=== PATIENT | female | born 1985 | race Caucasian/White ===

== ENCOUNTER 2022-07-21 17:12 | Emergency (ER) | payer OTHER, SELFPAY ==
[2022-07-21 17:32] VITALS: BP 165/92; PULSE 64; RESP 16; TEMP 36.6; O2SAT 100
--- NOTE | 2022-07-21 18:25 | ED.GENADULT ---
HPI - General Adult General Chief complaint: Upper Respiratory Infection Stated complaint: chills, bodyaches, congestion Source: patient Mode of arrival: ambulatory Limitations: no limitations History of Present Illness HPI narrative: Patient presents for evaluation of sick symptoms. She indicates she noticed some oral lesions last night and some white exudate in her posterior pharynx. She developed a headache which persisted until she took some tylenol just [employer]. She denies presence of cough, chills, nausea and diarrhea. Denies any fever or vomiting. Her son is here being evaluated for sick symptoms. Pt had confirmed diagnosis of COVID in August of this year and suspects she had it again in November of this year. She is diabetic but states home BS are controlled on metformin. Related Data Home Medications Medication Instructions Recorded Confirmed losartan 100 mg tablet 100 mg PO DAILY 05/29/20 06/15/20 meloxicam 15 mg tablet mg 07/21/22 rosuvastatin 5 mg tablet mg 07/21/22 spironolactone 50 mg tablet mg 07/21/22 trazodone 50 mg tablet mg 07/21/22 vilazodone 40 mg tablet mg 07/21/22 Allergies Allergy/AdvReac Type Severity Reaction Status Date / Time lisinopril Allergy Unknown unknown Verified 07/21/22 17:39 shrimp Allergy Unknown Skin Verified 07/21/22 17:39 Reaction SKIN GLUE Allergy Intermediate Rash Uncoded 07/21/22 17:39 BENZOIN Allergy Unknown Unknown Uncoded 07/21/22 17:39 Review of Systems Review of Systems: CONSTITUTIONAL: Reports chills. Denies fever, or sweats. EYES: Denies visual changes, redness, or discharge. ENT: Denies rhinorrhea, congestion, sore throat, or otalgia. CARDIOVASCULAR: Denies chest pain, palpitations, or edema. RESPIRATORY: Denies cough or dyspnea. GASTROINTESTINAL: Reports nausea and diarrhea. Denies abdominal pain and vomiting GENITOURINARY: Denies dysuria or hematuria. SKIN: Denies rash or itching. MUSCULOSKELETAL: Denies back pain, joint pain, or myalgia. NEUROLOGIC: Reports headache earlier, now resolved.numbness, dizziness, or weakness. PSYCHIATRIC: Denies anxiety or depression. [facility] Past Medical History Medical History Adult hypothyroidism Diabetes HTN (hypertension) Hyperlipidemia Surgical History Surgical History History of appendectomy History of Lower extremity surgery planned left leg, metal plate 2002 Family History Family History Mother Hypertension Family history of elevated blood lipids Family history of coronary artery disease Family history of cardiovascular disease Father Family history of thyroid disease Dementia Grandparent Family history of lung cancer Family history of primary malignant neoplasm of liver Social History Social History Smoking status: Never smoker Alcohol intake: never Substance use: unknown Living arrangements: with family Gender identity (if verbalized by the patient): Female Spiritual care concerns: No Exam Narrative: GENERAL: Well-appearing, well-nourished, and in no acute distress. HEAD: Normocephalic, atraumatic. EYES: PERRLA and EOMI. ENT: Nares clear, no rhinorrhea or epistaxis. Mucous membranes moist. Bilateral tonsillar enlargement with white/green exudate present. Uvula is midline. Bilateral TMs pearly bass nonbulging NECK: Supple. No adenopathy or masses. No carotid bruits or JVD CHEST: Clear to auscultation. No respiratory distress. No wheezes rales or rhonchi HEART: Regular rate and rhythm. No murmur heard. Normal peripheral pulses. ABDOMEN: Soft, nontender, nondistended, normal active bowel sounds. EXTREMITIES: Normal range of motion. No edema. SKIN: Warm, dry, no rash. NEURO: No focal deficits. Alert and oriented x3. PSY
== END 2022-07-21 18:58 | disposition home or self-care (01) ==
PROVIDERS: Emergency Provider Nurse Practitioner
DX: B34.9 Viral infection, unspecified (principal); E11.9 Type 2 diabetes mellitus without complications; I10 Essential (primary) hypertension; E78.5 Hyperlipidemia, unspecified; E03.9 Hypothyroidism, unspecified
CPT/HCPCS: 87081; 87804; 87880; 99213; G0463

== ENCOUNTER 2022-10-14 11:36 | Emergency (ER) | payer OTHER, SELFPAY ==
--- NOTE | 2022-10-14 11:55 | ED.URI ---
HPI - URI/Sore Throat General Chief Complaint: Upper Respiratory Infection Stated Complaint: diarrhea, loss of appetite, cough Time Seen by Provider: 10/14/22 12:47 Source: patient and RN notes reviewed Mode of arrival: ambulatory Limitations: no limitations History of Present Illness HPI Narrative: 37-year-old female presents concern for diarrhea, cough, loss of appetite for 6 days. Reports her son has similar symptoms. She denies fever, body aches, chills sweats. Reports some nasal congestion rhinorrhea. She denies taking any medicine at home for her symptoms MD elicited complaint: cough Related Data Home Medications Medication Instructions Recorded Confirmed losartan 100 mg tablet 100 mg PO DAILY 05/29/20 10/14/22 meloxicam 15 mg tablet 15 mg PO DAILY 07/21/22 10/14/22 rosuvastatin 5 mg tablet 5 mg PO DAILY 07/21/22 10/14/22 spironolactone 50 mg tablet 50 mg PO DAILY 07/21/22 10/14/22 trazodone 50 mg tablet 50 mg PO HS 07/21/22 10/14/22 vilazodone 40 mg tablet 40 mg PO DAILY 07/21/22 10/14/22 Allergies Allergy/AdvReac Type Severity Reaction Status Date / Time lisinopril Allergy Unknown unknown Verified 10/14/22 12:36 shrimp Allergy Unknown Skin Verified 10/14/22 12:36 Reaction SKIN GLUE Allergy Intermediate Rash Uncoded 10/14/22 12:36 BENZOIN Allergy Unknown Unknown Uncoded 10/14/22 12:36 Review of Systems Review of Systems: CONSTITUTIONAL: Reports malaise. Denies chills, sweats, or fever. EYES: Denies visual changes, redness, or discharge. ENT: Reports rhinorrhea, congestion. Denies sinus pain, otalgia and sore throat. CARDIOVASCULAR: Denies chest pain, palpitations, or edema. RESPIRATORY: Reports cough. Denies dyspnea. GASTROINTESTINAL: Denies abdominal pain, nausea, vomiting. Reports diarrhea SKIN: Denies rash or itching. MUSCULOSKELETAL: Denies myalgia. NEUROLOGIC: Denies headache. All systems reviewed & are unremarkable except as noted in HPI and below PMFSH Past Medical History Medical History Adult hypothyroidism Diabetes HTN (hypertension) Hyperlipidemia Surgical History Surgical History History of appendectomy History of Lower extremity surgery planned left leg, metal plate 2002 Family History Family History Mother Hypertension Family history of elevated blood lipids Family history of coronary artery disease Family history of cardiovascular disease Father Family history of thyroid disease Dementia Grandparent Family history of lung cancer Family history of primary malignant neoplasm of liver Social History Social History Smoking status: Never smoker Alcohol intake: never Substance use: unknown Living arrangements: with family Occupation/Education: unemployed Gender identity (if verbalized by the patient): Female Spiritual care concerns: No Comments At time of signature, agree with nursing past medical, surgical, social and family history. There is no relevant family history pertinent to the presenting complaint Exam Narrative: GENERAL: Well-appearing, well-nourished, and in no acute distress. HEAD: Normocephalic EYES: PERRLA, conjunctivae clear ENT: Nares clear, clear discharge. Mucous membranes moist. TM pearly bass with dull light reflex bilaterally; no tragal tenderness. Oropharynx not erythematous without lesions. Tonsils not enlarged and without exudate, no drooling, no hoarseness, no trismus, uvula midline. NECK: Supple. No lymphadenopathy CHEST: Clear to auscultation, breath sounds equal. No wheezing, rhonchi, rales, or stridor. No respiratory distress, speaks in full sentences. HEART: Regular rate and rhythm. No murmur heard. SKIN: Warm, dry, no rash. NEURO: Alert and oriented x3. PSYCH: Normal
[2022-10-14 12:28] VITALS: BP 126/88; PULSE 72; RESP 20; TEMP 36.3; O2SAT 98
[2022-10-14 12:40] VITALS: BP 126/88; PULSE 72; RESP 20; TEMP 36.3; O2SAT 98
== END 2022-10-14 13:24 | disposition home or self-care (01) ==
PROVIDERS: Emergency Provider Nurse Practitioner; PCP Nurse Practitioner Family
DX: J06.9 Acute upper respiratory infection, unspecified (principal); I10 Essential (primary) hypertension; E78.5 Hyperlipidemia, unspecified; E11.9 Type 2 diabetes mellitus without complications; Z79.1 Long term (current) use of non-steroidal anti-inflammatories (NSAID)
CPT/HCPCS: 99213; G0463

== ENCOUNTER 2023-02-06 22:51 | Emergency (ER) | payer OTHER, SELFPAY ==
--- NOTE | ~2023-02-06 | XR_ITS ---
AP and oblique views of the right ribs Clinical History: Pain Findings: No rib fracture is seen. Osseous alignment is anatomic. Lungs are clear, without focal cons olidation or pleural effusion. Cardiomediastinal contour is within normal limits. Soft tissues are un remarkable. Impression: No rib fracture is seen. Reviewed, dictated and finalized at [facility]. Impression: No rib fracture is seen.
[2023-02-06 22:52] VITALS: BP 152/95; PULSE 83; RESP 16; TEMP 36.4; O2SAT 100
[2023-02-07 02:10] VITALS: BP 160/98; PULSE 66; RESP 18; O2SAT 100
[2023-02-07] MEDS: IBUPROFEN 400 MG TABLET 800 MG PO (03:54)
[2023-02-07] MEDS: methocarbamoL 750 MG TABLET 1500 MG PO (03:54)
[2023-02-07] MEDS: ACETAMINOPHEN 500 MG TABLET 1000 MG PO (03:55)
[2023-02-07] MEDS: TETANUS,DIPHTHERIA,AC PERTUSSIS ADULT (0.5 ML) BOOSTRIX IM (03:55)
--- NOTE | 2023-02-07 04:19 | ED.GENADULT ---
HPI - General Adult General Chief complaint: Back Pain/Injury Stated complaint: pulled off porch by dog Time Seen by Provider: 02/07/23 01:57 History of Present Illness HPI narrative: this is a 38-year-old female presenting ED with right-sided pain. She was walking her dog when it pulled her off of her porch and she fell to the ground. She landed on her right side. She has some pain over the right ribcage. She has some pain with deep inspiration. No abdominal pain. No nausea or vomiting. No head trauma. He is not on blood thinners. Related Data Home Medications Medication Instructions Recorded Confirmed losartan 100 mg tablet 100 mg PO DAILY 05/29/20 10/14/22 meloxicam 15 mg tablet 15 mg PO DAILY 07/21/22 10/14/22 rosuvastatin 5 mg tablet 5 mg PO DAILY 07/21/22 10/14/22 spironolactone 50 mg tablet 50 mg PO DAILY 07/21/22 10/14/22 trazodone 50 mg tablet 50 mg PO HS 07/21/22 10/14/22 vilazodone 40 mg tablet 40 mg PO DAILY 07/21/22 10/14/22 Allergies Allergy/AdvReac Type Severity Reaction Status Date / Time lisinopril Allergy Unknown unknown Verified 02/07/23 02:08 shrimp Allergy Unknown Skin Verified 02/07/23 02:08 Reaction SKIN GLUE Allergy Intermediate Rash Uncoded 02/07/23 02:08 BENZOIN Allergy Unknown Unknown Uncoded 02/07/23 02:08 REPLACED BY [facility] Past Medical History Medical History Adult hypothyroidism Diabetes HTN (hypertension) Hyperlipidemia Surgical History Surgical History History of appendectomy History of Lower extremity surgery planned left leg, metal plate 2002 Family History Family History Mother Hypertension Family history of elevated blood lipids Family history of coronary artery disease Family history of cardiovascular disease Father Family history of thyroid disease Dementia Grandparent Family history of lung cancer Family history of primary malignant neoplasm of liver Social History Social History Smoking status: Never smoker Alcohol intake: never Substance use: unknown Living arrangements: with family Occupation/Education: unemployed Gender identity (if verbalized by the patient): Female Spiritual care concerns: No Exam Narrative: APPEARANCE: No apparent distress. Head: atraumatic. EYES: EOMI, NOSE: Atraumatic NECK: Trachea midline RESPIRATORY: No increased rate of breathing clear to auscultation CARDIOVASCULAR: RRR, ABDOMINAL: abdomen is obese but nontender no guarding or rebound MUSCULOSKELETAl: tenderness to palpation over the right ribcage NEURO: Alert. Moving 4/4 extremities SKIN:: abrasions over the right lateral calf PSYCHIATRIC: Normal affect Course Vital Signs Vital signs: Vital Signs Temperature 97.6 F 02/06/23 22:52 Pulse Rate 83 02/06/23 22:52 Respiratory Rate 16 02/06/23 22:52 Blood Pressure 152/95 H 02/06/23 22:52 Pulse Oximetry 100 02/06/23 22:52 Oxygen Delivery Room Air 02/06/23 22:52 Temperature 97.6 F 02/06/23 22:52 Pulse Rate 72 02/07/23 05:57 Respiratory Rate 15 02/07/23 05:57 Blood Pressure 138/80 02/07/23 05:57 Pulse Oximetry 97 02/07/23 05:57 Oxygen Delivery Room Air 02/06/23 22:52 Medical Decision Making [facility] Narrative Medical decision making narrative: -Presentation: 38-year-old female presenting with a ground level fall after being pulled Down by her dog. She has tenderness over the right ribcage. X-rays been ordered to evaluate for rib fractures or sequelae. 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
[2023-02-07 05:57] VITALS: BP 138/80; PULSE 72; RESP 15; O2SAT 97
[2023-02-07 06:36] VITALS: BP 134/76; PULSE 70; RESP 16; O2SAT 99
== END 2023-02-07 06:37 | disposition home or self-care (01) ==
PROVIDERS: Emergency Provider Emergency Medicine; PCP Nurse Practitioner Family
DX: S20.211A Contusion of right front wall of thorax, initial encounter (principal); Z23 Encounter for immunization; I10 Essential (primary) hypertension; E11.9 Type 2 diabetes mellitus without complications; E03.9 Hypothyroidism, unspecified; E78.5 Hyperlipidemia, unspecified; W13.8XXA Fall from, out of or through other building or structure, initial encounter; Y93.K1 Activity, walking an animal
CPT/HCPCS: 71101; 90471; 90715; 99283; A9270

== ENCOUNTER 2023-11-14 09:54 | Outpatient (CLI) | payer OTHER, SELFPAY ==
--- NOTE | ~2023-11-14 | XR_ITS ---
EXAMINATION:XR cervical spine 4-5V DATE: 11/14/2023 10:15 INDICATION: Neck pain TECHNIQUE: AP, lateral, bilateral oblique and odontoid views of the cervical spine are provided. COMPARISON: None FINDINGS: Alignment is normal. The odontoid process is intact. No fracture is identified. There is mo derate loss of intervertebral disc space height at C5-6. There is mild loss of disc space height thro ughout the remainder of the cervical spine. There are moderate-sized endplate osteophytes at C5-6. Pr evertebral soft tissues are normal. There is moderate bilateral uncovertebral joint osteoarthritis at C5-6. IMPRESSION: 1. Moderate cervical spondylosis at C5-6 without acute findings. Reviewed, dictated and finalized at location A.
== END 2023-11-14 09:55 | disposition home or self-care (01) ==
PROVIDERS: PCP Family Medicine; Visit Provider Family Medicine
DX: M47.892 Other spondylosis, cervical region (principal)
CPT/HCPCS: 72050

== ENCOUNTER 2024-01-21 14:45 | Outpatient (CLI) | payer OTHER, SELFPAY ==
--- NOTE | ~2024-01-21 | XR_ITS ---
Right foot Technique: AP, oblique, and lateral views were obtained. Clinical History: Pain Findings: No acute fracture or dislocation is seen. Osseous alignment is anatomic. There are degenera tive change dorsally at the talonavicular articulation. Soft tissues are unremarkable. Impression: Degenerative change of the talonavicular articulation, as above. Reviewed, dictated and finalized at location . Impression: Degenerative change of the talonavicular articulation, as above.
== END 2024-01-21 14:46 | disposition home or self-care (01) ==
LOC: ANHIMG 14:47
PROVIDERS: PCP Family Medicine; Visit Provider Student in an Organized Health Care Education/Training Program
DX: M19.071 Primary osteoarthritis, right ankle and foot (principal)
CPT/HCPCS: 73630

== ENCOUNTER 2024-09-24 14:58 | Outpatient (CLI) | payer OTHER, SELFPAY ==
--- OUTSIDE RECORDS SUMMARY | 2024-09-24 15:01 | XMS_ITS | Encounter Summary ---
Author Organization [facility] Address [address] [place] [address] Care Team Providers Care Database Programmer Name Role Phone Unavailable Primary Care Provider Unavailabl e Encounter Details Date Type Department Care Team (Late st Contact Info) Description 12/12/2020 Telephone [facility] [address] [place] [address] Cole Villanueva MD [address] [place] [id number] Social History Tobacco Use Types Packs/Day Years Used Date Smoking Tobacco: Never Assessed Sex and Gender Information Value Date Recorded Sex Assigned at Not on file Gender Identity Not on file Sexual Orientation Not on file documented as of this encounter Plan of Treatment Not on file documented as of this encounter Visit Diagnoses Not on filedocumented in this encounter
--- OUTSIDE RECORDS SUMMARY | 2024-09-24 15:01 | XMS_ITS | Encounter Summary ---
Author Organization [facility] Address [address] [place] [address] Care Team Providers Care Section Maintainer Name Role Phone Heidi Samuel MD Primary Care Provider [phone] Reason for Visit * Reason Comments Flu Like Symptoms Encounter Details Date Type Department Care Team (Late st Contact Info) Description 09/23/2024 8:29 PM SENIOR COGNOS DEVELOPER - 09/23/2024 11:49 PM SENIOR COGNOS DEVELOPER Emergency [facility] [id number] [place] [address] Shabbir Boo MD [address] [place] [id number] Flu Like Symptoms Discharge Disposition: Home or Self Care (Routine Discharge) Social History Tobacco Use Types Packs/Day Years Used Date Smoking Tobacco: Never Smokeless Tobacco: Never Alcohol Use Standard Drinks/Week Comments Not Currently 0 (1 standard drink = 0.6 oz pur e alcohol) Comments No Sex and Gender Information Value Date Recorded Sex Assigned at Female 09/23/2024 8:26 PM SENIOR COGNOS DEVELOPER Legal Sex Female 7:41 PM CDT Gender Identity Not on file Sexual Orientation Not on file documented as of this encounter Last Filed Vital Signs Vital Sign Reading Time Taken Comments Blood Pressure 151/108 09/23/2024 11:30 PM SENIOR COGNOS DEVELOPER Pulse 75 09/23/2024 11:30 PM SENIOR COGNOS DEVELOPER Temperature 36.3 C (97.4 F) 09/23/2024 8:32 PM SENIOR COGNOS DEVELOPER Respiratory Rate 17 09/23/2024 11:30 PM SENIOR COGNOS DEVELOPER Oxygen Saturation 94% 09/23/2024 11:30 PM SENIOR COGNOS DEVELOPER Inhaled Oxygen Concentration - - Weight 145.2 kg (320 lb) 09/23/2024 8:32 PM SENIOR COGNOS DEVELOPER Height 160 cm (5' 3 ) 09/23/2024 8:32 PM SENIOR COGNOS DEVELOPER Body Mass Index 56.69 09/23/2024 8:32 PM SENIOR COGNOS DEVELOPER documented in this encounter Discharge Instructions * Discharge Instructions* Shabbir Boo MD - 09/23/2024 11:22 PM SENIOR COGNOS DEVELOPER The lab work today showed an elevated blood glucose but no significant complications from it including DKA or anything else. The chest x-ray did not show signs of pneumonia. The viral swabs for influenza, COVID were both negative. Continue taking your medications for diabetes as prescribed. Follow-up with your primary care provider physician to discuss your occasion regimen for diabetes and to recheck your blood glucose. Return to the emergency department if you have worsening or concerning symptoms. OR COGNOS DEVELOPER OR COGNOS DEVELOPER * Attachments The following attachments cannot be sent through Care Everywhere. * High Blood Sugar, Adult (Colombian) * Viral Syndrome Discharge Instructions (Colombian) documented in this encounter Medications at Time of Discharge Docusate Sodium (DSS) 250 MG Cap Take 250 mg by mouth daily. hydroCHLOROthiaz moses (MICROZIDE) 12.5 MG capsule Take 1 capsule (12.5 mg total) by mouth daily. 02/28/2022 hydrocortisone 2.5 % cream Apply topically 3 (three) times daily. 30 g 02/22/2024 levothyroxine (SYNTHROID) 112 MCG tablet Take 1 tablet (112 mcg total) by mouth daily. 02/08/2022 losartan (COZAAR) 50 MG tablet Take 1 tablet (50 mg total) by mouth daily. 06/13/2021 meloxicam (MOBIC) 7.5 MG tablet Take 1 tablet (7.5 mg total) by mouth 2 (two) times a day. 08/16/2021 metFORMIN (GLUCOPHAGE) 500 MG tablet Take 1 tablet (500 mg total) by mouth 2 (two) times daily with meals. metroNIDAZOLE (FLAGYL) 500 MG tablet Take 1 tablet (500 mg total) by mouth 3 (three) times a day. 03/22/2022 multi vitamin/minerals (THERA-M ENHANCED) tablet Take 1 tablet by mouth daily. rosuvastatin (CRESTOR) 5 MG tablet Take 1 tablet (5 mg total) by mouth every other day. 09/26/2020 spironolactone (ALDACTONE) 50 MG tablet Take 1 tablet (50 mg total) by mouth daily. 02/12/2022 VIIBRYD 40 MG tablet Take 0.5 tablets (20 mg total) by mouth nightly. 02/04/2022 vitamin B-12 (CYANOCOBALAMIN) 500 MCG tablet Take 1 tablet (500 mcg total) by mouth daily. vitamin D3 (CHOLECALCIFEROL ) 25 mcg tablet Take 1 tablet (25 mcg total) by mouth daily. documented as of this encounter ED Notes * Shabbir Boo MD - 09/23/2024 8:53 PM CST Chief Complaint Chief Complaint Patient presents with Flu Like Symptoms History of Present Illness 39-year-old female with history of diabetes here with viral URI symptoms. Symptoms have been present for about 1 week. Patient states she has had polydipsia for the past few days as well. Says sugarshave been running high. History provided by: Patient Medical History ALLERGIES: Review of patient's allergies indicates: Allergen Reactions Cyanoacrylate Rash Neomycin-Bacitracin Zn-Polymyx Rash Chloraprep One Step [Chlorhexidine Gluconate] Hives and Itching Iodine Hives Sulfamethoxazole-Trimethoprim Other (see comment) it makes me not feel good Bacitracin-Polymyxin B Rash MEDICATIONS: Prior to Admission medications Medication Sig Start Date End Date Taking? Authorizing Provider Docusate Sodium (DSS) 250 MG Cap Take 250 mg by mouth daily. [facility] hydroCHLOROthiazide (MICROZIDE) 12.5 MG capsule Take 1 capsule (12.5 mg total) by mouth daily. 02/28/22 [facility] hydrocortisone 2.5 % cream Apply topically 3 (three) times daily. 02/22/24 Gerri Latif MD levothyroxine (SYNTHROID) 112 MCG tablet Take 1 tablet (112 mcg total) by mouth daily. 02/08/22 [facility] losartan (COZAAR) 50 MG tablet Take 1 tablet (50 mg total) by mouth daily. 06/13/21 [facility] meloxicam (MOBIC) 7.5 MG tablet Take 1 tablet (7.5 mg total) by mouth 2 (two) times a day. 08/16/21[facility] metFORMIN (GLUCOPHAGE) 500 MG tablet Take 1 tablet (500 mg total) by mouth 2 (two) times daily withmeals. [facility] metroNIDAZOLE (FLAGYL) 500 MG tablet Take 1 tablet (500 mg total) by mouth 3 (three) times a day. 03/22/22 [facility] multi vitamin/minerals (THERA-M ENHANCED) tablet Take 1 tablet by mouth daily. [facility] rosuvastatin (CRESTOR) 5 MG tablet Take 1 tablet (5 mg total) by mouth every other day. 09/26/20 [facility] spironolactone (ALDACTONE) 50 MG tablet Take 1 tablet (50 mg total) by mouth daily. 02/12/22 [facility] VIIBRYD 40 MG tablet Take 0.5 tablets (20 mg total) by mouth nightly. 02/04/22 [facility] vitamin B-12 (CYANOCOBALAMIN) 500 MCG tablet Take 1 tablet (500 mcg total) by mouth daily. [facility] vitamin D3 (CHOLECALCIFEROL) 25 mcg tablet Take 1 tablet (25 mcg total) by mouth daily. [facility] PAST MEDICAL HISTORY: Past Medical History: Diagnosis Date Anxiety disorder, unspecified Diabetes mellitus ([facility]/HCC [facility]/HCC) Essential (primary) hypertension High cholesterol Hypothyroidism, unspecified PAST SURGICAL HISTORY: Past Surgical History: Procedure Laterality Date APPENDECTOMY 1999 SECTION 2019 ORIF TIBIAL SHAFT FRACTURE W/ PLATES AND SCREWS Left 2002 ankle UMBILICAL HERNIA REPAIR 2020 FAMILY HISTORY: No family history on file. SOCIAL HISTORY: Social History Tobacco Use Smoking status: Never Smokeless tobacco: Never Vaping Use Vaping status: Never Used Substance Use Topics Alcohol use: Not Currently Drug use: Not Currently Review of Systems Review of Systems All other systems reviewed and are negative. Physical Exam Filed Vitals: 09/23/24 2032 09/23/24 2034 09/23/24 2200 09/23/24 2330 BP: (!) 160/89 (!) 138/95 (!) 151/108 Pulse: 90 87 75 Resp: 18 17 Temp: 97.4 ??F (36.3 ??C) TempSrc: Temporal SpO2: 96% 95% 94% Weight: (!) 145.2 kg (320 lb) Height: 1.6 m (5' 3 ) Physical Exam Vitals and nursing note reviewed. Constitutional: General: She is not in acute distress. Appearance: Normal appearance. She is ill-appearing. She is not toxic-appearing or diaphoretic. HENT: Head: Normocephalic and atraumatic. Right Ear: External ear normal. Left Ear: External ear normal. Nose: Nose normal. Mouth/Throat: Mouth: Mucous membranes are moist. Pharynx: Oropharynx is clear. No oropharyngeal exudate. Eyes: Conjunctiva/sclera: Conjunctivae normal. Pupils: Pupils are equal, round, and reactive to light. Cardiovascular: Rate and Rhythm: Normal rate and regular rhythm. Pulses: Normal pulses. Heart sounds: Normal heart sounds. No murmur heard. Pulmonary: Effort: Pulmonary effort is normal. Breath sounds: Normal breath sounds. Abdominal: Palpations: Abdomen is soft. Tenderness: There is no abdominal tenderness. Musculoskeletal: General: Normal range of motion. Right lower leg: No edema. Left lower leg: No edema. Skin: General: Skin is warm and dry. Capillary Refill: Capillary refill takes less than 2 seconds. Neurological: General: No focal deficit present. Mental Status: She is alert and oriented to person, place, and time. Diagnostic Studies / Procedures ELECTROCARDIOGRAMS: No results found for this visit on 09/23/24. LABORATORY STUDIES: Results for orders placed or performed during the hospital encounter of 09/23/24 BASIC METABOLIC PANEL Result Value Ref Range GLUCOSE 567 (HH) 70 - 99 MG/DL BUN 14 7 - 18 MG/DL CREATININE S/P/B 1.24 (H) 0.55 - 1.02 MG/DL SODIUM S/P/B 127 (L) 136 - 145 MMOL/L POTASSIUM S/P/B 4.0 3.5 - 5.1 MMOL/L CHLORIDE S/P/B 90 (L) 100 - 108 MMOL/L CO2 23.4 21 - 32 MMOL/L CALCIUM S/P/B 9.5 8.5 - 10.1 MG/DL ANION GAP 13.6 5 - 15 MMOL/L BUN CREATININE RATIO 11.3 6 - 26 GFR ESTIMATE 57 (L) >90 ML/MIN/1.73 M2 POCT glucose Result Value Ref Range GLUCOSE POC 496 (H) 70 - 110 mg/dL CORONAVIRUS (COVID-19) MOLECULAR Specimen: NASOPHARYNGEAL SWAB Result Value Ref Range CORONAVIRUS SARS COV 2 RNA NEGATIVE NEGATIVE SPECIMEN TYPE NASAL INFLUENZA A & B Specimen: NASAL Result Value Ref Range SPECIMEN TYPE NASOPHARYNX INFLUENZA A NEGATIVE NEGATIVE INFLUENZA B NEGATIVE NEGATIVE RESP SYNCYTIAL VIRUS Specimen: NASOPHARYNGEAL SWAB Result Value Ref Range SPECIMEN TYPE NASOPHARYNGEAL SWAB RAPID RSV NEGATIVE NEGATIVE IMAGING STUDIES XR CHEST PA+LAT Final Result by User, [id number] (09/23 2131) [facility] [address] [address] [place] [id number] Examination: Chest 2 View History: Cough, fever DATE/TIME: 09/23/2024 8:58 PM Comparison: 05/28/2021 Technique: PA and lateral views were obtained. Findings: Heart size, mediastinal contours and pulmonary vasculature are within normal limits. No pulmonary consolidation, pleural effusion or pneumothorax. No acute osseous abnormality. Thoracic spondylosis. Impression: No acute findings. Referred By: Interpreted By: Gustavo Chua MD, 09/23/2024 9:22 PM ED Course / Medical Decision Making Medical Decision Making Labs show hyperglycemia but no evidence of DKA or HHS or other significant complications associatedwith hyperglycemia. Given liter of normal saline and dose of insulin. Advised patient to follow-up with her primary care provider physician to discuss her medication regimen for diabetes. Problems Addressed: Hyperglycemia: acute illness or injury Viral URI with cough: acute illness or injury Amount and/or Complexity of Data Reviewed Labs: ordered. Decision-making details documented in ED Course. Radiology: ordered and independent interpretation performed. Decision-making details documented in ED Course. ED Course as of 09/23/24 2345 Madhavi Sep 23, [id number] CORONAVIRUS SARS COV 2 RNA: NEGATIVE [JH] 2119 CORONAVIRUS SARS COV 2 RNA: NEGATIVE [JH] 2119 INFLUENZA A: NEGATIVE [JH] 212 INFLUENZA B: NEGATIVE [JH] 2119 RAPID RSV: NEGATIVE [] 221 GLUCOSE POC(!): 496 [JH] 2311 ANION GAP: 13.6 [JH] 2311 CO2: 23.4 [] 2311 BASIC METABOLIC PANEL(!!) Hyperglycemic but not consistent with DKA [] 2311 CREATININE S/P/B(!): 1.24 Mild LALITHA [] 2338 SODIUM S/P/B(!): 127 Corrected Na 137 [JH] ED Course User Index [] Shabbir Boo MD Clinical Impression Hyperglycemia (Primary) Viral URI with cough Disposition: Discharge Shabbir Boo MD 09/23/242344 OR COGNOS DEVELOPER * Sari Crocker RN - 09/23/2024 8:29 PM CST Pt presents to ED with complaints of congestion, fatigue, body aches, cough, intermittent fevers and sore throat. Pt reports symptoms started about 8 days ago and everyone in her household has influenza A. OR COGNOS DEVELOPER documented in this encounter Plan of Treatment Not on file documented as of this encounter Procedures Procedure Name Priority Date/Time Associated Diagnosis Comments POCT GLUCOSE - SANTANA DOCKED DEVICE Routine 09/23/2024 11:45 PM SENIOR COGNOS DEVELOPER BASIC METABOLIC PANEL STAT 09/23/2024 10:20 PM SENIOR COGNOS DEVELOPER POCT GLUCOSE - SANTANA DOCKED DEVICE Routine 09/23/2024 10:11 PM SENIOR COGNOS DEVELOPER XR CHEST PA+LAT STAT 09/23/2024 9:12 PM SENIOR COGNOS DEVELOPER CORONAVIRUS (COVID 19) STAT 09/23/2024 8:33 PM SENIOR COGNOS DEVELOPER INFLUENZA A & B STAT 09/23/2024 8:33 PM SENIOR COGNOS DEVELOPER RESP SYNCYTIAL VIRUS STAT 09/23/2024 8:33 PM SENIOR COGNOS DEVELOPER documented in this encounter Results * (ABNORMAL) POCT glucose (09/23/2024 11:45 PM SENIOR COGNOS DEVELOPER) GLUCOSE POC 415(H) 70 - 110 mg/dL 09/23/2024 11:49 PM [facility] 09/23/2024 11:4 5 PM SENIOR COGNOS DEVELOPER Shabbir Boo MD POCT ORDERABLES - DEVICE Final R esult [facility] [address] [place] [address], * (ABNORMAL) BASIC METABOLIC PANEL (09/23/2024 10:20 PM SENIOR COGNOS DEVELOPER) [facility] GLUCOSE 567(HH) 70 - 99 MG/DL 09/23/2024 11:10 PM [facility] Comment: Critical Result(s) Called at: 23:09:39 on 09/23/2024 by: INDU ZEPEDA to and read back by: JAS LAROSE RN BUN 14 7 - 18 MG/DL 09/23/2024 11:10 PM [facility] CREATININE S/P/B 1.24(H) 0.55 - 1.02 MG/DL 09/23/2024 11:10 PM [facility] SODIUM S/P/B 127(L) 136 - 145 MMOL/L 09/23/2024 11:10 PM [facility] POTASSIUM S/P/B 4.0 3.5 - 5.1 MMOL/L 09/23/2024 11:10 PM [facility] CHLORIDE S/P/B 90(L) 100 - 108 MMOL/L 09/23/2024 11:10 PM [facility] CO2 23.4 21 - 32 MMOL/L 09/23/2024 11:10 PM [facility] CALCIUM S/P/B 9.5 8.5 - 10.1 MG/DL 09/23/2024 11:10 PM SENIOR COGNOS DEVELOPER [facility] ANION GAP 13.6 5 - 15 MMOL/L 09/23/2024 11:10 PM [facility] BUN CREATININE RATIO 11.3 6 - 26 09/23/2024 11:10 PM [facility] GFR ESTIMATE 57(L) >90 ML/MIN/1.7 3 M2 09/23/2024 11:10 PM [facility] Comment: NOTE: eGFR is not calculated for patients <18 years of age. This is an estimated GFR calculation using the new CKD EPI creatinine equation without race and so does not require a correction factor for race. This estimated GFR should not be used for calculating drug doses. 09/23/2024 10:2 0 PM SENIOR COGNOS DEVELOPER us Shabbir Boo MD LABORATORY Final Result Performing Organization Address [facility]/ZIP Co de Phone Number [facility] [address] [place] [address], [place] [phone] * (ABNORMAL) POCT glucose (09/23/2024 10:11 PM SENIOR COGNOS DEVELOPER) [facility] GLUCOSE POC 496(H) 70 - 110 mg/dL 09/23/2024 10:13 PM SENIOR COGNOS DEVELOPER [facility] 09/23/2024 10:1 1 PM SENIOR COGNOS DEVELOPER us Shabbir Boo MD POCT ORDERABLES - DEVICE Final R esult Performing Organization Address City/[facility]/ZIP Co de Phone Number [facility] [address] [place] [address], [place] [phone] * XR CHEST PA+LAT (09/23/2024 9:12 PM SENIOR COGNOS DEVELOPER) Anatomical Region Laterality Modality Chest Radiographic Alyssa ging 09/23/2024 9:22 PM SENIOR COGNOS DEVELOPER Impressions 09/23/2024 9:27 PM SENIOR COGNOS DEVELOPER Impression: No acute findings. Referred By: Interpreted By: Gustavo Chua MD, 09/23/2024 9:22 PM Narrative 09/23/2024 9:27 PM SENIOR COGNOS DEVELOPER [address] [place] [address] Examination: Chest 2 View History: Cough, fever DATE/TIME: 09/23/2024 8:58 PM Comparison: 05/28/2021 Technique: PA and lateral views were obtained. Findings: Heart size, mediastinal contours and pulmonary vasculature are within normal limits. No pulmonary consolidation, pleural effusion or pneumothorax. No acute osseous abnormality. Thoracic spondylosis. Procedure Note Gustavo Chua MD - 09/23/[address] [place] [address] Examination: Chest 2 View History: Cough, fever DATE/TIME: 09/23/2024 8:58 PM Comparison: 05/28/2021 Technique: PA and lateral views were obtained. Findings: Heart size, mediastinal contours and pulmonary vasculature arewithin normal limits. No pulmonary consolidation, pleural effusion orpneumothorax. No acute osseous abnormality. Thoracic spondylosis. Impression: No acute findings. Referred By: Interpreted By: Gustavo Chua MD, 09/23/2024 9:22 PM us Shabbir Boo MD GENERAL IMAGING Final Result * RESP SYNCYTIAL VIRUS (09/23/2024 8:33 PM SENIOR COGNOS DEVELOPER) SPECIMEN TYPE NASOPHARYNGEAL SWAB 09/23/2024 8:55 PM SENIOR COGNOS DEVELOPER [facility] RAPID RSV NEGATIVE NEGATIVE 09/23/2024 9:15 PM SENIOR COGNOS DEVELOPER [facility] NASOPHARYNGEAL SWAB / Unknown 09/23/2024 8:33 PM SENIOR COGNOS DEVELOPER us Shabbir oBo MD MICROBIOLOGY - GENERAL ORDERABLE S Final Result Performing Organization Address [facility] Co de Phone Number [facility] [address] [place] [address], * INFLUENZA A & B (09/23/2024 8:33 PM SENIOR COGNOS DEVELOPER) SPECIMEN TYPE NASOPHARYNX 09/23/2024 9:15 PM SENIOR COGNOS DEVELOPER [facility] INFLUENZA A NEGATIVE NEGATIVE 09/23/2024 9:15 PM SENIOR COGNOS DEVELOPER [facility] INFLUENZA B NEGATIVE NEGATIVE 09/23/2024 9:15 PM SENIOR COGNOS DEVELOPER [facility] NASAL STRUCTURE / Unknown 09/23/2024 8:33 PM SENIOR COGNOS DEVELOPER us Shabbir Boo MD MICROBIOLOGY - GENERAL ORDERABLE S Final Result Performing Organization Address [facility] de Phone Number [facility] [address] [place] [address], [place] [phone] * CORONAVIRUS (COVID-19) MOLECULAR (09/23/2024 8:33 PM SENIOR COGNOS DEVELOPER) CORONAVIRUS SARS COV 2 RNA NEGATIVE NEGATIVE 09/23/2024 9:13 PM SENIOR COGNOS DEVELOPER [facility] Comment: NEGATIVE RESULTS DO NOT RULE OUT COVID 19 AND SHOULD NOT BE USED THE SOLE BASIS FOR TREATMENT OR PATIENT MANAGEMENT DECISIONS, INCLUDING INFECTION CONTROL DECISIONS. NEGATIVE RESULTS SHOULD BE CONSIDERED IN THE CONTEXT OF A PATIENT'S RECENT EXPOSURES, HISTORY AND THE PRESENCE OF CLINICAL SIGNS AND SYMPTOMS CONSISTENT WITH COVID 19. THE ID NOW COVID-19 2.0 TEST HAS BEEN AUTHORIZED BY THE FDA UNDER EAU FOR USE BY AUTHORIZED LABORATORIES. PERFORMED BY NUCLEIC ACID AMPLIFICATION FOR MOLECULAR QUALITATIVE DETECTION OF SARS-COV-2. SPECIMEN TYPE NASAL 09/23/2024 8:55 PM SENIOR COGNOS DEVELOPER [facility] NASOPHARYNGEAL SWAB / Unknown 09/23/2024 8:33 PM SENIOR COGNOS DEVELOPER us Shabbir Boo MD MICROBIOLOGY - GENERAL ORDERABLE S Final Result [facility] [address] [place] [address], [place] [phone] documented in this encounter Visit Diagnoses Diagnosis Hyperglycemia- Primary Other abnormal glucose Viral URI with cough Acute upper respiratory infections of unspecified site documented in this encounter Administered Medications Inactive Administered Medications - up to 3 most recent administrations Medication Order MAR Action Action Date Dose Rate Site insulin regular (NOVOLIN R/HUMULIN R) injection 10 Units 10 Units, Subcutaneous, Once, 1 dose, On Madhavi 09/23/24 at 2315, For sliding scale, activate Sliding Scale Insulin order set. Given 09/23/2024 11:16 PM SENIOR COGNOS DEVELOPER 10 Units Right Lower Abdomen sodium chloride 0.9% bolus infusion 1,000 mL 1,000 mL, Intravenous, Administer over 60 Minutes, Once, 1 dose, On Madhavi 09/23/24 at 2230 New Bag 09/23/2024 10:26 PM SENIOR COGNOS DEVELOPER 1,000 mLs 1000 mL/hr documented in this encounter Active and Recently Administered Medications Times are shown in SENIOR COGNOS DEVELOPER. Scheduled Medication Order 09/21/2024 09/22/2024 09/23/2024 insulin regular (NOVOLIN R/HUMULIN R) injection 10 Units (COMPLETED) 10 Units, Subcutaneous, Once, 1 dose, On Madhavi 09/23/24 at 2315, For sliding scale, activate Sliding Scale Insulin order set. 2316 (Given - Provid er: Sari Crocker RN) sodium chloride 0.9% bolus infusion 1,000 mL (COMPLETED) 1,000 mL, Intravenous, Administer over 60 Minutes, Once, 1 dose, On Madhavi 09/23/24 at 2230 2226 (New Bag - Prov ider: Sari Crocker RN)2316 (Infusion Stop Time - Provider: Sari Crocker RN) documented in this encounter Additional Health Concerns Infection Onset Date Last Indicated Resolved Time COVID-19 Rule Out 09/23/2024 09/23/2024 09/23/2024 9:13 PM SENIOR COGNOS DEVELOPER documented as of this encounter Care Teams Section Maintainer Relationship Specialty Start Date End Date Heidi Samuel MD [address] [place] [address] PCP - General 02/22/24 documented as of this encounter
--- OUTSIDE RECORDS SUMMARY | 2024-09-24 15:01 | XMS_ITS | CONTINUITY OF CARE DOCUMENT ---
Author Name nichole varela Address Unknown Organization [facility] Address [address] [place] [address] Phone [phone] Care Team Providers Care Thoracic Medicine Specialist Name Role Phone Kate BOSCH, Jonathan Unavailable [phone] MURTAZA DIAS Unavailable [phone] MURTAZA DIAS Unavailable [phone] PROBLEMS Condition Status Date Provider Notes Leg pain, unspecified active Jonathan lopez MD Multiple fractures of ribs, unspecified side, subsequent encounter for fracture with routine healing active Jonathan Love MD PREDIABETES; active Erasmo Braswell MD IRON DEFICIENCY active Erasmo Braswell MD nml b12 Hyperlipidemia;with high crp active Erasmo Braswell MD Obesity active Erasmo Braswell MD PVC's active Erasmo Braswell MD Diabetes mellitus, type 2 completed 09/20 - Erasmo Braswell MD Hypothyroidism active Erasmo Braswell MD HTN essential;NEG DUPLEX active Erasmo skaggs MD Anxiety disorder active Erasmo Braswell MD Exposure to SARS-associated coronavirus;neg igg completed - Ron Paulino Shortness of breath active Juan Pablo Nacht Mold exposure active Juan Pablo Nacht Palpitations active Ron Paulino ENCOUNTERS Date Type Provider Location Encounter Diag nosis - In-person encounter Office Visit Jonathan Love MD [facility] Palpitations - In-person encounter Office Visit Jonathan Love MD [facility] - In-person encounter Office Visit Jonathan Love MD [facility] Shortness of breathMold exposure - In-person encounter Office Visit Erasmo Braswell MD [facility] Diabetes mellitus, type 2 - In-person encounter Office Visit Erasmo Braswell MD [facility] HypothyroidismHTN essential;NEG DUPLEXAnxiety disorderExposure to SARS-associated coronavirus;neg igg VITAL SIGNS Date Observation Value Provider blood pressure, diastolic 75 mm[Hg] Or gavin Moline blood pressure, systolic 122 mm[Hg] [facility] gonzalo Bahena oxygen saturation, oximetry 97 % Chantal Bahena pulse rate 79 /min Chantal fuller respiratory rate E&M 16 /min Hyacinth ng Moline blood pressure, cuff size large Or gavin Marshand height E&M 63 [in_i] Chantal fuller Body Mass Index (Ratio) 56.33 kg/m2 Taew on David blood pressure, cuff size large Ke rri Yvonne blood pressure, diastolic 80 mm[Hg] Ke rri Yvonne blood pressure, systolic 130 mm[Hg] Vernon Russell oxygen saturation, oximetry 99 % Iman Russell respiratory rate E&M 16 /min Iman moya pulse rate 66 /min Iman coy weight E&M 318 [lb_av] Iman coy height E&M 63 [in_i] Iman Gruenenfe er Body Mass Index (Ratio) 57.74 kg/m2 Tod Love MD blood pressure, cuff size large Ke rri Gruenenfelder blood pressure, diastolic 100 mm[Hg] Ke rri Gruenenfelder blood pressure, systolic 150 mm[Hg] Ker ri Gruenenfelder oxygen saturation, oximetry 98 % Iman Gruenenfelder respiratory rate E&M 16 /min Iman G ruenenfelder pulse rate 69 /min [facility] weight E&M 326 [lb_av] [facility]man [facility] height E&M 63 [in_i] [facility]man [facility] Body Mass Index (Ratio) 62.52 kg/m2 Matt Braswell MD blood pressure, cuff size large Ke rri Gruenenfelder blood pressure, diastolic 72 mm[Hg] Ke rri Gruenenfelder blood pressure, systolic 110 mm[Hg] Ker ri Gruenenfelder oxygen saturation, oximetry 98 % Iman Gruenenfelder respiratory rate E&M 16 /min Iman G ruenenfelder pulse rate 82 /min [facility]man [facility] weight E&M 353 [lb_av] Iman [facility] height E&M 63 [in_i] Iman [facility] weight E&M 346 [lb_av] Germaine Novoa Body Mass Index (Ratio) 61.28 kg/m2 Matt Braswell MD blood pressure, resting Yes Cynt tanesha Atkinson blood pressure, diastolic 82 mm[Hg] Cy heath Atkinson blood pressure, systolic 141 mm[Hg] Dionna Atkinson blood pressure, cuff size regular Cy nthiangelia Atkinson respiratory rate E&M 16 /min Nanette Atkinson pulse rate 67 /min Nanette chavez oxygen saturation, oximetry 96 % Nanette Atkinson height E&M 63 [in_i] Nanette chavez weight E&M 346 [lb_av] Nanette chavez ALLERGIES Allergy Name Onset Date Reaction Criticality Status LIPITOR Low Criticality active TOPAMAX High Criticality active BACTRIM Low Criticality active NEOSPORIN Low Criticality active RESULTS Date Observation Value Provider Reference Range Interpretation Location magnesium, serum 1.8 mg/dL [facility] 1.6-2.3 thyroid stimulating hormone, serum 3.230 u[IU]/mL [facility] 0.450-4.500 basophil count, absolute 0.1 x10E3/uL [facility] 0.0-0.2 Eosinophil Absolute Count 0.3 X10E3/UL [facility] 0.0-0.4 monocyte count, blood, automated 0.6 X10E3/UL [facility] 0.1-0.9 lymphocyte count, blood, automated 2.3 X10E3/UL [facility] 0.7-3.1 Absolute Neutrophils 6.9 X10E3/UL [facility] 1.4-7.0 basophils as percent of blood leukocytes 1 % [facility] Not Estab. eosinophils as percent of blood leukocytes 2 % [facility] Not Estab. monocytes as percent of blood leukocytes 6 % [facility] Not Estab. lymphocytes as percent of blood leukocytes 22 % [facility] Not Estab. neutrophils as percent of blood leukocytes 68 % [facility] Not Estab. platelet count 326 X10E3/UL [facility] 283-358 6579/07/ 01 red blood cell distribution width 13.8 % [facility] 11.7-15.4 mean corpuscular hemoglobin concentration, RBC 33.6 G/DL [facility] 31.5-35.7 mean corpuscular hemoglobin, RBC 29.2 pg [facility] 26.6-33.0 mean corpuscular volume, RBC 87 fL [facility] 79-97 hematocrit, blood 40.2 % [facility] 34.0-46.6 hemoglobin, blood 13.5 g/dL [facility] 11.1-15.9 erythrocyte (RBC) count 4.63 X10E6/UL [facility] 3.77-5.28 leukocyte count, blood 10.2 X10E3/UL [facility] 3.4-10.8 alanine aminotransferase (SGPT), serum 14 1/L [facility] 0-32 aspartate aminotransferase (SGOT), serum 15 1/L [facility] 0-40 alkaline phosphatase, serum 64 1/L [facility] 44-121 bilirubin, serum, total 0.3 mg/dL [facility] 0.0-1.2 albumin/globulin ratio, serum 1.5 [facility] 1.2-2.2 globulin, serum 2.8 [facility] 1.5-4.5 albumin, serum 4.3 g/dL [facility] 3.8-4.8 protein, total, serum 7.1 g/dL [facility] 6.0-8.5 calcium, serum 9.6 mg/dL [facility] 8.7-10.2 carbon dioxide, venous blood 25 mmol/L [facility] 20-29 chloride, serum 98 mmol/L [facility] 96-106 potassium, serum 4.5 mmol/L [facility] 3.5-5.2 sodium, serum 137 mmol/L [facility] 805-689 2860/07/ 01 urea nitrogen/creatinine ratio, serum 19 [facility] 9-23 creatinine, serum 0.86 mg/dL [facility] 0.57-1.00 urea nitrogen, blood 16 mg/dL [facility] 6-20 blood glucose, random 101 mg/dL [facility] 70-99 High free thyroxine index 2.9 [facility] 1.2-4.9 triiodothyronine resin uptake 26 % [facility] 24-39 thyroxine, serum, total 11.2 ug/dL [facility] 4.5-12.0 thyroid stimulating hormone, serum 6.100 u[IU]/mL [facility] 0.450-4.500 High pro brain natriuretic peptide 296 pg/mL [facility] 0-130 High hemoglobin A1C, blood, as % of total hemoglobin 5.9 % [facility] 4.8-5.6 High lipoprotein, beta, serum, point, quantitative, calculated 47 mg/dL [facility] 0-99 HDL cholesterol, serum 52 mg/dL [facility] >39 triglyceride, serum, random 150 mg/dL [facility] 0-149 High cholesterol, serum 124 mg/dL [facility] 998-064 3840/10/ 16 platelet count 288 X10E3/UL [facility] 726-727 6352/10/ 16 red blood cell distribution width 12.5 % [facility] 11.7-15.4 mean corpuscular hemoglobin concentration, RBC 32.3 G/DL [facility] 31.5-35.7 mean corpuscular hemoglobin, RBC 29.3 pg [facility] 26.6-33.0 mean corpuscular volume, RBC 91 fL [facility] 79-97 hematocrit, blood 39.9 % [facility] 34.0-46.6 hemoglobin, blood 12.9 g/dL [facility] 11.1-15.9 erythrocyte (RBC) count 4.40 X10E6/UL [facility] 3.77-5.28 leukocyte count, blood 10.9 X10E3/UL [facility] 3.4-10.8 High alanine aminotransferase (SGPT), serum 16 1/L [facility] 0-32 aspartate aminotransferase (SGOT), serum 11 1/L [facility] 0-40 alkaline phosphatase, serum 62 1/L [facility] 44-121 bilirubin, serum, total 0.4 mg/dL [facility] 0.0-1.2 albumin/globulin ratio, serum 1.6 [facility] 1.2-2.2 globulin, serum 2.4 [facility] 1.5-4.5 albumin, serum 3.9 g/dL [facility] 3.8-4.8 protein, total, serum 6.3 g/dL [facility] 6.0-8.5 calcium, serum 9.2 mg/dL [facility] 8.7-10.2 carbon dioxide, venous blood 25 mmol/L [facility] 20-29 chloride, serum 102 mmol/L [facility] 96-106 potassium, serum 4.7 mmol/L [facility] 3.5-5.2 sodium, serum 140 mmol/L [facility] 600-413 5959/10/ 16 urea nitrogen/creatinine ratio, serum 17 [facility] 9-23 eGFR if 89 mL/min/{1.7 3_m2} [facility] >59 eGFR if not 77 mL/min/{1.7 3_m2} [facility] >59 creatinine, serum 0.95 mg/dL [facility] 0.57-1.00 urea nitrogen, blood 16 mg/dL [facility] 6-20 blood glucose, random 98 mg/dL [facility] 65-99 microalbumin/creatin ine ratio, urine 13 MG/G CREAT [facility] 0-29 microalbumin, random, urine 0.76 mg/dL [facility] Units converted. See lab report for original value. creatinine, random, urine 57.0 mg/dL [facility] Not Estab. ferritin, serum 129 ng/mL [facility] 15-150 magnesium, serum 1.9 mg/dL [facility] 1.6-2.3 B-12, serum 741 pg/mL [facility] 232-1245 pro brain natriuretic peptide 308 pg/mL [facility] 0-130 High c-reactive protein, quantitative, serum 15.18 mg/L [facility] 0.00-3.00 High iron saturation percent, serum 19 % [facility] 15-55 iron, serum 60 ug/dL [facility] 27-159 iron binding capacity, unsaturated 249 ug/dL [facility] 676-441 6441/12/ 04 iron binding capacity, total 309 ug/dL [facility] 677-217 7940/12/ 04 free thyroxine index 2.5 [facility] 1.2-4.9 triiodothyronine resin uptake 23 % [facility] 24-39 Low thyroxine, serum, total 10.7 ug/dL [facility] 4.5-12.0 thyroid stimulating hormone, serum 2.200 u[IU]/mL [facility] 0.450-4.500 hemoglobin A1C, blood, as % of total hemoglobin 5.9 % [facility] 4.8-5.6 High lipoprotein, beta, serum, point, quantitative, calculated 109 mg/dL [facility] 0-99 High HDL cholesterol, serum 47 mg/dL [facility] >39 triglyceride, serum, random 261 mg/dL [facility] 0-149 High cholesterol, serum 201 mg/dL [facility] 100-199 High bacteria, urine microscopy Few [facility] None seen/Few epithelial cells, urine 0-10 [facility] 0 - 10 RBC, Urine None seen /hpf [facility] 0 - 2 WBC urine on microscopy 0-5 /hpf [facility] 0 - 5 urinalysis, microscopic examination See report [facility] nitrate, urine Negative [facility] Negative urobilinogen, urine, semiquantitative (dipstick) 0.2 [facility] 0.2-1.0 bilirubin, urine Negative [facility] Negative hemoglobin, urine, by dipstick Negative [facility] Negative ketones, urine, by test strip Negative [facility] Negative glucose, urine Negative [facility] Negative protein, urine, semiquantitative (dipstick) Negative [facility] Negative/Tra ce leukocyte esterase, urine, by dipstick Negative [facility] Negative appearance, urine Clear [facility] Clear urine color Yellow [facility] Yellow pH, urine, semiquantitative 6.0 [facility] 5.0-7.5 specific gravity, body fluid 1.013 [facility] 1.005-1.030 basophil count, absolute 0.1 x10E3/uL [facility] 0.0-0.2 Eosinophil Absolute Count 0.3 X10E3/UL [facility] 0.0-0.4 monocyte count, blood, automated 0.6 X10E3/UL [facility] 0.1-0.9 lymphocyte count, blood, automated 2.4 X10E3/UL [facility] 0.7-3.1 Absolute Neutrophils 6.4 X10E3/UL [facility] 1.4-7.0 basophils as percent of blood leukocytes 1 % [facility] Not Estab. eosinophils as percent of blood leukocytes 3 % [facility] Not Estab. monocytes as percent of blood leukocytes 6 % [facility] Not Estab. lymphocytes as percent of blood leukocytes 24 % [facility] Not Estab. neutrophils as percent of blood leukocytes 65 % [facility] Not Estab. platelet count 378 X10E3/UL [facility] 623-094 6182/12/ 04 red blood cell distribution width 13.4 % [facility] 11.7-15.4 mean corpuscular hemoglobin concentration, RBC 32.7 G/DL [facility] 31.5-35.7 mean corpuscular hemoglobin, RBC 28.4 pg [facility] 26.6-33.0 mean corpuscular volume, RBC 87 fL [facility] 79-97 hematocrit, blood 42.8 % [facility] 34.0-46.6 hemoglobin, blood 14.0 g/dL [facility] 11.1-15.9 erythrocyte (RBC) count 4.93 X10E6/UL [facility] 3.77-5.28 leukocyte count, blood 9.9 X10E3/UL [facility] 3.4-10.8 alanine aminotransferase (SGPT), serum 17 1/L [facility] 0-32 aspartate aminotransferase (SGOT), serum 18 1/L [facility] 0-40 alkaline phosphatase, serum 69 1/L [facility] 39-117 bilirubin, serum, total 0.2 mg/dL [facility] 0.0-1.2 albumin/globulin ratio, serum 1.4 [facility] 1.2-2.2 globulin, serum 3.2 [facility] 1.5-4.5 albumin, serum 4.4 g/dL [facility] 3.8-4.8 protein, total, serum 7.6 g/dL [facility] 6.0-8.5 calcium, serum 9.8 mg/dL [facility] 8.7-10.2 carbon dioxide, venous blood 25 mmol/L [facility] 20-29 chloride, serum 99 mmol/L [facility] 96-106 potassium, serum 4.6 mmol/L [facility] 3.5-5.2 sodium, serum 138 mmol/L [facility] 997-350 7729/12/ 04 urea nitrogen/creatinine ratio, serum 18 [facility] 9-23 eGFR if 86 mL/min/{1.7 3_m2} [facility] >59 eGFR if not 75 mL/min/{1.7 3_m2} [facility] >59 creatinine, serum 0.98 mg/dL [facility] 0.57-1.00 urea nitrogen, blood 18 mg/dL [facility] 6-20 blood glucose, random 80 mg/dL [facility] 65-99 HISTORY OF MEDICATION USE Medication Status Instructions Dates Provider Indications Com ments spironolactone 50 mg tablet active TAKE 1 TABLET BY MOUTH EVERY DAY 03/26 Kylia Srinivas spironolactone 50 mg tablet completed Take 1 tablet by mouth once a day 08/18 - [facility] tablet active Chantal Loeraity 0.75 mg/0.5 mL pen injector active Ron Ahmedzai levothyroxine 112 mcg tablet active Ron Ahmedzai rosuvastatin 5 mg tablet active Ron Ahmedzai spironolactone 50 mg tablet completed - 08/18 Iman Russell losartan 100 mg tablet active Ron Ahmedzai metformin 500 mg tablet extended release 24 hr active Ron Ahmedzai hydrochlorothiazi de 12.5 mg capsule active [facility] Ahmedzai spironolactone 50 mg tablet completed TAKE 1 TABLET BY MOUTH EVERY DAY - 08/23 Ron Ahmedzai spironolactone 50 mg tablet completed Take 1 tablet by mouth once a day - Iman Russell Ozempic 0.25 mg or 0.5 mg(2 mg/1.5 mL) pen injector completed inject 0.25mg subcutaneously once weekly x4 weeks, then increase to 0.5mg subcutaneously weekly reduces risk of major CV events 09/27 - 08/23 Ron Paulino Jardiance 10 mg tablet completed Take 1 tablet once a day 09/27 - 08/23 Ron Paulino lorazepam 0.5 mg tablet completed 09/14 - 08/23 Ron Pikei #60, 30 days supply, Prescribed by CHANTAL ETIENNE, Filled 09/14/2020 fluconazole 150 mg tablet completed 09/26 - 08/23 Ron Paulino #2, 3 days supply, Prescribed by ASHLEY SZYMANSKI, Filled 09/26/2020 rosuvastatin 5 mg tablet completed once a day 09/26 - 08/23 Ron Paulino #45, 90 days supply, Prescribed by MURTAZA DIAS, Filled 09/26/2020 metronidazole 500 mg tablet completed Take twice a day 09/26 - 08/23 Ron Paulino #14, 7 days supply, Prescribed by ASHLEY SZYMANSKI, Filled 09/26/2020 PHENTERMINE HCL 37.5 MG ORAL CAPSULE completed one tab by mouth daily 09/21 - Iman Russell ferrous sulfate 325 mg (65 mg iron) tablet completed once a day 09/21 - 08/23 Ron Paulino TOPAMAX 100 MG ORAL TABLET completed one tab by mouth daily 09/20 - Iman Russell ADIPEX-P 37.5 MG ORAL TABLET completed one tab by mouth daily 09/20 - 09/21 Diane Gilmore RN LIPITOR 40 MG ORAL TABLET completed ONE TAB. DAILY 09/20 - Iman Russell FLUCELVAX QUADRIVALENT INTRAMUSCULAR SUSPENSION completed TO BE ADMINISTERED BY PHARMACIST FOR IMMUNIZATION 08/24 - Iman Russell #1, 1 days supply, Prescribed by SELENA GUERRIER, Filled 06/24/2019 metformin 500 mg tablet extended release 24 hr completed Take 1 tablet by mouth twice a day 05/08 - 08/23 Ron Sergiomariahi #60, 30 days supply, Prescribed by MURTAZA DIAS, Filled 06/17/2020 levothyroxine 112 mcg tablet completed Take 1 tablet by mouth once a day 05/08 - 08/23 Ron Sanfordzai #30, 30 days supply, Prescribed by MURTAZA DIAS, Filled 07/02/2020 Flonase Allergy Relief 50 mcg/actuation spray,suspension completed Take as needed 09/20 - 08/23 Ron Pikei Claritin 10 mg tablet completed Take 1 tablet once a day 09/20 - 08/23 Ron Paulino hydrochlorothiazi de 12.5 mg capsule completed Take 1 capsule by mouth once a day 05/08 - 08/23 Ron Sanfordzai #30, 30 days supply, Prescribed by MURTAZA DIAS, Filled 07/01/2020 losartan 100 mg tablet completed Take 0.5 tablet by mouth once a day 09/28 - 08/23 Ron Sergiobaileyzai #15, 30 days supply, Prescribed by CHANTAL LOUIS, Filled 07/01/2020 metoprolol succinate 50 mg tablet extended release 24 hr completed Take 1 tablet by mouth once a day 05/08 - Nanette Atkinson #30, 30 days supply, Prescribed by MURTAZA DIAS, Filled 06/19/2020 B-12 TABLET completed Take 1 tablet once a day 09/20 - 08/23 Ron Paulino SYNTHROID 112 MCG ORAL TABLET completed take 1 tab daily 09/20 - Iman Russell SOCIAL HISTORY Date Observation Value Provider social history reviewed E&M revi ewed - no changes required Jonathan Love MD social history E&M S moking History: P atient has never smoked. Ron Paulino social history reviewed E&M revi ewed - no changes required Ron Paulino smoking status Never smoker Chantal Marsh and social history E&M S moking History: Pippa walters has never smoked. Jimbo Hernandez social history reviewed E&M revi ewed - no changes required Jimbo Hernandez smoking status Never smoker Iman Betheasherman barth number of grandchildren Jonathan Webster social history E&M S moking History: Pippa walters has never smoked. Juan Pablo Webster social history reviewed E&M revi ewed - no changes required Juan Pablo Webster smoking status Never smoker Iman barth social history E&M S moking History: Pippa walters has never smoked. Erasmo Braswell MD social history reviewed E&M revi ewed - no changes required Erasmo Braswell MD smoking status Never smoker Iman Villanueva lary social history E&M S moking History: Pippa walters has never smoked. Erasmo Braswell MD social history reviewed E&M revi ewed - no changes required Erasmo Braswell MD appendectomy, history of yes Nahun Braswell MD smoking status Never smoker Nanette ibrahim FAMILY HISTORY Family Member Condition Paternal Grandfather Family History of C oronary Artery Disease: Mother Family History of Co ronary Artery Disease: Mother Family History of Hy pertension: INSURANCE PROVIDERS Payer name Policy type / Coverage type [place] [employer] [place] [employer] (2) Medicaid [id number] ADVANCE DIRECTIVES Name Date DISCUSSED - NO DECISION MADE TREATMENT PLAN Date Name Performer [id number],C,n o pericardial effusion, no RV dysfuction O rders: P yari 5-10 (CPT-68219) Jonathan Love MD [id number],S, Ron Pike i [id number],C, B P today: 122/75 P rior BP: 130/80 (06/22/2021) Labs Reviewed: C reat: 0.95 (06/02/2021) C hol: 124 (06/02/2021) HDL: 52 (06/02/2021) [facility] [id number],S,i ncreased sxs of palpitations after she sustained her injury, will check holter to assess for [facility]thmias [facility] [id number],S,S he has chest contusion and cracked ribs which have been making her more SOB, will check echo to rule out any cardiac abnormality [facility] [id number],S, Ron Pike i [id number],S, Ron Pike i [id number],S, Ronmargo Pike i [id number],S, Ron Pike i [id number],S, Ronmargo Pike i [id number],S, Ron Pike i [id number],C, F eeling better N o CT was done, denied by insurance Jimbo Hernandez [id number],B, L ast LDL 47. Last trigs 149 Her updated medication list for this problem includes: Rosuvastatin 5 Mg Tablet (Rosuvastatin) ..... Once a day Jimbo Hernandez [id number],B, B P today: 130/80 P rior BP: 150/100 (06/01/2021) Her updated medication list for this problem includes: Spironolactone 50 Mg Tablet (Spironolactone) ..... Take 1 tablet by mouth once a day Hydrochlorothiazide 12.5 Mg Capsule (Hydrochlorothiazide) ..... Take 1 capsule by mouth once a day Losartan 100 Mg Tablet (Losartan) ..... Take 0.5 tablet by mouth once a day Jimbo Hernandez [id number],B, R are Jimbo Hernandez [id number],C, N ormal echo 06/21/21 Jimbo Hernandez [id number],B, H R was 41-47 in ER. Now off beta zaina and HR lowest 58bpm by 1 week tele. Jimbo Hernandez [id number],W, w orsened after smelling mold s xs improved with steroids and flonase but steroids were stopped in the ER w ill screen for HF with echo, pBNP. c heck CT chest for any acute abnormality Juan Pablo Negretetoshia [id number],W, a dd aldactone 50mg daily to regimen BP today: 150/100 P rior BP: 110/72 (09/27/2020) The following medications were removed from the medication list: Metoprolol Succinate 50 Mg Tablet Extended Release 24 Hr (Metoprolol succinate) ..... Take 1 tablet by mouth once a day Her updated medication list for this problem includes: Hydrochlorothiazide 12.5 Mg Capsule (Hydrochlorothiazide) ..... Take 1 capsule by mouth once a day Losartan 100 Mg Tablet (Losartan) ..... Take 0.5 tablet by mouth once a day Juan Pablo Penelopetoshia [id number],W, c heck CT chest to r/o infection Juan Pablo Penelopetoshia [id number],W, H R was 41-47 in ER p t was concerned about this o ff beta zaina H R 63 by EKG today w ill check 1 week tele Orders: P ROBNP, N TERMINAL (07514) C BC (H/H, RBC, INDICES, WBC, PLT) (1759) C OMPREHENSIVE METABOLIC PANEL, W/EGFR (28593) L IPID PANEL (7600) H EMOGLOBIN A1c (496) T SH, free T4, total T3 ([phone] HIGH 60-74 min (CPT-07645) C omplete Echo (CPT-18912) M onitor - Telemetry (Mobile Cardiac) (CPT-08076) C T Chest without contrast (CPT-13625) The following medications were removed from the medication list: Metoprolol Succinate 50 Mg Tablet Extended Release 24 Hr (Metoprolol succinate) ..... Take 1 tablet by mouth once a day Juan Pablo Webster Telehealth - There i s a focal fluid collection along the the sup:no pericardial effusion, no RV dysfuction O rders: P yari 5-10 (CPT-76533) Jonathan Love MD Electrophysiology Ron Paulino Electrophysiology: B P today: 122/75 P rior BP: 130/80 (06/22/2021) Labs Reviewed: C reat: 0.95 (06/02/2021) C hol: 124 (06/02/2021) HDL: 52 (06/02/2021) Ron Paulino Electrophysiology:in creased sxs of palpitations after she sustained her injury, will check holter to assess for arrythmias Ron Paulino Electrophysiology:Sh berenice has chest contusion and cracked ribs which have been making her more SOB, will check echo to rule out any cardiac abnormality Ron Paulino Electrophysiology Ron Ahbaileyzamassiel Telehealth Ron Sanfordzamassiel Telehealth Ron Ahmedzamassiel Telehealth Ron Ahmedzamassiel Telehealth Ron Ahmedzamassiel Telehealth Ron Ahmedzamassiel Electrophysiology: F eeling better N o CT was done, denied by insurance Jimbo Hernandez Electrophysiology: L ast LDL 47. Last trigs 149 Her updated medication list for this problem includes: Rosuvastatin 5 Mg Tablet (Rosuvastatin) ..... Once a day Jimbo Hernandez Electrophysiology: B P today: 130/80 P rior BP: 150/100 (06/01/2021) Her updated medication list for this problem includes: Spironolactone 50 Mg Tablet (Spironolactone) ..... Take 1 tablet by mouth once a day Hydrochlorothiazide 12.5 Mg Capsule (Hydrochlorothiazide) ..... Take 1 capsule by mouth once a day Losartan 100 Mg Tablet (Losartan) ..... Take 0.5 tablet by mouth once a day Teofiloshayne David Electrophysiology: R are Teofiloshayne David Electrophysiology: N ormal echo 06/21/21 Teofiloshayne Hernandez Electrophysiology: H R was 41-47 in ER. Now off beta zaina and HR lowest 58bpm by 1 week tele. Jimbo Hernandez Electrophysiology: w orsened after smelling mold s xs improved with steroids and flonase but steroids were stopped in the ER w ill screen for HF with echo, pBNP. c heck CT chest for any acute abnormality Juan Pablo Webster Electrophysiology: a dd aldactone 50mg daily to regimen BP today: 150/100 P rior BP: 110/72 (09/27/2020) The following medications were removed from the medication list: Metoprolol Succinate 50 Mg Tablet Extended Release 24 Hr (Metoprolol succinate) ..... Take 1 tablet by mouth once a day Her updated medication list for this problem includes: Hydrochlorothiazide 12.5 Mg Capsule (Hydrochlorothiazide) ..... Take 1 capsule by mouth once a day Losartan 100 Mg Tablet (Losartan) ..... Take 0.5 tablet by mouth once a day Juan Pablo Webster Electrophysiology: c heck CT chest to r/o infection Juan Pablo Webster Electrophysiology: H R was 41-47 in ER p t was concerned about this o ff beta zaina H R 63 by EKG today w ill check 1 week tele Orders: P ROBNP, N TERMINAL (94157) C BC (H/H, RBC, INDICES, WBC, PLT) (1759) C OMPREHENSIVE METABOLIC PANEL, W/EGFR (74827) L IPID PANEL (7600) H EMOGLOBIN A1c (496) T SH, free T4, total T3 (7444) 9 9205 HIGH 60-74 min (CPT-48973) C omplete Echo (CPT-95611) M onitor - Telemetry (Mobile Cardiac) (CPT-11823) C T Chest without contrast (CPT-34090) The following medications were removed from the medication list: Metoprolol Succinate 50 Mg Tablet Extended Release 24 Hr (Metoprolol succinate) ..... Take 1 tablet by mouth once a day Juan Pablo Webster Cardiology Follow up Erasmo skaggs MD Cardiology Follow up : T he following medications were removed from the medication list: Synthroid 112 Mcg Oral Tablet (Levothyroxine sodium) ..... Take 1 tab daily Her updated medication list for this problem includes: Levothyroxine Sodium 112 Mcg Oral Tablet (Levothyroxine sodium) ..... Take 1 tablet by mouth every day Labs Reviewed: T SH: 2.200 (07/21/2020) Total T4: 10.7 (07/21/2020) H gBA1c: 5.9 (07/21/2020) C hol: 201 (07/21/2020) HDL: 47 (07/21/2020) Erasmo Braswell MD Cardiology Follow up Erasmo skaggs MD Cardiology Follow up : 5 .9 Erasmo Braswell MD Cardiology Follow up : T he following medications were removed from the medication list: Lipitor 40 Mg Oral Tablet (Atorvastatin calcium) ..... One tab. daily Her updated medication list for this problem includes: Rosuvastatin Calcium 5 Mg Oral Tablet (Rosuvastatin calcium) ..... Once a day C HOL: 201 (07/21/2020) HDL: 47 (07/21/2020) Erasmo Braswell MD Cardiology Follow up : 3 08 Erasmo Braswell MD Cardiology Follow up Erasmo skaggs MD Cardiology Follow up : m ild tr adn mod mr pap 23 Erasmo Braswell MD Cardiology Follow up :neg stress n eg uacr and vit d and cmp and cbc Erasmo Braswell MD Cardiology Follow up :better on last hotler Erasmo Braswell MD Cardiology Follow up Erasmo skaggs MD :mild tr adn mod mr pap 23 Keily Braswell MD :5.9 Erasmo Braswell MD :308 Earsmo Braswell MD :neg uacr and vit d and cmp and cbc Erasmo Braswell MD Erasmo Braswell MD Cardiology New Patient Erasmo logan MD Cardiology New Patient Erasmo logan MD Cardiology New Patient Erasmo logan MD Cardiology New Patient :does mpt wamt sirgeru Erasmo Braswell MD Cardiology New Patient Erasmo logan MD Cardiology New Patient Erasmo logan MD Cardiology New Patie nt : H er updated medication list for this problem includes: Hydrochlorothiazide 12.5 Mg Oral Capsule (Hydrochlorothiazide) ..... Take 1 capsule by mouth every day Losartan Potassium 100 Mg Oral Tablet (Losartan potassium) ..... Take 1/2 tablet by mouth daily Metoprolol Succinate Er 50 Mg Oral Tablet Extended Release 24 Hour (Metoprolol succinate) ..... Take 1 tablet by mouth every day BP today: 141/82 Erasmo Braswell MD Cardiology New Patient Erasmo logan MD Cardiology New Patient Erasmo logan MD Cardiology New Patient Erasmo logan MD clindesk reviwe:mild mr and tr w ith nml ef 2018 Erasmo Braswell MD clindesk reviwe:neg uacr, and cm p and cbc Erasmo Braswell MD Date Name TSH, 3RD GENERATION W/REFLEX TO FT4 MAGNESIUM CBC (INCLUDES DIFF/P LT) COMPREHENSIVE METABO LIC PANEL, W/EGFR Holter Monitor 48 hr Complete Echo Monitor - Telemetry (Mobile Cardiac) CT Chest without con trast Monitor - Telemetry (Mobile Cardiac) Complete Echo TSH, free T4, total T3 HEMOGLOBIN A1c LIPID PANEL COMPREHENSIVE METABO LIC PANEL, W/EGFR CBC (H/H, RBC, INDIC ES, WBC, PLT) PROBNP, N TERMINAL COVID19 nasal swab ( LC) CARROL - CNE URINALYSIS, COMPLETE W/REFLEX TO CULTURE MAGNESIUM CXR- PA/Lat Stress Routine COVID19 High Affinit y Antibodies (LC) VITAMIN B12 Vitamin D, 25-Hydrox y Microalb/Creatinine Urine, Random HEMOGLOBIN A1c PROBNP, N TERMINAL TSH, free T4, total T3 C-REACTIVE PROTEIN LIPID PANEL COMPREHENSIVE METABO LIC PANEL, W/EGFR IRON AND TOTAL IRON BINDING CAPACITY FERRITIN CBC (INCLUDES DIFF/P LT) Holter Monitor [address], Coronary Calcium Score Renal Artery Duplex Complete Echo Phone 5-10 HISTORY OF PROCEDURES Procedure Date Procedure Name Provider Procedure Notes S tatus EKG Jonathan Love MD comp leted Event Monitor Jonathan Love MD c ompleted EKG Jonathan Lvoe MD comp leted EKG Jonathan Love MD comp leted EKG Erasmo Braswell MD complete d
--- OUTSIDE RECORDS SUMMARY | 2024-09-24 15:01 | XMS_ITS | Encounter Summary ---
Author Organization [facility] Address [address] [place] [address] Care Team Providers Care Front Desk Receptionist Name Role Phone Unavailable Primary Care Provider Unavailabl e Encounter Details Date Type Department Care Team (Late st Contact Info) Description 12/12/2020 Telephone [facility] [address] [place] [address] Cole Villanueva MD [address] [id number] Social History Tobacco Use Types Packs/Day Years [...]
--- OUTSIDE RECORDS SUMMARY | 2024-09-24 15:01 | XMS_ITS | Clinical Summary ---
Author Organization [facility] Address [address] [place] [address] Care Team Providers Care Grain Inspector Name Role Phone Heidi Samuel MD Primary Care Provider [phone] Allergies Active Allergy Reactions Criticality Noted Date Comments Bacitracin-Polymyxin B Rash Low 07/20/2020 Chlorhexidine Gluconate Hives,Itching 1 Cyanoacrylate Rash Medium 01/11/2021 Iodine Hives 05/28/2021 Neomycin-Bacitracin Zn-Polymyx Rash Medium 02/21/2021 Sulfamethoxazole-Trimeth oprim Other (see comment) 07/20/2020 it makes me not feel good Medications metFORMIN (GLUCOPHAGE) 500 MG tablet Take 1 tablet (500 mg total) by mouth 2 (two) times daily with meals. Active spironolactone (ALDACTONE) 50 MG tablet Take 1 tablet (50 mg total) by mouth daily. 2 Active losartan (COZAAR) 50 MG tablet Take 1 tablet (50 mg total) by mouth daily. 1 Active rosuvastatin (CRESTOR) 5 MG tablet Take 1 tablet (5 mg total) by mouth every other day. 1 Active hydroCHLOROthia zide (MICROZIDE) 12.5 MG capsule Take 1 capsule (12.5 mg total) by mouth daily. 2 Active VIIBRYD 40 MG tablet Take 0.5 tablets (20 mg total) by mouth nightly. 2 Active multi vitamin/mineral s (THERA-M ENHANCED) tablet Take 1 tablet by mouth daily. Active meloxicam (MOBIC) 7.5 MG tablet Take 1 tablet (7.5 mg total) by mouth 2 (two) times a day. 1 Active levothyroxine (SYNTHROID) 112 MCG tablet Take 1 tablet (112 mcg total) by mouth daily. 2 Active vitamin B-12 (CYANOCOBALAMIN ) 500 MCG tablet Take 1 tablet (500 mcg total) by mouth daily. Active Docusate Sodium (DSS) 250 MG Cap Take 250 mg by mouth daily. Active metroNIDAZOLE (FLAGYL) 500 MG tablet Take 1 tablet (500 mg total) by mouth 3 (three) times a day. 2 Active vitamin D3 (CHOLECALCIFERO L) 25 mcg tablet Take 1 tablet (25 mcg total) by mouth daily. Active hydrocortisone 2.5 % cream Apply topically 3 (three) times daily. 30 g 4 Active Encounters Date Type Department Care Team Description 09/23/2024 8:29 PM CASINO BANKER - 09/23/2024 11:49 PM CASINO BANKER Emergency [facility] Emergency Room [address] [place] [address] Shabbir Boo MD Flu Like Symptoms Discharge Disposition: Home or Self Care (Routine Discharge) 09/23/2024 Travel from Last 3 Months Social History Tobacco Use Types Packs/Day Years Used Date Smoking Tobacco: Never Smokeless Tobacco: Never Alcohol Use Standard Drinks/Week Comments Not Currently 0 (1 standard drink = 0.6 oz pur e alcohol) Comments No Sex and Gender Information Value Date Recorded Sex Assigned at Female 09/23/2024 8:26 PM CASINO BANKER Legal Sex Female 7:41 PM CDT Gender Identity Not on file Sexual Orientation Not on file Last Filed Vital Signs Vital Sign Reading Time Taken Comments Blood Pressure 151/108 09/23/2024 11:30 PM CASINO BANKER Pulse 75 09/23/2024 11:30 PM CASINO BANKER Temperature 36.3 C (97.4 F) 09/23/2024 8:32 PM CASINO BANKER Respiratory Rate 17 09/23/2024 11:30 PM CASINO BANKER Oxygen Saturation 94% 09/23/2024 11:30 PM CASINO BANKER Inhaled Oxygen Concentration - - Weight 145.2 kg (320 lb) 09/23/2024 8:32 PM CASINO BANKER Height 160 cm (5' 3 ) 09/23/2024 8:32 PM CASINO BANKER Body Mass Index 56.69 09/23/2024 8:32 PM CASINO BANKER Plan of Treatment Health Maintenance Due Date Last Done Comments Cervical Cancer Screening Pa p Smear (Age 30 to 64) Every 3 Years 1985 Kidney Health Evaluation 1985 Hemoglobin A1C 1985 Lipid Panel 1985 Annual Physical 01/14/1988 Pneumococcal Vaccine: Pediatrics (0 to 5 Years) and At-Risk Patients (6 to 64 Years) (1 of 2 - PCV) 1991 Diabetes: Retinopathy Eye Exam 2003 Hepatitis C 2003 Hepatitis B Vaccines (1 of 3 - 19+ 3-dose series) 01/14/2004 Cervical Cancer Screening Pa p with HPV Testing (Age 30 to 64) Every 5 Years 2015 Cervical Cancer Screening wi th HPV 2015 COVID-19 Vaccine ( - 2023-2 5 season) 2024 11/10/2020, 10/13/2020 Influenza Adult (#1) 2024 06/24/2019, 06/05/2018 DTaP, Tdap and Td Vaccines ( 2 - Td or Tdap) 06/05/2028 06/05/2018 HPV Vaccines Aged Out No longer eligi ble based on patient's age to complete this topic Meningococcal B Vaccine Aged Out No l onger eligible based on patient's age to complete this topic Meningococcal Vaccine Aged Out No mildred femi eligible based on patient's age to complete this topic RSV Immunizations Under 20 Months Aged Out No longer eligible b ased on patient's age to complete this topic Procedures Procedure Name Priority Date/Time Associated Diagnosis Comments POCT GLUCOSE - SANTANA DOCKED DEVICE Routine 09/23/2024 11:45 PM CASINO BANKER BASIC METABOLIC PANEL STAT 09/23/2024 10:20 PM CASINO BANKER POCT GLUCOSE - SANTANA DOCKED DEVICE Routine 09/23/2024 10:11 PM CASINO BANKER XR CHEST PA+LAT STAT 09/23/2024 9:12 PM CASINO BANKER RESP SYNCYTIAL VIRUS STAT 09/23/2024 8:33 PM CASINO BANKER INFLUENZA A & B STAT 09/23/2024 8:33 PM CASINO BANKER CORONAVIRUS (COVID 19) STAT 09/23/2024 8:33 PM CASINO BANKER from Last 3 Months Results * (ABNORMAL) POCT glucose (09/23/2024 11:45 PM CASINO BANKER) Only the most recent of2 resultswithin the time period is included. GLUCOSE POC 415(H) 70 - 110 mg/dL 09/23/2024 11:49 PM CASINO BANKER [facility] 09/23/2024 11:4 5 PM CASINO BANKER Shabbir Boo MD POCT ORDERABLES - DEVICE Final R esult [facility] [address] [place] [address], [place] [phone] * (ABNORMAL) BASIC METABOLIC PANEL (09/23/2024 10:20 PM CASINO BANKER) GLUCOSE 567(HH) 70 - 99 MG/DL 09/23/2024 11:10 PM CASINO BANKER [facility] Comment: Critical Result(s) Called at: 23:09:39 on 09/23/2024 by: INDU ZEPEDA to and read back by: JAS LAROSE RN BUN 14 7 - 18 MG/DL 09/23/2024 11:10 PM CASINO BANKER [facility] CREATININE S/P/B 1.24(H) 0.55 - 1.02 MG/DL 09/23/2024 11:10 PM CASINO BANKER [facility] SODIUM S/P/B 127(L) 136 - 145 MMOL/L 09/23/2024 11:10 PM CASINO BANKER [facility] POTASSIUM S/P/B 4.0 3.5 - 5.1 MMOL/L 09/23/2024 11:10 PM [facility] CHLORIDE S/P/B 90(L) 100 - 108 MMOL/L 09/23/2024 11:10 PM [facility] CO2 23.4 21 - 32 MMOL/L 09/23/2024 11:10 PM [facility] CALCIUM S/P/B 9.5 8.5 - 10.1 MG/DL 09/23/2024 11:10 PM [facility] ANION GAP 13.6 5 - 15 MMOL/L 09/23/2024 11:10 PM [facility] BUN CREATININE RATIO 11.3 6 - 26 09/23/2024 11:10 PM [facility] GFR ESTIMATE 57(L) >90 ML/MIN/1.7 3 M2 09/23/2024 11:10 PM [facility] Comment: NOTE: eGFR is not calculated for patients <18 years of age. This is an estimated GFR calculation using the new CKD EPI creatinine equation without race and so does not require a correction factor for race. This estimated GFR should not be used for calculating drug doses. 09/23/2024 10:2 0 PM CASINO BANKER Shabbir Boo MD LABORATORY Final Result [facility] [address] [place] [address], * XR CHEST PA+LAT (09/23/2024 9:12 PM CASINO BANKER) Anatomical Region Laterality Modality Chest Radiographic Alyssa ging 09/23/2024 9:22 PM CASINO BANKER Impressions 09/23/2024 9:27 PM CASINO BANKER Impression: No acute findings. Referred By: Interpreted By: Gustavo Chua MD, 09/23/2024 9:22 PM Narrative 09/23/2024 9:27 PM CASINO BANKER [facility] [address] [place] [address] Examination: Chest 2 View History: Cough, fever DATE/TIME: 09/23/2024 8:58 PM Comparison: 05/28/2021 Technique: PA and lateral views were obtained. Findings: Heart size, mediastinal contours and pulmonary vasculature are within normal limits. No pulmonary consolidation, pleural effusion or pneumothorax. No acute osseous abnormality. Thoracic spondylosis. Procedure Note Gustavo Chua MD - 09/23/2024 [facility] [address] [place] [address] Examination: Chest 2 View History: Cough, fever DATE/TIME: 09/23/2024 8:58 PM Comparison: 05/28/2021 Technique: PA and lateral views were obtained. Findings: Heart size, mediastinal contours and pulmonary vasculature arewithin normal limits. No pulmonary consolidation, pleural effusion orpneumothorax. No acute osseous abnormality. Thoracic spondylosis. Impression: No acute findings. Referred By: Interpreted By: Gustavo Chua MD, 09/23/2024 9:22 PM Shabbir Boo MD GENERAL IMAGING Final Result * CORONAVIRUS (COVID-19) MOLECULAR (09/23/2024 8:33 PM CASINO BANKER) CORONAVIRUS SARS COV 2 RNA NEGATIVE NEGATIVE 09/23/2024 9:13 PM CASINO BANKER [facility] Comment: NEGATIVE RESULTS DO NOT RULE [...] SARS-COV-2. SPECIMEN TYPE NASAL 09/23/2024 8:55 PM CASINO BANKER [facility] NASOPHARYNGEAL SWAB / Unknown 09/23/2024 8:33 PM CASINO BANKER us Shabbir Boo MD MICROBIOLOGY - GENERAL ORDERABLE S Final Result Performing Organization Address City/[facility]/ZIP Co de Phone Number [facility] [address] [place] [address], [place] [phone] * INFLUENZA A & B (09/23/2024 8:33 PM CASINO BANKER) SPECIMEN TYPE NASOPHARYNX 09/23/2024 9:15 PM CASINO BANKER [facility] INFLUENZA A NEGATIVE NEGATIVE 09/23/2024 9:15 PM CASINO BANKER [facility] INFLUENZA B NEGATIVE NEGATIVE 09/23/2024 9:15 PM CASINO BANKER [facility] NASAL STRUCTURE / Unknown 09/23/2024 8:33 PM CASINO BANKER us Shabbir Boo MD MICROBIOLOGY - GENERAL ORDERABLE S Final Result Performing Organization Address [facility] de Phone Number [facility] [address] [place] [address], [place] [phone] * RESP SYNCYTIAL VIRUS (09/23/2024 8:33 PM CASINO BANKER) SPECIMEN TYPE NASOPHARYNGEAL SWAB 09/23/2024 8:55 PM CASINO BANKER [facility] RAPID RSV NEGATIVE NEGATIVE 09/23/2024 9:15 PM CASINO BANKER [facility] NASOPHARYNGEAL SWAB / Unknown 09/23/2024 8:33 PM CASINO BANKER us Shabbir Boo MD MICROBIOLOGY - GENERAL ORDERABLE S Final Result Performing Organization Address City/[facility] Co de Phone Number [facility] [address] [place] [address], [place] [phone] from Last 3 Months Insurance [employer] Care Teams Grain Inspector Relationship Specialty Start Date End Date Heidi Samuel MD [address] [place] [address] PCP - General 02/22/24
--- OUTSIDE RECORDS SUMMARY | 2024-09-24 15:01 | XMS_ITS | Clinical Summary ---
Author Organization [facility] Address [address] [place] [address] Care Team Providers Care Supervisor Filling And Packing Name Role Phone Unavailable Primary Care Provider Unavailabl e Source Comments [facility],non-owned Affiliates and Associated Physician Practices is amultiple site organization consisting of ambulatory clinics and hospital sitesin [place], [place]. This disclosure is being madepursuant to the Care Everywhere program and may not contain all information available regarding this patient. Last updated 18.[facility] [employer] Allergies Active Allergy Reactions Criticality Noted Date Comments Adhesive Sensitivity Urticaria Medium 01/11/2021 Povidone Iodine Urticaria Medium 03/29/2021 Bxkfxqyl-Axuweocoyl-Yhoqctsvb Rash Medium 2020 Skin Adhesives Urticaria Medium 01/11/2021 Medications * Be aware that medications may not be up to date on this document. Alwaysverify current medications with the patient. Medication Sig Dispensed Refills Start Date End Date Status levothyroxine (SYNTHROID) 112 MCG tablet Take 112 mcg by mouth daily before breakfast Active metFORMIN (GLUCOPHAGE) 500 MG tablet Take 500 mg by mouth 2 times daily with morning and evening meal Active metoprolol succinate XL 24hr (TOPROL XL) 50 MG tablet Take 50 mg by mouth once daily Active LOSARTAN POTASSIUM PO Take by mouth once daily 100mg- 50mg Active rosuvastatin (CRESTOR) 5 MG tablet Take 5 mg by mouth every other day as needed Routine Not PRN Active docusate sodium (COLACE) 100 MG capsule Take 100 mg by mouth once daily Active Cholecalciferol (D3-1000 PO) Take 1,000 Units by mouth Active cyanocobalamin (VITAMIN B-12) 500 MCG tablet Take 500 mcg by mouth once daily Active multivitamin daily tablet Take 1 tablet by mouth daily with food Active linaCLOtide (LINZESS) 145 MCG capsule Take 145 mcg by mouth once daily after breakfast 72-145 Active hydroCHLOROthiazide (HYDRODIURIL) 25 MG tablet Take 25 mg by mouth once daily Active oxyCODONE-acetamino phen (PERCOCET) 5-325 MG tablet Take 1 (one) tablet by mouth every 6 hours as needed for Pain 20 tablet 01/30/2021 Active Additional Information Patient not taking.Reported on 03/29/2021 Immunizations Name Administration Dates Next Due Covid Moderna primary monovalent 12+ yr 0.5mL ,10/13/2020 Social History Tobacco Use Types Packs/Day Years Used Date Smoking Tobacco: Never Assessed Smokeless Tobacco: Never Alcohol Use Standard Drinks/Week Comments Never 0 (1 standard drink = 0.6 oz pur e alcohol) Sex and Gender Information Value Date Recorded Sex Assigned at Not on file Gender Identity Not on file Sexual Orientation Not on file Last Filed Vital Signs Vital Sign Reading Time Taken Comments Blood Pressure 137/89 03/29/2021 12:30 PM CDT Pulse 63 03/29/2021 12:30 PM CDT Temperature 36.3 C (97.4 F) 02/21/2021 12:52 PM CDT Respiratory Rate 18 02/21/2021 12:52 PM CDT Oxygen Saturation 97% 01/30/2021 11:10 AM CDT Inhaled Oxygen Concentration - - Weight 143.8 kg (317 lb) 03/29/2021 12:25 PM CDT Height 160 cm (5' 3 ) 02/21/2021 12:52 PM CDT Body Mass Index 56.15 02/21/2021 12:52 PM CDT Plan of Treatment Health Maintenance Due Date Last Done Comments PAP SMEAR 1985 HIV SCREENING 01/14/2000 HEPATITIS C SCREENING 01/09/2003 DTAP/TDAP/TD VACCINES (1 - Tdap) 01/14/2004 HEPATITIS B VACCINE (1 of 3 - 19+ 3-dose series) 01/14/2004 COVID-19 VACCINE (2023-2 5 season) 2024 11/10/2020, 10/13/2020 INFLUENZA VACCINE (#1) 2024 , 06/24/2019, 06/05/2018 DEPRESSION SCREENING 08/18/2024 ZOSTER VACCINE (1 of 2) 2035 HIB VACCINE Aged Out No longer eligi ble based on patient's age to complete this topic HPV VACCINE Aged Out No longer eligi ble based on patient's age to complete this topic MENINGOCOCCAL (Group B) VACCINE Aged Out No longer eligible b ased on patient's age to complete this topic MENINGOCOCCAL VACCINE Aged Out No mildred femi eligible based on patient's age to complete this topic PNEUMOCOCCAL VACCINE Aged Out No long er eligible based on patient's age to complete this topic PLEGGE,MARGI E Personal/Family Other [address] [place] [address] PLEGGE,MARGI E Personal/Family Other [address] [place] [address] PLEGGE,MARGI E Personal/Family Other [address] [place] [address] PLEGGE,MARGI E Personal/Family Other [address] [place] [address] PLEGGE,MARGI E Personal/Family Other [address] [place] [address] PLEGGE,MARGI E Personal/Family Other [address] [place] [address] PLEGGE,MARGI E Personal/Family Other [address] [place] [address] PLEGGE,MARGI E Personal/Family Other [address] [place] [address] PLEGGE,MARGI E Personal/Family Other [address] [place] [address] PLEGGE,MARGI E Personal/Family Other [address] [place] [address] PLEGGE,MARGI E Personal/Family Other [address] [place] [address] PLEGGE,MARGI E Personal/Family Other [address] [place] [address] PLEGGE,MARGI E Personal/Family Other [address] [place] [address] PLEGGE,MARGI E Personal/Family Other [address] [place] [address] PLECHAYO,MARGI E Personal/Family Other [address] [place] [address] PLEERICEMARGI E Personal/Family Other [address] [place] [address] MARGI CAVAZOS E Personal/Family Other [address] [place] [address] PLEERICEMARGI E Personal/Family Other [address] [place] [address] MARGI CAVAZOS E Personal/Family Other [address] [place] [address] PLEMARGI DOMINGO E Personal/Family Other [address] [place] [address] MARGI CAVAZOS E Personal/Family Other [address] [place] [address]
--- OUTSIDE RECORDS SUMMARY | 2024-09-24 15:01 | XMS_ITS | Encounter Summary ---
Author Organization [facility] Address [address] [place] [address] Phone Care Team Providers Care Trailer Driver Name Role Phone Chantal Rothman MD Primary Care Provider + Tiffany Salas NP Primary Care Provider [phone] Chantal Rothman MD Primary Care Provider + Tiffany Salas NP Primary Care Provider [phone] No, Physician Primary Care Provider [phone] Tiffany Salas NP Unavailable [phone] Chantal Rothman MD Unavailable [phone] Encounter Details Date Type Department Care Team (Latest Contact Info) Description 01/02/2018 Orders Only [facility] CONVERSION Scanning, Provider Social History Tobacco Use Types Packs/Day Years Used Date Smoking Tobacco: Never Assessed Comments Unknown Sex and Gender Information Value Date Recorded Sex Assigned at Not on file Legal Sex Female 3:23 AM HOSPITAL RECEIVING CLERK Gender Identity Not on file Sexual Orientation Not on file documented as of this encounter Plan of Treatment Not on file documented as of this encounter Procedures Procedure Name Priority Date/Time Associated Diagnosis Comments OBSTETRIC/GYNECOLOGY ULTRASONOGRAPHY REPORT 01/09/2018 11:07 AM CDT OBSTETRIC/GYNECOLOGY ULTRASONOGRAPHY REPORT 01/02/2018 9:39 AM CDT documented in this encounter Results * OBSTETRIC/GYNECOLOGY ULTRASONOGRAPHY REPORT (01/09/2018 11:07 AM CDT) Anatomical Region Laterality Modality Ultrasound us Provider Scanning IMG OB US PROCEDURES Final Res ult * OBSTETRIC/GYNECOLOGY ULTRASONOGRAPHY REPORT (01/02/2018 9:39 AM CDT) Anatomical Region Laterality Modality Ultrasound us Provider Scanning IMG OB US PROCEDURES Final Res ult documented in this encounter Visit Diagnoses Not on filedocumented in this encounter Additional Health Concerns Infection Onset Date Last Indicated Resolved Time COVID: Suspected 06/07/2023 06/07/2023 06/07/2023 7:30 PM CDT COVID: Suspected 08/24/2024 08/24/2024 08/24/2024 3:54 PM HOSPITAL RECEIVING CLERK RSV, droplet 08/24/2024 08/24/2024 08/31/2024 3:07 AM HOSPITAL RECEIVING CLERK documented as of this encounter Care Teams Trailer Driver Relationship Specialty Start Date End Date Chantal Rothman MD PCP - General Family Medicine 09/02/17 10/05/20 Tiffany Salas NP PCP - General 10/06/20 10/09/20 Chantal Rothman MD PCP - General 10/10/20 11/20/22 Tiffany Salas NP PCP - General Nurse Practitioner 11/21/22 06/06/23 No, Physician PCP - General 06/07/23 Tiffany Salas NP Nurse Practitioner 06/07/23 Chantal Rothman MD Family Medicine 09/02/17 documented as of this encounter
--- OUTSIDE RECORDS SUMMARY | 2024-09-24 15:01 | XMS_ITS | Clinical Summary ---
Author Organization [facility] [address] Address [address] [place] [id number] Care Team Providers Care Family Law Legal Assistant Name Role Phone No, Physician Primary Care Provider [phone] Tiffany Salas NP Unavailable [phone] Chantal Rothman MD Unavailable [phone] Allergies Active Allergy Reactions Criticality Noted Date Comments Adhesive Urticaria Medium 06/07/2023 Adhesive Tape-Silicones Other (See comments) Low burning Atorvastatin Unknown Low 09/27/2020 Bacitracin-Polymyxin B Rash Medium 07/20/2020 Chlorhexidine Urticaria Medium 06/07/2023 Chlorhexidine Gluconate Hives,Itching Medium 1 Iodine Hives Medium 05/28/2021 Nufiyrnt-Efpxjoiueq-Bernulqvt Rash Medium 2020 Neosporin (Neomycin-Polymyx) Unknown Low 020 Sulfamethoxazole-Trimethoprim Unknown Low 2019 Medications ONETOUCH VERIO SYSTEM misc as directed. 0 018 Active ONETOUCH DELICA LANCETS 30 gauge misc 018 Active pen needle, diabetic 33 gauge x 5/32 needle 5 INJECTIONS DAILY DIRECTED 200 each 2 018 Active BD ULTRA-FINE MORELIA PEN NEEDLE 32 gauge x 5/32 needle USE WITH INSULIN FIVE TIMES DAILY 2 018 Active blood pressure monitor kitIndications: Pre-existing essential hypertension complicating in second trimester Monitor BP once daily at home 1 each 018 Active levothyroxine (SYNTHROID, LEVOTHROID) 112 mcg tablet TAKE 1 TABLET DAILY 90 tablet 1 018 Active acetaminophen 500 mg capsuleIndicati ons:Pain Take 2 capsules (1,000 mg total) by mouth every 6 (six) hours. 50 tablet 019 Active Additional Information Patient not taking.Reported on 08/24/2024 metoprolol XL (TOPROL-XL) 50 mg 24 hr tablet 019 Active triamcinolone (KENALOG) 0.1 % cream APPLY BY TOPICAL ROUTE 3 TIMES EVERY DAY A THIN LAYER TO THE AFFECTED AREA(S) 0 019 Active spironolactone (ALDACTONE) 50 mg tablet spironolactone 50 mg tablet 970 Active traZODone (DESYREL) 50 mg tablet TAKE 1/2 (ONE-HALF) TABLET BY MOUTH EVERY DAY AT BEDTIME NEEDED FOR 90 DAYS 023 Active vilazodone (VIIBRYD) 40 mg tablet 023 Active hydroCHLOROthia zide (MICROZIDE) 12.5 mg capsule hydrochlorothiazide 12.5 mg capsule 970 Active Trulicity 0.75 mg/0.5 mL pen injector INJECT 0.75 MG UNDER THE SKIN WEEKLY. 023 Active cyanocobalamin (Vitamin B-12) 1,000 mcg tablet B-12 TABLET 020 Active traMADoL (ULTRAM) 50 mg tablet Take 1 tablet (50 mg total) by mouth every 6 (six) hours as needed 023 Active docusate sodium (COLACE) 250 mg capsule Take 1 capsule (250 mg total) by mouth daily Act yarely cholecalciferol , vitamin D3, (cholecalcifero l, vit D3,,bulk,) 100,000 unit/gram powder Take 1,000 Units by mouth Active ibuprofen (ADVIL,MOTRIN) 800 mg tablet TAKE 1 TABLET BY MOUTH THREE TIMES DAILY FOR 7 DAYS NEEDED FOR PAIN 023 Active metFORMIN XR (GLUCOPHAGE XR) 500 mg 24 hr tablet Take by mouth every 12 hours 020 Active rosuvastatin (CRESTOR) 5 mg tablet Take 1 tablet (5 mg total) by mouth every other day as needed 970 Active rosuvastatin (CRESTOR) 5 mg tablet Take by mouth daily 021 Active cyclobenzaprine (FLEXERIL) 10 mg tabletIndicatio ns:Muscle Spasm Take 1 tablet (10 mg total) by mouth 2 (two) times a day as needed for muscle spasms for up to 5 days 10 tablet 023 Active azithromycin (ZITHROMAX) 250 mg tablet Take 2 tabs (500 mg) by mouth today, than 1 tab (250 mg) daily for 4 days. 6 tablet 023 Active Slynd tablet tablet 023 Active hydroCHLOROthia zide (HYDRODIURIL) 12.5 mg tablet Take 1 tablet (12.5 mg total) by mouth daily 023 Active levothyroxine (SYNTHROID) 112 mcg tablet Take 1 tablet (112 mcg total) by mouth daily 023 Active losartan (COZAAR) 100 mg tablet 023 Active metFORMIN XR (GLUCOPHAGE XR) 500 mg 24 hr tablet Take 1 tablet (500 mg total) by mouth 2 (two) times a day 023 Active rosuvastatin (CRESTOR) 5 mg tablet Take 1 tablet (5 mg total) by mouth every other day 023 Active spironolactone (ALDACTONE) 50 mg tablet Take 1 tablet (50 mg total) by mouth daily 023 Active vilazodone (VIIBRYD) 40 mg tablet 023 Active traZODone (DESYREL) 50 mg tablet TAKE 1/2 TABLET BY MOUTH EVERY DAY AT BEDTIME NEEDED 023 Active amoxicillin-cla vulanate (AUGMENTIN) 875-125 mg per tablet Take 1 tablet by mouth 2 (two) times a day for 10 days 20 tablet 025 2024 Active Problems Problem Noted Date Diagnosed Date Severe obesity 08/24/2024 Body mass index (BMI) 50.0-59.9, adult Acute non-recurrent pansinusitis 08/20/2024 Assessment & Plan (08/20/2024 1:58 PM CAMPUS SECURITY DIRECTOR): Due to length of illness we will treat with antibiotic, please complete the whole course of antibiotics-no leftovers. Prescription for antibiotics sent. Reviewed potential benefits and potential side effects of augmentin. Aware to complete full course of antibiotic. To continue otc medications. Discussed nasal saline rinses/neti pots. Discussed need to increase fluid intake. May use 1 teaspoon honey every 4 hours as needed for cough, encourage use of hot tea or hot water with honey. May use vicks vapo rub on chest and bottom of feet before bed. Cool mist humidifier in bedroom. Lots of water, rest and handwashing, no sharing cups or utensils. If symptoms worsen including but not limited to shortness of breath, chest pain and/or increasing pain please notify office or present to Emergency Department. Mitral regurgitation 09/27/2020 Overview (09/27/2020): Added automatically from request for surgery [id number] depression 09/18/2018 S/P section 08/19/2018 Overview (09/03/2018): # ID: Afebrile. No signs/symptoms of infection. # Heme: EBL 1000 mL. No symptoms acute blood loss anemia. Hgb 11.3 -> 9.7 postoperatively, stable. # CV/Pulm: Chronic hypertension - Blood pressures well controlled on Methyldopa 250 BID. Asymptomatic, denies HAINES/RUQ pain/vision changes. Previously on losartan- HCTZ, plan to restart , will discharge home with prescription. # GI/: Tolerating PO. Voiding spontaneously. Low UOP POD#1, improved with 1L LR bolus, then passed VT. Since resolved. # T2DM vs GDMA2: Insulin regimen during : lantus 30 qAm and 14u qPM, lispro 2 units w/ lunch and 2 units w/ dinner and Metformin 1000 mg BID. Patient was not on insulin prior to . BG 126 intrapartum, s/p insulin drip. Fasting BG PPD#1 103, continue on current regimen of Metformin 1000mg BID and SSI. Will continue to monitor. Hgb A1c 5.3 in 12/2017. BG well controlled PP. Plan for OGTT @6wk PP. #Hypothyroidism: Last TSH 0.5. Continue synthroid 112 mcg daily, same dose pre-. # Morbid Obesity: BMI 62. #Rash: Pt w/ sensitive skin and maculopapular rash over abdomen and back 2/2 adhesive allergy. CTM. Will treat symptomatically PRN. Benadryl prescribed, patient declined hydrocortisone cream. # Pain: Controlled with above regimen. # DVT prophylaxis: Sequential compression devices in place. Encourage early ambulation. # MOC: Desires IUD at visit # MOF: # Disposition: Desires discharge home today 08/20/18 LTCS after prolonged IOL at 39w2d complicated by 1. CHTN: Restarted on losartan/HCTZ at discharge 2. Type 2 DM vs. gDMA2 maanged on insulin and metformin in . Discharged on metformin 1000mg BID 3. Hypothyroid: Continue synthroid 112mcg Breech presentation 08/14/2018 Overview (08/14/2018): -08/14/18: Fetus breech on BPP today, 03/25. Discussed with patient that given her morbid obesity, an ECV is contraindicated. Therefore, the recommendation is for delivery. Reviewed the r/b/a of delivery with the patient including bleeding, infection, damage to surrounding structures, risk of VTE, risks of anesthesia and . Patient verbalized understanding and are in agreement with plan. to be scheduled for 08/19/18. Denise RN to call. Patient aware that due to abdominal adiposity, she will most likely require a midline vertical skin incision. Patient is aware that presentation will be checked when she presents for delivery. If the fetus is in cephalic presentation, the patient desires IOL. Allergies to Surgical Glue and Tape 08/14/2018 Overview (08/14/2018): PLEASE USE STERI-STRIPS, TELFA AND ABDOMINAL BINDERS FOR PRESSURE DRESSING. DO NOT USE ANY SKIN GLUE OR TAPE. TEGEDERMS ARE OK. No leakage of amniotic fluid into vagina 018 Overview (08/13/2018): 08/13/2018 [facility]: C/O mucosy 1/2cup of fluid loss from vagina -SSE negative pooling, negative VB, wet mount negative -SVE CL/TH/H -DVP 5.01cm/5.75cm -Patient given labor precautions Headache 08/04/2018 Overview (08/04/2018): [facility] Visit 08/04/18 Headache resolved with po Compazine. Normotensive. Normal glucose. Enc increasing po hydration. RX for po Compazine given. Pre-E precautions advised. F/U Friday. Reactive NST. 35 weeks gestation of 07/23/2018 Generalized body aches 07/23/2018 Overview (07/23/2018): [facility] Visit 07/23/18 Afebrile, VSS, denies cough or cold sx. Denies pain or n/v. Discussed comfort measures. Influenza swab obtained. Accu check 92. Precautions advised. Hx of biophysical profile 07/14/2018 Overview (07/14/2018): [facility] Visit 07/14/18 BPP 6/8, -2 for breathing. Here for prolonged efm. Reactive and reassuring Skin infection- umbilicus 06/30/2018 Overview (07/17/2018): - chronic 2m issue with rash, odor, bleeding at umbilicus - Was referred to Derm and saw them on 07/01 - Packing her umbilicus, taking Keflex, they advised using small amount of ointment prescribed by Derm, however patient states that it davis and she's not using it. - Follow up with Derm; stable today Round ligament pain 06/03/2018 Overview (06/03/2018): Also experiencing vaginal pressure. Cervix c/l/h. Reassurance given. Recommended hot packs, acetaminophen prn pain not otherwise tolerable. Constipation during in second trimeste r 05/01/2018 Overview (05/01/2018): Patient c/o constipation unrelieved with Colace. We need dose that she is currently taking. No response to MOM. Patient aware could try Miralax or enema. Candidal skin infection 05/01/2018 Overview (05/22/2018): -Site of candidal infection at last visit in umbilicus. Examined today and WNL. Umbilicus probed with Q Tip and measuring 4.5 cm deep. Moist inside. Patient instructed to irrigate umbilicus and to maximize dryness with use of guaze. No evidence of skin candidal infection today. No purulence or blood noted. Assessment & Plan (05/22/2018 10:42 AM CDT): -Awaiting results of culture previously sent. Obesity 01/19/2018 Overview (07/31/2018): -Previously discussed risks in including diabetes, preeclampsia, growth abnormalities, delivery and stillbirth -IOM recommendations previously reviewed with patient -+ 25 pounds Assessment & Plan (02/26/2018 1:12 PM CDT): -Doing well from weight gain standpoint thus far. Assessment & Plan (01/19/2018 2:24 PM CDT): -Previously discussed risks in including diabetes, preeclampsia, growth abnormalities, delivery and stillbirth -11-20 lbs , high-risk 01/19/2018 Overview (08/07/2018): - Complete care with M, Oriented to our practice previously. Aware that she will deliver at [facility]- SCHEDULED for 08/19/18 @ 0800. Patient aware of date and time. - Labs: UP to date; GBS negative - Declines genetic screening - Immunizations: TDAP and flu 06/05 -Contraception: Mirena. - Follow up: weekly for visit and twice weekly for testing Assessment & Plan (02/26/2018 1:14 PM CDT): SAB precautions reviewed Chronic hypertension 01/15/2018 Overview (07/31/2018): -Dx 4 years ago. Previously on Losartan-HCTZ and may need to restart in PP. -methyldopa 250 mg BID with . -Her blood pressure is normal today -Previously counseled on risk. -End organ workup 24 hour normal 177, normal Cr 0.69, normal LFTs. Echo 08/2017 WNL. -Serial ultrasounds for growth - Twice weekly NSTs at 32 weeks --Patient scheduled for delivery on August 19, 2017 at 8AM. Patient aware of date/time. -Con't on LD ASA therapy, compliant Assessment & Plan (07/31/2018 10:46 AM CAMPUS SECURITY DIRECTOR): -Patient scheduled for delivery on August 19, 2017 at 8AM. Patient aware of date/time. Assessment & Plan (05/22/2018 10:40 AM CDT): BP WNL today. PEC symptoms reviewed with the patient today. Assessment & Plan (01/19/2018 2:19 PM CDT): - methyldopa 250 mg BID with . -Her blood pressure is normal. -Previously counseled on risk. -End organ workup including 24 hour urine protein, CMP,and EKG ordered but not yet done. -Serial ultrasounds for growth at 24 weeks -Delivery by 37 - 39 weeks depending on blood pressure control -Initiate Aspirin at 12 weeks. Hypothyroidism 01/15/2018 Overview (08/07/2018): -Diagnosed 2 years ago -Patient will continue to have TSH every 6 - 8 weeks with titration of the synthroid dose as needed -TSH=4 on 01/09, dose increased to 125mcg daily on 01/19. - Repeat TSH 02/26 slightly low at 0.361, dose decreased to 112mcg daily - TSH on 04/22 - 1.01. - TSH 0.541 on 08/04 Assessment & Plan (01/19/2018 2:21 PM CDT): -Patient will continue to have TSH every 6 - 8 weeks with titration of the synthroid dose as needed recommended in previous note. -TSH 4.0 at last visit --> increasing synthroid to 125 micrograms today - re check in 6 weeks GDM vs T2DM 01/15/2018 Overview (08/14/2018): Blood sugars reviewed today 08/07/18 with excellent control. No changes made Current regimen, as reviewed on 08/14/18: NPH 34/22 Novolog 2 U with lunch and 2 U with dinner Metformin 1000 mg QAM/ 1000mg QHS - s/p clinical medical assistant/grievance and appeals coordinator -A1C 5.3% -Anatomic survey normal - Echo is normal but limited. Assessment & Plan (05/22/2018 10:31 AM CDT): -Blood sugars reviewed today. No changes made -Reviewed again risks of DM in . Patient verbalized understanding. Assessment & Plan (01/19/2018 2:23 PM CDT): Questionable diagnosis -Seeing Machine Heel Sprayer and Urban Anthropologist tomorrow locally -BS review reflects fairly good control on metformin 500 BID and not on diet yet -A1c is 5.3% - I reviewed that we will review again in 2 weeks at visit - will likely need insulin at some point -Aware of surveillance, Anatomic survey, serial US to assess growth and delivery timing. Hypertension complicating Resolved Problems Problem Noted Date Diagnosed Date Resolved Date Mild Polyhydramnios 07/14/2018 08/14/20 Overview (07/31/2018): -07/31/18: resolved -To continue w/ 2x/week testing for other medical and obstetric indications. Low-lying placenta, now resolved 03/26/2018 07/31/2018 Overview (06/19/2018): -06/19/18: Resolved on today's ultrasound. Posterior placenta, no e/o previa. Encounters Date Type Department Care Team Description 08/24/2024 12:01 PM CAMPUS SECURITY DIRECTOR - 08/24/2024 11:59 PM CAMPUS SECURITY DIRECTOR Hospital Encounter [address] [address] Acute viral syndrome Discharge Disposition: Discharge to home or self care 08/24/2024 9:25 AM CAMPUS SECURITY DIRECTOR Ancillary Procedure [facility] Imaging at [address] [id number] Acute cough 08/24/2024 9:00 AM CAMPUS SECURITY DIRECTOR Office Visit [facility] Con[facility]ient Care at [address] [phone] Ellen Mabry NP Acute viral syndrome (Primary Dx); Elevated blood pressure reading in office with diagnosis of hypertension 08/20/2024 1:45 PM CAMPUS SECURITY DIRECTOR Telemedicine [facility] Virtual Care [address] [place] [phone] Nathalia Thomas, ALFONSO Acute non-recurrent pansinusitis (Primary Dx) from Last 3 Months Immunizations Name Administration Dates Next Due Influenza, Quadrivalent, Cathy l Culture-based MDCK, Antibiotic Free, Intramuscular 06/05/2018 Tdap 06/05/2018 Surgical History Surgery Date Site/Laterality Comments LEG SURGERY Leg Repair - metal plate in left leg (Added by TW Conv) DE APPENDECTOMY Appendectomy - 1998 (Added by TW Conv) ORTHOPEDIC SURGERY 08/18/2002 - 08/17/2003 metal in Left lower leg SECTION Medical History Medical History Date Comments Personal history of other en docrine, nutritional and metabolic disease History of thyroid d isorder - (Added by TW Conv) Personal history of other di seases of the circulatory system History of chronic hypertens ion - (Added by TW Conv) Type 2 diabetes mellitus wit hout complications (CMS/HCC) (HCC) Tow-kyztfzi-pldthagnw di abetes mellitus without complications - (Added by TW Conv) Chronic hypertension Tachycardia Hypothyroidism Lumbar facet arthropathy Spinal osteophytosis, lumbar 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 Family History Medical History Relation Name Comments Heart disease Mother Hypothyroidism Mother Relation Name Status Comments Mother Social History Tobacco Use Types Packs/Day Years Used Date Smoking Tobacco: Never Assessed Smokeless Tobacco: Never Tobacco Cessation:Counseling Given: Not Answered Alcohol Use Standard Drinks/Week Comments No 0 (1 standard drink = 0.6 oz pur e alcohol) Comments Unknown Sex and Gender Information Value Date Recorded Sex Assigned at Not on file Legal Sex Female 3:23 AM CAMPUS SECURITY DIRECTOR Gender Identity Not on file Sexual Orientation Not on file Obstetrics History Para Term AB IAB SAB Ectopic Multiple Livin g Live Births 1 1 1 0 0 0 0 0 1 1 Date Outcome GA Total Labor Labor/2nd/3rd Weight Sex Type Anes PTL Lindsey A1 A5 Name Clin 2018 Term 39w 2d 3.28 kg (7 lb 3.7 oz) M CS-LT ranv Combin ed Spinal /Epidu ral N Livin g 3 9 PLEGG E,BOY NIEVES Dillon Mascorro MD Complications: Intolera nce Delivery Location:[facility] ([facility]) Last Filed Vital Signs Vital Sign Reading Time Taken Comments Blood Pressure 152/96 08/24/2024 9:09 AM CAMPUS SECURITY DIRECTOR Pulse 67 08/24/2024 9:09 AM CAMPUS SECURITY DIRECTOR Temperature 36.8 C (98.2 F) 08/24/2024 9:09 AM CAMPUS SECURITY DIRECTOR Respiratory Rate 20 08/24/2024 9:09 AM CAMPUS SECURITY DIRECTOR Oxygen Saturation 95% 08/24/2024 9:09 AM CAMPUS SECURITY DIRECTOR Inhaled Oxygen Concentration - - Weight 151.5 kg (333 lb 14.4 oz) 08/24/2024 9:09 AM CAMPUS SECURITY DIRECTOR Height 160 cm (5' 2.99 ) 08/24/2024 9:09 AM CAMPUS SECURITY DIRECTOR Body Mass Index 59.16 08/24/2024 9:09 AM CAMPUS SECURITY DIRECTOR Plan of Treatment Health Maintenance Due Date Last Done Comments Albumin Creatinine Ratio, Urine 1985 Cervical Cancer Screening 1985 Hepatitis C Screening 1985 Dilated Eye Exam 1985 Foot Exam 1985 Lipid Panel 1985 Pneumococcal vaccine <65 (1 of 2 - PCV) 1991 Varicella Vaccines (1 of 2 - 13+ 2-dose series) 1998 Hepatitis B Screening 2003 Regular Well Visit/Exam 18-64 2003 Hemoglobin A1C 07/16/2018 2018 eGFR 09/04/2019 09/04/2018, 2018 Depression Screening 10/09/2019 10/09/2018 Covid-19 Vaccine ( season) 2024 07/14/2021, 11/10/2020, 10/13/2020 Influenza Vaccine (#1) 2024 2, 06/13/2021, 06/15/2020, Additional history exists DTaP/Tdap/Td Vaccine (3 - Td or Tdap) 02/07/2033 02/07/2023, 06/05/2018 HPV Vaccines Aged Out No longer eligi ble based on patient's age to complete this topic Procedures Procedure Name Priority Date/Time Associated Diagnosis Comments INFLUENZA A/B, RSV, AND COVID-19 PCR Routine 08/24/2024 12:01 PM CAMPUS SECURITY DIRECTOR Acute viral syndrome XR CHEST PA LATERAL 2 VIEWS Schedule MABLE, Read MABLE (Appt Today, Awaiting Results) 08/24/2024 9:30 AM CAMPUS SECURITY DIRECTOR Acute cough EGFR Routine 09/04/2018 11:03 AM CAMPUS SECURITY DIRECTOR S/P section HEMOGLOBIN A1C W/EAG Routine 2018 8:13 AM CDT from Last 3 Months or Most Recently Relevant to Health Maintenance Results * (ABNORMAL) Influenza A/B, RSV, and COVID-19 PCR Nasopharyngeal (08/24/2024 12:01 PM CAMPUS SECURITY DIRECTOR) Pathologist [facility] COVID-19 RNA Negative Negative Influenza A RNA Negative Negative [facility] Influenza B RNA Negative Negative [facility] RSV RNA Positive(A) Negative [facility] Comment: Interpretive data: Testing performed by [facility]. This test is performed using the [employer] Xpert Xpress CoV-2/Flu/RSV plus assay. This is a multiplex, real-time reverse transcriptase PCR assay intended for the qualitative detection of nucleic acid from SARS-CoV-2, influenza A, influenza B, and respiratory syncytial virus. This assay has been cleared by the [place] Food and Drug administration. The performance characteristics have been verified by the [facility]. Results must be considered in the clinical context, and a negative result does not rule out infection. Interpretive Data last revised 2023 Nasopharyngeal 08/24/2024 12 :01 PM CAMPUS SECURITY DIRECTOR 08/24/2024 2:52 PM CAMPUS SECURITY DIRECTOR Narrative [facility] - 08/24/2024 3:53 PM CAMPUS SECURITY DIRECTOR Is the Patient experiencing symptoms consistent with COVID?->Yes Ellen Mabry NP LAB MICROBIOLOGY - GENERAL [place] [id number] [address] Department [place] [address] * XR Chest PA Lateral 2 Views (08/24/2024 9:30 AM CAMPUS SECURITY DIRECTOR) Anatomical Region Laterality Modality Body, Chest N/A Digital Radiogra phy 08/24/2024 11:0 9 AM CAMPUS SECURITY DIRECTOR Narrative 08/24/2024 11:11 AM CAMPUS SECURITY DIRECTOR EXAM DESCRIPTION: XR CHEST PA LATERAL 2 VIEWS REASON FOR STUDY: cough Pt complains of cough for a few days. No surgery to heart, lungs, or chest. History of high blood pressure. Non-smoker TECHNIQUE: There are 2 radiographic view(s) of the chest. COMPARISON: No prior FINDINGS: LUNGS: Pulmonary vascularity appears normal. No focal infiltrate or effusion. Costophrenic angles are sharp. HEART/MEDIASTINUM: Cardiac silhouette normal in size. Mediastinal and hilar contours appear normal. LINES/TUBES: None. BONES: Mild spondylosis thoracic spine. IMPRESSION: No acute cardiopulmonary abnormality. THIS IS AN ELECTRONICALLY VERIFIED FINAL REPORT 08/24/2024 11:11 AM - Electronically signed by Sherif Arnold M.D. MJ T: Report ID: [id number] Reading Location: [id number] Procedure Note Sherif Arnold MD - 08/24/2024 EXAM DESCRIPTION: XR CHEST PA LATERAL 2 VIEWS REASON FOR STUDY: cough Pt complains of cough for a few days. No surgery to heart, lungs, orchest. History of high blood pressure. Non-smoker TECHNIQUE: There are 2 radiographic view(s) of the chest. COMPARISON: No prior FINDINGS: LUNGS: Pulmonary vascularity appears normal. No focalinfiltrate or effusion. Costophrenic angles are sharp. HEART/MEDIASTINUM: Cardiac silhouette normal in size. Mediastinal andhilar contours appear normal. LINES/TUBES: None. BONES: Mild spondylosis thoracic spine. IMPRESSION: No acute cardiopulmonary abnormality. THIS IS AN ELECTRONICALLY VERIFIED FINAL REPORT 08/24/2024 11:11 AM - Electronically signed by Sherif Arnold M.D. MJ T: Report ID: [id number] Reading Location: [id number] Ellen Mabry SYSTEM OPERATION SUPERINTENDENT IMG XR PROCEDURES Final Result * eGFR (09/04/2018 11:03 AM CAMPUS SECURITY DIRECTOR) eGFR 72 mL/min/1.7 3 m2 [facility] Comment: Interpretive Data Reference Interval Normal >/= 90 mL/min/1.73m2 Mildly decreased* 60 - 89 mL/min/1.73m2 Mildly to moderately decreased 45 - 59 mL/min/1.73m2 Moderately to severely decreased 30 - 44 mL/min/1.73m2 Severely decreased 15 - 29 mL/min/1.73m2 Kidney Failure < 15 mL/min/1.73m2 *Relative to young adult level If -[place] multiply value by 1.16. Estimated glomerular filtration rate is determined by the CKD-EPI equation recommended by the National Kidney Foundation (KDIGO 2012 Clinical Practice Guideline for the Evaluation and Management of Chronic Kidney Disease. Kidney Intnl Suppl Aug 2012;3:1). The CKD-EPI equation should not be used for patients with unstable renal function and has not been validated in children and those over 70. Current interpretive data was last reviewed 2016. Blood specimen (specimen) 09/04/2018 11:03 AM CAMPUS SECURITY DIRECTOR 09/04/2018 11:24 AM CAMPUS SECURITY DIRECTOR Narrative [facility] - 09/04/2018 11:55 AM CAMPUS SECURITY DIRECTOR Klarissa Angulo MD LAB BLOOD ORDERABLES Fin al Result [facility] [address] Department [place] [address] * HEMOGLOBIN A1C W/EAG (2018 8:13 AM CDT) Hgb A1C 5.3 4.8 - 5.6 % [facility] - 01 Comment: Pre-diabetes: 5.7 - 6.4 Diabetes: >6.4 Glycemic control for adults with diabetes: <7.0 Estim. Avg Glu (eAG) 105 mg/dL [facility] - 01 2018 8:13 AM CDT 2018 Narrative [facility] - 01/19/2018 1:09 PM CDT Performed at: 01 - [facility] [id number] Dolly Operator: Trevon Gomez PhD, Phone: [phone] us Jaqueline Jeffery MD LAB BLOOD ORDERABLES F inal Result [facility] - 01 from Last 3 Months or Most Recently Relevant to Health Maintenance Insurance [facility] Advance Directives For more information, please contact: [phone] * Full Code (Latest Code Status on File) Date Activated Date Inactivated Comments 08/20/2018 5:43 PM 08/23/2018 6:44 PM * Full Code Date Activated Date Inactivated Comments 08/19/2018 7:27 AM 08/20/2018 5:43 PM Full CPR in ca se of cardiopulmonary arrest * Full Code Date Activated Date Inactivated Comments 08/19/2018 6:46 AM 08/19/2018 7:26 AM Full CPR in ca se of cardiopulmonary arrest Care Teams Family Law Legal Assistant Relationship Specialty Start Date End Date No, Physician PCP - General 06/07/23 Tiffany Salas NP Nurse Practitioner 06/07/23 Chantal Rothman MD Family Medicine 09/02/17
--- OUTSIDE RECORDS SUMMARY | 2024-09-24 15:01 | XMS_ITS | Referral Summary ---
Author Organization [facility] [address] Address [address] [place] [phone] Care Team Providers Care Operator And Truck Driver Name Role Phone No, Physician Primary Care Provider [phone] Tiffany Salas NP Unavailable [phone] Chantal Rothman MD Unavailable [phone] Encounters Date Type Department Care Team Description 08/24/2024 12:01 PM LINE MAINTAINER - 08/24/2024 11:59 PM LINE MAINTAINER Hospital Encounter [address] [address] Acute viral syndrome Discharge Disposition: Discharge to home or self care 08/24/2024 9:25 AM LINE MAINTAINER Ancillary Procedure [facility] Imaging at [address] [phone] Acute cough 08/24/2024 9:00 AM LINE MAINTAINER Office Visit [facility] Convenient Care at [address] [phone] Ellen Mabry NP Acute viral syndrome (Primary Dx); Elevated blood pressure reading in office with diagnosis of hypertension 08/20/2024 1:45 PM LINE MAINTAINER Telemedicine [facility] Care [address] [place] [phone] Nathalia Thomas NP Acute non-recurrent pansinusitis (Primary Dx) from Last 3 Months Allergies Active Allergy Reactions Criticality Noted Date Comments Adhesive Urticaria Medium 06/07/2023 Adhesive Tape-Silicones Other (See comments) Low burning Atorvastatin Unknown Low 09/27/2020 Bacitracin-Polymyxin B Rash Medium 07/20/2020 Chlorhexidine Urticaria Medium 06/07/2023 Chlorhexidine Gluconate Hives,Itching Medium Iodine Hives Medium 05/28/2021 Agmnatvo-Pxpqlydhvy-Fzekvpmey Rash Medium 2020 Neosporin (Neomycin-Polymyx) Unknown Low Sulfamethoxazole-Trimethoprim Unknown Low 2019 Medications ONETOUCH VERIO [...] 08/20/2024 Assessment & Plan (08/20/2024 1:58 PM LINE MAINTAINER): Due to length of illness we will [...] (09/27/2020): Added automatically from request for surgery [id number] depression 09/18/2018 S/P section 08/19/2018 Overview (09/03/2018): [...] fluid into vagina 018 Overview (08/13/2018): 08/13/2018 [facility]: C/O mucosy 1/2cup of fluid loss from vagina -SSE negative pooling, negative VB, wet mount negative -SVE CL/TH/H -DVP 5.01cm/5.75cm -Patient given labor precautions Headache 08/04/2018 Overview (08/04/2018): [facility] Visit 08/04/18 Headache resolved with po Compazine. Normotensive. Normal glucose. Enc increasing po hydration. RX for po Compazine given. Pre-E precautions advised. F/U Friday. Reactive NST. 35 weeks gestation of 07/23/2018 Generalized body aches 07/23/2018 Overview (07/23/2018): [facility] Visit 07/23/18 Afebrile, VSS, denies cough or cold sx. Denies pain or n/v. Discussed comfort measures. Influenza swab obtained. Accu check 92. Precautions advised. Hx of biophysical profile 07/14/2018 Overview (07/14/2018): [facility] Visit 07/14/18 BPP 6/8, -2 for breathing. [...] previously. Aware that she will deliver at [facility]- SCHEDULED for 08/19/18 @ 0800. Patient aware [...] compliant Assessment & Plan (07/31/2018 10:46 AM LINE MAINTAINER): -Patient scheduled for delivery on August 19, [...] Current regimen, as reviewed on 08/14/18: NPH 34/ Novolog 2 U with lunch and 2 U with dinner Metformin 1000 mg QAM/ 1000mg QHS - s/p staff educator/ore miner -A1C 5.3% -Anatomic survey normal - Echo is normal but limited. Assessment & Plan (05/22/2018 10:31 AM CDT): -Blood sugars reviewed today. No changes made -Reviewed again risks of DM in . Patient verbalized understanding. Assessment & Plan (01/19/2018 2:23 PM CDT): Questionable diagnosis -Seeing Glass Forming Crew Member and Forest Engineer tomorrow locally -BS review reflects fairly good [...] Date Resolved Date Mild Polyhydramnios 07/14/2018 08/14/20 18 Overview (07/31/2018): -07/31/18: resolved -To continue w/ 2x/week testing for other medical and obstetric indications. Low-lying placenta, now resolved 03/26/2018 07/31/2018 Overview (06/19/2018): -06/19/18: Resolved on today's ultrasound. Posterior placenta, no e/o previa. Immunizations Name Administration Dates Next Due Influenza, Quadrivalent, Cathy l Culture-based MDCK, Antibiotic Free, Intramuscular 06/05/2018 Tdap 06/05/2018 Social History Tobacco Use Types Packs/Day Years Used Date Smoking Tobacco: Never Assessed Smokeless Tobacco: Never Tobacco Cessation:Counseling Given: Not Answered Alcohol Use Standard Drinks/Week Comments No 0 (1 standard drink = 0.6 oz pur e alcohol) Comments Unknown Sex and Gender Information Value Date Recorded Sex Assigned at Not on file Legal Sex Female 3:23 AM LINE MAINTAINER Gender Identity Not on file Sexual Orientation Not on file Last Filed Vital Signs Vital Sign Reading Time Taken Comments Blood Pressure 152/96 08/24/2024 9:09 AM LINE MAINTAINER Pulse 67 08/24/2024 9:09 AM LINE MAINTAINER Temperature 36.8 C (98.2 F) 08/24/2024 9:09 AM LINE MAINTAINER Respiratory Rate 20 08/24/2024 9:09 AM LINE MAINTAINER Oxygen Saturation 95% 08/24/2024 9:09 AM LINE MAINTAINER Inhaled Oxygen Concentration - - Weight 151.5 kg (333 lb 14.4 oz) 08/24/2024 9:09 AM LINE MAINTAINER Height 160 cm (5' 2.99 ) 08/24/2024 9:09 AM LINE MAINTAINER Body Mass Index 59.16 08/24/2024 9:09 AM LINE MAINTAINER Plan of Treatment Not on file Procedures Procedure Name Priority Date/Time Associated Diagnosis Comments INFLUENZA A/B, RSV, AND COVID-19 PCR Routine 08/24/2024 12:01 PM LINE MAINTAINER Acute viral syndrome XR CHEST PA LATERAL 2 VIEWS Schedule MABLE, Read MABLE (Appt Today, Awaiting Results) 08/24/2024 9:30 AM LINE MAINTAINER Acute cough EGFR Routine 09/04/2018 11:03 AM LINE MAINTAINER S/P section HEMOGLOBIN A1C W/EAG Routine 2018 8:13 AM CDT from Last 3 Months or Most Recently Relevant to Health Maintenance Results * (ABNORMAL) Influenza A/B, RSV, and COVID-19 PCR Nasopharyngeal (08/24/2024 12:01 PM LINE MAINTAINER) Pathologist [facility] COVID-19 RNA Negative Negative Influenza A RNA Negative Negative [facility] Influenza B RNA Negative Negative [facility] RSV RNA Positive(A) Negative [facility] Comment: Interpretive data: Testing performed by [facility]. This test is performed using the [employer] Xpert Xpress CoV-2/Flu/RSV plus assay. This is a multiplex, real-time reverse transcriptase PCR assay intended for the qualitative detection of nucleic acid from SARS-CoV-2, influenza A, influenza B, and respiratory syncytial virus. This assay has been cleared by the [place] Food and Drug administration. The performance characteristics have been verified by the [facility]. Results must be considered in the clinical context, and a negative result does not rule out infection. Interpretive Data last revised 2023 Nasopharyngeal 08/24/2024 12 :01 PM LINE MAINTAINER 08/24/2024 2:52 PM LINE MAINTAINER Narrative [facility] - 08/24/2024 3:53 PM LINE MAINTAINER Is the Patient experiencing symptoms consistent with COVID?->Yes us Ellen Mabry NP LAB MICROBIOLOGY - GENERAL ORD ERABLES Final Result [facility] [address] [place] [address] * XR Chest PA Lateral 2 Views (08/24/2024 9:30 AM LINE MAINTAINER) Anatomical Region Laterality Modality Body, Chest N/A Digital Radiogra phy 08/24/2024 11:0 9 AM LINE MAINTAINER Narrative 08/24/2024 11:11 AM LINE MAINTAINER EXAM DESCRIPTION: XR CHEST PA LATERAL 2 [...] 11:11 AM - Electronically signed by Sherif STARR T: Report ID: [id number] Reading Location: [id number] Procedure Note Sherif Arnold MD - 08/24/2024 [...] 11:11 AM - Electronically signed by Sherif STARR T: Report ID: [id number] Reading Location: [id number] Ellen Mabry AUTOMOTIVE MANUFACTURER IMG XR PROCEDURES Final Result * eGFR (09/04/2018 11:03 AM LINE MAINTAINER) eGFR 72 mL/min/1.7 3 m2 [facility] Comment: Interpretive Data Reference Interval Normal >/= 90 mL/min/1.73m2 Mildly decreased* 60 - 89 mL/min/1.73m2 Mildly to moderately decreased 45 - 59 mL/min/1.73m2 Moderately to severely decreased 30 - 44 mL/min/1.73m2 Severely decreased 15 - 29 mL/min/1.73m2 Kidney Failure < 15 mL/min/1.73m2 *Relative to young adult level If -Honduran multiply value by 1.16. Estimated glomerular filtration [...] 2016. Blood specimen (specimen) 09/04/2018 11:03 AM LINE MAINTAINER 09/04/2018 11:24 AM LINE MAINTAINER Narrative [facility] - 09/04/2018 11:55 AM LINE MAINTAINER us Klarissa Angulo MD LAB BLOOD ORDERABLES Fin al Result [facility] [address] Department [place] [address] * HEMOGLOBIN A1C W/EAG (2018 8:13 AM CDT) Hgb A1C 5.3 4.8 - 5.6 % [facility] - 01 Comment: Pre-diabetes: 5.7 - 6.4 Diabetes: >6.4 Glycemic control for adults with diabetes: <7.0 Estim. Avg Glu (eAG) 105 mg/dL [facility] - 01 2018 8:13 AM CDT 2018 Narrative [facility] - 01/19/2018 1:09 PM CDT Performed at: [address] [place] [id number] Lcac Operator: Trevon Gomez PhD, Phone: [phone] Jaqueline Jeffery MD LAB BLOOD ORDERABLES F inal Result [facility] - 01 from Last 3 Months or Most Recently Relevant to Health Maintenance Insurance [facility] CHOICE [facility] HMO/PPO Address: [address] [address] [place] [address] [facility] Advance Directives For more information, please contact: [phone] * Full Code (Latest Code Status on [...] ca se of cardiopulmonary arrest Care Teams Operator And Truck Driver Relationship Specialty Start Date End Date No, Physician PCP - General 06/07/23 Tiffany Salas NP Nurse Practitioner 06/07/23 Chantal Rothman MD Family Medicine 09/02/17
--- OUTSIDE RECORDS SUMMARY | 2024-09-24 15:02 | XMS_ITS | Encounter Summary ---
Author Organization [facility] Address [address] [place] [id number] Care Team Providers Care Fruit Ii Farmworker Name Role Phone Heidi Samuel MD Primary Care Provider [phone] Encounter Details Date Type Department Care Team (Latest Contact Info) Description 09/23/2024 Travel Social History Tobacco Use Types Packs/Day Years Used Date Smoking Tobacco: Never Smokeless Tobacco: Never Alcohol Use Standard Drinks/Week Comments Not Currently 0 (1 standard drink = 0.6 oz pur e alcohol) Comments No Sex and Gender Information Value Date Recorded Sex Assigned at Female 09/23/2024 8:26 PM HEMODIALYSIS PATIENT CARE SPECIALIST Legal Sex Female 7:41 PM CDT Gender Identity Not on file Sexual Orientation Not on file documented as of this encounter Plan of Treatment Not on file documented as of this encounter Visit Diagnoses Not on filedocumented in this encounter Additional Health Concerns Infection Onset Date Last Indicated Resolved Time COVID-19 Rule Out 09/23/2024 09/23/2024 09/23/2024 9:13 PM HEMODIALYSIS PATIENT CARE SPECIALIST documented as of this encounter Care Teams Fruit Ii Farmworker Relationship Specialty Start Date End Date Heidi Samuel MD [address] [place] [address] PCP - General 02/22/24 documented as of this encounter
--- OUTSIDE RECORDS SUMMARY | 2024-09-24 15:02 | XMS_ITS | Patient Health Summary ---
Author Organization [facility] Address [address] [place] [address] Care Team Providers Care Cold Food Packer Name Role Phone Unavailable Primary Care Provider Unavailabl e Note from [facility],non-owned Affiliates and Associated Physician Practices is amultiple site organization consisting of ambulatory clinics and hospital sitesin [place], [place], [place] and [place]. This disclosure is being madepursuant to the Care Everywhere program and may not contain all information available regarding this patient. Last updated 18.[facility] Allergies * Adhesive Sensitivity(Urticaria) -Medium Criticality * Povidone Iodine(Urticaria) -Medium Criticality * Cpibabmn-Dzyhgzmgmq-Yeysyxsfg(Rash) -Medium Criticality * Skin Adhesives(Urticaria) -Medium Criticality Medications * Be aware that medications may not be up to date on this document. Alwaysverify current medications with the patient. * levothyroxine (SYNTHROID) 112 MCG tablet Take 112 mcg by mouth daily before breakfast * metFORMIN (GLUCOPHAGE) 500 MG tablet Take 500 mg by mouth 2 times daily with morning and evening meal * metoprolol succinate XL 24hr (TOPROL XL) 50 MG tablet Take 50 mg by mouth once daily * LOSARTAN POTASSIUM PO Take by mouth once daily 100mg- 50mg * rosuvastatin (CRESTOR) 5 MG tablet Take 5 mg by mouth every other day as needed Routine Not PRN * docusate sodium (COLACE) 100 MG capsule Take 100 mg by mouth once daily * Cholecalciferol (D3-1000 PO) Take 1,000 Units by mouth * cyanocobalamin (VITAMIN B-12) 500 MCG tablet Take 500 mcg by mouth once daily * multivitamin daily tablet Take 1 tablet by mouth daily with food * linaCLOtide (LINZESS) 145 MCG capsule Take 145 mcg by mouth once daily after breakfast 72-145 * hydroCHLOROthiazide (HYDRODIURIL) 25 MG tablet Take 25 mg by mouth once daily * oxyCODONE-acetaminophen (PERCOCET) 5-325 MG tablet(Started 01/30/2021) Take 1 (one) tablet by mouth every 6 hours as needed for Pain Immunizations * Covid Moderna primary monovalent 12+ yr 0.5mL(Given 11/10/2020, 10/13/2020) Social History Tobacco Use Types Packs/Day Years [...] Mass Index 56.15 02/21/2021 12:52 PM CDT Procedures * PATHOLOGY TISSUE(Performed 01/30/2021) Performed for Draining cutaneous sinus tract, Enterocutaneous fistula * ENDOTRACHEAL TUBE NOTE(Performed 01/30/2021) * LAPAROSCOPIC REPAIR UMBILICAL HERNIA(Performed 01/30/2021) Performed for Draining cutaneous sinus tract, Enterocutaneous fistula * GLUCOSE - POINT OF CARE(Performed 01/30/2021) * HCG URINE QUALITATIVE - POCT (IP) INTERFACED(Performed 01/30/2021) * HCG URINE QUAL POCT NOTIFICATION(Performed 01/30/2021) Performed for Pre-op exam * CBC W/O DIFFERENTIAL(Performed 01/11/2021) Performed for Pre-op exam * BASIC METABOLIC PANEL (CALCIUM TOTAL)(Performed 01/11/2021) Performed for Pre-op exam Results * PATHOLOGY TISSUE (01/30/2021 8:33 AM CDT) Case Report Surgical Pathology Report Case: [id number] Authorizing Provider: Cole Villanueva MD Collected: 01/30/2021 08:33 AM Ordering Location: [facility] Received: 01/30/2021 11:45 AM Pathologist: Trudy Villanueva MD Specimen: Adhesions, intra-abdominal adhesion 02/02/2021 1:03 PM CDT [facility] Final Diagnosis Soft tissue, intra-abdominal adhesion, excision (A): - Fibrous tissue, negative for malignancy 02/02/2021 1:03 PM T [facility] Microscopic Description and Comment Microscopic examination substantiates the final diagnosis. 02/02/2021 1:03 PM CDT [facility] Clinical History 36 year old female with chronic umbilical discharge, at surgery umbilical hernia with incarcerated omentum but no bowel involvement 02/02/2021 1:03 PM CDT [facility] Gross Description The requisition and specimen(s) are identified with the patient's name, Delfina Tobar. Received in formalin, specimen A is a 1.8 x 1.7 x 0.4 cm pink-reveles fibromembranous tissue with associated adipose tissue. The specimen is sectioned showing pink-reveles, mildly firm cut surfaces. Tamale Machine Feeder sections submitted in cassette A1. LJ 02/02/2021 1:03 PM CDT [facility] Disclaimer The performance characteristics of all immunohistochemical and indirect immunofluorescence stains (if any) cited in this report were determined by the Histopathology Laboratory of [facility]. Some of these tests were developed by our own laboratory and have not been cleared or approved by the US Food and Drug Administration. The FDA does not require this test to go through premarket FDA review. These tests are used for clinical purposes. They should not be regarded as investigational or for research. This laboratory is certified under the Clinical Laboratory Improvement Amendments (CLIA) as qualified to perform high complexity clinical laboratory testing. This case has been personally reviewed and interpreted by the attending (teaching) pathologist. 02/02/2021 1:03 PM CDT [facility] Embedded Images 02/02/2021 1:03 PM CDT [facility] Biopsy, Excision ADHESION / Unknown 01/30/2021 8:33 AM CDT 01/30/2021 11:45 AM CDT Comment:Pre-op diagnosis: Draining cutaneous sinus tract, Enterocutaneous fistula Cole Villanueva MD LAB - PATHOLOGY/CYTO LOGY ORDERABLES [facility] [address] [phone] * ETT LINE PERFORMABLE (01/30/2021 8:28 AM CDT) Narrative Marcelina Slater MD - 01/30/2021 8:28 AM CDT Marcelina Slater MD 01/30/2021 8:35 AM Endotracheal Tube Placement: Patient Location: OR. Intubation Event Date/Time: 01/30/2021 7:59 AM Procedure: intubation (98090). Procedure Section: Sedation: under general anesthesia. Indications for Airway Management: anesthesia Induction: standard IV Patient Position: sniffing Mask Ventilation: difficult and required 2 people (2 handed). Blade Type: Video Blade Size: 4 Laryngoscopy View: grade 2 (partial cords) Intubation Adjuncts: stylet and video laryngoscope Tube: endotracheal tube Placement: oral Tube Size (MM): 7 Depth of Insertion (CM): 22 Measured From: lips Cuff volume (mL): 10 Cuff Inflated With: air Number of Attempts: 2. Ventilation between attempts: Yes. Placement Verified By: direct visualization, bilateral breath sounds, chest auscultation and CO2 monitor Tube secured with: adhesive tape. Dentition unchanged? Yes Difficult Airway? Yes. Technique: video laryngoscope Reason: obesity Procedure Start Time: 01/30/2021 7:59 AM. Staff Section Anesthesia Provider: Marcelina Slater MD, Performed the procedure Provider #1: Paula Posey, MAL-CONTROL TOWER OPERATOR, Performed the procedure. Sandip Romero MD GENERAL ANESTHES [place] ORDERABLES * (ABNORMAL) GLUCOSE - POINT OF CARE (01/30/2021 7:03 AM CDT) Glucose WB/POC 116(H) 70 - 115 mg/dL 01/30/2021 7:04 AM CDT [facility] Specimen Type Arterial 01/30/2021 7:04 AM CDT [facility] Blood BLOOD SPECIMEN / Unknown 01/30/2021 7:03 AM CDT 01/30/2021 7:04 AM CDT Cole Villanueva MD LAB - POINT OF CARE ORDERABLES [address] [address], [place] [phone] * HCG URINE QUALITATIVE - POCT (IP) INTERFACED (01/30/2021 6:37 AM CDT) HCG Qual Urine Negative Negative 01/30/2021 6:49 AM CDT [facility] Urine URINE / Unknown 01/30/2021 6 :37 AM CDT 01/30/2021 6:49 AM CDT Cole Villanueva MD LAB - POINT OF CARE ORDERABLES Performing Organization Address City/[facility]/ZIP Co de Phone Number [address] [address], [place] [phone] * HCG URINE QUAL POCT NOTIFICATION (01/30/2021 5:55 AM CDT) Comment Notification Label Only - See Separate Report 01/30/2021 7:00 AM CDT [facility] Urine URINE / Unknown 01/30/2021 5 :55 AM CDT 01/30/2021 5:55 AM CDT Joan Hatfield CRATE MAKER-PRINCIPAL PRODUCT MANAGER LAB - URINALYSIS ORDERABLES [address] [address] [phone] * CBC W/O DIFFERENTIAL (01/11/2021 12:35 PM CDT) WBC 10.0 3.5 - 10.5 10 3/uL 01/11/2021 1:44 PM [facility] RBC 4.83 3.80 - 5.20 10 6/uL 01/11/2021 1:44 PM [facility] Hemoglobin 13.9 12.0 - 15.6 g/dL 01/11/2021 1:44 PM [facility] Hematocrit 42.1 35.0 - 45.0 % 01/11/2021 1:44 PM [facility] MCV 87.2 80.7 - 98.3 fL 01/11/2021 1:44 PM [facility] MCH 28.8 26.7 - 34.0 pg 01/11/2021 1:44 PM [facility] MCHC 33.0 30.8 - 35.9 g/dL 01/11/2021 1:44 PM [facility] Platelet Count 309 150 - 400 10 3/uL 01/11/2021 1:44 PM [facility] RDW-SD 41.8 36.0 - 50.0 fL 01/11/2021 1:44 PM [facility] RDW-CV 13.2 11.2 - 14.8 % 01/11/2021 1:44 PM [facility] MPV 11.7 9.4 - 12.9 fL 01/11/2021 1:44 PM [facility] nRBC Absolute 0.00 0 10 3/uL 01/11/2021 1:44 PM [facility] nRBC Auto 0.0 0 /100 WBC 01/11/2021 1:44 PM [facility] Blood BLOOD SPECIMEN / Unknown Lab Venipuncture / Unknown 01/11/2021 12:35 PM CDT 01/11/2021 1:25 PM CDT Joan Hatfield CRATE MAKER-PRINCIPAL PRODUCT MANAGER LAB - HEMATOLOGY ORDERABLES [facility] [address] [place] [address], [facility] [phone] * (ABNORMAL) BASIC METABOLIC PANEL (CALCIUM TOTAL) (01/11/2021 12:35 PM CDT) BUN 10 7 - 26 mg/dL 01/11/2021 2:00 PM [facility] Creatinine 0.84 0.56 - 0.96 mg/dL 01/11/2021 2:00 PM [facility] Sodium 139 136 - 145 mmol/L 01/11/2021 2:00 PM [facility] Potassium 5.0(H) 3.5 - 4.5 mmol/L 01/11/2021 2:00 PM [facility] Chloride 102 98 - 107 mmol/L 01/11/2021 2:00 PM [facility] CO2 30(H) 22 - 29 mmol/L 01/11/2021 2:00 PM [facility] Glucose 86 70 - 115 mg/dL 01/11/2021 2:00 PM [facility] Calcium 9.1 8.4 - 10.2 mg/dL 01/11/2021 2:00 PM [facility] Anion Gap 12 8 - 18 01/11/2021 2:00 PM [facility] BUN/Creatinine Ratio 12 7 - 23 01/11/2021 2:00 PM [facility] Osmolality Calculated 286 270 - 300 mOsm/kg 01/11/2021 2:00 PM [facility] eGFR by CKD-EPI 90 >=90 mL/min/1.7 3 m2 01/11/2021 2:00 PM [facility] Blood BLOOD SPECIMEN / Unknown Lab Venipuncture / Unknown 01/11/2021 12:35 PM CDT 01/11/2021 1:25 PM [facility] Joan Hatfield CRATE MAKER-PRINCIPAL PRODUCT MANAGER LAB - CHEMISTRY ORDERABLES [facility] [address] [place] [address], [facility] [phone]
--- OUTSIDE RECORDS SUMMARY | 2024-09-24 15:02 | XMS_ITS | Referral Summary ---
Author Organization [facility] Address [address] [place] [address] Care Team Providers Care Irrigation Flume Layer Name Role Phone Unavailable Primary Care Provider Unavailabl e Source Comments [facility],non-owned Affiliates and Associated Physician Practices is amultiple site organization consisting of ambulatory clinics and hospital sitesin [place], [place], [place] and [place]. This disclosure is being madepursuant to the Care Everywhere program and may not contain all information available regarding this patient. Last updated 18.[facility] Allergies Active Allergy Reactions Criticality Noted Date Comments Adhesive Sensitivity Urticaria Medium 01/11/2021 Povidone Iodine Urticaria Medium 03/29/2021 Puodkkuv-Mdwfdttakc-Squeacrtu Rash Medium 2020 Skin Adhesives Urticaria Medium [...] 03/29/2021 Immunizations Name Administration Dates Next Due Rony Fonseca primary monovalent 12+ yr 0.5mL ,10/13/2020 Social [...] 02/21/2021 12:52 PM CDT Plan of Treatment Not on file PLEGGE,MARGI E Personal/Family Other [address] [place] [address] PLEGGE,MARGI E Personal/Family Other [address] [place] [address] PLEGGE,MARGI E Personal/Family Other [address] [place] [address] PLEGGE,MARGI E Personal/Family Other [address] [place] [address] PLEGGE,MARGI E Personal/Family Other [address] [place] [address] PLEGGE,MARGI E Personal/Family Other [address] [place] [address] PLEGGE,MARGI E Personal/Family Other [address] [place] [address] PLEGGE,MARGI E Personal/Family Other [address] [place] [address] PLEGGE,MARGI E Personal/Family Other [address] [place] [address] PLEGGE,MARIG E Personal/Family Other [address] [place] [address] PLEGGE,MARGI E Personal/Family Other [address] [place] [address] PLEGGE,MARGI E Personal/Family Other [address] [place] [address] PLEGGE,MARGI E Personal/Family Other [address] [place] [address] PLEGGE,MARGI E Personal/Family Other [address] [place] [address] PLEGGE,MARGI E Personal/Family Other [address] [place] [address] PLEGGE,MARGI E Personal/Family Other [address] [place] [address] PLEGGE,MARGI E Personal/Family Other [address] [place] [address] PLEGGE,MARGI E Personal/Family Other [address] [place] [address] PLEGGE,MARGI E Personal/Family Other [address] [place] [address] PLEGGE,MARGI E Personal/Family Other [address] [place] [address] PLEGGE,MARGI E Personal/Family Other [address] [place] [address] PLEGGE,MARGI E Personal/Family Other [address] [place] [place] [address]
[2024-09-24 15:45] LABS: Alanine Aminotransferase 33 U/L (6-35); Albumin Level 4.2 g/dL (3.5-5.1); Alkaline Phosphatase 97 U/L (38-126); Anion Gap 13 mmol/L (4-12); Aspartate Amino Transferase 31 U/L (14-36); Bilirubin,Total 0.8 mg/dL (0.2-1.3); Blood Urea Nitrogen 14 mg/dL (7-17); Calcium 9.3 mg/dL (8.4-10.2); Carbon Dioxide 24 mmol/L (22-30); Chloride 93 mmol/L (98-107); Estimated Glomerular Filt Rate > 60; Glucose 339 mg/dL (65-110); Potassium 4.1 mmol/L (3.4-5.0); Sodium 130 mmol/L (137-145)
[2024-09-24 15:50] LABS: Beta-Hydroxybutyrate/Acetoacetate 1.95 mmol/L (0.02-0.27)
== END 2024-09-24 14:59 | disposition home or self-care (01) ==
LOC: ANHLAB 14:59
PROVIDERS: PCP Family Medicine; Visit Provider Family Medicine
DX: E11.69 Type 2 diabetes mellitus with other specified complication (principal)
CPT/HCPCS: 36415; 80053; 82010; 83930

== ENCOUNTER 2024-09-24 17:11 | Inpatient (IN) | payer OTHER, SELFPAY ==
[2024-09-24] VITALS (24 sets, daily range): BP systolic 125–171; BP diastolic 78–92; PULSE 73–94; RESP 14–23; TEMP 36.3; O2SAT 93–100
--- NOTE | ~2024-09-24 | CT_ITS ---
History: Blurry vision PROCEDURE: CT head without contrast. COMPARISON: None TECHNIQUE: Axial imaging of the head performed from the skull base to the vertex without IV contrast. Sagittal a nd coronal reformations obtained. DLP: 605 mGy-cm FINDINGS: The ventricles are normal in size, shape and position. There is no mass, mass effect or midline shift. There is no abnormal extra-axial fluid collection or intracranial hemorrhage. Air-fluid level within the right maxillary sinus. Mucoperiosteal thickening within the bilateral ethm oid sinuses and left frontal sinus. Remaining paranasal sinuses are unremarkable. The mastoid air cells are well aerated. No acute displaced fractures within the overlying cranium. Impression: No acute intracranial hemorrhage or suspicious mass effect. Inflammatory sinus disease. Reviewed, dictated and finalized at location A. ROLLER Impression: No acute intracranial hemorrhage or suspicious mass effect. Inflammatory sinus disease.
--- NOTE | ~2024-09-24 | XR_ITS ---
CHEST RADIOGRAPH, PA AND LATERAL CLINICAL HISTORY: URI, high blood sugar . COMPARISON: 02/07/2023 TECHNIQUE: PA and lateral views of the chest. FINDINGS The cardiomediastinal silhouette is unremarkable. The lungs are clear. Visualized osseous structures and soft tissues are unremarkable. IMPRESSION: No focal infiltrate or effusion. Reviewed, dictated and finalized at location A. BILITATION AIDE
--- OUTSIDE RECORDS SUMMARY | 2024-09-24 17:13 | XMS_ITS | Encounter Summary ---
Author Organization [facility] Address [address] [facility] [address] [place] [address] Phone Care Team Providers Care News Library Director Name Role Phone Chantal Rothman MD Primary Care Provider + Tiffany Salas NP Primary Care Provider [phone] Chantal Rothman MD Primary Care Provider + Tiffany Salas NP Primary Care Provider [phone] No, Physician Primary Care Provider [phone] Tiffany Salas NP Unavailable [phone] Chantal Rothman MD Unavailable [phone] Encounter Details Date Type Department Care Team (Latest Contact Info) Description 01/02/2018 Orders Only [facility] CONVERSION Scanning, Provider Social History Tobacco Use Types Packs/Day Years Used Date Smoking Tobacco: Never Assessed Comments Unknown Sex and Gender Information Value Date Recorded Sex Assigned at Not on file Legal Sex Female 3:23 AM 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
--- OUTSIDE RECORDS SUMMARY | 2024-09-24 17:14 | XMS_ITS | Encounter Summary ---
Author Organization [facility] Address [address] [place] [address] Care Team Providers Care Assistant Unit Forester Name Role Phone Unavailable Primary Care Provider Unavailabl e Encounter Details Date Type Department Care Team (Late st Contact Info) Description 12/12/2020 Telephone [facility] [address] [place] [address] Cole Villanueva MD [address] [place] [id number] Social History Tobacco Use Types Packs/Day Years [...]
--- OUTSIDE RECORDS SUMMARY | 2024-09-24 17:14 | XMS_ITS | Clinical Summary ---
Author Organization [facility] Address [address] [place] [address] Care Team Providers Care Baler Name Role Phone Heidi Samuel MD Primary Care Provider [phone] Allergies Active Allergy Reactions Criticality Noted Date [...] Department Care Team Description 09/23/2024 8:29 PM SENIOR RESEARCH ASSOCIATE - 09/23/2024 11:49 PM SENIOR RESEARCH ASSOCIATE Emergency [facility] Emergency Room [address] [place] [address] Shabbir Boo MD Flu Like Symptoms Discharge [...] Assigned at Female 09/23/2024 8:26 PM SENIOR RESEARCH ASSOCIATE Legal Sex Female 7:41 PM CDT Gender Identity Not on file Sexual Orientation Not on file Last Filed Vital Signs Vital Sign Reading Time Taken Comments Blood Pressure 151/108 09/23/2024 11:30 PM SENIOR RESEARCH ASSOCIATE Pulse 75 09/23/2024 11:30 PM SENIOR RESEARCH ASSOCIATE Temperature 36.3 C (97.4 F) 09/23/2024 8:32 PM SENIOR RESEARCH ASSOCIATE Respiratory Rate 17 09/23/2024 11:30 PM SENIOR RESEARCH ASSOCIATE Oxygen Saturation 94% 09/23/2024 11:30 PM SENIOR RESEARCH ASSOCIATE Inhaled Oxygen Concentration - - Weight 145.2 kg (320 lb) 09/23/2024 8:32 PM SENIOR RESEARCH ASSOCIATE Height 160 cm (5' 3 ) 09/23/2024 8:32 PM SENIOR RESEARCH ASSOCIATE Body Mass Index 56.69 09/23/2024 8:32 PM SENIOR RESEARCH ASSOCIATE Plan of Treatment Health Maintenance Due Date [...] DOCKED DEVICE Routine 09/23/2024 11:45 PM SENIOR RESEARCH ASSOCIATE BASIC METABOLIC PANEL STAT 09/23/2024 10:20 PM SENIOR RESEARCH ASSOCIATE POCT GLUCOSE - SANTANA DOCKED DEVICE Routine 09/23/2024 10:11 PM SENIOR RESEARCH ASSOCIATE XR CHEST PA+LAT STAT 09/23/2024 9:12 PM SENIOR RESEARCH ASSOCIATE RESP SYNCYTIAL VIRUS STAT 09/23/2024 8:33 PM SENIOR RESEARCH ASSOCIATE INFLUENZA A & B STAT 09/23/2024 8:33 PM SENIOR RESEARCH ASSOCIATE CORONAVIRUS (COVID 19) STAT 09/23/2024 8:33 PM SENIOR RESEARCH ASSOCIATE from Last 3 Months Results * (ABNORMAL) POCT glucose (09/23/2024 11:45 PM SENIOR RESEARCH ASSOCIATE) Only the most recent of2 resultswithin the time period is included. GLUCOSE POC 415(H) 70 - 110 mg/dL 09/23/2024 11:49 PM SENIOR RESEARCH ASSOCIATE [facility] 09/23/2024 11:4 5 PM SENIOR RESEARCH ASSOCIATE Shabbir Boo MD POCT ORDERABLES - DEVICE Final R esult [facility] [address] [place] [address], [place] [phone] * (ABNORMAL) BASIC METABOLIC PANEL (09/23/2024 10:20 PM SENIOR RESEARCH ASSOCIATE) GLUCOSE 567(HH) 70 - 99 MG/DL 09/23/2024 11:10 PM SENIOR RESEARCH ASSOCIATE [facility] Comment: Critical Result(s) Called at: 23:09:39 on 09/23/2024 by: INDU EZPEDA to and read back by: JAS LAROSE RN BUN 14 7 - 18 MG/DL 09/23/2024 11:10 PM SENIOR RESEARCH ASSOCIATE [facility] CREATININE S/P/B 1.24(H) 0.55 - 1.02 MG/DL 09/23/2024 11:10 PM SENIOR RESEARCH ASSOCIATE [facility] SODIUM S/P/B 127(L) 136 - 145 MMOL/L 09/23/2024 11:10 PM SENIOR RESEARCH ASSOCIATE [facility] POTASSIUM S/P/B 4.0 3.5 - 5.1 MMOL/L 09/23/2024 11:10 PM [facility] CHLORIDE S/P/B 90(L) 100 - 108 MMOL/L 09/23/2024 11:10 PM [facility] CO2 23.4 21 - 32 MMOL/L 09/23/2024 11:10 PM [facility] CALCIUM S/P/B 9.5 8.5 - 10.1 MG/DL 09/23/2024 11:10 PM [facility] ANION GAP 13.6 5 - 15 MMOL/L 09/23/2024 11:10 PM [facility] BUN CREATININE RATIO 11.3 6 - 26 09/23/2024 11:10 PM [facility] GFR ESTIMATE 57(L) >90 ML/MIN/1.7 3 M2 09/23/2024 11:10 PM [facility] Comment: NOTE: eGFR is not calculated for patients <18 years of age. This is an estimated GFR calculation using the new CKD EPI creatinine equation without race and so does not require a correction factor for race. This estimated GFR should not be used for calculating drug doses. 09/23/2024 10:2 0 PM SENIOR RESEARCH ASSOCIATE Shabbir Boo MD LABORATORY Final Result [facility] [address] [place] [address], * XR CHEST PA+LAT (09/23/2024 9:12 PM SENIOR RESEARCH ASSOCIATE) Anatomical Region Laterality Modality Chest Radiographic Alyssa ging 09/23/2024 9:22 PM SENIOR RESEARCH ASSOCIATE Impressions 09/23/2024 9:27 PM SENIOR RESEARCH ASSOCIATE Impression: No acute findings. Referred By: Interpreted By: Gustavo Chua MD, 09/23/2024 9:22 PM Narrative 09/23/2024 9:27 PM SENIOR RESEARCH ASSOCIATE [facility] [address] [place] [address] Examination: Chest 2 View History: Cough, fever DATE/TIME: 09/23/2024 8:58 PM Comparison: 05/28/2021 Technique: PA and lateral views were obtained. Findings: Heart size, mediastinal contours and pulmonary vasculature are within normal limits. No pulmonary consolidation, pleural effusion or pneumothorax. No acute osseous abnormality. Thoracic spondylosis. Procedure Note Gustavo Chua MD - 09/23/2024 [facility] [address] [place] [address] Examination: Chest 2 View History: Cough, fever [...] CORONAVIRUS (COVID-19) MOLECULAR (09/23/2024 8:33 PM SENIOR RESEARCH ASSOCIATE) CORONAVIRUS SARS COV 2 RNA NEGATIVE NEGATIVE 09/23/2024 9:13 PM SENIOR RESEARCH ASSOCIATE [facility] Comment: NEGATIVE RESULTS DO [...] SPECIMEN TYPE NASAL 09/23/2024 8:55 PM SENIOR RESEARCH ASSOCIATE [facility] NASOPHARYNGEAL SWAB / Unknown 09/23/2024 8:33 PM SENIOR RESEARCH ASSOCIATE us Shabbir Boo MD MICROBIOLOGY - GENERAL ORDERABLE S Final Result Performing Organization Address City/[facility]/ZIP Co de Phone Number [facility] [address] [place] [address], [place] [phone] * INFLUENZA A & B (09/23/2024 8:33 PM SENIOR RESEARCH ASSOCIATE) SPECIMEN TYPE NASOPHARYNX 09/23/2024 9:15 PM SENIOR RESEARCH ASSOCIATE [facility] INFLUENZA A NEGATIVE NEGATIVE 09/23/2024 9:15 PM SENIOR RESEARCH ASSOCIATE [facility] INFLUENZA B NEGATIVE NEGATIVE 09/23/2024 9:15 PM SENIOR RESEARCH ASSOCIATE [facility] NASAL STRUCTURE / Unknown 09/23/2024 8:33 PM SENIOR RESEARCH ASSOCIATE us Shabbir Boo MD MICROBIOLOGY - GENERAL ORDERABLE S Final Result Performing Organization Address [facility] de Phone Number [facility] [address] [place] [address], [place] [phone] * RESP SYNCYTIAL VIRUS (09/23/2024 8:33 PM SENIOR RESEARCH ASSOCIATE) SPECIMEN TYPE NASOPHARYNGEAL SWAB 09/23/2024 8:55 PM SENIOR RESEARCH ASSOCIATE [facility] RAPID RSV NEGATIVE NEGATIVE 09/23/2024 9:15 PM SENIOR RESEARCH ASSOCIATE [facility] NASOPHARYNGEAL SWAB / Unknown 09/23/2024 8:33 PM SENIOR RESEARCH ASSOCIATE us Shabbir Boo MD MICROBIOLOGY - GENERAL ORDERABLE S Final Result Performing Organization Address City/[facility] Co de Phone Number [facility] ([facility] [address] [place] [address], [place] [phone] from Last 3 Months Insurance [employer] Care Teams Baler Relationship Specialty Start Date End Date Heidi Samuel MD [address] [place] [address] PCP - General 02/22/24
--- OUTSIDE RECORDS SUMMARY | 2024-09-24 17:14 | XMS_ITS | Encounter Summary ---
Author Organization [facility] Address [address] [place] [address] Care Team Providers Care Food And Beverage Coordinator Name Role Phone Heidi Samuel MD Primary Care Provider [phone] Reason for Visit * Reason Comments Flu Like Symptoms Encounter Details Date Type Department Care Team (Late st Contact Info) Description 09/23/2024 8:29 PM CUT AND COVER LINE WORKER - 09/23/2024 11:49 PM CUT AND COVER LINE WORKER Emergency [facility] Emergency Room [id number] [place] [address] Shabbir Boo MD [address] [place] [address] Flu Like Symptoms Discharge Disposition: Home or Self Care (Routine Discharge) Social History Tobacco Use Types Packs/Day Years Used Date Smoking Tobacco: Never Smokeless Tobacco: Never Alcohol Use Standard Drinks/Week Comments Not Currently 0 (1 standard drink = 0.6 oz pur e alcohol) Comments No Sex and Gender Information Value Date Recorded Sex Assigned at Female 09/23/2024 8:26 PM CUT AND COVER LINE WORKER Legal Sex Female 7:41 PM CDT Gender Identity Not on file Sexual Orientation Not on file documented as of this encounter Last Filed Vital Signs Vital Sign Reading Time Taken Comments Blood Pressure 151/108 09/23/2024 11:30 PM CUT AND COVER LINE WORKER Pulse 75 09/23/2024 11:30 PM CUT AND COVER LINE WORKER Temperature 36.3 C (97.4 F) 09/23/2024 8:32 PM CUT AND COVER LINE WORKER Respiratory Rate 17 09/23/2024 11:30 PM CUT AND COVER LINE WORKER Oxygen Saturation 94% 09/23/2024 11:30 PM CUT AND COVER LINE WORKER Inhaled Oxygen Concentration - - Weight 145.2 kg (320 lb) 09/23/2024 8:32 PM CUT AND COVER LINE WORKER Height 160 cm (5' 3 ) 09/23/2024 8:32 PM CUT AND COVER LINE WORKER Body Mass Index 56.69 09/23/2024 8:32 PM CUT AND COVER LINE WORKER documented in this encounter Discharge Instructions * Discharge Instructions* Shabbir Boo MD - 09/23/2024 11:22 PM CUT AND COVER LINE WORKER The lab work today showed an elevated [...] if you have worsening or concerning symptoms. AND COVER LINE WORKER AND COVER LINE WORKER * Attachments The following attachments cannot be sent through Care Everywhere. * High Blood Sugar, Adult ([place]) * Viral Syndrome Discharge Instructions ([place]) documented in this encounter Medications at Time [...] Diagnosis Date Anxiety disorder, unspecified Diabetes mellitus ([facility]/HCC [facility]/HCC) Essential (primary) hypertension High cholesterol Hypothyroidism, unspecified [...] XR CHEST PA+LAT Final Result by User, [id number] (09/23 2131) [facility] [address] [place] [id number] Examination: Chest 2 View History: Cough, fever [...] cough Disposition: Discharge Shabbir Boo MD 09/23/242344 AND COVER LINE WORKER * Sari Crocker RN - 09/23/2024 8:29 PM CST Pt presents to ED with complaints of congestion, fatigue, body aches, cough, intermittent fevers and sore throat. Pt reports symptoms started about 8 days ago and everyone in her household has influenza A. AND COVER LINE WORKER documented in this encounter Plan of Treatment Not on file documented as of this encounter Procedures Procedure Name Priority Date/Time Associated Diagnosis Comments POCT GLUCOSE - SANTANA DOCKED DEVICE Routine 09/23/2024 11:45 PM CUT AND COVER LINE WORKER BASIC METABOLIC PANEL STAT 09/23/2024 10:20 PM CUT AND COVER LINE WORKER POCT GLUCOSE - SANTANA DOCKED DEVICE Routine 09/23/2024 10:11 PM CUT AND COVER LINE WORKER XR CHEST PA+LAT STAT 09/23/2024 9:12 PM CUT AND COVER LINE WORKER CORONAVIRUS (COVID 19) STAT 09/23/2024 8:33 PM CUT AND COVER LINE WORKER INFLUENZA A & B STAT 09/23/2024 8:33 PM CUT AND COVER LINE WORKER RESP SYNCYTIAL VIRUS STAT 09/23/2024 8:33 PM CUT AND COVER LINE WORKER documented in this encounter Results * (ABNORMAL) POCT glucose (09/23/2024 11:45 PM CUT AND COVER LINE WORKER) GLUCOSE POC 415(H) 70 - 110 mg/dL 09/23/2024 11:49 PM [facility] 09/23/2024 11:4 5 PM CUT AND COVER LINE WORKER Shabbir Boo MD POCT ORDERABLES - DEVICE Final R esult [facility] [address] [place] [address], * (ABNORMAL) BASIC METABOLIC PANEL (09/23/2024 10:20 PM CUT AND COVER LINE WORKER) [facility] GLUCOSE 567(HH) 70 - 99 MG/DL 09/23/2024 11:10 PM [facility] Comment: Critical Result(s) Called at: 23:09:39 on 09/23/2024 by: INDU ZEPEDA to and read back by: JAS LAROSE RN BUN 14 7 - 18 MG/DL 09/23/2024 11:10 PM [facility] CREATININE S/P/B 1.24(H) 0.55 - 1.02 MG/DL 09/23/2024 11:10 PM [facility] SODIUM S/P/B 127(L) 136 - 145 MMOL/L 09/23/2024 11:10 PM [facility] POTASSIUM S/P/B 4.0 3.5 - 5.1 MMOL/L 09/23/2024 11:10 PM [facility] CHLORIDE S/P/B 90(L) 100 - 108 MMOL/L 09/23/2024 11:10 PM [facility] CO2 23.4 21 - 32 MMOL/L 09/23/2024 11:10 PM [facility] CALCIUM S/P/B 9.5 8.5 - 10.1 MG/DL 09/23/2024 11:10 PM CUT AND COVER LINE WORKER [facility] ANION GAP 13.6 5 - 15 MMOL/L 09/23/2024 11:10 PM [facility] BUN CREATININE RATIO 11.3 6 - 26 09/23/2024 11:10 PM [facility] GFR ESTIMATE 57(L) >90 ML/MIN/1.7 3 M2 09/23/2024 11:10 PM [facility] Comment: NOTE: eGFR is not calculated for patients <18 years of age. This is an estimated GFR calculation using the new CKD EPI creatinine equation without race and so does not require a correction factor for race. This estimated GFR should not be used for calculating drug doses. 09/23/2024 10:2 0 PM CUT AND COVER LINE WORKER us Shabbir Boo MD LABORATORY Final Result Performing Organization Address [facility]/ZIP Co de Phone Number [facility] [address] [place] [address], [place] [phone] * (ABNORMAL) POCT glucose (09/23/2024 10:11 PM CUT AND COVER LINE WORKER) [facility] GLUCOSE POC 496(H) 70 - 110 mg/dL 09/23/2024 10:13 PM CUT AND COVER LINE WORKER [facility] 09/23/2024 10:1 1 PM CUT AND COVER LINE WORKER us Shabbir Boo MD POCT ORDERABLES - DEVICE Final R esult Performing Organization Address City/[facility]/ZIP Co de Phone Number [facility] [address] [place] [address], [place] [phone] * XR CHEST PA+LAT (09/23/2024 9:12 PM CUT AND COVER LINE WORKER) Anatomical Region Laterality Modality Chest Radiographic Alyssa ging 09/23/2024 9:22 PM CUT AND COVER LINE WORKER Impressions 09/23/2024 9:27 PM CUT AND COVER LINE WORKER Impression: No acute findings. Referred By: Interpreted By: Gustavo Chua MD, 09/23/2024 9:22 PM Narrative 09/23/2024 9:27 PM CUT AND COVER LINE WORKER [address] [place] [address] Examination: Chest 2 View History: Cough, fever DATE/TIME: 09/23/2024 8:58 PM Comparison: 05/28/2021 Technique: PA and lateral views were obtained. Findings: Heart size, mediastinal contours and pulmonary vasculature are within normal limits. No pulmonary consolidation, pleural effusion or pneumothorax. No acute osseous abnormality. Thoracic spondylosis. Procedure Note Gustavo Chua MD - 09/23/[address] [place] [address] Examination: Chest 2 View History: Cough, fever [...] * RESP SYNCYTIAL VIRUS (09/23/2024 8:33 PM CUT AND COVER LINE WORKER) SPECIMEN TYPE NASOPHARYNGEAL SWAB 09/23/2024 8:55 PM CUT AND COVER LINE WORKER [facility] RAPID RSV NEGATIVE NEGATIVE 09/23/2024 9:15 PM CUT AND COVER LINE WORKER [facility] NASOPHARYNGEAL SWAB / Unknown 09/23/2024 8:33 PM CUT AND COVER LINE WORKER us Shabbir Boo MD MICROBIOLOGY - GENERAL ORDERABLE S Final Result Performing Organization Address [facility] Co de Phone Number [facility] [address] [place] [address], * INFLUENZA A & B (09/23/2024 8:33 PM CUT AND COVER LINE WORKER) SPECIMEN TYPE NASOPHARYNX 09/23/2024 9:15 PM CUT AND COVER LINE WORKER [facility] INFLUENZA A NEGATIVE NEGATIVE 09/23/2024 9:15 PM CUT AND COVER LINE WORKER [facility] INFLUENZA B NEGATIVE NEGATIVE 09/23/2024 9:15 PM CUT AND COVER LINE WORKER [facility] NASAL STRUCTURE / Unknown 09/23/2024 8:33 PM CUT AND COVER LINE WORKER us Shabbir Boo MD MICROBIOLOGY - GENERAL ORDERABLE S Final Result Performing Organization Address [facility]/[place] [facility] de Phone Number [facility] [address] [place] [address], [place] [phone] * CORONAVIRUS (COVID-19) MOLECULAR (09/23/2024 8:33 PM CUT AND COVER LINE WORKER) CORONAVIRUS SARS COV 2 RNA NEGATIVE NEGATIVE 09/23/2024 9:13 PM CUT AND COVER LINE WORKER [facility] Comment: NEGATIVE RESULTS [...] SARS-COV-2. SPECIMEN TYPE NASAL 09/23/2024 8:55 PM CUT AND COVER LINE WORKER [facility] NASOPHARYNGEAL SWAB / Unknown 09/23/2024 8:33 PM CUT AND COVER LINE WORKER us Shabbir Boo MD MICROBIOLOGY - GENERAL ORDERABLE S Final Result [facility] [address] [place] [address], [place] [phone] documented in this encounter Visit Diagnoses Diagnosis [...] Insulin order set. Given 09/23/2024 11:16 PM CUT AND COVER LINE WORKER 10 Units Right Lower Abdomen sodium chloride 0.9% bolus infusion 1,000 mL 1,000 mL, Intravenous, Administer over 60 Minutes, Once, 1 dose, On Madhavi 09/23/24 at 2230 New Bag 09/23/2024 10:26 PM CUT AND COVER LINE WORKER 1,000 mLs 1000 mL/hr documented in this encounter Active and Recently Administered Medications Times are shown in CUT AND COVER LINE WORKER. Scheduled Medication Order 09/21/2024 09/22/2024 09/23/2024 insulin [...] Rule Out 09/23/2024 09/23/2024 09/23/2024 9:13 PM CUT AND COVER LINE WORKER documented as of this encounter Care Teams Food And Beverage Coordinator Relationship Specialty Start Date End Date Heidi Samuel MD [address] [place] [address] PCP - General 02/22/24 documented as of this encounter
--- OUTSIDE RECORDS SUMMARY | 2024-09-24 17:14 | XMS_ITS | Referral Summary ---
Author Organization [facility] Address [address] [place] [address] Care Team Providers Care Beater Room Supervisor Name Role Phone Unavailable Primary Care Provider Unavailabl e Source Comments [facility],non-owned Affiliates and Associated Physician Practices is amultiple site organization consisting of ambulatory clinics and hospital sitesin [place], [place], [place] and [place]. This disclosure is being madepursuant to the Care Everywhere program and may not contain all information available regarding this patient. Last updated 18.[facility] Allergies Active Allergy Reactions Criticality Noted Date Comments Adhesive Sensitivity Urticaria Medium 01/11/2021 Povidone Iodine Urticaria Medium 03/29/2021 Uswkwqvo-Ydcuprvzlr-Caozokoyz Rash Medium 2020 Skin Adhesives Urticaria Medium [...] file PLEGGE,MARGI E Personal/Family Other [address] [place] [address] PLEGGE,MARGI E Personal/Family Other [address] [place] [address] PLEGGE,MARGI E Personal/Family Other [address] [place] [address] PLEGGE,MARGI E Personal/Family Other [address] [place] [address] PLEGGE,MARGI E Personal/Family Other [address] [place] [address] PLEGGE,MARGI E Personal/Family Other [address] [place] [address] PLEGGE,MARGI E Personal/Family Other [address] [place] [address] PLEGGE,MARGI E Personal/Family Other [address] [place] [address] PLEGGE,MARGI E Personal/Family Other [address] [place] [address] PLEGGE,MARGI E Personal/Family Other [address] [place] [address] PLEGGE,MARGI E Personal/Family Other [address] [place] [address] PLEGGE,MARGI E Personal/Family Other [address] [place] [address] PLEGGE,MARGI E Personal/Family Other [address] [place] [address] PLEGGE,MARGI E Personal/Family Other [address] [place] [address] PLEGGE,MARGI E Personal/Family Other [address] [place] [address] PLEGGE,MARGI E Personal/Family Other [address] [place] [address] PLEGGE,MARGI E Personal/Family Other [address] [place] [address] PLEGGE,MARGI E Personal/Family Other [address] [place] [address] PLEGGE,MARGI E Personal/Family Other [address] [place] [address] PLEGGE,MARGI E Personal/Family Other [address] [place] [address] PLEGGE,MARGI E Personal/Family Other [address] [place] [address] PLEGGE,MARGI E Personal/Family Other [address] [place] [address]
--- OUTSIDE RECORDS SUMMARY | 2024-09-24 17:14 | XMS_ITS | Encounter Summary ---
Author Organization [facility] Address [address] [place] [address] Care Team Providers Care Fixture Maker Name Role Phone Heidi Samuel MD Primary Care Provider [phone] Encounter Details Date Type Department Care Team (Latest Contact Info) Description 09/23/2024 Travel Social History Tobacco Use Types Packs/Day Years Used Date Smoking Tobacco: Never Smokeless Tobacco: Never Alcohol Use Standard Drinks/Week Comments Not Currently 0 (1 standard drink = 0.6 oz pur e alcohol) Comments No Sex and Gender Information Value Date Recorded Sex Assigned at Female 09/23/2024 8:26 PM INVESTIGATIVE SHOPPER Legal Sex Female 7:41 PM CDT Gender Identity Not on file Sexual Orientation Not on file documented as of this encounter Plan of Treatment Not on file documented as of this encounter Visit Diagnoses Not on filedocumented in this encounter Additional Health Concerns Infection Onset Date Last Indicated Resolved Time COVID-19 Rule Out 09/23/2024 09/23/2024 09/23/2024 9:13 PM INVESTIGATIVE SHOPPER documented as of this encounter Care Teams Fixture Maker Relationship Specialty Start Date End Date Heidi Samuel MD [address] [place] [address] PCP - General 02/22/24 documented as of this encounter
--- OUTSIDE RECORDS SUMMARY | 2024-09-24 17:14 | XMS_ITS | Patient Health Summary ---
Author Organization [facility] Address [address] [place] [address] Care Team Providers Care Store Warehouse Associate Name Role Phone Unavailable Primary Care Provider Unavailabl e Note from [facility],non-owned Affiliates and Associated Physician Practices is amultiple site organization consisting of ambulatory clinics and hospital sitesin [place], [place], [place] and [place]. This disclosure is being madepursuant to the Care Everywhere program and may not contain all information available regarding this patient. Last updated 18.[facility] Allergies * Adhesive Sensitivity(Urticaria) -Medium Criticality * Povidone Iodine(Urticaria) -Medium Criticality * Juttwuje-Skybckuqfk-Sfjbmontu(Rash) -Medium Criticality * Skin Adhesives(Urticaria) -Medium Criticality [...] CDT) Case Report Surgical Pathology Report Case: [id number] Authorizing Provider: Cole Villanueva MD Collected: 01/30/2021 08:33 AM Ordering Location: [facility] Received: 01/30/2021 11:45 AM Pathologist: Trudy Vilalnueva MD Specimen: Adhesions, intra-abdominal adhesion 02/02/2021 1:03 PM CDT [facility] Final Diagnosis Soft tissue, intra-abdominal adhesion, excision (A): - Fibrous tissue, negative for malignancy 02/02/2021 1:03 PM T [facility] Microscopic Description and Comment Microscopic examination substantiates the final diagnosis. 02/02/2021 1:03 PM CDT [facility] Clinical History 36 year old female with chronic umbilical discharge, at surgery umbilical hernia with incarcerated omentum but no bowel involvement 02/02/2021 1:03 PM CDT [facility] Gross Description The requisition and specimen(s) are identified with the patient's name, Delfina Tobar. Received in formalin, specimen A is a 1.8 x 1.7 x 0.4 cm pink-reveles fibromembranous tissue with associated adipose tissue. The specimen is sectioned showing pink-reveles, mildly firm cut surfaces. Salesperson Driver sections submitted in cassette A1. LJ 02/02/2021 1:03 PM CDT [facility] Disclaimer The performance characteristics of all immunohistochemical and indirect immunofluorescence stains (if any) cited in this report were determined by the Histopathology Laboratory of [facility]. Some of these tests were [...] attending (teaching) pathologist. 02/02/2021 1:03 PM CDT [facility] Embedded Images 02/02/2021 1:03 PM CDT [facility] Biopsy, Excision ADHESION / Unknown 01/30/2021 8:33 AM CDT 01/30/2021 11:45 AM CDT Comment:Pre-op diagnosis: Draining cutaneous sinus tract, Enterocutaneous fistula Cole Villanueva MD LAB - PATHOLOGY/CYTO LOGY ORDERABLES [facility] [address] [phone] * ETT LINE PERFORMABLE (01/30/2021 8:28 AM CDT) Narrative Marcelina Slater MD - 01/30/2021 8:28 AM CDT Marcelina Slater MD 01/30/2021 8:35 AM Endotracheal Tube Placement: Patient Location: OR. Intubation Event Date/Time: 01/30/2021 7:59 AM Procedure: intubation (16996). Procedure Section: Sedation: under general anesthesia. Indications [...] Performed the procedure Provider #1: Paula Posey, MAL-COMMUNITY AFFAIRS DIRECTOR, Performed the procedure. Sandip Romero MD GENERAL ANESTHES [place] ORDERABLES * (ABNORMAL) GLUCOSE - POINT OF CARE (01/30/2021 7:03 AM CDT) Glucose WB/POC 116(H) 70 - 115 mg/dL 01/30/2021 7:04 AM CDT [facility] Specimen Type Arterial 01/30/2021 7:04 AM CDT [facility] Blood BLOOD SPECIMEN / Unknown 01/30/2021 7:03 AM CDT 01/30/2021 7:04 AM CDT Cole Villanueva MD LAB - POINT OF CARE ORDERABLES [address] [address], [place] [phone] * HCG URINE QUALITATIVE - POCT (IP) INTERFACED (01/30/2021 6:37 AM CDT) HCG Qual Urine Negative Negative 01/30/2021 6:49 AM CDT [facility] Urine URINE / Unknown 01/30/2021 6 :37 AM CDT 01/30/2021 6:49 AM CDT Cole Villanueva MD LAB - POINT OF CARE ORDERABLES Performing Organization Address City/[facility]/ZIP Co de Phone Number [address] [address], [place] [phone] * HCG URINE QUAL POCT NOTIFICATION (01/30/2021 5:55 AM CDT) Comment Notification Label Only - See Separate Report 01/30/2021 7:00 AM CDT [facility] Urine URINE / Unknown 01/30/2021 5 :55 AM CDT 01/30/2021 5:55 AM CDT Joan Hatfield RUBBER TIRE AND TUBES SUPERVISOR-COMMUNICATIONS TOWER TECHNICIAN LAB - URINALYSIS ORDERABLES [address] [address] [phone] * CBC W/O DIFFERENTIAL (01/11/2021 12:35 PM CDT) WBC 10.0 3.5 - 10.5 10 3/uL 01/11/2021 1:44 PM [facility] RBC 4.83 3.80 - 5.20 10 6/uL 01/11/2021 1:44 PM [facility] Hemoglobin 13.9 12.0 - 15.6 g/dL 01/11/2021 1:44 PM [facility] Hematocrit 42.1 35.0 - 45.0 % 01/11/2021 1:44 PM [facility] MCV 87.2 80.7 - 98.3 fL 01/11/2021 1:44 PM [facility] MCH 28.8 26.7 - 34.0 pg 01/11/2021 1:44 PM [facility] MCHC 33.0 30.8 - 35.9 g/dL 01/11/2021 1:44 PM [facility] Platelet Count 309 150 - 400 10 3/uL 01/11/2021 1:44 PM [facility] RDW-SD 41.8 36.0 - 50.0 fL 01/11/2021 1:44 PM [facility] RDW-CV 13.2 11.2 - 14.8 % 01/11/2021 1:44 PM [facility] MPV 11.7 9.4 - 12.9 fL 01/11/2021 1:44 PM [facility] nRBC Absolute 0.00 0 10 3/uL 01/11/2021 1:44 PM [facility] nRBC Auto 0.0 0 /100 WBC 01/11/2021 1:44 PM [facility] Blood BLOOD SPECIMEN / Unknown Lab Venipuncture / Unknown 01/11/2021 12:35 PM CDT 01/11/2021 1:25 PM CDT Joan Hatfield RUBBER TIRE AND TUBES SUPERVISOR-COMMUNICATIONS TOWER TECHNICIAN LAB - HEMATOLOGY ORDERABLES [facility] [address] [place] [address], [facility] [phone] * (ABNORMAL) BASIC METABOLIC PANEL (CALCIUM TOTAL) (01/11/2021 12:35 PM CDT) BUN 10 7 - 26 mg/dL 01/11/2021 2:00 PM [facility] Creatinine 0.84 0.56 - 0.96 mg/dL 01/11/2021 2:00 PM [facility] Sodium 139 136 - 145 mmol/L 01/11/2021 2:00 PM [facility] Potassium 5.0(H) 3.5 - 4.5 mmol/L 01/11/2021 2:00 PM [facility] Chloride 102 98 - 107 mmol/L 01/11/2021 2:00 PM [facility] CO2 30(H) 22 - 29 mmol/L 01/11/2021 2:00 PM [facility] Glucose 86 70 - 115 mg/dL 01/11/2021 2:00 PM [facility] Calcium 9.1 8.4 - 10.2 mg/dL 01/11/2021 2:00 PM [facility] Anion Gap 12 8 - 18 01/11/2021 2:00 PM [facility] BUN/Creatinine Ratio 12 7 - 23 01/11/2021 2:00 PM [facility] Osmolality Calculated 286 270 - 300 mOsm/kg 01/11/2021 2:00 PM [facility] eGFR by CKD-EPI 90 >=90 mL/min/1.7 3 m2 01/11/2021 2:00 PM [facility] Blood BLOOD SPECIMEN / Unknown Lab Venipuncture / Unknown 01/11/2021 12:35 PM CDT 01/11/2021 1:25 PM [facility] Joan Hatfield RUBBER TIRE AND TUBES SUPERVISOR-COMMUNICATIONS TOWER TECHNICIAN LAB - CHEMISTRY ORDERABLES [facility] [address] [place] [address], [facility] [phone]
--- OUTSIDE RECORDS SUMMARY | 2024-09-24 17:14 | XMS_ITS | Referral Summary ---
Author Organization [facility] [address] Address [address] [place] [address] Care Team Providers Care Fuse Cutter Name Role Phone No, Physician Primary Care Provider [phone] Tiffany Salas NP Unavailable [phone] Chantal Rothman MD Unavailable [phone] Encounters Date Type Department Care Team Description 08/24/2024 12:01 PM ROOFING CONTRACTOR - 08/24/2024 11:59 PM ROOFING CONTRACTOR Hospital Encounter [address] [address] Acute viral syndrome Discharge Disposition: Discharge to home or self care 08/24/2024 9:25 AM ROOFING CONTRACTOR Ancillary Procedure [facility] Imaging at [address] [phone] Acute cough 08/24/2024 9:00 AM ROOFING CONTRACTOR Office Visit [facility] at [address] [phone] Ellen Mabry NP Acute viral syndrome (Primary Dx); Elevated blood pressure reading in office with diagnosis of hypertension 08/20/2024 1:45 PM ROOFING CONTRACTOR Telemedicine [facility] [address] [place] [phone] Nathalia Thomas NP Acute non-recurrent pansinusitis (Primary Dx) from Last 3 Months Allergies Active Allergy Reactions Criticality Noted Date Comments Adhesive Urticaria Medium 06/07/2023 Adhesive Tape-Silicones Other (See comments) Low burning Atorvastatin Unknown Low 09/27/2020 Bacitracin-Polymyxin B Rash Medium 07/20/2020 Chlorhexidine Urticaria Medium 06/07/2023 Chlorhexidine Gluconate Hives,Itching Medium Iodine Hives Medium 05/28/2021 Tbtboarg-Hldwedzesw-Vjjwrgqxr Rash Medium 2020 Neosporin (Neomycin-Polymyx) Unknown Low [...] 08/20/2024 Assessment & Plan (08/20/2024 1:58 PM ROOFING CONTRACTOR): Due to length of illness we will [...] (09/27/2020): Added automatically from request for surgery [id number] depression 09/18/2018 S/P section 08/19/2018 Overview (09/03/2018): [...] fluid into vagina 018 Overview (08/13/2018): 08/13/2018 [facility]: C/O mucosy 1/2cup of fluid loss from vagina -SSE negative pooling, negative VB, wet mount negative -SVE CL/TH/H -DVP 5.01cm/5.75cm -Patient given labor precautions Headache 08/04/2018 Overview (08/04/2018): [facility] Visit 08/04/18 Headache resolved with po Compazine. Normotensive. Normal glucose. Enc increasing po hydration. RX for po Compazine given. Pre-E precautions advised. F/U Friday. Reactive NST. 35 weeks gestation of 07/23/2018 Generalized body aches 07/23/2018 Overview (07/23/2018): [facility] Visit 07/23/18 Afebrile, VSS, denies cough or cold sx. Denies pain or n/v. Discussed comfort measures. Influenza swab obtained. Accu check 92. Precautions advised. Hx of biophysical profile 07/14/2018 Overview (07/14/2018): [facility] Visit 07/14/18 BPP 6/8, -2 for breathing. [...] previously. Aware that she will deliver at [facility]- SCHEDULED for 08/19/18 @ 0800. Patient [...] compliant Assessment & Plan (07/31/2018 10:46 AM ROOFING CONTRACTOR): -Patient scheduled for delivery on August 19, [...] 1000 mg QAM/ 1000mg QHS - s/p core layer machine operator/level vial curvature gauger -A1C 5.3% -Anatomic survey normal - Echo is normal but limited. Assessment & Plan (05/22/2018 10:31 AM CDT): -Blood sugars reviewed today. No changes made -Reviewed again risks of DM in . Patient verbalized understanding. Assessment & Plan (01/19/2018 2:23 PM CDT): Questionable diagnosis -Seeing City Superintendent Of Schools and Speedometer Mechanic tomorrow locally -BS review reflects fairly good [...] on file Legal Sex Female 3:23 AM ROOFING CONTRACTOR Gender Identity Not on file Sexual Orientation Not on file Last Filed Vital Signs Vital Sign Reading Time Taken Comments Blood Pressure 152/96 08/24/2024 9:09 AM ROOFING CONTRACTOR Pulse 67 08/24/2024 9:09 AM ROOFING CONTRACTOR Temperature 36.8 C (98.2 F) 08/24/2024 9:09 AM ROOFING CONTRACTOR Respiratory Rate 20 08/24/2024 9:09 AM ROOFING CONTRACTOR Oxygen Saturation 95% 08/24/2024 9:09 AM ROOFING CONTRACTOR Inhaled Oxygen Concentration - - Weight 151.5 kg (333 lb 14.4 oz) 08/24/2024 9:09 AM ROOFING CONTRACTOR Height 160 cm (5' 2.99 ) 08/24/2024 9:09 AM ROOFING CONTRACTOR Body Mass Index 59.16 08/24/2024 9:09 AM ROOFING CONTRACTOR Plan of Treatment Not on file Procedures Procedure Name Priority Date/Time Associated Diagnosis Comments INFLUENZA A/B, RSV, AND COVID-19 PCR Routine 08/24/2024 12:01 PM ROOFING CONTRACTOR Acute viral syndrome XR CHEST PA LATERAL 2 VIEWS Schedule MABLE, Read MABLE (Appt Today, Awaiting Results) 08/24/2024 9:30 AM ROOFING CONTRACTOR Acute cough EGFR Routine 09/04/2018 11:03 AM ROOFING CONTRACTOR S/P section HEMOGLOBIN A1C W/EAG Routine 2018 8:13 AM CDT from Last 3 Months or Most Recently Relevant to Health Maintenance Results * (ABNORMAL) Influenza A/B, RSV, and COVID-19 PCR Nasopharyngeal (08/24/2024 12:01 PM ROOFING CONTRACTOR) Pathologist [facility] COVID-19 RNA Negative Negative Influenza A RNA Negative Negative [facility] Influenza B RNA Negative Negative [facility] RSV RNA Positive(A) Negative [facility] Comment: Interpretive data: Testing performed by [facility]. This test is performed using the [employer] Xpert Xpress CoV-2/Flu/RSV plus assay. This is a multiplex, real-time reverse transcriptase PCR assay intended for the qualitative detection of nucleic acid from SARS-CoV-2, influenza A, influenza B, and respiratory syncytial virus. This assay has been cleared by the [place] Food and Drug administration. The performance characteristics have been verified by the [facility]. Results must be considered in the clinical context, and a negative result does not rule out infection. Interpretive Data last revised 2023 Nasopharyngeal 08/24/2024 12 :01 PM ROOFING CONTRACTOR 08/24/2024 2:52 PM ROOFING CONTRACTOR Narrative [facility] - 08/24/2024 3:53 PM ROOFING CONTRACTOR Is the Patient experiencing symptoms consistent with COVID?->Yes us Ellen Mabry NP LAB MICROBIOLOGY - GENERAL ORD ERABLES Final Result [facility] [address] Department [place] [address] * XR Chest PA Lateral 2 Views (08/24/2024 9:30 AM ROOFING CONTRACTOR) Anatomical Region Laterality Modality Body, Chest N/A Digital Radiogra phy 08/24/2024 11:0 9 AM ROOFING CONTRACTOR Narrative 08/24/2024 11:11 AM ROOFING CONTRACTOR EXAM DESCRIPTION: XR CHEST PA LATERAL 2 [...] signed by Sherif STARR T: Report ID: [id number] Reading Location: [id number] Procedure Note Sherif Arnold MD - 08/24/2024 [...] signed by Sherif STARR T: Report ID: [id number] Reading Location: [id number] Ellen Mabry WAREHOUSE SUPERVISOR IMG XR PROCEDURES Final Result * eGFR (09/04/2018 11:03 AM ROOFING CONTRACTOR) eGFR 72 mL/min/1.7 3 m2 [facility] Comment: Interpretive Data Reference Interval Normal >/= 90 mL/min/1.73m2 Mildly decreased* 60 - 89 mL/min/1.73m2 Mildly to moderately decreased 45 - 59 mL/min/1.73m2 Moderately to severely decreased 30 - 44 mL/min/1.73m2 Severely decreased 15 - 29 mL/min/1.73m2 Kidney Failure < 15 mL/min/1.73m2 *Relative to young adult level If -Ukrainian multiply value by 1.16. Estimated glomerular filtration [...] 2016. Blood specimen (specimen) 09/04/2018 11:03 AM ROOFING CONTRACTOR 09/04/2018 11:24 AM ROOFING CONTRACTOR Narrative [facility] - 09/04/2018 11:55 AM ROOFING CONTRACTOR us Klarissa Angulo MD LAB BLOOD ORDERABLES Fin al Result [facility] [address] Department [place] [address] * HEMOGLOBIN A1C W/EAG (2018 8:13 AM CDT) Hgb A1C 5.3 4.8 - 5.6 % [facility] - 01 Comment: Pre-diabetes: 5.7 - 6.4 Diabetes: >6.4 Glycemic control for adults with diabetes: <7.0 Estim. Avg Glu (eAG) 105 mg/dL [facility] - 01 2018 8:13 AM CDT 2018 Narrative [facility] - 01/19/2018 1:09 PM CDT Performed at: [address] [place] [id number] Corrosion Prevention Metal Sprayer: Trevon Gomez PhD, Phone: [phone] Jaqueline Jeffery MD LAB BLOOD ORDERABLES F inal Result [facility] - 01 from Last 3 Months or Most Recently Relevant to Health Maintenance Insurance [facility] HMO/PPO Address: [address] [address] [place] [address] [facility] Advance Directives For more information, please contact: [phone] * Full Code (Latest Code Status on [...] ca se of cardiopulmonary arrest Care Teams Fuse Cutter Relationship Specialty Start Date End Date No, Physician PCP - General 06/07/23 Tiffany Salas NP Nurse Practitioner 06/07/23 Chantal Rothman MD Family Medicine 09/02/17
--- OUTSIDE RECORDS SUMMARY | 2024-09-24 17:14 | XMS_ITS | Clinical Summary ---
Author Organization [facility] [address] Address [address] [place] [address] Care Team Providers Care Director Of Capital Giving Name Role Phone No, Physician Primary Care Provider [phone] Tiffany Salas NP Unavailable [phone] Chantal Rothman MD Unavailable [phone] Allergies Active Allergy Reactions Criticality Noted Date Comments Adhesive Urticaria Medium 06/07/2023 Adhesive Tape-Silicones Other (See comments) Low burning Atorvastatin Unknown Low 09/27/2020 Bacitracin-Polymyxin B Rash Medium 07/20/2020 Chlorhexidine Urticaria Medium 06/07/2023 Chlorhexidine Gluconate Hives,Itching Medium 1 Iodine Hives Medium 05/28/2021 Yccywtkf-Npnvvdanuk-Pexkpmyle Rash Medium 2020 Neosporin (Neomycin-Polymyx) Unknown Low [...] 08/20/2024 Assessment & Plan (08/20/2024 1:58 PM LEARNING SERVICES COORDINATOR): Due to length of illness we will [...] (09/27/2020): Added automatically from request for surgery [id number] depression 09/18/2018 S/P section 08/19/2018 Overview (09/03/2018): [...] fluid into vagina 018 Overview (08/13/2018): 08/13/2018 [facility]: C/O mucosy 1/2cup of fluid loss from vagina -SSE negative pooling, negative VB, wet mount negative -SVE CL/TH/H -DVP 5.01cm/5.75cm -Patient given labor precautions Headache 08/04/2018 Overview (08/04/2018): [facility] Visit 08/04/18 Headache resolved with po Compazine. Normotensive. Normal glucose. Enc increasing po hydration. RX for po Compazine given. Pre-E precautions advised. F/U Friday. Reactive NST. 35 weeks gestation of 07/23/2018 Generalized body aches 07/23/2018 Overview (07/23/2018): [facility] Visit 07/23/18 Afebrile, VSS, denies cough or cold sx. Denies pain or n/v. Discussed comfort measures. Influenza swab obtained. Accu check 92. Precautions advised. Hx of biophysical profile 07/14/2018 Overview (07/14/2018): [facility] Visit 07/14/18 BPP 6/8, -2 [...] previously. Aware that she will deliver at [facility]- SCHEDULED for 08/19/18 @ 0800. Patient aware [...] compliant Assessment & Plan (07/31/2018 10:46 AM LEARNING SERVICES COORDINATOR): -Patient scheduled for delivery on August 19, [...] 1000 mg QAM/ 1000mg QHS - s/p special education paraeducator/spreader operator -A1C 5.3% -Anatomic survey normal - Echo is normal but limited. Assessment & Plan (05/22/2018 10:31 AM CDT): -Blood sugars reviewed today. No changes made -Reviewed again risks of DM in . Patient verbalized understanding. Assessment & Plan (01/19/2018 2:23 PM CDT): Questionable diagnosis -Seeing Global Supply Chain Director and Cellular Plastics Cutter tomorrow locally -BS review reflects fairly good [...] Department Care Team Description 08/24/2024 12:01 PM LEARNING SERVICES COORDINATOR - 08/24/2024 11:59 PM LEARNING SERVICES COORDINATOR Hospital Encounter [address] [address] Acute viral syndrome Discharge Disposition: Discharge to home or self care 08/24/2024 9:25 AM LEARNING SERVICES COORDINATOR Ancillary Procedure [facility] Imaging at [address] [address] Acute cough 08/24/2024 9:00 AM LEARNING SERVICES COORDINATOR Office Visit [facility] Convenient Care at [address] [address] Ellen Mabry NP Acute viral syndrome (Primary Dx); Elevated blood pressure reading in office with diagnosis of hypertension 08/20/2024 1:45 PM LEARNING SERVICES COORDINATOR Telemedicine [facility] Virtual Care [address] [place] [phone] Nathalia Thomas, ALFONSO Acute non-recurrent pansinusitis (Primary Dx) from Last 3 Months Immunizations Name Administration Dates Next Due Influenza, Quadrivalent, Cathy l Culture-based MDCK, Antibiotic Free, Intramuscular 06/05/2018 Tdap 06/05/2018 Surgical History Surgery Date Site/Laterality Comments LEG SURGERY Leg Repair - metal plate in left leg (Added by TW Conv) [place] APPENDECTOMY Appendectomy - 1998 (Added by TW [...] diabetes mellitus wit hout complications (CMS/HCC) (HCC) Wiy-goiqllz-mmebmriht di abetes mellitus without complications - (Added [...] on file Legal Sex Female 3:23 AM LEARNING SERVICES COORDINATOR Gender Identity Not on file Sexual Orientation [...] Complications: Intolera nce Delivery Location:[facility] ([facility]) Last Filed Vital Signs Vital Sign Reading Time Taken Comments Blood Pressure 152/96 08/24/2024 9:09 AM LEARNING SERVICES COORDINATOR Pulse 67 08/24/2024 9:09 AM LEARNING SERVICES COORDINATOR Temperature 36.8 C (98.2 F) 08/24/2024 9:09 AM LEARNING SERVICES COORDINATOR Respiratory Rate 20 08/24/2024 9:09 AM LEARNING SERVICES COORDINATOR Oxygen Saturation 95% 08/24/2024 9:09 AM LEARNING SERVICES COORDINATOR Inhaled Oxygen Concentration - - Weight 151.5 kg (333 lb 14.4 oz) 08/24/2024 9:09 AM LEARNING SERVICES COORDINATOR Height 160 cm (5' 2.99 ) 08/24/2024 9:09 AM LEARNING SERVICES COORDINATOR Body Mass Index 59.16 08/24/2024 9:09 AM LEARNING SERVICES COORDINATOR Plan of Treatment Health Maintenance Due Date [...] AND COVID-19 PCR Routine 08/24/2024 12:01 PM LEARNING SERVICES COORDINATOR Acute viral syndrome XR CHEST PA LATERAL 2 VIEWS Schedule MABLE, Read MABLE (Appt Today, Awaiting Results) 08/24/2024 9:30 AM LEARNING SERVICES COORDINATOR Acute cough EGFR Routine 09/04/2018 11:03 AM LEARNING SERVICES COORDINATOR S/P section HEMOGLOBIN A1C W/EAG Routine 2018 8:13 AM CDT from Last 3 Months or Most Recently Relevant to Health Maintenance Results * (ABNORMAL) Influenza A/B, RSV, and COVID-19 PCR Nasopharyngeal (08/24/2024 12:01 PM LEARNING SERVICES COORDINATOR) Pathologist [facility] COVID-19 RNA Negative Negative Influenza A RNA Negative Negative [facility] Influenza B RNA Negative Negative [facility] RSV RNA Positive(A) Negative [facility] Comment: Interpretive data: Testing performed by [facility]. This test is performed using the [employer] Xpert Xpress CoV-2/Flu/RSV plus assay. This is a multiplex, real-time reverse transcriptase PCR assay intended for the qualitative detection of nucleic acid from SARS-CoV-2, influenza A, influenza B, and respiratory syncytial virus. This assay has been cleared by the [place] Food and Drug administration. The performance characteristics have been verified by the [facility]. Results must be considered in the clinical context, and a negative result does not rule out infection. Interpretive Data last revised 2023 Nasopharyngeal 08/24/2024 12 :01 PM LEARNING SERVICES COORDINATOR 08/24/2024 2:52 PM LEARNING SERVICES COORDINATOR Narrative [facility] - 08/24/2024 3:53 PM LEARNING SERVICES COORDINATOR Is the Patient experiencing symptoms consistent with COVID?->Yes Ellen Mabry NP LAB MICROBIOLOGY - GENERAL [place] [address] [address] Department [place] [address] * XR Chest PA Lateral 2 Views (08/24/2024 9:30 AM LEARNING SERVICES COORDINATOR) Anatomical Region Laterality Modality Body, Chest N/A Digital Radiogra phy 08/24/2024 11:0 9 AM LEARNING SERVICES COORDINATOR Narrative 08/24/2024 11:11 AM LEARNING SERVICES COORDINATOR EXAM DESCRIPTION: XR CHEST PA LATERAL 2 [...] Sherif Arnold M.D. MJ T: Report ID: [id number] Reading Location: [id number] Procedure Note Sherif Arnold MD - 08/24/2024 [...] Sherif Arnold M.D. MJ T: Report ID: [id number] Reading Location: [id number] Ellen Mabry LAUNDRY SUPERINTENDENT IMG XR PROCEDURES Final Result * eGFR (09/04/2018 11:03 AM LEARNING SERVICES COORDINATOR) eGFR 72 mL/min/1.7 3 m2 [facility] Comment: Interpretive Data Reference Interval Normal >/= 90 mL/min/1.73m2 Mildly decreased* 60 - 89 mL/min/1.73m2 Mildly to moderately decreased 45 - 59 mL/min/1.73m2 Moderately to severely decreased 30 - 44 mL/min/1.73m2 Severely decreased 15 - 29 mL/min/1.73m2 Kidney Failure < 15 mL/min/1.73m2 *Relative to young adult level If -Cook Islander multiply value by 1.16. Estimated glomerular filtration [...] 2016. Blood specimen (specimen) 09/04/2018 11:03 AM LEARNING SERVICES COORDINATOR 09/04/2018 11:24 AM LEARNING SERVICES COORDINATOR Narrative [facility] - 09/04/2018 11:55 AM LEARNING SERVICES COORDINATOR Klarissa Angulo MD LAB BLOOD ORDERABLES Fin al Result [facility] [address] [place] [address] Department [place] [address] * HEMOGLOBIN A1C W/EAG (2018 8:13 AM CDT) Hgb A1C 5.3 4.8 - 5.6 % [facility] - 01 Comment: Pre-diabetes: 5.7 - 6.4 Diabetes: >6.4 Glycemic control for adults with diabetes: <7.0 Estim. Avg Glu (eAG) 105 mg/dL [facility] - 01 2018 8:13 AM CDT 2018 Narrative [facility] - 01/19/2018 1:09 PM CDT Performed at: 01 - [facility] [id number] French Teacher: Trevon Gomez PhD, Phone: [phone] us Jaqueline Jeffery MD LAB BLOOD ORDERABLES F inal Result [facility] - 01 from Last 3 Months or Most Recently Relevant to Health Maintenance Insurance [facility] PLAN [facility] Advance Directives For more information, please contact: [phone] * Full Code (Latest Code Status on [...] ca se of cardiopulmonary arrest Care Teams Director Of Capital Giving Relationship Specialty Start Date End Date No, Physician PCP - General 06/07/23 Tiffany Salas NP Nurse Practitioner 06/07/23 Chantal Rothman MD Family Medicine 09/02/17
--- OUTSIDE RECORDS SUMMARY | 2024-09-24 17:14 | XMS_ITS | Clinical Summary ---
Author Organization [facility] Address [address] [place] [address] Care Team Providers Care Ultrasonic Seaming Machine Operator Name Role Phone Unavailable Primary Care Provider Unavailabl e Source Comments [facility],non-owned Affiliates and Associated Physician Practices is amultiple site organization consisting of ambulatory clinics and hospital sitesin [place], [place], [place] and [place]. This disclosure is being madepursuant to the Care Everywhere program and may not contain all information available regarding this patient. Last updated 18.[facility] [employer] Allergies Active Allergy Reactions Criticality Noted Date Comments Adhesive Sensitivity Urticaria Medium 01/11/2021 Povidone Iodine Urticaria Medium 03/29/2021 Hukovjti-Jvbwaxahgp-Nukqdctzs Rash Medium 2020 Skin Adhesives Urticaria Medium [...] topic PLEGGE,MARGI E Personal/Family Other [address] [place] [address] PLEGGE,MARGI E Personal/Family Other [address] [place] [address] PLEGGE,MARGI E Personal/Family Other [address] [place] [address] PLEGGE,MARGI E Personal/Family Other [address] [place] [address] PLEGGE,MARGI E Personal/Family Other [address] [place] [address] PLEGGE,MARGI E Personal/Family Other [address] [place] [address] PLEGGE,MARGI E Personal/Family Other [address] [place] [address] PLEGGE,MARGI E Personal/Family Other [address] [place] [address] PLEGGE,MARGI E Personal/Family Other [address] [place] [address] PLEGGE,MARGI E Personal/Family Other [address] [place] [address] PLEGGE,MARGI E Personal/Family Other [address] [place] [address] PLEGGE,MARGI E Personal/Family Other [address] [place] [address] PLEGGE,MARGI E Personal/Family Other [address] [place] [address] PLEGGE,MARGI E Personal/Family Other [address] [place] [address] PLEGGE,MARGI E Personal/Family Other [address] [place] [address] PLECHAYO,MARGI E Personal/Family Other [address] [place] [address] PLEERICEMARGI E Personal/Family Other [address] [place] [address] MARGI CAVAZOS E Personal/Family Other [address] [place] [address] PLEERICEMARGI E Personal/Family Other [address] [place] [address] MARGI CAVAZOS E Personal/Family Other [address] [place] [address] PLEMARGI DOMINGO E Personal/Family Other [address] [place] [address] MARGI CAVAZOS E Personal/Family Other [address] [place] [address]
--- OUTSIDE RECORDS SUMMARY | 2024-09-24 17:14 | XMS_ITS | CONTINUITY OF CARE DOCUMENT ---
Author Name nichole varela Address Unknown Organization [facility] Address [address] [place] [address] Phone [phone] Care Team Providers Care Social Media Intern Name Role Phone Kate BOSCH, Jonathan Unavailable MURTAZA DIAS Unavailable [phone] MURTAZA DIAS Unavailable [phone] PROBLEMS Condition Status Date Provider Notes Leg [...] exposure active Juan Pablo Nacht Palpitations active oRn Paulino ENCOUNTERS Date Type Provider Location Encounter Diag nosis - In-person encounter Office Visit Jonathan Love MD [facility] Palpitations - In-person encounter Office Visit Jonathan Love MD [facility] - In-person encounter Office Visit Jonathan Love MD [facility] Shortness of breathMold exposure - In-person encounter Office Visit Erasmo Braswell MD [facility] Diabetes mellitus, type 2 - In-person encounter Office Visit Erasmo Braswell MD [facility] HypothyroidismHTN essential;NEG DUPLEXAnxiety disorderExposure to SARS-associated coronavirus;neg igg VITAL SIGNS Date Observation Value Provider blood pressure, diastolic 75 mm[Hg] Il gavin [place] blood pressure, systolic 122 mm[Hg] [facility] gonzalo Bahena oxygen saturation, oximetry 97 % Chantal Bahena pulse rate 79 /min Chantal fuller respiratory rate E&M 16 /min Hyacinth ng [place] blood pressure, cuff size large Il gavin Marshand height E&M 63 [in_i] Chantal [...] /min [facility] weight E&M 326 [lb_av] [facility] height E&M 63 [in_i] [facility] Body Mass Index (Ratio) 62.52 kg/m2 Matt Braswell MD blood pressure, cuff size large Ke rri Gruenenfelder blood pressure, diastolic 72 mm[Hg] Ke rri Gruenenfelder blood pressure, systolic 110 mm[Hg] Ker ri Gruenenfelder oxygen saturation, oximetry 98 % Iman Gruenenfelder respiratory rate E&M 16 /min Iman G ruenenfelder pulse rate 82 /min [facility] weight E&M 353 [lb_av] [facility] height E&M 63 [in_i] [facility] weight E&M 346 [lb_av] Germaine Novoa Body [...] Not Estab. platelet count 326 X10E3/UL [employer] [phone]/07/ 01 red blood cell distribution width 13.8 [...] [employer] 3.5-5.2 sodium, serum 137 mmol/L [employer] [phone]/07/ 01 urea nitrogen/creatinine ratio, serum 19 [employer] [...] 0-149 High cholesterol, serum 124 mg/dL [employer] [phone]/10/ 16 platelet count 288 X10E3/UL [employer] [phone]/10/ 16 red blood cell distribution width 12.5 [...] [employer] 3.5-5.2 sodium, serum 140 mmol/L [employer] [phone]/10/ 16 urea nitrogen/creatinine ratio, serum 17 [employer] [...] iron binding capacity, unsaturated 249 ug/dL [employer] [phone]/12/ 04 iron binding capacity, total 309 ug/dL [employer] [phone]/12/ 04 free thyroxine index 2.5 [employer] 1.2-4.9 [...] Not Estab. platelet count 378 X10E3/UL [employer] [phone]/12/ 04 red blood cell distribution width 13.4 [...] [employer] 3.5-5.2 sodium, serum 138 mmol/L [employer] [phone]/12/ 04 urea nitrogen/creatinine ratio, serum 18 [employer] [...] mouth once a day 08/18 - 03[facility] mg tablet active Chantal Loeraity 0.75 mg/0.5 mL pen injector active Ron Ahmedzai levothyroxine 112 mcg tablet active Ron Ahmedzai rosuvastatin 5 mg tablet active Ron Ahmedzai spironolactone 50 mg tablet completed - 08/18 Iman Russell losartan 100 mg tablet active Ron Ahmedzai metformin 500 mg tablet extended release 24 hr active Ron Ahmedzai hydrochlorothiazi de 12.5 mg capsule active [facility] Ahmedzai spironolactone 50 mg tablet completed [...] Payer name Policy type / Coverage type [place] [employer] party ID [employer] (2) Medicaid [id number] ADVANCE DIRECTIVES Name Date DISCUSSED - NO DECISION MADE TREATMENT PLAN Date Name Performer [id number],C,n o pericardial effusion, no RV dysfuction O rders: P yari 5-10 (CPT-37847) Jonathan Love MD [id number],S, Ron [place] [id number],C, B P today: 122/75 P rior BP: 130/80 (06/22/2021) Labs Reviewed: C reat: 0.95 (06/02/2021) C hol: 124 (06/02/2021) HDL: 52 (06/02/2021) [facility] [id number],S,i ncreased sxs of palpitations after she sustained her injury, will check holter to assess for arrythmias [facility] [id number],S,S he has chest contusion and cracked ribs which have been making her more SOB, will check echo to rule out any cardiac abnormality [facility] [id number],S, Ron Piek i [id number],S, Ron [place] [id number],S, Ronmargo [place] [id number],S, Ron [place] [id number],S, Ronmargo [place] [id number],S, Ron [place] [id number],C, F eeling better N o CT was done, denied by insurance Jimbo Hernandez [id number],B, L ast LDL 47. Last trigs 149 Her updated medication list for this problem includes: Rosuvastatin 5 Mg Tablet (Rosuvastatin) ..... Once a day Jimbo Hernandez [id number],B, B P today: 130/80 P rior BP: 150/100 (06/01/2021) Her updated medication list for this problem includes: Spironolactone 50 Mg Tablet (Spironolactone) ..... Take 1 tablet by mouth once a day Hydrochlorothiazide 12.5 Mg Capsule (Hydrochlorothiazide) ..... Take 1 capsule by mouth once a day Losartan 100 Mg Tablet (Losartan) ..... Take 0.5 tablet by mouth once a day Jimbo Hernandez [id number],B, R are Jimbo Hernandez [id number],C, N ormal echo 06/21/21 Jimob Hernandez [id number],B, H R was 41-47 in ER. Now off beta zaina and HR lowest 58bpm by 1 week tele. Jimbo Hernandez [id number],W, w orsened after smelling mold s xs improved with steroids and flonase but steroids were stopped in the ER w ill screen for HF with echo, pBNP. c heck CT chest for any acute abnormality Juan Pablo Negretetoshia [id number],W, a dd aldactone 50mg daily to regimen [...] mouth once a day Juan Pablo Penelopetoshia [id number],W, c heck CT chest to r/o infection Juan Pablo Penelopetoshia [id number],W, H R was 41-47 in ER p t was concerned about this o ff beta zaina H R 63 by EKG today w ill check 1 week tele Orders: P ROBNP, N TERMINAL (07114) C BC (H/H, RBC, INDICES, WBC, PLT) (1759) C OMPREHENSIVE METABOLIC PANEL, W/EGFR (10915) L IPID PANEL (7600) H EMOGLOBIN A1c (496) T SH, free T4, total T3 (7444) 9 9205 HIGH 60-74 min (CPT-83229) C omplete Echo (CPT-52347) M onitor - Telemetry (Mobile Cardiac) (CPT-99339) C T Chest without contrast (CPT-15452) The following medications were removed from the medication list: Metoprolol Succinate 50 Mg Tablet Extended Release 24 Hr (Metoprolol succinate) ..... Take 1 tablet by mouth once a day Juan Pablo Webster Telehealth - There i s a focal fluid collection along the the sup:no pericardial effusion, no RV dysfuction O rders: P yari 5-10 (CPT-84093) Jonathan Love MD Electrophysiology Ron Paulino Electrophysiology: [...] week tele Orders: P ROBNP, N TERMINAL (59603) C BC (H/H, RBC, INDICES, WBC, PLT) (1759) C OMPREHENSIVE METABOLIC PANEL, W/EGFR (16088) L IPID PANEL (7600) H EMOGLOBIN A1c (496) T SH, free T4, total T3 (7444) 9 9205 HIGH 60-74 min (CPT-46616) C omplete Echo (CPT-44763) M onitor - Telemetry (Mobile Cardiac) (CPT-10131) C T Chest without contrast (CPT-78694) The following medications were removed from the [...] Braswell MD :5.9 Erasmo Braswell MD :308 Erasmo Braswell MD :neg uacr and vit d [...] Jonathan Love MD c ompleted EKG Jonathan Love MD comp leted EKG Jonathan Love MD comp leted EKG Erasmo Braswell MD complete d
--- OUTSIDE RECORDS SUMMARY | 2024-09-24 17:14 | XMS_ITS | Encounter Summary ---
Author Organization [facility] Address [address] [place] [address] Care Team Providers Care Rn Managed Care Name Role Phone Unavailable Primary Care Provider Unavailabl e Encounter Details Date Type Department Care Team (Late st Contact Info) Description 12/12/2020 Telephone [facility] [address] [place] [address] Cole Villanueva MD [address] [place] [address] Social History Tobacco Use Types Packs/Day Years [...]
--- NOTE | 2024-09-24 17:22 | ECG_ITS ---
Test Date: 2024-09-24 17:36:34 Measurements Intervals [place] Rate: 70 P: 56 NC: 156 QRS: 34 QRSD: 92 T: 44 QT: 380 QTc: 412 Interpretive Statements SINUS RHYTHM MINIMAL Q WAVES- DIFFUSE LEADS BORDERLINE ECG No previous ECG available for comparison Electronically Signed On 09-24-2024 19:01:54 PATIENT FINANCIAL SERVICES COORDINATOR by Liang Llanos D.O.
--- NOTE | 2024-09-24 17:23 | ED_ITS ---
HPI - Recheck/Abnormal Lab/Rx General Chief Complaint: Recheck/Abnormal Lab/Rx <Gloria Calhoun PA-C - Last Filed: 09/24/24 17:25> Stated Complaint: high blood sugar <Gloria Calhoun PA-C - Last Filed: 09/24/24 17:25> Time Seen by Provider: 09/24/24 18:44 <Gloria Calhoun PA-C - Last Filed: 09/24/24 17:25> Focused HPI: 39-year-old female history of type 2 diabetes and hypothyroidism presents to the ED for hyperglycemia. Patient states 10 days ago she began developing symptoms of fluid bleeding body aches cough congestion, fever. Reports positive sick contacts for influenza A. States yesterday she went to [facility] did was found have elevated blood sugars. She was given 10 units of insulin and discharged home and followed up with her PCP, Dr. Samuel today who advised her to come to the ER for elevated blood sugars. Patient is also reporting polydipsia, polyuria, blurred vision. She takes metformin 500 mg daily. GENERAL: Well-appearing, well-nourished, and in no acute distress. HEAD: Normocephalic, atraumatic. CHEST: Clear to auscultation. ?No respiratory distress. HEART: Regular rate and rhythm.? NEURO: ?Alert and oriented x3. Patient screened in triage and initial orders placed.? ?Additional care and disposition to be based upon?diagnostic testing and treatment. <Gloria Calhoun PA-C - Last Filed: 09/24/24 17:25> History of Present Illness HPI narrative: agree with the HPI as described above. Patient is currently only on metformin therapy and compliant. Previously had a gestational diabetes episode during her last requiring insulin. <Paresh Akhtar MD - Last Filed: 09/24/24 22:09> Related Data Home Medications: Home Medications ?Medication ?Instructions ?Recorded ?Confirmed ?Last Taken ?Type cholecalciferol (vitamin D3) 25 25 mcg PO DAILY 09/22/23 09/24/24 Unknown History mcg (1,000 unit) capsule docusate sodium 250 mg capsule 250 mg PO DAILY 09/22/23 09/24/24 Unknown History <CLARA Aquino Last Filed: 09/24/24 17:25> Allergies/Adverse Reactions: Allergies Allergy/AdvReac Type Severity Reaction Status Date / Time adhesive Allergy Intermediate Hives Verified 09/24/24 17:24 lubricant AdvReac Intermediate Rash Verified 09/24/24 17:24 chlorohexadine Allergy Severe Blister Uncoded 09/24/24 17:24 SKIN GLUE Allergy Intermediate Rash Uncoded 09/24/24 17:24 Prepartation H Allergy Mild Rash Uncoded 09/24/24 17:24 BENZOIN Allergy Unknown Unknown Uncoded 09/24/24 17:24 <Gloria Calhoun PA-C - Last Filed: 09/24/24 17:25> Review of Systems 2 Review of Systems: as reviewed above in HPI <Paresh Akhtar MD - Last Filed: 09/24/24 22:09> [facility] Past Medical History Medical History: Medical History Hypothyroidism Anxiety Hyperlipidemia HTN (hypertension) Diabetes <Gloria Calhoun PA-C - Last Filed: 09/24/24 17:25> Surgical History Surgical History: Surgical History H/O hernia repair History of History of appendectomy Lower extremity surgery planned left leg, metal plate 2002 <Gloria Calhoun PA-C - Last Filed: 09/24/24 17:25> Family History Family History: Family History Mother Hypertension Family history of elevated blood lipids Family history of coronary artery disease Family history of cardiovascular disease Father Family history of thyroid disease Dementia Grandparent Family history of lung cancer Family history of primary malignant neoplasm of liver <Gloria Calhoun PA-C - Last Filed: 09/24/24 17:25> Social History Social History: Social History Smoking status: Never smoker Alcohol intake: never Substance use: never Do You Feel Safe in your Home?: Yes Current Housing: Decline to Answer Concerned About Future Housing: Decline to Answer Difficulty Paying Gas/Electric Bills: Decline to Answer Difficulty Paying for Meds: Decline to Answer Currently Unemployed: Decline to Answer Education: Decline to Answer Difficulty w/ Childcare or Family Care: Decline to Answer Living arrangements: with family Occupation/Education: unemployed Gender identity (if verbalized by the patient): Female Sexual Orientation (if Verbalized by the Patient): Straight or Heterosexual Spiritual care concerns: No <Gloria Calhoun PA-C - Last Filed: 09/24/24 17:25> Exam 2 Narrative: GENERAL: [Well-appearing, well-nourished, and in no acute distress.] HEAD: [Normocephalic, atraumatic.] EYES: [PERRLA and EOMI.] ENT: Nares clear, no rhinorrhea or epistaxis. Mucous membranes dry. NECK: Supple. CHEST: [Clear to auscultation. No respiratory distress.] HEART: [Regular rate and rhythm]. No murmur heard. [Normal peripheral pulses.] ABDOMEN: [Soft, nondistended], [nontender], [No rigidity or guarding] EXTREMITIES: Normal range of motion. [No edema.] SKIN: Warm, dry, no rash. NEURO: [No focal deficits]. Alert and oriented [x3.] PSYCH: anxious and tearful but otherwise, cooperative <Paresh Akhtar MD - Last Filed: 09/24/24 22:09> Course Vital Signs Vital signs: Vital Signs Temperature 36.3 C L 09/24/24 17:18 Pulse Rate 94 09/24/24 17:18 Respiratory Rate 18 09/24/24 17:18 Blood Pressure 171/91 H 09/24/24 17:18 Pulse Oximetry 100 09/24/24 17:18 Oxygen Delivery Room Air 09/24/24 17:18 Temperature 36.3 C L 09/24/24 17:18 Pulse Rate 84 09/24/24 19:31 Respiratory Rate 19 09/24/24 19:31 Blood Pressure 125/92 H 09/24/24 18:46 Pulse Oximetry 97 09/24/24 19:31 Oxygen Delivery Room Air 09/24/24 17:18 <Gloria Calhoun PA-C - Last Filed: 09/24/24 17:25> Vital Signs Temperature 36.3 C L 09/24/24 17:18 Pulse Rate 94 09/24/24 17:18 Respiratory Rate 18 09/24/24 17:18 Blood Pressure 171/91 H 09/24/24 17:18 Pulse Oximetry 100 09/24/24 17:18 Oxygen Delivery Room Air 09/24/24 17:18 Temperature 36.3 C L 09/24/24 17:18 Pulse Rate 84 09/24/24 19:31 Respiratory Rate 19 09/24/24 19:31 Blood Pressure 125/92 H 09/24/24 18:46 Pulse Oximetry 97 09/24/24 19:31 Oxygen Delivery Room Air 09/24/24 17:18 <Paresh Akhtar MD - Last Filed: 09/24/24 22:09> MDM - Recheck/Abnormal Lab/Rx MDM Narrative Medical decision making narrative: 39-year-old female that is a type 2 diabetic previously on metformin therapy. Presents to the ED with hyperglycemia, went to her regular doctor today was found to be ketotic and hyperglycemic in the 5-600 range. Concern for DKA. Previously only had insulin when she was having gestational diabetes but denies any chance of now. Not currently on any insulin medication but did receive 10 units under outside hospital where she was hyperglycemic but nonketotic several days ago. Presently she is otherwise well-appearing, not any acute distress or tachypnea but is dry and dehydrated associated with some polyuria and polydipsia type symptoms. Vital signs are reassuring without any significant blood pressure elevations, tachycardia, fever or hypoxia. Concern presently for DKA versus nonketotic coma. unclear if there is any trigger to this versus her recent exposure to influenza and URI symptoms that are transiently resolved. She experiences some blurry vision in addition to her polyuria and polydipsia and a workup was ordered including a VBG, beta hydroxybutyrate, electrolyte profile, CBC, head CT and chest x-ray as well as urinalysis and urine test. She is given a total of 3 L of LR bolus here in the ED for rehydration. Workup shows no leukocytosis or anemia. Normal platelet level. VBG shows a pH is 7.4 with appropriate compensation but she is having metabolic acidosis with respiratory compensation. PCO2 of 30.8, bicarb of 19.0 with an anion gap of 14 on her electrolyte profile. Potassium 4.1. Hyperglycemic at 341 A1c elevated 11.7. LFTs within normal range, ketones elevated 2.19. Urinalysis with ketones and glucose but no signs of infection. Negative test. CT of the head shows no acute intracranial process or mass effect. Chest x-ray without any concerning findings. COVID flu and RSV swabs are negative. EKG shows normal sinus rhythm any concerns for ischemia. Given patient's labs that showed elevated anion gap and very minor acidosis with a bicarb 19 on VBG we gave her a insulin infusion at this time and obtain a repeat BMP shortly thereafter to see if her gap closes. I discussed the case with Dr. Dennise valles from the intensive care unit on need for admission to the ICU verses the GB care unit floor. If patient's gap closes on repeat evaluation we can switch off from insulin to subcutaneous doses and keep her on the IMU. Discussed the case with the hospitalist Dr. Aviles and this will be the plan of care, currently awaiting repeat BMP. Repeat BMP came back and her gap slowly came down to 13, glucose 296, potassium 3.8. I spoke to the hospitalist and our plan will be to stop the insulin drip, transition to subcutaneous weight based insulin and admit her to a telemetry monitored bed. Patient and family were made aware of this plan of care and comfortable with admission to the hospital. Q4 labs are still ordered and patient will be admitted at this time. given her actual body weight and height her ideal body weight is approximately 85 kg. Weight based dosing was use, she is scheduled with 10 units of subcutaneous short-acting insulin q.4 hours and 25 units of long-acting insulin 1 time nightly. Will monitor with serial laboratory studies and frequent glucose checks. Hypoglycemia protocol is in place as well. <Paresh Akhtar MD - Last Filed: 09/24/24 22:09> Medical Records Attestation: I reviewed the patient's medical records. <Paresh Akhtar MD - Last Filed: 09/24/24 22:09> Lab Data Attestation: I reviewed the patient's lab results. <Paresh Akhtar MD - Last Filed: 09/24/24 22:09> Result diagrams: 09/24/24 17:55 09/24/24 21:25 <Gloria Calhoun PA-C - Last Filed: 09/24/24 17:25> Labs: Lab Results 09/24/24 09/24/24 09/24/24 Range/Units 17:55 18:27 18:33 WBC 9.5 (4.5-10.0) K/mm3 RBC 4.70 (4.2-5.4) M/mm3 Hgb 13.8 (12.0-15.0) g/dL Hct 39.3 (37.0-47.0) % MCV 83.6 (80-100) fl MCH 29.4 (26-34) pg MCHC 35.1 (32-36) g/dl RDW 12.3 (11.5-14.5) % Plt Count 272 (150-375) k/mm3 MPV 11.4 H (7.4-10.4) fl Immature Gran % (Auto) 0.7 H (0-0.5) % Neut % (Auto) 66.1 (45.5-73.1) % Lymph % (Auto) 24.8 (18.3-44.2) % [place] % (Auto) 5.7 (2.6-8.5) % Eos % (Auto) 2.2 (0-4.4) % Baso % (Auto) 0.5 (0.2-1.2) % Lymph # (Auto) 2.36 (0.9-3.2) K/mm3 [place] # (Auto) 0.5 (0.1-0.6) K/mm3 Eos # (Auto) 0.2 (0-0.3) K/mm3 Baso # (Auto) 0.1 (0.0-0.1) K/mm3 Abs Immat Gran (auto) 0.07 H (0.00-0.031) K/mm3 Absolute Neuts (auto) 6.3 (1.3-6.7) K/mm3 Absolute Nucleated RBC 0.000 (0.0-0.012) K/mm3 Nucleated RBC % 0.0 (0.0-0.2) % Sodium 130 L (137-145) mmol/L Potassium 4.1 (3.4-5.0) mmol/L Chloride 93 L (98-107) mmol/L Carbon Dioxide 23 (22-30) mmol/L Anion Gap 14 H (4-12) mmol/L BUN 15 (7-17) mg/dL Creatinine 0.87 (0.7-1.0) mg/dL Estim Creat Clear Calc 107 ml/min Estimated GFR > 60 (59 - ) Glucose 351 H (65-110) mg/dL POC Capillary Glucose (65-105) mg/dl Hemoglobin A1c (<5.7) % Calcium 9.3 (8.4-10.2) mg/dL Phosphorus (2.5-4.5) mg/dL Magnesium (1.6-2.3) mg/dL Total Bilirubin 0.7 (0.2-1.3) mg/dL AST 31 (14-36) U/L ALT 32 (6-35) U/L Alkaline Phosphatase 99 (38-126) U/L Total Protein 8.0 (6.3-8.2) g/dL Albumin 4.0 (3.5-5.1) g/dL Beta-Hydroxybutyrate/Acetoacetate 2.19 H (0.02-0.27) mmol/L Urine Color Yellow (Yellow) Urine Appearance Clear (Clear) Urine pH 5.0 (5.0-9.0) Ur Specific [place] 1.031 (1.001-1.035) Urine Protein Negative (Negative) mg/dL Urine Glucose (UA) 3+ H (Negative) mg/dL Urine Ketones 3+ H (Negative) mg/dL Ur Blood (Man) Negative (Negative) Urine Nitrate Negative (Negative) Urine Bilirubin Negative (Negative) Urine Urobilinogen 0.2 (<2.0) mg/dL Leukocyte Esterase Rfl Negative (Negative) MARY/UL Urine RBC 0-2 (0-2) /hpf Urine WBC 0-5 (0-3) /hpf Ur Squamous Epith Cells Occasional (Few) /hpf Urine Bacteria None seen /hpf Urine Casts 3-5 POC Urine HCG, Qual Negative (Negative) 09/24/24 09/24/24 09/24/24 Range/Units 20:40 21:20 21:25 WBC (4.5-10.0) K/mm3 RBC (4.2-5.4) M/mm3 Hgb (12.0-15.0) g/dL Hct (37.0-47.0) % MCV (80-100) fl MCH (26-34) pg MCHC (32-36) g/dl RDW (11.5-14.5) % Plt Count (150-375) k/mm3 MPV (7.4-10.4) fl Immature Gran % (Auto) (0-0.5) % Neut % (Auto) (45.5-73.1) % Lymph % (Auto) (18.3-44.2) % [place] % (Auto) (2.6-8.5) % Eos % (Auto) (0-4.4) % Baso % (Auto) (0.2-1.2) % Lymph # (Auto) (0.9-3.2) K/mm3 [place] # (Auto) (0.1-0.6) K/mm3 Eos # (Auto) (0-0.3) K/mm3 Baso # (Auto) (0.0-0.1) K/mm3 Abs Immat Gran (auto) (0.00-0.031) K/mm3 Absolute Neuts (auto) (1.3-6.7) K/mm3 Absolute Nucleated RBC (0.0-0.012) K/mm3 Nucleated RBC % (0.0-0.2) % Sodium 130 L (137-145) mmol/L Potassium 3.8 (3.4-5.0) mmol/L Chloride 95 L (98-107) mmol/L Carbon Dioxide 22 (22-30) mmol/L Anion Gap 13 H (4-12) mmol/L BUN 13 (7-17) mg/dL Creatinine 0.70 (0.7-1.0) mg/dL Estim Creat Clear Calc 131 ml/min Estimated GFR > 60 (59 - ) Glucose 296 H (65-110) mg/dL POC Capillary Glucose 341 H (65-105) mg/dl Hemoglobin A1c 11.7 H (<5.7) % Calcium 8.7 (8.4-10.2) mg/dL Phosphorus 3.3 (2.5-4.5) mg/dL Magnesium 1.3 L (1.6-2.3) mg/dL Total Bilirubin (0.2-1.3) mg/dL AST (14-36) U/L ALT (6-35) U/L Alkaline Phosphatase (38-126) U/L Total Protein (6.3-8.2) g/dL Albumin (3.5-5.1) g/dL Beta-Hydroxybutyrate/Acetoacetate (0.02-0.27) mmol/L Urine Color (Yellow) Urine Appearance (Clear) Urine pH (5.0-9.0) Ur Specific [place] (1.001-1.035) Urine Protein (Negative) mg/dL Urine Glucose (UA) (Negative) mg/dL Urine Ketones (Negative) mg/dL Ur Blood (Man) (Negative) Urine Nitrate (Negative) Urine Bilirubin (Negative) Urine Urobilinogen (<2.0) mg/dL Leukocyte Esterase Rfl (Negative) MARY/UL Urine RBC (0-2) /hpf Urine WBC (0-3) /hpf Ur Squamous Epith Cells (Few) /hpf Urine Bacteria /hpf Urine Casts POC Urine HCG, Qual (Negative) <Gloria Calhoun PA-C - Last Filed: 09/24/24 17:25> Lab Results 09/24/24 09/24/24 09/24/24 Range/Units 17:55 18:27 18:33 WBC 9.5 (4.5-10.0) K/mm3 RBC 4.70 (4.2-5.4) M/mm3 Hgb 13.8 (12.0-15.0) g/dL Hct 39.3 (37.0-47.0) % MCV 83.6 (80-100) fl MCH 29.4 (26-34) pg MCHC 35.1 (32-36) g/dl RDW 12.3 (11.5-14.5) % Plt Count 272 (150-375) k/mm3 MPV 11.4 H (7.4-10.4) fl Immature Gran % (Auto) 0.7 H (0-0.5) % Neut % (Auto) 66.1 (45.5-73.1) % Lymph % (Auto) 24.8 (18.3-44.2) % [place] % (Auto) 5.7 (2.6-8.5) % Eos % (Auto) 2.2 (0-4.4) % Baso % (Auto) 0.5 (0.2-1.2) % Lymph # (Auto) 2.36 (0.9-3.2) K/mm3 [place] # (Auto) 0.5 (0.1-0.6) K/mm3 Eos # (Auto) 0.2 (0-0.3) K/mm3 Baso # (Auto) 0.1 (0.0-0.1) K/mm3 Abs Immat Gran (auto) 0.07 H (0.00-0.031) K/mm3 Absolute Neuts (auto) 6.3 (1.3-6.7) K/mm3 Absolute Nucleated RBC 0.000 (0.0-0.012) K/mm3 Nucleated RBC % 0.0 (0.0-0.2) % Sodium 130 L (137-145) mmol/L Potassium 4.1 (3.4-5.0) mmol/L Chloride 93 L (98-107) mmol/L Carbon Dioxide 23 (22-30) mmol/L Anion Gap 14 H (4-12) mmol/L BUN 15 (7-17) mg/dL Creatinine 0.87 (0.7-1.0) mg/dL Estim Creat Clear Calc 107 ml/min Estimated GFR > 60 (59 - ) Glucose 351 H (65-110) mg/dL POC Capillary Glucose (65-105) mg/dl Hemoglobin A1c (<5.7) % Calcium 9.3 (8.4-10.2) mg/dL Phosphorus (2.5-4.5) mg/dL Magnesium (1.6-2.3) mg/dL Total Bilirubin 0.7 (0.2-1.3) mg/dL AST 31 (14-36) U/L ALT 32 (6-35) U/L Alkaline Phosphatase 99 (38-126) U/L Total Protein 8.0 (6.3-8.2) g/dL Albumin 4.0 (3.5-5.1) g/dL Beta-Hydroxybutyrate/Acetoacetate 2.19 H (0.02-0.27) mmol/L Urine Color Yellow (Yellow) Urine Appearance Clear (Clear) Urine pH 5.0 (5.0-9.0) Ur Specific [place] 1.031 (1.001-1.035) Urine Protein Negative (Negative) mg/dL Urine Glucose (UA) 3+ H (Negative) mg/dL Urine Ketones 3+ H (Negative) mg/dL Ur Blood (Man) Negative (Negative) Urine Nitrate Negative (Negative) Urine Bilirubin Negative (Negative) Urine Urobilinogen 0.2 (<2.0) mg/dL Leukocyte Esterase Rfl Negative (Negative) MARY/UL Urine RBC 0-2 (0-2) /hpf Urine WBC 0-5 (0-3) /hpf Ur Squamous Epith Cells Occasional (Few) /hpf Urine Bacteria None seen /hpf Urine Casts 3-5 POC Urine HCG, Qual Negative (Negative) 09/24/24 09/24/24 09/24/24 Range/Units 20:40 21:20 21:25 WBC (4.5-10.0) K/mm3 RBC (4.2-5.4) M/mm3 Hgb (12.0-15.0) g/dL Hct (37.0-47.0) % MCV (80-100) fl MCH (26-34) pg MCHC (32-36) g/dl RDW (11.5-14.5) % Plt Count (150-375) k/mm3 MPV (7.4-10.4) fl Immature Gran % (Auto) (0-0.5) % Neut % (Auto) (45.5-73.1) % Lymph % (Auto) (18.3-44.2) % [place] % (Auto) (2.6-8.5) % Eos % (Auto) (0-4.4) % Baso % (Auto) (0.2-1.2) % Lymph # (Auto) (0.9-3.2) K/mm3 [place] # (Auto) (0.1-0.6) K/mm3 Eos # (Auto) (0-0.3) K/mm3 Baso # (Auto) (0.0-0.1) K/mm3 Abs Immat Gran (auto) (0.00-0.031) K/mm3 Absolute Neuts (auto) (1.3-6.7) K/mm3 Absolute Nucleated RBC (0.0-0.012) K/mm3 Nucleated RBC % (0.0-0.2) % Sodium 130 L (137-145) mmol/L Potassium 3.8 (3.4-5.0) mmol/L Chloride 95 L (98-107) mmol/L Carbon Dioxide 22 (22-30) mmol/L Anion Gap 13 H (4-12) mmol/L BUN 13 (7-17) mg/dL Creatinine 0.70 (0.7-1.0) mg/dL Estim Creat Clear Calc 131 ml/min Estimated GFR > 60 (59 - ) Glucose 296 H (65-110) mg/dL POC Capillary Glucose 341 H (65-105) mg/dl Hemoglobin A1c 11.7 H (<5.7) % Calcium 8.7 (8.4-10.2) mg/dL Phosphorus 3.3 (2.5-4.5) mg/dL Magnesium 1.3 L (1.6-2.3) mg/dL Total Bilirubin (0.2-1.3) mg/dL AST (14-36) U/L ALT (6-35) U/L Alkaline Phosphatase (38-126) U/L Total Protein (6.3-8.2) g/dL Albumin (3.5-5.1) g/dL Beta-Hydroxybutyrate/Acetoacetate (0.02-0.27) mmol/L Urine Color (Yellow) Urine Appearance (Clear) Urine pH (5.0-9.0) Ur Specific [place] (1.001-1.035) Urine Protein (Negative) mg/dL Urine Glucose (UA) (Negative) mg/dL Urine Ketones (Negative) mg/dL Ur Blood (Man) (Negative) Urine Nitrate (Negative) Urine Bilirubin (Negative) Urine Urobilinogen (<2.0) mg/dL Leukocyte Esterase Rfl (Negative) MARY/UL Urine RBC (0-2) /hpf Urine WBC (0-3) /hpf Ur Squamous Epith Cells (Few) /hpf Urine Bacteria /hpf Urine Casts POC Urine HCG, Qual (Negative) <Paresh Akhtar MD - Last Filed: 09/24/24 22:09> ABG Data ABG results: 09/24/24 20:02 VBG pH 7.409 H* VBG pCO2 30.8 L* VBG pO2 56.8 H VBG HCO3 19.0 L O2 Delivery Device Room air O2 Liters/Min Not Reportable FiO2 21 <Gloria Calhoun PA-C - Last Filed: 09/24/24 17:25> 09/24/24 20:02 VBG pH 7.409 H* VBG pCO2 30.8 L* VBG pO2 56.8 H VBG HCO3 19.0 L O2 Delivery Device Room air O2 Liters/Min Not Reportable FiO2 21 <Paresh Akhtar MD - Last Filed: 09/24/24 22:09> Imaging Data Attestation: I personally reviewed and interpreted this imaging study as follows: < Paresh Akhtar MD - Last Filed: 09/24/24 22:09> My impression: Impressions Chest X-Ray 09/24/24 18:06 IMPRESSION: No focal infiltrate or effusion. Head CT 09/24/24 18:23 Impression: No acute intracranial hemorrhage or suspicious mass effect. Inflammatory sinus disease. <Paresh Akhtar MD - Last Filed: 09/24/24 22:09> Critical Care Time Critical Care Time Critical Care Time: Yes <Paresh Akhtar MD - Last Filed: 09/24/24 22:09> Total Critical Care Time: 35 <Paresh Akhtar MD - Last Filed: 09/24/24 22:09> Discharge Plan Discharge Clinical Impression: Diabetic keto-acidosis, Type 2 diabetes mellitus <Gloria Calhoun PA-C - Last Filed: 09/24/24 17:25> Patient Disposition: Home, Self-Care <Gloria Calhoun PA-C - Last Filed: 09/24/24 17:25> Condition: Stable <Gloria Calhoun PA-C - Last Filed: 09/24/24 17:25> Instructions: Antibiotic Form <CLARA Aquino Last Filed: 09/24/24 17:25> Patient Language: [place] <Gloria Calhoun PA-C - Last Filed: 09/24/24 17:25> Prescriptions: No Action docusate sodium 250 mg capsule 250 mg PO DAILY cholecalciferol (vitamin D3) 25 mcg (1,000 unit) capsule 25 mcg PO DAILY spironolactone 50 mg tablet 50 mg PO DAILY Qty: 90 1RF vilazodone 40 mg tablet 40 mg PO DAILY Qty: 90 1RF hydrocortisone [Anusol-HC] 2.5 % cream with perineal applicator 1 applic RECTAL DAILY PRN (Reason: rectal pain) Qty: 30 2RF fluconazole 150 mg tablet 150 mg PO Q72H Qty: 3 0RF trazodone 50 mg tablet 50 mg PO HS Qty: 90 1RF mupirocin 2 % ointment 1 applic topical BID Qty: 15 0RF levothyroxine [Synthroid] 112 mcg tablet 112 mcg PO DAILY Qty: 90 1RF hydrochlorothiazide 12.5 mg capsule See Rx Instructions .ROUTE .COMPLEX Qty: 90 1RF Dose Instruction: TAKE 1 CAPSULE BY MOUTH EVERY DAY Rx Instructions: TAKE 1 CAPSULE BY MOUTH EVERY DAY losartan 50 mg tablet 50 mg PO DAILY Qty: 90 2RF metformin 500 mg tablet extended release 24 hr 500 mg PO BID Qty: 180 0RF hydrocortisone acetate [Anusol-HC] 25 mg suppository 25 mg RECTAL QHS Qty: 12 0RF <Gloria Calhoun PA-C - Last Filed: 09/24/24 17:25> Follow-up/Referrals: Heidi Samuel MD [Primary Care Provider] - <Gloria Calhoun PA-C - Last Filed: 09/24/24 17:25> Time of Disposition: 22:09 <Gloria Calhoun PA-C - Last Filed: 09/24/24 17:25> 22:09 <Paresh Akhtar MD - Last Filed: 09/24/24 22:09>
[2024-09-24 18:01] LABS: Basophils Absolute Auto 0.1 K/mm3 (0.0-0.1); Basophils Percent Auto 0.5 % (0.2-1.2); Eosinophils Absolute Auto 0.2 K/mm3 (0-0.3); Eosinophils Percent Auto 2.2 % (0-4.4); Hematocrit 39.3 % (37.0-47.0); Hemoglobin 13.8 g/dL (12.0-15.0); Immature Granulocyte Absolute 0.07 K/mm3 (0.00-0.031); Immature Granulocyte Percent A 0.7 % (0-0.5); Lymphocytes Absolute Auto 2.36 K/mm3 (0.9-3.2); Lymphocytes Percent Auto 24.8 % (18.3-44.2); Mean Corpuscular HGB Conc 35.1 g/dl (32-36); Mean Corpuscular Hemoglobin 29.4 pg (26-34); Mean Corpuscular Volume 83.6 fl (80-100); Mean Platelet Volume 11.4 fl (7.4-10.4); Monocytes Absolute Auto 0.5 K/mm3 (0.1-0.6); Monocytes Percent Auto 5.7 % (2.6-8.5); Neutrophils Absolute Auto 6.3 K/mm3 (1.3-6.7); Neutrophils Percent Auto 66.1 % (45.5-73.1); Platelet Count Result 272 k/mm3 (150-375); Red Cell Distribution Width 12.3 % (11.5-14.5); White Blood Count 9.5 K/mm3 (4.5-10.0)
[2024-09-24 18:12] LABS: Alanine Aminotransferase 32 U/L (6-35); Alkaline Phosphatase 99 U/L (38-126); Anion Gap 14 mmol/L (4-12); Aspartate Amino Transferase 31 U/L (14-36); Bilirubin,Total 0.7 mg/dL (0.2-1.3); Blood Urea Nitrogen 15 mg/dL (7-17); Calcium 9.3 mg/dL (8.4-10.2); Carbon Dioxide 23 mmol/L (22-30); Chloride 93 mmol/L (98-107); Estimated CRCL calculation 107 ml/min; Estimated Glomerular Filt Rate > 60; Glucose 351 mg/dL (65-110); Potassium 4.1 mmol/L (3.4-5.0); Sodium 130 mmol/L (137-145)
[2024-09-24 18:34] LABS: BEDSIDEPREGUCG Negative (Negative)
--- OUTSIDE RECORDS SUMMARY | 2024-09-24 18:50 | XMS_ITS | Clinical Summary ---
Author Organization [facility] [address] [place] Address [address] [place] [id number] Care Team Providers Care Septic Tank Cleaner Name Role Phone No, Physician Primary Care Provider [phone] Tiffany Salas NP Unavailable [phone] Chantal Rothman MD Unavailable [phone] Allergies Active Allergy Reactions Criticality Noted Date Comments Adhesive Urticaria Medium 06/07/2023 Adhesive Tape-Silicones Other (See comments) Low burning Atorvastatin Unknown Low 09/27/2020 Bacitracin-Polymyxin B Rash Medium 07/20/2020 Chlorhexidine Urticaria Medium 06/07/2023 Chlorhexidine Gluconate Hives,Itching Medium 1 Iodine Hives Medium 05/28/2021 Mceqnagm-Cfcapjatjy-Rtkmoress Rash Medium 2020 Neosporin (Neomycin-Polymyx) Unknown Low [...] 08/20/2024 Assessment & Plan (08/20/2024 1:58 PM TEACHING YOUNG): Due to length of illness we will [...] (09/27/2020): Added automatically from request for surgery [id number] depression 09/18/2018 S/P section 08/19/2018 Overview (09/03/2018): [...] fluid into vagina 018 Overview (08/13/2018): 08/13/2018 [facility]: C/O mucosy 1/2cup of fluid loss from vagina -SSE negative pooling, negative VB, wet mount negative -SVE CL/TH/H -DVP 5.01cm/5.75cm -Patient given labor precautions Headache 08/04/2018 Overview (08/04/2018): [facility] Visit 08/04/18 Headache resolved with po Compazine. Normotensive. Normal glucose. Enc increasing po hydration. RX for po Compazine given. Pre-E precautions advised. F/U Friday. Reactive NST. 35 weeks gestation of 07/23/2018 Generalized body aches 07/23/2018 Overview (07/23/2018): [facility] Visit 07/23/18 Afebrile, VSS, denies cough or cold sx. Denies pain or n/v. Discussed comfort measures. Influenza swab obtained. Accu check 92. Precautions advised. Hx of biophysical profile 07/14/2018 Overview (07/14/2018): [facility] Visit 07/14/18 BPP 6/8, -2 [...] previously. Aware that she will deliver at [facility]- SCHEDULED for 08/19/18 @ 0800. 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 Assessment & Plan (05/22/2018 10:31 AM CDT): -Blood sugars reviewed today. No changes made -Reviewed again risks of DM in . Patient verbalized understanding. Assessment & Plan (01/19/2018 2:23 PM CDT): Questionable diagnosis -Seeing Playback Operator and Tank Truck Loader tomorrow locally -BS review reflects fairly good [...] Department Care Team Description 08/24/2024 12:01 PM TEACHING YOUNG - 08/24/2024 11:59 PM TEACHING YOUNG Hospital Encounter [address] [address] Acute viral syndrome Discharge Disposition: Discharge to home or self care 08/24/2024 9:25 AM TEACHING YOUNG Ancillary Procedure [facility] Medical [facility] Imaging at [address] [phone] Acute cough 08/24/2024 9:00 AM TEACHING YOUNG Office Visit [facility] Convenient Care at [address] [phone] Ellen Mabry NP Acute viral syndrome (Primary Dx); Elevated blood pressure reading in office with diagnosis of hypertension 08/20/2024 1:45 PM TEACHING YOUNG Telemedicine [facility] Virtual Care [address] [place] [phone] Nathalia Thomas, ALFONSO Acute non-recurrent pansinusitis (Primary Dx) from Last 3 Months Immunizations Name Administration Dates Next Due Influenza, Quadrivalent, Cathy l Culture-based MDCK, Antibiotic Free, Intramuscular 06/05/2018 Tdap 06/05/2018 Surgical History Surgery Date Site/Laterality Comments LEG SURGERY Leg Repair - metal plate in left leg (Added by TW Conv) VT APPENDECTOMY Appendectomy - 1998 (Added by TW [...] diabetes mellitus wit hout complications (CMS/HCC) (HCC) Dpx-fhccivz-zsbplrgxp di abetes mellitus without complications - (Added [...] on file Legal Sex Female 3:23 AM TEACHING YOUNG Gender Identity Not on file Sexual Orientation [...] Dillon Mascorro MD Complications: Intolera nce Delivery Location:[facility] ampus ([facility]LD) Last Filed Vital Signs Vital Sign Reading Time Taken Comments Blood Pressure 152/96 08/24/2024 9:09 AM TEACHING YOUNG Pulse 67 08/24/2024 9:09 AM TEACHING YOUNG Temperature 36.8 C (98.2 F) 08/24/2024 9:09 AM TEACHING YOUNG Respiratory Rate 20 08/24/2024 9:09 AM TEACHING YOUNG Oxygen Saturation 95% 08/24/2024 9:09 AM TEACHING YOUNG Inhaled Oxygen Concentration - - Weight 151.5 kg (333 lb 14.4 oz) 08/24/2024 9:09 AM TEACHING YOUNG Height 160 cm (5' 2.99 ) 08/24/2024 9:09 AM TEACHING YOUNG Body Mass Index 59.16 08/24/2024 9:09 AM TEACHING YOUNG Plan of Treatment Health Maintenance Due Date [...] AND COVID-19 PCR Routine 08/24/2024 12:01 PM TEACHING YOUNG Acute viral syndrome XR CHEST PA LATERAL 2 VIEWS Schedule MABLE, Read MABLE (Appt Today, Awaiting Results) 08/24/2024 9:30 AM TEACHING YOUNG Acute cough EGFR Routine 09/04/2018 11:03 AM TEACHING YOUNG S/P section HEMOGLOBIN A1C W/EAG Routine 2018 8:13 AM CDT from Last 3 Months or Most Recently Relevant to Health Maintenance Results * (ABNORMAL) Influenza A/B, RSV, and COVID-19 PCR Nasopharyngeal (08/24/2024 12:01 PM TEACHING YOUNG) Pathologist [facility] COVID-19 RNA Negative Negative Influenza A RNA Negative Negative [facility] Influenza B RNA Negative Negative [facility] RSV RNA Positive(A) Negative [facility] Comment: Interpretive data: Testing performed by [facility]. This test is performed using the [employer] Xpert Xpress CoV-2/Flu/RSV plus assay. This is [...] revised 2023 Nasopharyngeal 08/24/2024 12 :01 PM TEACHING YOUNG 08/24/2024 2:52 PM TEACHING YOUNG Narrative [facility] - 08/24/2024 3:53 PM TEACHING YOUNG Is the Patient experiencing symptoms consistent with COVID?->Yes Ellen Mabry NP LAB MICROBIOLOGY - GENERAL [place] [id number] [address] Department [place] [address] * XR Chest PA Lateral 2 Views (08/24/2024 9:30 AM TEACHING YOUNG) Anatomical Region Laterality Modality Body, Chest N/A Digital Radiogra phy 08/24/2024 11:0 9 AM TEACHING YOUNG Narrative 08/24/2024 11:11 AM TEACHING YOUNG EXAM DESCRIPTION: XR CHEST PA LATERAL 2 [...] Sherif Arnold M.D. MJ T: Report ID: [id number] [place] Location: [id number] Procedure Note Sherif Arnold MD - 08/24/2024 [...] Sherif Arnold M.D. MJ T: Report ID: [id number] [place] Location: [id number] Ellen Mabry SHIRT CREASER IMG XR PROCEDURES Final Result * eGFR (09/04/2018 11:03 AM TEACHING YOUNG) eGFR 72 mL/min/1.7 3 m2 [facility] Comment: Interpretive Data Reference Interval Normal >/= 90 mL/min/1.73m2 Mildly decreased* 60 - 89 mL/min/1.73m2 Mildly to moderately decreased 45 - 59 mL/min/1.73m2 Moderately to severely decreased 30 - 44 mL/min/1.73m2 Severely decreased 15 - 29 mL/min/1.73m2 Kidney Failure < 15 mL/min/1.73m2 *Relative to young adult level If -Mauritian multiply value by 1.16. Estimated glomerular filtration [...] 2016. Blood specimen (specimen) 09/04/2018 11:03 AM TEACHING YOUNG 09/04/2018 11:24 AM TEACHING YOUNG Narrative [facility] - 09/04/2018 11:55 AM TEACHING YOUNG Klarissa Angulo MD LAB BLOOD ORDERABLES Fin al Result [facility] [address] [place] [address] * HEMOGLOBIN A1C W/EAG (2018 8:13 AM CDT) Hgb A1C 5.3 4.8 - 5.6 % [facility] - 01 Comment: Pre-diabetes: 5.7 - 6.4 Diabetes: >6.4 Glycemic control for adults with diabetes: <7.0 Estim. Avg Glu (eAG) 105 mg/dL [facility] - 01 2018 8:13 AM CDT 2018 Narrative [facility] - 01/19/2018 1:09 PM CDT Performed at: 01 - [facility] [id number] Software Designer: Trevon Gomez PhD, Phone: [phone] us Jaqueline Jeffery MD LAB BLOOD ORDERABLES F inal Result [facility] - 01 from Last 3 Months or Most Recently Relevant to Health Maintenance Insurance [facility] Advance Directives For more information, please contact: [phone] * Full Code (Latest Code Status on [...] ca se of cardiopulmonary arrest Care Teams Septic Tank Cleaner Relationship Specialty Start Date End Date No, Physician PCP - General 06/07/23 Tiffany Salas NP Nurse Practitioner 06/07/23 Chantal Rothman MD Family Medicine 09/02/17
--- OUTSIDE RECORDS SUMMARY | 2024-09-24 18:50 | XMS_ITS | Encounter Summary ---
Author Organization [facility] Address [address] [place] [id number] Care Team Providers Care Biochemistry Technician Name Role Phone Heidi Samuel MD Primary Care Provider [phone] Encounter Details Date Type Department Care Team (Latest Contact Info) Description 09/23/2024 Travel Social History Tobacco Use Types Packs/Day Years Used Date Smoking Tobacco: Never Smokeless Tobacco: Never Alcohol Use Standard Drinks/Week Comments Not Currently 0 (1 standard drink = 0.6 oz pur e alcohol) Comments No Sex and Gender Information Value Date Recorded Sex Assigned at Female 09/23/2024 8:26 PM SHAPER SETTER Legal Sex Female 7:41 PM CDT Gender Identity Not on file Sexual Orientation Not on file documented as of this encounter Plan of Treatment Not on file documented as of this encounter Visit Diagnoses Not on filedocumented in this encounter Additional Health Concerns Infection Onset Date Last Indicated Resolved Time COVID-19 Rule Out 09/23/2024 09/23/2024 09/23/2024 9:13 PM SHAPER SETTER documented as of this encounter Care Teams Biochemistry Technician Relationship Specialty Start Date End Date Heidi Samuel MD [address] [place] [address] PCP - General 02/22/24 documented as of this encounter
--- OUTSIDE RECORDS SUMMARY | 2024-09-24 18:50 | XMS_ITS | Referral Summary ---
Author Organization [facility] Address [address] [facility] [place] [address] Care Team Providers Care Ivf Embryologist Name Role Phone Unavailable Primary Care Provider Unavailabl e Source Comments [facility],non-owned Affiliates and Associated Physician Practices is amultiple site organization consisting of ambulatory clinics and hospital sitesin [place], [place], [place] and [place]. This disclosure is being madepursuant to the Care Everywhere program and may not contain all information available regarding this patient. Last updated 18.[facility] Allergies Active Allergy Reactions Criticality Noted Date Comments Adhesive Sensitivity Urticaria Medium 01/11/2021 Povidone Iodine Urticaria Medium 03/29/2021 Odpmjxmx-Jwgglksihs-Tcszwantm Rash Medium 2020 Skin Adhesives Urticaria Medium [...] file PLEGGE,MARGI E Personal/Family Other [address] [place] [address] PLEGGE,MARGI E Personal/Family Other [address] [place] [address] PLEGGE,MARGI E Personal/Family Other [address] [place] [address] PLEGGE,MARGI E Personal/Family Other [address] [place] [address] PLEGGE,MARGI E Personal/Family Other [address] [place] [address] PLEGGE,MARGI E Personal/Family Other [address] [place] [address] PLEGGE,MARGI E Personal/Family Other [address] [place] [address] PLEGGE,MARGI E Personal/Family Other [address] [place] [address] PLEGGE,MARGI E Personal/Family Other [address] [place] [address] PLEGGE,MARGI E Personal/Family Other [address] [place] [address] PLEGGE,MARGI E Personal/Family Other [address] [place] [address] PLEGGE,MARGI E Personal/Family Other [address] [place] [address] PLEGGE,MARGI E Personal/Family Other [address] [place] [address] PLEGGE,MARGI E Personal/Family Other [address] [place] [address] PLEGGE,MARGI E Personal/Family Other [address] [place] [address] PLEGGE,MARGI E Personal/Family Other [address] [place] [address] PLEGGE,MARGI E Personal/Family Other [address] [place] [address] PLEGGE,MARGI E Personal/Family Other [address] [place] [address] PLEGGE,MARGI E Personal/Family Other [address] [place] [address] PLEGGE,MARGI E Personal/Family Other [address] [place] [address] PLEGGE,MARGI E Personal/Family Other [address] [place] [address] PLEGGE,MARGI E Personal/Family Other [address] [place] [place] [address]
--- OUTSIDE RECORDS SUMMARY | 2024-09-24 18:50 | XMS_ITS | Referral Summary ---
Author Organization [facility] [address] Address [address] [place] [address] Care Team Providers Care Vegetable Specker Name Role Phone No, Physician Primary Care Provider [phone] Tiffany Salas NP Unavailable [phone] Chantal Rothman MD Unavailable [phone] Encounters Date Type Department Care Team Description 08/24/2024 12:01 PM BAG TESTER - 08/24/2024 11:59 PM BAG TESTER Hospital Encounter [address] [address] Acute viral syndrome Discharge Disposition: Discharge to home or self care 08/24/2024 9:25 AM BAG TESTER Ancillary Procedure [facility] Medical Group Imaging at [address] [phone] Acute cough 08/24/2024 9:00 AM BAG TESTER Office Visit [facility] Medical Group Convenient Care at [address] [phone] Ellen Mabry NP Acute viral syndrome (Primary Dx); Elevated blood pressure reading in office with diagnosis of hypertension 08/20/2024 1:45 PM BAG TESTER Telemedicine [facility] Medical Group [facility] Care [address] [place] [phone] Nathalia Thomas NP Acute non-recurrent pansinusitis (Primary Dx) from Last 3 Months Allergies Active Allergy Reactions Criticality Noted Date Comments Adhesive Urticaria Medium 06/07/2023 Adhesive Tape-Silicones Other (See comments) Low burning Atorvastatin Unknown Low 09/27/2020 Bacitracin-Polymyxin B Rash Medium 07/20/2020 Chlorhexidine Urticaria Medium 06/07/2023 Chlorhexidine Gluconate Hives,Itching Medium Iodine Hives Medium 05/28/2021 Omnwpvly-Glgoyeolik-Igwosowdj Rash Medium 2020 Neosporin (Neomycin-Polymyx) Unknown Low [...] 08/20/2024 Assessment & Plan (08/20/2024 1:58 PM BAG TESTER): Due to length of illness we will [...] (09/27/2020): Added automatically from request for surgery [id number] depression 09/18/2018 S/P section 08/19/2018 Overview (09/03/2018): [...] into vagina 018 Overview (08/13/2018): 08/13/2018 [facility]: C/O mucosy 1/2cup of fluid loss from vagina -SSE negative pooling, negative VB, wet mount negative -SVE CL/TH/H -DVP 5.01cm/5.75cm -Patient given labor precautions Headache 08/04/2018 Overview (08/04/2018): [facility] Visit 08/04/18 Headache resolved with po Compazine. Normotensive. Normal glucose. Enc increasing po hydration. RX for po Compazine given. Pre-E precautions advised. F/U Friday. Reactive NST. 35 weeks gestation of 07/23/2018 Generalized body aches 07/23/2018 Overview (07/23/2018): [facility] Visit 07/23/18 Afebrile, VSS, denies cough or cold sx. Denies pain or n/v. Discussed comfort measures. Influenza swab obtained. Accu check 92. Precautions advised. Hx of biophysical profile 07/14/2018 Overview (07/14/2018): [facility] Visit 07/14/18 BPP 6/8, -2 for [...] previously. Aware that she will deliver at [facility]- SCHEDULED for 08/19/18 @ 0800. Patient [...] compliant Assessment & Plan (07/31/2018 10:46 AM BAG TESTER): -Patient scheduled for delivery on August 19, [...] 1000 mg QAM/ 1000mg QHS - s/p certified breastfeeding educator/operating room tech -A1C 5.3% -Anatomic survey normal - Echo is normal but limited. Assessment & Plan (05/22/2018 10:31 AM CDT): -Blood sugars reviewed today. No changes made -Reviewed again risks of DM in . Patient verbalized understanding. Assessment & Plan (01/19/2018 2:23 PM CDT): Questionable diagnosis -Seeing Net Developer With [employer] and Audio Visual Manager tomorrow locally -BS review reflects fairly good [...] on file Legal Sex Female 3:23 AM BAG TESTER Gender Identity Not on file Sexual Orientation Not on file Last Filed Vital Signs Vital Sign [place] Time Taken Comments Blood Pressure 152/96 08/24/2024 9:09 AM BAG TESTER Pulse 67 08/24/2024 9:09 AM BAG TESTER Temperature 36.8 C (98.2 F) 08/24/2024 9:09 AM BAG TESTER Respiratory Rate 20 08/24/2024 9:09 AM BAG TESTER Oxygen Saturation 95% 08/24/2024 9:09 AM BAG TESTER Inhaled Oxygen Concentration - - Weight 151.5 kg (333 lb 14.4 oz) 08/24/2024 9:09 AM BAG TESTER Height 160 cm (5' 2.99 ) 08/24/2024 9:09 AM BAG TESTER Body Mass Index 59.16 08/24/2024 9:09 AM BAG TESTER Plan of Treatment Not on file Procedures Procedure Name Priority Date/Time Associated Diagnosis Comments INFLUENZA A/B, RSV, AND COVID-19 PCR Routine 08/24/2024 12:01 PM BAG TESTER Acute viral syndrome XR CHEST PA LATERAL 2 VIEWS Schedule MABLE, Read MABLE (Appt Today, Awaiting Results) 08/24/2024 9:30 AM BAG TESTER Acute cough EGFR Routine 09/04/2018 11:03 AM BAG TESTER S/P section HEMOGLOBIN A1C W/EAG Routine 2018 8:13 AM CDT from Last 3 Months or Most Recently Relevant to Health Maintenance Results * (ABNORMAL) Influenza A/B, RSV, and COVID-19 PCR Nasopharyngeal (08/24/2024 12:01 PM BAG TESTER) Pathologist [facility] COVID-19 RNA Negative Negative Influenza A RNA Negative Negative [facility] Influenza B RNA Negative Negative [facility] RSV RNA Positive(A) Negative [facility] Comment: Interpretive data: Testing performed by [facility]. This test is performed using the [employer] Xpert Xpress CoV-2/Flu/RSV plus assay. This is a multiplex, real-time reverse transcriptase PCR assay intended for the qualitative detection of nucleic acid from SARS-CoV-2, influenza A, influenza B, and respiratory syncytial virus. This assay has been cleared by the [place] Food and Drug administration. The performance characteristics have been verified by the [facility]. Results must be considered in the clinical context, and a negative result does not rule out infection. Interpretive Data last revised 2023 Nasopharyngeal 08/24/2024 12 :01 PM BAG TESTER 08/24/2024 2:52 PM BAG TESTER Narrative [facility] - 08/24/2024 3:53 PM BAG TESTER Is the Patient experiencing symptoms consistent with COVID?->Yes us Ellen Mabry NP LAB MICROBIOLOGY - GENERAL ORD ERABLES Final Result [facility] [id number] [address] [place] [address] * XR Chest PA Lateral 2 Views (08/24/2024 9:30 AM BAG TESTER) Anatomical Region Laterality Modality Body, Chest N/A Digital Radiogra phy 08/24/2024 11:0 9 AM BAG TESTER Narrative 08/24/2024 11:11 AM BAG TESTER EXAM DESCRIPTION: XR CHEST PA LATERAL 2 [...] signed by Sherif STARR T: Report ID: [id number] [place] Location: [id number] Procedure Note Sherif Arnold MD - 08/24/2024 [...] signed by Sherif STARR T: Report ID: [id number] [place] Location: [id number] Ellen Mabry PLY SPLICER IMG XR PROCEDURES Final Result * eGFR (09/04/2018 11:03 AM BAG TESTER) eGFR 72 mL/min/1.7 3 m2 [facility] Comment: Interpretive Data Reference Interval Normal >/= 90 mL/min/1.73m2 Mildly decreased* 60 - 89 mL/min/1.73m2 Mildly to moderately decreased 45 - 59 mL/min/1.73m2 Moderately to severely decreased 30 - 44 mL/min/1.73m2 Severely decreased 15 - 29 mL/min/1.73m2 Kidney Failure < 15 mL/min/1.73m2 *Relative to young adult level If -Bhutanese multiply value by 1.16. Estimated glomerular filtration [...] 2016. Blood specimen (specimen) 09/04/2018 11:03 AM BAG TESTER 09/04/2018 11:[address] [facility] - 09/04/2018 11:55 AM BAG TESTER us Klarissa Angulo MD LAB BLOOD ORDERABLES Fin al Result [facility] [address] [place] [address] * HEMOGLOBIN A1C W/EAG (2018 8:13 AM CDT) Hgb A1C 5.3 4.8 - 5.6 % [facility] - 01 Comment: Pre-diabetes: 5.7 - 6.4 Diabetes: >6.4 Glycemic control for adults with diabetes: <7.0 Estim. Avg Glu (eAG) 105 mg/dL [facility] - 01 2018 8:13 AM CDT 2018 Narrative [facility] - 01/19/2018 1:09 PM CDT Performed at: [address] [place] [id number] Spiritual Minister: Trevon Gomez PhD, Phone: [phone] Jaqueline Jeffery MD LAB BLOOD ORDERABLES F inal Result [facility] - 01 from Last 3 Months or Most Recently Relevant to Health Maintenance Insurance [facility] CHOICE PLUS [facility] Advance Directives For more information, please contact: [phone] * Full Code (Latest Code Status on [...] ca se of cardiopulmonary arrest Care Teams Vegetable Specker Relationship Specialty Start Date End Date No, Physician PCP - General 06/07/23 Tiffany Salas NP Nurse Practitioner 06/07/23 Chantal Rothman MD Family Medicine 09/02/17
--- OUTSIDE RECORDS SUMMARY | 2024-09-24 18:50 | XMS_ITS | Encounter Summary ---
Author Organization [facility] Address [address] [facility] [place] [address] Care Team Providers Care Big Data Lead Name Role Phone Unavailable Primary Care Provider Unavailabl e Encounter Details Date Type Department Care Team (Late st Contact Info) Description 12/12/2020 Telephone [facility] [address] [place] [address] Cole Villanueva MD [address] [place] [phone] Social History Tobacco Use Types Packs/Day Years [...]
--- OUTSIDE RECORDS SUMMARY | 2024-09-24 18:50 | XMS_ITS | Encounter Summary ---
Author Organization [facility] Address [address] [place] [address] Care Team Providers Care Double Needle Operator Name Role Phone Heidi Samuel MD Primary Care Provider [phone] Reason for Visit * Reason Comments Flu Like Symptoms Encounter Details Date Type Department Care Team (Late st Contact Info) Description 09/23/2024 8:29 PM SENIOR PROCUREMENT SPECIALIST - 09/23/2024 11:49 PM SENIOR PROCUREMENT SPECIALIST Emergency [facility] Emergency Room [id number] [place] [address] Shabbir Boo MD [address] [place] [id number] Flu Like Symptoms Discharge Disposition: Home or Self Care (Routine Discharge) Social History Tobacco Use Types Packs/Day Years Used Date Smoking Tobacco: Never Smokeless Tobacco: Never Alcohol Use Standard Drinks/Week Comments Not Currently 0 (1 standard drink = 0.6 oz pur e alcohol) Comments No Sex and Gender Information Value Date Recorded Sex Assigned at Female 09/23/2024 8:26 PM SENIOR PROCUREMENT SPECIALIST Legal Sex Female 7:41 PM CDT Gender Identity Not on file Sexual Orientation Not on file documented as of this encounter Last Filed Vital Signs Vital Sign Reading Time Taken Comments Blood Pressure 151/108 09/23/2024 11:30 PM SENIOR PROCUREMENT SPECIALIST Pulse 75 09/23/2024 11:30 PM SENIOR PROCUREMENT SPECIALIST Temperature 36.3 C (97.4 F) 09/23/2024 8:32 PM SENIOR PROCUREMENT SPECIALIST Respiratory Rate 17 09/23/2024 11:30 PM SENIOR PROCUREMENT SPECIALIST Oxygen Saturation 94% 09/23/2024 11:30 PM SENIOR PROCUREMENT SPECIALIST Inhaled Oxygen Concentration - - Weight 145.2 kg (320 lb) 09/23/2024 8:32 PM SENIOR PROCUREMENT SPECIALIST Height 160 cm (5' 3 ) 09/23/2024 8:32 PM SENIOR PROCUREMENT SPECIALIST Body Mass Index 56.69 09/23/2024 8:32 PM SENIOR PROCUREMENT SPECIALIST documented in this encounter Discharge Instructions * Discharge Instructions* Shabbir Boo MD - 09/23/2024 11:22 PM SENIOR PROCUREMENT SPECIALIST The lab work today showed an elevated [...] you have worsening or concerning symptoms. OR PROCUREMENT SPECIALIST OR PROCUREMENT SPECIALIST * Attachments The following attachments cannot be sent through Care Everywhere. * High Blood Sugar, Adult (Gibraltarian) * Viral Syndrome Discharge Instructions (Gibraltarian) documented in this encounter Medications at Time [...] Diagnosis Date Anxiety disorder, unspecified Diabetes mellitus ([facility]/HCC [facility]/HCC) Essential (primary) hypertension High cholesterol Hypothyroidism, unspecified [...] XR CHEST PA+LAT Final Result by User, [id number] (09/23 2131) [facility] [id number] [address] [place] [id number] Examination: Chest 2 View History: Cough, fever [...] Disposition: Discharge Shabbir Boo MD 09/23/242344 OR PROCUREMENT SPECIALIST * Sari Crocker RN - 09/23/2024 8:29 PM CST Pt presents to ED with complaints of congestion, fatigue, body aches, cough, intermittent fevers and sore throat. Pt reports symptoms started about 8 days ago and everyone in her household has influenza A. OR PROCUREMENT SPECIALIST documented in this encounter Plan of Treatment Not on file documented as of this encounter Procedures Procedure Name Priority Date/Time Associated Diagnosis Comments POCT GLUCOSE - SANTANA DOCKED DEVICE Routine 09/23/2024 11:45 PM SENIOR PROCUREMENT SPECIALIST BASIC METABOLIC PANEL STAT 09/23/2024 10:20 PM SENIOR PROCUREMENT SPECIALIST POCT GLUCOSE - SANTANA DOCKED DEVICE Routine 09/23/2024 10:11 PM SENIOR PROCUREMENT SPECIALIST XR CHEST PA+LAT STAT 09/23/2024 9:12 PM SENIOR PROCUREMENT SPECIALIST CORONAVIRUS (COVID 19) STAT 09/23/2024 8:33 PM SENIOR PROCUREMENT SPECIALIST INFLUENZA A & B STAT 09/23/2024 8:33 PM SENIOR PROCUREMENT SPECIALIST RESP SYNCYTIAL VIRUS STAT 09/23/2024 8:33 PM SENIOR PROCUREMENT SPECIALIST documented in this encounter Results * (ABNORMAL) POCT glucose (09/23/2024 11:45 PM SENIOR PROCUREMENT SPECIALIST) GLUCOSE POC 415(H) 70 - 110 mg/dL 09/23/2024 11:49 PM [facility] 09/23/2024 11:4 5 PM SENIOR PROCUREMENT SPECIALIST Shabbir Boo MD POCT ORDERABLES - DEVICE Final R esult [facility] [address] [place] [address], * (ABNORMAL) BASIC METABOLIC PANEL (09/23/2024 10:20 PM SENIOR PROCUREMENT SPECIALIST) [facility] GLUCOSE 567(HH) 70 - 99 MG/DL 09/23/2024 11:10 PM [facility] Comment: Critical Result(s) Called at: 23:09:39 on 09/23/2024 by: INDU ZEPEDA to and read back by: JAS LAROSE RN BUN 14 7 - 18 MG/DL 09/23/2024 11:10 PM [facility] CREATININE S/P/B 1.24(H) 0.55 - 1.02 MG/DL 09/23/2024 11:10 PM [facility] SODIUM S/P/B 127(L) 136 - 145 MMOL/L 09/23/2024 11:10 PM [facility] POTASSIUM S/P/B 4.0 3.5 - 5.1 MMOL/L 09/23/2024 11:10 PM [facility] CHLORIDE S/P/B 90(L) 100 - 108 MMOL/L 09/23/2024 11:10 PM [facility] CO2 23.4 21 - 32 MMOL/L 09/23/2024 11:10 PM [facility] CALCIUM S/P/B 9.5 8.5 - 10.1 MG/DL 09/23/2024 11:10 PM SENIOR PROCUREMENT SPECIALIST [facility] ANION GAP 13.6 5 - 15 MMOL/L 09/23/2024 11:10 PM [facility] BUN CREATININE RATIO 11.3 6 - 26 09/23/2024 11:10 PM [facility] GFR ESTIMATE 57(L) >90 ML/MIN/1.7 3 M2 09/23/2024 11:10 PM [facility] Comment: NOTE: eGFR is not calculated for patients <18 years of age. This is an estimated GFR calculation using the new CKD EPI creatinine equation without race and so does not require a correction factor for race. This estimated GFR should not be used for calculating drug doses. 09/23/2024 10:2 0 PM SENIOR PROCUREMENT SPECIALIST us Shabbir Boo MD LABORATORY Final Result Performing Organization Address [facility]/ZIP Co de Phone Number [facility] [address] [place] [address], [place] [phone] * (ABNORMAL) POCT glucose (09/23/2024 10:11 PM SENIOR PROCUREMENT SPECIALIST) [facility] GLUCOSE POC 496(H) 70 - 110 mg/dL 09/23/2024 10:13 PM SENIOR PROCUREMENT SPECIALIST [facility] 09/23/2024 10:1 1 PM SENIOR PROCUREMENT SPECIALIST us Shabbir Boo MD POCT ORDERABLES - DEVICE Final R esult Performing Organization Address City/[facility]/ZIP Co de Phone Number [facility] [address] [place] [address], [place] [phone] * XR CHEST PA+LAT (09/23/2024 9:12 PM SENIOR PROCUREMENT SPECIALIST) Anatomical Region Laterality Modality Chest Radiographic Alyssa ging 09/23/2024 9:22 PM SENIOR PROCUREMENT SPECIALIST Impressions 09/23/2024 9:27 PM SENIOR PROCUREMENT SPECIALIST Impression: No acute findings. Referred By: Interpreted By: Gustavo Chua MD, 09/23/2024 9:22 PM Narrative 09/23/2024 9:27 PM SENIOR PROCUREMENT SPECIALIST [address] [place] [address] Examination: Chest 2 View History: Cough, fever DATE/TIME: 09/23/2024 8:58 PM Comparison: 05/28/2021 Technique: PA and lateral views were obtained. Findings: Heart size, mediastinal contours and pulmonary vasculature are within normal limits. No pulmonary consolidation, pleural effusion or pneumothorax. No acute osseous abnormality. Thoracic spondylosis. Procedure Note Gustavo Chua MD - 09/23/[address] [place] [address] Examination: Chest 2 View History: Cough, fever [...] RESP SYNCYTIAL VIRUS (09/23/2024 8:33 PM SENIOR PROCUREMENT SPECIALIST) SPECIMEN TYPE NASOPHARYNGEAL SWAB 09/23/2024 8:55 PM SENIOR PROCUREMENT SPECIALIST [facility] RAPID RSV NEGATIVE NEGATIVE 09/23/2024 9:15 PM SENIOR PROCUREMENT SPECIALIST [facility] NASOPHARYNGEAL SWAB / Unknown 09/23/2024 8:33 PM SENIOR PROCUREMENT SPECIALIST us Shabbir Boo MD MICROBIOLOGY - GENERAL ORDERABLE S Final Result Performing Organization Address [facility] Co de Phone Number [facility] [address] [place] [address], * INFLUENZA A & B (09/23/2024 8:33 PM SENIOR PROCUREMENT SPECIALIST) SPECIMEN TYPE NASOPHARYNX 09/23/2024 9:15 PM SENIOR PROCUREMENT SPECIALIST [facility] INFLUENZA A NEGATIVE NEGATIVE 09/23/2024 9:15 PM SENIOR PROCUREMENT SPECIALIST [facility] INFLUENZA B NEGATIVE NEGATIVE 09/23/2024 9:15 PM SENIOR PROCUREMENT SPECIALIST [facility] NASAL STRUCTURE / Unknown 09/23/2024 8:33 PM SENIOR PROCUREMENT SPECIALIST us Shabbir Boo MD MICROBIOLOGY - GENERAL ORDERABLE S Final Result Performing Organization Address [facility]/RUST de Phone Number [facility] [address] [place] [address], [place] [phone] * CORONAVIRUS (COVID-19) MOLECULAR (09/23/2024 8:33 PM SENIOR PROCUREMENT SPECIALIST) CORONAVIRUS SARS COV 2 RNA NEGATIVE NEGATIVE 09/23/2024 9:13 PM SENIOR PROCUREMENT SPECIALIST [facility] Comment: NEGATIVE RESULTS DO NOT [...] SPECIMEN TYPE NASAL 09/23/2024 8:55 PM SENIOR PROCUREMENT SPECIALIST [facility] NASOPHARYNGEAL SWAB / Unknown 09/23/2024 8:33 PM SENIOR PROCUREMENT SPECIALIST us Shabbir Boo MD MICROBIOLOGY - GENERAL ORDERABLE S Final Result [facility] [address] [place] [address], [place] [phone] documented in this encounter Visit Diagnoses Diagnosis [...] order set. Given 09/23/2024 11:16 PM SENIOR PROCUREMENT SPECIALIST 10 Units Right Lower Abdomen sodium chloride 0.9% bolus infusion 1,000 mL 1,000 mL, Intravenous, Administer over 60 Minutes, Once, 1 dose, On Madhavi 09/23/24 at 2230 New Bag 09/23/2024 10:26 PM SENIOR PROCUREMENT SPECIALIST 1,000 mLs 1000 mL/hr documented in this encounter Active and Recently Administered Medications Times are shown in SENIOR PROCUREMENT SPECIALIST. Scheduled Medication Order 09/21/2024 09/22/2024 09/23/2024 insulin [...] Out 09/23/2024 09/23/2024 09/23/2024 9:13 PM SENIOR PROCUREMENT SPECIALIST documented as of this encounter Care Teams Double Needle Operator Relationship Specialty Start Date End Date Heidi Samuel MD [address] [place] [address] PCP - General 02/22/24 documented as of this encounter
--- OUTSIDE RECORDS SUMMARY | 2024-09-24 18:50 | XMS_ITS | Patient Health Summary ---
Author Organization [facility] Address [address] [place] [address] Care Team Providers Care Valuer Name Role Phone Unavailable Primary Care Provider Unavailabl e Note from [facility],non-owned Affiliates and Associated Physician Practices is amultiple site organization consisting of ambulatory clinics and hospital sitesin [place], [place], [place] and [place]. This disclosure is being madepursuant to the Care Everywhere program and may not contain all information available regarding this patient. Last updated 18.[facility] Allergies * Adhesive Sensitivity(Urticaria) -Medium Criticality * Povidone Iodine(Urticaria) -Medium Criticality * Cghapedk-Haqkdbcupd-Qslvlvzxf(Rash) -Medium Criticality * Skin Adhesives(Urticaria) -Medium Criticality [...] CDT) Case Report Surgical Pathology Report Case: [id number] Authorizing Provider: Cole Villanueva MD Collected: 01/30/2021 08:33 AM Ordering Location: [facility] Received: 01/30/2021 11:45 AM Pathologist: Trudy Villanueva MD Specimen: Adhesions, intra-abdominal adhesion 02/02/2021 1:[address] [facility] Final Diagnosis Soft tissue, intra-abdominal adhesion, excision (A): - Fibrous tissue, negative for malignancy 02/02/2021 1:[address] [facility] Microscopic Description and Comment Microscopic examination substantiates the final diagnosis. 02/02/2021 1:03 PM CDT [facility] Clinical History 36 year old female with chronic umbilical discharge, at surgery umbilical hernia with incarcerated omentum but no bowel involvement 02/02/2021 1:[address] [facility] Gross Description The requisition and specimen(s) are identified with the patient's name, Delfina Tobar. Received in formalin, specimen A is a 1.8 x 1.7 x 0.4 cm pink-reveles fibromembranous tissue with associated adipose tissue. The specimen is sectioned showing pink-reveles, mildly firm cut surfaces. Roll Changer sections submitted in cassette A1. LJ 02/02/2021 1:[address] [facility] Disclaimer The performance characteristics of all immunohistochemical and indirect immunofluorescence stains (if any) cited in this report were determined by the Histopathology Laboratory of [facility]. Some of these tests were developed by [...] attending (teaching) pathologist. 02/02/2021 1:[address] [facility] Embedded Images 02/02/2021 1:[address] [facility] Biopsy, Excision ADHESION / Unknown 01/30/2021 8:33 AM CDT 01/30/2021 11:45 AM CDT Comment:Pre-op diagnosis: Draining cutaneous sinus tract, Enterocutaneous fistula Cole Villanueva MD LAB - PATHOLOGY/CYTO LOGY ORDERABLES [facility] [address] [phone] * ETT LINE PERFORMABLE (01/30/2021 8:28 AM CDT) Narrative Marcelina Slater MD - 01/30/2021 8:28 AM CDT Marcelina Slater MD 01/30/2021 8:35 AM Endotracheal Tube Placement: Patient Location: OR. Intubation Event Date/Time: 01/30/2021 7:59 AM Procedure: intubation (61003). Procedure Section: Sedation: under general anesthesia. Indications [...] Performed the procedure Provider #1: Paula Posey, MAL-PAVING INSPECTOR, Performed the procedure. Sandip Romero MD GENERAL ANESTHES [place] ORDERABLES * (ABNORMAL) GLUCOSE - POINT OF CARE (01/30/2021 7:03 AM CDT) Glucose WB/POC 116(H) 70 - 115 mg/dL 01/30/2021 7:04 AM CDT [facility] Specimen Type Arterial 01/30/2021 7:04 AM CDT [facility] Blood BLOOD SPECIMEN / Unknown 01/30/2021 7:03 AM CDT 01/30/2021 7:04 AM CDT Cole Villanueva MD LAB - POINT OF CARE ORDERABLES [address] [address], [place] [phone] * HCG URINE QUALITATIVE - POCT (IP) INTERFACED (01/30/2021 6:37 AM CDT) HCG Qual Urine Negative Negative 01/30/2021 6:49 AM CDT [facility] Urine URINE / Unknown 01/30/2021 6 :37 AM CDT 01/30/2021 6:49 AM CDT Cole Villanueva MD LAB - POINT OF CARE ORDERABLES Performing Organization Address City/[facility]/ZIP Co de Phone Number [address] [address], [place] [phone] * HCG URINE QUAL POCT NOTIFICATION (01/30/2021 5:55 AM CDT) Comment Notification Label Only - See Separate Report 01/30/2021 7:00 AM CDT [facility] Urine URINE / Unknown 01/30/2021 5 :55 AM CDT 01/30/2021 5:55 AM CDT Joan Hatfield WEB RETAILER-RISK MANAGER LAB - URINALYSIS ORDERABLES [address] [address] [phone] * CBC W/O DIFFERENTIAL (01/11/2021 12:35 PM CDT) WBC 10.0 3.5 - 10.5 10 3/uL 01/11/2021 1:44 PM [facility] RBC 4.83 3.80 - 5.20 10 6/uL 01/11/2021 1:44 PM [facility] Hemoglobin 13.9 12.0 - 15.6 g/dL 01/11/2021 1:44 PM [facility] Hematocrit 42.1 35.0 - 45.0 % 01/11/2021 1:44 PM [facility] MCV 87.2 80.7 - 98.3 fL 01/11/2021 1:44 PM [facility] MCH 28.8 26.7 - 34.0 pg 01/11/2021 1:44 PM [facility] MCHC 33.0 30.8 - 35.9 g/dL 01/11/2021 1:44 PM [facility] Platelet Count 309 150 - 400 10 3/uL 01/11/2021 1:44 PM [facility] RDW-SD 41.8 36.0 - 50.0 fL 01/11/2021 1:44 PM [facility] RDW-CV 13.2 11.2 - 14.8 % 01/11/2021 1:44 PM [facility] MPV 11.7 9.4 - 12.9 fL 01/11/2021 1:44 PM [facility] nRBC Absolute 0.00 0 10 3/uL 01/11/2021 1:44 PM [facility] nRBC Auto 0.0 0 /100 WBC 01/11/2021 1:44 PM [facility] Blood BLOOD SPECIMEN / Unknown Lab Venipuncture / Unknown 01/11/2021 12:35 PM CDT 01/11/2021 1:25 PM CDT Joan Hatfield WEB RETAILER-RISK MANAGER LAB - HEMATOLOGY ORDERABLES [facility] [address] [place] [address], [facility] [phone] * (ABNORMAL) BASIC METABOLIC PANEL (CALCIUM TOTAL) (01/11/2021 12:35 PM CDT) BUN 10 7 - 26 mg/dL 01/11/2021 2:00 PM [facility] Creatinine 0.84 0.56 - 0.96 mg/dL 01/11/2021 2:00 PM [facility] Sodium 139 136 - 145 mmol/L 01/11/2021 2:00 PM [facility] Potassium 5.0(H) 3.5 - 4.5 mmol/L 01/11/2021 2:00 PM [facility] Chloride 102 98 - 107 mmol/L 01/11/2021 2:00 PM [facility] CO2 30(H) 22 - 29 mmol/L 01/11/2021 2:00 PM [facility] Glucose 86 70 - 115 mg/dL 01/11/2021 2:00 PM [facility] Calcium 9.1 8.4 - 10.2 mg/dL 01/11/2021 2:00 PM [facility] Anion Gap 12 8 - 18 01/11/2021 2:00 PM [facility] BUN/Creatinine Ratio 12 7 - 23 01/11/2021 2:00 PM [facility] Osmolality Calculated 286 270 - 300 mOsm/kg 01/11/2021 2:00 PM [facility] eGFR by CKD-EPI 90 >=90 mL/min/1.7 3 m2 01/11/2021 2:00 PM [facility] Blood BLOOD SPECIMEN / Unknown Lab Venipuncture / Unknown 01/11/2021 12:35 PM CDT 01/11/2021 1:25 PM [facility] Joan Hatfield WEB RETAILER-RISK MANAGER LAB - CHEMISTRY ORDERABLES [facility] [address] [place] [address], [facility] [phone]
--- OUTSIDE RECORDS SUMMARY | 2024-09-24 18:50 | XMS_ITS | Encounter Summary ---
Author Organization [facility] Address [address] [place] [address] Care Team Providers Care Animal Care Giver Name Role Phone Unavailable Primary Care Provider Unavailabl e Encounter Details Date Type Department Care Team (Late st Contact Info) Description 12/12/2020 Telephone [facility] [address] [place] [address] Cole Villanueva MD [address] [place] [id number] Social History Tobacco Use Types Packs/Day Years [...]
--- OUTSIDE RECORDS SUMMARY | 2024-09-24 18:50 | XMS_ITS | Clinical Summary ---
Author Organization [facility] Address [address] [place] [address] Care Team Providers Care Structural Technician Name Role Phone Unavailable Primary Care Provider Unavailabl e Source Comments [facility],non-owned Affiliates and Associated Physician Practices is amultiple site organization consisting of ambulatory clinics and hospital sitesin [place], [place], [place] and [place]. This disclosure is being madepursuant to the Care Everywhere program and may not contain all information available regarding this patient. Last updated 18.[facility] Allergies Active Allergy Reactions Criticality Noted Date Comments Adhesive Sensitivity Urticaria Medium 01/11/2021 Povidone Iodine Urticaria Medium 03/29/2021 Aujqszyh-Wbnbzlgjms-Ydjjnowcn Rash Medium 2020 Skin Adhesives Urticaria Medium [...] topic PLEGGE,MARGI E Personal/Family Other [address] [place] [address] PLEGGE,MARGI E Personal/Family Other [address] [place] [address] PLEGGE,MARGI E Personal/Family Other [address] [place] [address] PLEGGE,MARGI E Personal/Family Other [address] [place] [address] PLEGGE,MARGI E Personal/Family Other [address] [place] [address] PLEGGE,MARGI E Personal/Family Other [address] [place] [address] PLEGGE,MARGI E Personal/Family Other [address] [place] [address] PLEGGE,MARGI E Personal/Family Other [address] [place] [address] PLEGGE,MARGI E Personal/Family Other [address] [place] [address] PLEGGE,MARGI E Personal/Family Other [address] [place] [address] PLEGGE,MARGI E Personal/Family Other [address] [place] [address] PLEGGE,MARGI E Personal/Family Other [address] [place] [address] PLEGGE,MARGI E Personal/Family Other [address] [place] [address] PLEGGE,MARGI E Personal/Family Other [address] [place] [address] PLEGGE,MARGI E Personal/Family Other [address] [place] [address] PLECHAYO,MARGI E Personal/Family Other [address] [place] [address] PLEERICEMARGI E Personal/Family Other [address] [place] [address] MARGI CAVAZOS E Personal/Family Other [address] [place] [address] PLEERICEMARGI E Personal/Family Other [address] [place] [address] MARGI CAVAZOS E Personal/Family Other [address] [place] [address] PLEMARGI DOMINGO E Personal/Family Other [address] [place] [address] MARGI CAVAZOS E Personal/Family Other [address] [place] [address]
--- OUTSIDE RECORDS SUMMARY | 2024-09-24 18:50 | XMS_ITS | CONTINUITY OF CARE DOCUMENT ---
Author Name nichole varela Address Unknown Organization [facility] Address [address] [place] [address] Phone [phone] Care Team Providers Care Correctional Case Manager Name Role Phone Kate BOSCH, Jonathan Unavailable MURTAZA DIAS Unavailable [phone] MURTAZA DIAS Unavailable [phone] PROBLEMS Condition Status Date Provider Notes Leg [...] active Erasmo skaggs MD Anxiety disorder active rEasmo Braswell MD Exposure to SARS-associated coronavirus;neg igg completed - Ron Paulino Shortness of breath active Juan Pablo Nacht Mold exposure active Juan Pablo Nacht Palpitations active Ron Paulino ENCOUNTERS Date Type Provider Location Encounter Diag nosis - In-person encounter Office Visit Jonathan Love MD [facility] Palpitations - In-person encounter Office Visit Jonathan Love MD [facility] - In-person encounter Office Visit Jonathan Love MD [facility] Shortness of breathMold exposure - In-person encounter Office Visit Erasmo Braswell MD [facility] Diabetes mellitus, type 2 - In-person encounter Office Visit Erasmo Braswell MD [facility] HypothyroidismHTN essential;NEG DUPLEXAnxiety disorderExposure to SARS-associated coronavirus;neg igg VITAL SIGNS Date Observation Value Provider blood pressure, diastolic 75 mm[Hg] Ok gavin [place] blood pressure, systolic 122 mm[Hg] [facility] gonzalo Bahena oxygen saturation, oximetry 97 % Chantal Bahena pulse rate 79 /min Chantal fuller respiratory rate E&M 16 /min Hyacinth ng [place] blood pressure, cuff size large Ok gavin Marshand height E&M 63 [in_i] Chantal [...] ruenenfelder pulse rate 69 /min Iman Gruenenfe [facility] weight E&M 326 [lb_av] Iman Gruenenfe [facility] height E&M 63 [in_i] Iman Gruenenfe [facility] Body Mass Index (Ratio) 62.52 kg/m2 Matt Braswell MD blood pressure, cuff size large Ke rri Gruenenfelder blood pressure, diastolic 72 mm[Hg] Ke rri Gruenenfelder blood pressure, systolic 110 mm[Hg] Ker ri Gruenenfelder oxygen saturation, oximetry 98 % Iman Gruenenfelder respiratory rate E&M 16 /min Iman G ruenenfelder pulse rate 82 /min Iman Gruenenfe [facility] weight E&M 353 [lb_av] Iman Gruenenfe [facility] height E&M 63 [in_i] Iman Gruenenfe [facility] weight E&M 346 [lb_av] Germaine Novoa Body [...] Not Estab. platelet count 326 X10E3/UL [employer] [phone]/07/ 01 red blood cell distribution width 13.8 [...] [employer] 3.5-5.2 sodium, serum 137 mmol/L [employer] [phone]/07/ 01 urea nitrogen/creatinine ratio, serum 19 [employer] [...] 0-149 High cholesterol, serum 124 mg/dL [employer] 418-121 9046/10/ 16 platelet count 288 X10E3/UL [employer] 176-476 5110/10/ 16 red blood cell distribution width 12.5 [...] [employer] 3.5-5.2 sodium, serum 140 mmol/L [employer] 300-249 9046/10/ 16 urea nitrogen/creatinine ratio, serum 17 [employer] [...] iron binding capacity, unsaturated 249 ug/dL [employer] [phone]/12/ 04 iron binding capacity, total 309 ug/dL [employer] [phone]/12/ 04 free thyroxine index 2.5 [employer] 1.2-4.9 [...] Not Estab. platelet count 378 X10E3/UL [employer] [phone]/12/ 04 red blood cell distribution width 13.4 [...] [employer] 3.5-5.2 sodium, serum 138 mmol/L [employer] 315-162 8928/12/ 04 urea nitrogen/creatinine ratio, serum 18 [employer] [...] mouth once a day 08/18 - [facility] active Chantal Loeraity 0.75 mg/0.5 mL pen injector active Ron Ahmedzai levothyroxine 112 mcg tablet active Ron Ahmedzai rosuvastatin 5 mg tablet active Ron Ahmedzai spironolactone 50 mg tablet completed - 08/18 Iman Russell losartan 100 mg tablet active Ron Ahmedzai metformin 500 mg tablet extended release 24 hr active Ron Ahmedzai hydrochlorothiazi de 12.5 mg capsule active [facility] Ahmedzai spironolactone 50 mg tablet [...] Payer name Policy type / Coverage type [employer] party ID [employer] (2) Medicaid [id number] ADVANCE DIRECTIVES Name Date DISCUSSED - NO DECISION MADE TREATMENT PLAN Date Name Performer [id number],C,n o pericardial effusion, no RV dysfuction O rders: P yari 5-10 (CPT-41653) Jonathan Love MD [id number],S, Ron Pike i [id number],C, B P today: 122/75 P rior BP: 130/80 (06/22/2021) Labs Reviewed: C reat: 0.95 (06/02/2021) C hol: 124 (06/02/2021) HDL: 52 (06/02/2021) [facility] [id number],S,i ncreased sxs of palpitations after she sustained her injury, will check holter to assess for arrythmias [facility] [id number],S,S he has chest contusion and cracked ribs which have been making her more SOB, will check echo to rule out any cardiac abnormality [facility] [id number],S, Ron Pike i [id number],S, Ron Pike i [id number],S, Ronmargo Pike i [id number],S, Ron Pike i [id number],S, Ronmargo Pike i [id number],S, Ron Pike i [id number],C, F eeling better N o CT was done, denied by insurance Jimbo Hernandez [id number],B, L ast LDL 47. Last trigs 149 Her updated medication list for this problem includes: Rosuvastatin 5 Mg Tablet (Rosuvastatin) ..... Once a day Jimbo Hernandez [id number],B, B P today: 130/80 P rior BP: 150/100 (06/01/2021) Her updated medication list for this problem includes: Spironolactone 50 Mg Tablet (Spironolactone) ..... Take 1 tablet by mouth once a day Hydrochlorothiazide 12.5 Mg Capsule (Hydrochlorothiazide) ..... Take 1 capsule by mouth once a day Losartan 100 Mg Tablet (Losartan) ..... Take 0.5 tablet by mouth once a day Jimbo Hernandez [id number],B, R are Jimbo Hernandez [id number],C, N ormal echo 06/21/21 Jimbo Hernandez [id number],B, H R was 41-47 in ER. Now off beta zaina and HR lowest 58bpm by 1 week tele. Jimbo Hernandez [id number],W, w orsened after smelling mold s xs improved with steroids and flonase but steroids were stopped in the ER w ill screen for HF with echo, pBNP. c heck CT chest for any acute abnormality Juan Pablo Negretetoshia [id number],W, a dd aldactone 50mg daily to regimen [...] mouth once a day Juan Pablo Penelopetoshia [id number],W, c heck CT chest to r/o infection Juan Pablo Penelopetoshia [id number],W, H R was 41-47 in ER p t was concerned about this o ff beta zaina H R 63 by EKG today w ill check 1 week tele Orders: P ROBNP, N TERMINAL (43927) C BC (H/H, RBC, INDICES, WBC, PLT) (1759) C OMPREHENSIVE METABOLIC PANEL, W/EGFR (54620) L IPID PANEL (7600) H EMOGLOBIN A1c (496) T SH, free T4, total T3 (7444) 9 9205 HIGH 60-74 min (CPT-43299) C omplete Echo (CPT-52112) M onitor - Telemetry (Mobile Cardiac) (CPT-27313) C T Chest without contrast (CPT-42438) The following medications were removed from the medication list: Metoprolol Succinate 50 Mg Tablet Extended Release 24 Hr (Metoprolol succinate) ..... Take 1 tablet by mouth once a day Juan Pablo Webster Telehealth - There i s a focal fluid collection along the the sup:no pericardial effusion, no RV dysfuction O rders: P yari 5-10 (CPT-40056) Jonathan Love MD Electrophysiology Ron Paulino Electrophysiology: [...] week tele Orders: P ROBNP, N TERMINAL (59639) C BC (H/H, RBC, INDICES, WBC, PLT) (1759) C OMPREHENSIVE METABOLIC PANEL, W/EGFR (66113) L IPID PANEL (7600) H EMOGLOBIN A1c (496) T SH, free T4, total T3 (7444) 9 9205 HIGH 60-74 min (CPT-55702) C omplete Echo (CPT-42613) M onitor - Telemetry (Mobile Cardiac) (CPT-98069) C T Chest without contrast (CPT-95906) The following medications were removed from the [...]
--- OUTSIDE RECORDS SUMMARY | 2024-09-24 18:50 | XMS_ITS | Clinical Summary ---
Author Organization [facility] Address [address] [place] [address] Care Team Providers Care Sole Scraper Name Role Phone Heidi Samuel MD Primary Care Provider [phone] Allergies Active Allergy Reactions Criticality Noted Date [...] Department Care Team Description 09/23/2024 8:29 PM CHRONIC CONDITION NURSE - 09/23/2024 11:49 PM CHRONIC CONDITION NURSE Emergency [facility] Emergency Room [address] [place] [address] Shabbir Boo MD Flu Like Symptoms Discharge [...] Sex Assigned at Female 09/23/2024 8:26 PM CHRONIC CONDITION NURSE Legal Sex Female 7:41 PM CDT Gender Identity Not on file Sexual Orientation Not on file Last Filed Vital Signs Vital Sign Reading Time Taken Comments Blood Pressure 151/108 09/23/2024 11:30 PM CHRONIC CONDITION NURSE Pulse 75 09/23/2024 11:30 PM CHRONIC CONDITION NURSE Temperature 36.3 C (97.4 F) 09/23/2024 8:32 PM CHRONIC CONDITION NURSE Respiratory Rate 17 09/23/2024 11:30 PM CHRONIC CONDITION NURSE Oxygen Saturation 94% 09/23/2024 11:30 PM CHRONIC CONDITION NURSE Inhaled Oxygen Concentration - - Weight 145.2 kg (320 lb) 09/23/2024 8:32 PM CHRONIC CONDITION NURSE Height 160 cm (5' 3 ) 09/23/2024 8:32 PM CHRONIC CONDITION NURSE Body Mass Index 56.69 09/23/2024 8:32 PM CHRONIC CONDITION NURSE Plan of Treatment Health Maintenance Due Date [...] SANTANA DOCKED DEVICE Routine 09/23/2024 11:45 PM CHRONIC CONDITION NURSE BASIC METABOLIC PANEL STAT 09/23/2024 10:20 PM CHRONIC CONDITION NURSE POCT GLUCOSE - SANTANA DOCKED DEVICE Routine 09/23/2024 10:11 PM CHRONIC CONDITION NURSE XR CHEST PA+LAT STAT 09/23/2024 9:12 PM CHRONIC CONDITION NURSE RESP SYNCYTIAL VIRUS STAT 09/23/2024 8:33 PM CHRONIC CONDITION NURSE INFLUENZA A & B STAT 09/23/2024 8:33 PM CHRONIC CONDITION NURSE CORONAVIRUS (COVID 19) STAT 09/23/2024 8:33 PM CHRONIC CONDITION NURSE from Last 3 Months Results * (ABNORMAL) POCT glucose (09/23/2024 11:45 PM CHRONIC CONDITION NURSE) Only the most recent of2 resultswithin the time period is included. GLUCOSE POC 415(H) 70 - 110 mg/dL 09/23/2024 11:49 PM CHRONIC CONDITION NURSE [facility] 09/23/2024 11:4 5 PM CHRONIC CONDITION NURSE Shabbir Boo MD POCT ORDERABLES - DEVICE Final R esult [facility] [address] [place] [address], [place] [phone] * (ABNORMAL) BASIC METABOLIC PANEL (09/23/2024 10:20 PM CHRONIC CONDITION NURSE) GLUCOSE 567(HH) 70 - 99 MG/DL 09/23/2024 11:10 PM CHRONIC CONDITION NURSE [facility] Comment: Critical Result(s) Called at: 23:09:39 on 09/23/2024 by: INDU ZEPEDA to and read back by: JAS LAROSE RN BUN 14 7 - 18 MG/DL 09/23/2024 11:10 PM CHRONIC CONDITION NURSE [facility] CREATININE S/P/B 1.24(H) 0.55 - 1.02 MG/DL 09/23/2024 11:10 PM CHRONIC CONDITION NURSE [facility] SODIUM S/P/B 127(L) 136 - 145 MMOL/L 09/23/2024 11:10 PM CHRONIC CONDITION NURSE [facility] POTASSIUM S/P/B 4.0 3.5 - 5.1 MMOL/L 09/23/2024 11:10 PM [facility] CHLORIDE S/P/B 90(L) 100 - 108 MMOL/L 09/23/2024 11:10 PM [facility] CO2 23.4 21 - 32 MMOL/L 09/23/2024 11:10 PM [facility] CALCIUM S/P/B 9.5 8.5 - 10.1 MG/DL 09/23/2024 11:10 PM [facility] ANION GAP 13.6 5 - 15 MMOL/L 09/23/2024 11:10 PM [facility] BUN CREATININE RATIO 11.3 6 - 26 09/23/2024 11:10 PM [facility] GFR ESTIMATE 57(L) >90 ML/MIN/1.7 3 M2 09/23/2024 11:10 PM [facility] Comment: NOTE: eGFR is not calculated for patients <18 years of age. This is an estimated GFR calculation using the new CKD EPI creatinine equation without race and so does not require a correction factor for race. This estimated GFR should not be used for calculating drug doses. 09/23/2024 10:2 0 PM CHRONIC CONDITION NURSE Shabbir Boo MD LABORATORY Final Result [facility] [address] [place] [address], * XR CHEST PA+LAT (09/23/2024 9:12 PM CHRONIC CONDITION NURSE) Anatomical Region Laterality Modality Chest Radiographic Alyssa ging 09/23/2024 9:22 PM CHRONIC CONDITION NURSE Impressions 09/23/2024 9:27 PM CHRONIC CONDITION NURSE Impression: No acute findings. Referred By: Interpreted By: Gustavo Chua MD, 09/23/2024 9:22 PM Narrative 09/23/2024 9:27 PM CHRONIC CONDITION NURSE [facility] [address] [place] [address] Examination: Chest 2 View History: Cough, fever DATE/TIME: 09/23/2024 8:58 PM Comparison: 05/28/2021 Technique: PA and lateral views were obtained. Findings: Heart size, mediastinal contours and pulmonary vasculature are within normal limits. No pulmonary consolidation, pleural effusion or pneumothorax. No acute osseous abnormality. Thoracic spondylosis. Procedure Note Gustavo Chua MD - 09/23/2024 [facility] [address] [place] [address] Examination: Chest 2 View History: Cough, fever [...] * CORONAVIRUS (COVID-19) MOLECULAR (09/23/2024 8:33 PM CHRONIC CONDITION NURSE) CORONAVIRUS SARS COV 2 RNA NEGATIVE NEGATIVE 09/23/2024 9:13 PM CHRONIC CONDITION NURSE [facility] Comment: NEGATIVE RESULTS DO [...] SARS-COV-2. SPECIMEN TYPE NASAL 09/23/2024 8:55 PM CHRONIC CONDITION NURSE [facility] NASOPHARYNGEAL SWAB / Unknown 09/23/2024 8:33 PM CHRONIC CONDITION NURSE us Shabbir Boo MD MICROBIOLOGY - GENERAL ORDERABLE S Final Result Performing Organization Address City/[facility]/ZIP Co de Phone Number [facility] [address] [place] [address], [place] [phone] * INFLUENZA A & B (09/23/2024 8:33 PM CHRONIC CONDITION NURSE) SPECIMEN TYPE NASOPHARYNX 09/23/2024 9:15 PM CHRONIC CONDITION NURSE [facility] INFLUENZA A NEGATIVE NEGATIVE 09/23/2024 9:15 PM CHRONIC CONDITION NURSE [facility] INFLUENZA B NEGATIVE NEGATIVE 09/23/2024 9:15 PM CHRONIC CONDITION NURSE [facility] NASAL STRUCTURE / Unknown 09/23/2024 8:33 PM CHRONIC CONDITION NURSE us Shabbir Boo MD MICROBIOLOGY - GENERAL ORDERABLE S Final Result Performing Organization Address [facility] de Phone Number [facility] [address] [place] [address], [place] [phone] * RESP SYNCYTIAL VIRUS (09/23/2024 8:33 PM CHRONIC CONDITION NURSE) SPECIMEN TYPE NASOPHARYNGEAL SWAB 09/23/2024 8:55 PM CHRONIC CONDITION NURSE [facility] RAPID RSV NEGATIVE NEGATIVE 09/23/2024 9:15 PM CHRONIC CONDITION NURSE [facility] NASOPHARYNGEAL SWAB / Unknown 09/23/2024 8:33 PM CHRONIC CONDITION NURSE us Shabbir Boo MD MICROBIOLOGY - GENERAL ORDERABLE S Final Result Performing Organization Address City/[facility] Co de Phone Number [facility] [address] [place] [address], [place] [phone] from Last 3 Months Insurance [place] Care Teams Sole Scraper Relationship Specialty Start Date End Date Heidi Samuel MD [address] [place] [address] PCP - General 02/22/24
--- OUTSIDE RECORDS SUMMARY | 2024-09-24 18:50 | XMS_ITS | Encounter Summary ---
Author Organization [facility] Address [address] [facility] [address] [place] [address] Phone Care Team Providers Care Ladies' Hat Trimmer Name Role Phone Cahntal Rothman MD Primary Care Provider + Tiffany Salas NP Primary Care Provider [phone] Chantal Rothman MD Primary Care Provider + Tiffany Salas NP Primary Care Provider [phone] No, Physician Primary Care Provider [phone] Tiffany Salas NP Unavailable [phone] Chantal Rothman MD Unavailable [phone] Encounter Details Date Type Department Care Team (Latest Contact Info) Description 01/02/2018 Orders Only [facility] CONVERSION Scanning, Provider Social History Tobacco Use Types Packs/Day Years Used Date Smoking Tobacco: Never Assessed Comments Unknown Sex and Gender Information Value Date Recorded Sex Assigned at Not on file Legal Sex Female 3:23 AM MANAGER HOSPITAL[employer] Gender Identity Not on file Sexual Orientation [...] COVID: Suspected 08/24/2024 08/24/2024 08/24/2024 3:54 PM MANAGER HOSPITAL[employer] RSV, droplet 08/24/2024 08/24/2024 08/31/2024 3:07 AM MANAGER HOSPITALITY documented as of this encounter Care Teams Ladies' Hat Trimmer Relationship Specialty Start Date End Date Chantal [...]
[2024-09-24 18:58] LABS: Add Urine Microscopic? NO; Appearance Urine Clear (Clear); Bilirubin Urine Negative (Negative); Blood Urine Negative (Negative); Color Urine Yellow (Yellow); Glucose Urine UA 3+ mg/dL (Negative); Ketones Urine 3+ mg/dL (Negative); Leukocyte Esterase Ur Negative LEU/UL (Negative); Nitrate Urine Negative (Negative); Protein Urine Negative (Negative); Specific Grav Ur 1.031 (1.001-1.035); Urobilinogen Urine 0.2 mg/dL (<2.0)
[2024-09-24 18:59] LABS: Bacteria Urine None Seen /hpf; RBC Urine 0-2 /hpf (0-2); Squamous Epithelial Cell Urine Occasional /hpf (Few); WBC Urine 0-5 /hpf (0-3)
[2024-09-24 19:50] LABS: Beta-Hydroxybutyrate/Acetoacetate 2.19 mmol/L (0.02-0.27)
[2024-09-24] MEDS: LACTATED RINGERS 1,000 ML 999 ML IV CONT ×3 (19:59→22:10)
[2024-09-24 20:13] LABS: Fractional Inspired Oxygen 21 %; PO2 VBG 56.8 mmHg (35.0-45.0)
[2024-09-24 20:18] LABS: Device ROOM AIR; PCO2 VBG 30.8 mmHg (42.0-48.0); pH VBG 7.409 (7.300-7.400)
[2024-09-24 20:42] LABS: Glucose Point of Care 341 mg/dl (65-105)
[2024-09-24 21:42] LABS: Anion Gap 13 mmol/L (4-12); Blood Urea Nitrogen 13 mg/dL (7-17); Calcium 8.7 mg/dL (8.4-10.2); Carbon Dioxide 22 mmol/L (22-30); Chloride 95 mmol/L (98-107); Estimated CRCL calculation 131 ml/min; Estimated Glomerular Filt Rate > 60; Glucose 296 mg/dL (65-110); Magnesium 1.3 mg/dL (1.6-2.3); Phosphorus 3.3 mg/dL (2.5-4.5); Potassium 3.8 mmol/L (3.4-5.0); Sodium 130 mmol/L (137-145)
[2024-09-24 21:46] LABS: Hemoglobin A1C 11.7 % (<5.7)
[2024-09-24] MEDS: POTASSIUM CHLORIDE INJ 20 MEQ in LACTATED RINGERS 1,000 ML 200 MEQ IV CONT (22:21)
--- NOTE | 2024-09-24 23:10 | PM.IMHP ---
H&P: HPI History of Present Illness Date/Time: 09/24/24 23:10 Chief Complaint: Elevated blood sugar Narrative: 39-year-old female accompanied by her who has a history of type 2 diabetes mellitus non-insulin dependent, hypothyroidism, hyperlipidemia, anxiety, hypertension. Patient reports she had gestational diabetes requiring insulin 6 years prior and since that has only been on metformin and has not been hospitalized or ever had DKA. She has been taking metformin as prescribed but does not check her sugars at home. She does not know her HbA1c, reporting she just gets her regular lab work but they did not check A1c. The patient had positive sick contacts for influenza a and up until 3 days ago she had upper respiratory symptoms and severe body aches. That is better. At 1 point she drank some Gatorade to rehydrate. A day prior to admission she went to [facility] and was found to have hyperglycemia. She was given 10 units of insulin and discharged home. Today on 09/24/2024 she visited her PCP Dr. Samuel with vitas her to present to [place] ER for hyperglycemia again. ER evaluation demonstrated stable vital signs. VBG pH 7.4 with bicarb of 19, sodium 130, anion gap 14, glucose 351, beta hydroxybutyrate 2.19, UA with 3+ glucose and ketones. Patient was started on IV fluids and insulin GTT at 14 units/hour. Repeat BMP demonstrated anion gap of 13 glucose of 296. She was then given glargine 25 units subQ and insulin aspart 10 units subQ. Review of Systems Review of Systems: All systems reviewed & are unremarkable except as noted in HPI and below (HPI) [facility] Past Medical History Medical History Hypothyroidism Anxiety Hyperlipidemia HTN (hypertension) Diabetes Surgical History Surgical History H/O hernia repair History of History of appendectomy Lower extremity surgery planned left leg, metal plate 2002 Family History Family History Mother Hypertension Family history of elevated blood lipids Family history of coronary artery disease Family history of cardiovascular disease Father Family history of thyroid disease Dementia Grandparent Family history of lung cancer Family history of primary malignant neoplasm of liver Social History Social History Smoking status: Never smoker Alcohol intake: never Substance use: never Do You Feel Safe in your Home?: Yes Current Housing: Decline to Answer Concerned About Future Housing: Decline to Answer Difficulty Paying Gas/Electric Bills: Decline to Answer Difficulty Paying for Meds: Decline to Answer Currently Unemployed: Decline to Answer Education: Decline to Answer Difficulty w/ Childcare or Family Care: Decline to Answer Living arrangements: with family Occupation/Education: unemployed Gender identity (if verbalized by the patient): Female Sexual Orientation (if Verbalized by the Patient): Straight or Heterosexual Spiritual care concerns: No Meds Home Medications and Allergies Home Medications ?Medication ?Instructions ?Recorded ?Confirmed ?Type cholecalciferol (vitamin D3) 25 25 mcg PO DAILY 09/22/23 09/24/24 History mcg (1,000 unit) capsule docusate sodium 250 mg capsule 250 mg PO DAILY 09/22/23 09/24/24 History spironolactone 50 mg tablet 50 mg PO DAILY #90 tabs 09/22/23 09/24/24 Rx vilazodone 40 mg tablet 40 mg PO DAILY #90 tabs 09/22/23 09/24/24 Rx trazodone 50 mg tablet 50 mg PO HS #90 tabs 12/08/23 09/24/24 Rx mupirocin 2 % topical ointment 1 applic topical BID #15 grams 04/02/24 09/24/24 Rx hydrochlorothiazide 12.5 mg capsule See Rx Instructions .Route 04/09/24 09/24/24 Rx .COMPLEX #90 caps levothyroxine 112 mcg tablet 112 mcg PO DAILY #90 tabs 04/09/24 09/24/24 Rx (Synthroid) losartan 50 mg tablet 50 mg PO DAILY #90 tabs 07/16/24 09/24/24 Rx metformin 500 mg tablet,extended 500 mg PO BID #180 tabs 07/26/24 09/24/24 Rx release 24 hr hydrocortisone acetate 25 mg 25 mg RECTAL QHS #12 ea 08/31/24 09/24/24 Rx rectal suppository (Anusol-HC) hydrocortisone 2.5 % topical cream 1 applic RECTAL DAILY PRN rectal 09/01/24 09/24/24 Rx with perineal applicator pain #30 grams (Anusol-HC) fluconazole 150 mg tablet 150 mg PO Q72H #3 tabs 09/07/24 09/24/24 Rx Allergies Allergy/AdvReac Type Severity Reaction Status Date / Time adhesive Allergy Intermediate Hives Verified 09/24/24 17:24 lubricant AdvReac Intermediate Rash Verified 09/24/24 17:24 chlorohexadine Allergy Severe Blister Uncoded 09/24/24 17:24 SKIN GLUE Allergy Intermediate Rash Uncoded 09/24/24 17:24 Prepartation H Allergy Mild Rash Uncoded 09/24/24 17:24 BENZOIN Allergy Unknown Unknown Uncoded 09/24/24 17:24 Vital Signs Vital Signs - 24 hr 09/24/24 17:18 09/24/24 18:31 09/24/24 18:32 Temperature 97.4 F L Pulse Rate 94 78 77 Respiratory Rate 18 16 14 Blood Pressure 171/91 H 153/78 H Pulse Oximetry 100 98 97 Oxygen Delivery Room Air 09/24/24 18:45 09/24/24 18:46 09/24/24 18:47 Temperature Pulse Rate 75 76 84 Respiratory Rate 16 17 14 Blood Pressure 125/92 H Pulse Oximetry 99 99 97 Oxygen Delivery 09/24/24 19:00 09/24/24 19:25 09/24/24 19:30 Temperature Pulse Rate 81 87 80 Respiratory Rate 14 23 H 17 Blood Pressure Pulse Oximetry 99 97 98 Oxygen Delivery 09/24/24 19:31 Temperature Pulse Rate 84 Respiratory Rate 19 Blood Pressure Pulse Oximetry 97 Oxygen Delivery Exam Const: General: comfortable and no acute distress Other: Obese Eyes: Pupils: Equal, round and reactive pupils present Neck: Neck: supple Resp: Effort & Inspection: normal respiratory effort Auscultation: clear to auscultation bilaterally Cardio: Rate: regular rate Rhythm: regular rhythm GI: GI Palp: Yes Soft to palpation : General: Yes bladder normal to palpation Neuro: Motor exam (neuro): 5/5 motor strength present throughout Extrem: General: no edema H&P: Results Labs Labs: Short CBC 09/24/24 Range/Units 17:55 WBC 9.5 (4.5-10.0) K/mm3 Hgb 13.8 (12.0-15.0) g/dL Hct 39.3 (37.0-47.0) % Plt Count 272 (150-375) k/mm3 BMP 09/24/24 09/24/24 17:55 21:25 Sodium 130 L 130 L Potassium 4.1 3.8 Chloride 93 L 95 L Carbon Dioxide 23 22 BUN 15 13 Creatinine 0.87 0.70 Glucose 351 H 296 H Calcium 9.3 8.7 Liver Function 09/24/24 Range/Units 17:55 Total Bilirubin 0.7 (0.2-1.3) mg/dL AST 31 (14-36) U/L ALT 32 (6-35) U/L Alkaline Phosphatase 99 (38-126) U/L Albumin 4.0 (3.5-5.1) g/dL Urine 09/24/24 Range/Units 18:27 Urine Color Yellow (Yellow) Urine Appearance Clear (Clear) Urine pH 5.0 (5.0-9.0) Ur Specific [place] 1.031 (1.001-1.035) Urine Protein Negative (Negative) mg/dL Urine Glucose (UA) 3+ H (Negative) mg/dL Assessment and Plan Assessment and plan (1) Ketosis due to diabetes: Code(s): E11.10 - Type 2 diabetes mellitus with ketoacidosis without coma Status: Acute (2) Uncontrolled diabetes mellitus: Status: Acute (3) Hyperglycemia: Code(s): R73.9 - Hyperglycemia, unspecified Status: Acute (4) High anion gap metabolic acidosis: Code(s): E87.29 - Other acidosis Status: Acute Plan 39-year-old female accompanied by her who has a history of type 2 diabetes mellitus non-insulin dependent, hypothyroidism, hyperlipidemia, anxiety, hypertension. Patient reports she had gestational diabetes requiring insulin 6 years prior and since that has only been on metformin and has not been hospitalized or ever had DKA. She has been taking metformin as prescribed but does not check her sugars at home. She does not know her HbA1c, reporting she just gets her regular lab work but they did not check A1c. The patient had positive sick contacts for influenza a and up until 3 days ago she had upper respiratory symptoms and severe body aches. That is better. At 1 point she drank some Gatorade to rehydrate. A day prior to admission she went to [facility] and was found to have hyperglycemia. She was given 10 units of insulin and discharged home. Today on 09/24/2024 she visited her PCP Dr. Samuel with vitas her to present to [place] ER for hyperglycemia again. ER evaluation demonstrated stable vital signs. VBG pH 7.4 with bicarb of 19, sodium 130, anion gap 14, glucose 351, beta hydroxybutyrate 2.19, UA with 3+ glucose and ketones. Patient was started on IV fluids and insulin GTT at 14 units/hour. Repeat BMP demonstrated anion gap of 13 glucose of 296. She was then given glargine 25 units subQ and insulin aspart 10 units subQ. ----- She did not present with full-blown DKA as her VBG pH was 7.40. She has ketosis from diabetes with an anion gap of 14 on admission. This improved to 13 therefore she was admitted to medical floor with telemetry. This may be due to under managed atf-[id number]-[id number] diabetes mellitus along with recent viral illness and the patient's intake of Gatorade. Although, her HbA1c is highly elevated at 11.7 so she has been uncontrolled for some time. ER physician started glargine 25 units subQ q.h.s. and insulin aspart 10 units subcu q.4 hours. We will continue with that and perform Accu-Cheks a.c. HS along with a repeat BMP Q 4 hour. Magnesium 1.3, replaced. ----- SCDs Patient wishes to be full code Hospitalist MIPS Advance Care Plan I have confirmed that the patient's Advanced Care Plan is present, code status is documented, or surrogate decision maker is listed in patient medical record.: Yes Medication Reconciliation I have utilized all available resources to obtain, update and review the patients current medications (includes all prescriptions, OTC, herbals, cannabis, and nutritional supplements).: Yes
[2024-09-24] MEDS: INSULIN ASPART (*BKC) 100 UNITS/ML 10 UNITS SUB-Q (23:14)
[2024-09-24] MEDS: INSULIN GLARGINE (*BKC) 100 UNITS/ML 25 UNITS SUB-Q (23:16)
[2024-09-25] VITALS (11 sets, daily range): BP systolic 142–163; BP diastolic 64–100; PULSE 65–89; RESP 16–18; TEMP 36.5–36.8; O2SAT 95–98; BMI 57.1
[2024-09-25 00:09] LABS: Influenza A QL RT-PCR Positive (Negative); Influenza B QL RT-PCR Negative (Negative); RSV RNA, RT-PCR Negative (Negative); SARS-CoV-2 RNA PCR Negative (Negative)
[2024-09-25] MEDS: MAGNESIUM SULF 4 GM/WATER100ML 4 GM/100 ML BAG IVPB (00:15)
--- NOTE | 2024-09-25 00:27 | ADMGEN ---
This patient, Delfina Tobar, was admitted to Medical Room 244-. Patient/family oriented to hospital policies and general routines including ID bracelet, bed and alarms, visiting hours, pain management, procedures, bathroom and other care routines, personal items, smoking policy, room service/diet, and visiting hours. Information on how to activate the Rapid Response Team has been discussed. Patient/Family are encouraged to report perceived risks to care and to ask questions if they do not understand what they are told or what they should do.
[2024-09-25 01:07] LABS: Anion Gap 13 mmol/L (4-12); Blood Urea Nitrogen 11 mg/dL (7-17); Calcium 8.8 mg/dL (8.4-10.2); Carbon Dioxide 21 mmol/L (22-30); Chloride 97 mmol/L (98-107); Estimated CRCL calculation 141 ml/min; Estimated Glomerular Filt Rate > 60; Glucose 294 mg/dL (65-110); Potassium 3.6 mmol/L (3.4-5.0); Sodium 131 mmol/L (137-145)
[2024-09-25] MEDS: INSULIN ASPART (*BKC) 100 UNITS/ML 10 UNITS SUB-Q ×6 (04:33→23:53)
[2024-09-25 05:58] LABS: Anion Gap 11 mmol/L (4-12); Blood Urea Nitrogen 13 mg/dL (7-17); Calcium 8.5 mg/dL (8.4-10.2); Carbon Dioxide 24 mmol/L (22-30); Chloride 97 mmol/L (98-107); Estimated CRCL calculation 136 ml/min; Estimated Glomerular Filt Rate > 60; Glucose 300 mg/dL (65-110); Potassium 3.9 mmol/L (3.4-5.0); Sodium 132 mmol/L (137-145)
[2024-09-25 07:07] LABS: Glucose Point of Care 282 mg/dl (65-105)
[2024-09-25 08:11] LABS: Glucose Point of Care 298 mg/dl (65-105)
[2024-09-25] MEDS: INSULIN ASPART (*BKC) 100 UNITS/ML SUB-Q ×4 (08:25→21:03)
[2024-09-25] MEDS: LACTATED RINGERS 1,000 ML 100 ML IV CONT (08:25)
[2024-09-25 09:07] LABS: Anion Gap 10 mmol/L (4-12); Blood Urea Nitrogen 11 mg/dL (7-17); Calcium 8.1 mg/dL (8.4-10.2); Carbon Dioxide 22 mmol/L (22-30); Chloride 100 mmol/L (98-107); Estimated CRCL calculation 157 ml/min; Estimated Glomerular Filt Rate > 60; Glucose 275 mg/dL (65-110); Potassium 3.8 mmol/L (3.4-5.0); Sodium 132 mmol/L (137-145)
[2024-09-25 11:42] LABS: Glucose Point of Care 300 mg/dl (65-105)
--- NOTE | 2024-09-25 12:40 | P.PNIM_ITS ---
Progress Note: A&P Assessment and Plan (1) Ketosis due to diabetes: Code(s): E11.10 - Type 2 diabetes mellitus with ketoacidosis without coma Status: Acute (2) Uncontrolled diabetes mellitus: Status: Acute (3) Hyperglycemia: Code(s): R73.9 - Hyperglycemia, unspecified Status: Acute (4) High anion gap metabolic acidosis: Code(s): E87.29 - Other acidosis Status: Acute Plan Mild DKA resolved gap closed and bicarb normal monitor DM2 BG 300s Adjusted lantus 35units and premeal insulin 10u SSI with accucheks Hypothyroidism continue levothyroxine HLD continue home meds Anxiety continue home meds Hypertension continue home meds DVT prophylaxis on Sq lovenox monitor one more night on adjusted insulin regimen Subjective Date/time seen: 09/25/24 12:40 Interval history: Comfortable at bedside However BG still elevated and has increased Lantus to 35 units, continue premeal insulin 10 units and SSI. Review of Systems Review of Systems: All systems reviewed & are unremarkable except as noted in HPI and below (HPI) Exam Const: General: comfortable and no acute distress Other: Obese Eyes: Pupils: Equal, round and reactive pupils present Neck: Neck: supple Resp: Effort & Inspection: normal respiratory effort Auscultation: clear to auscultation bilaterally Cardio: Rate: regular rate Rhythm: regular rhythm : General: Yes bladder normal to palpation Bimanual exam- vagina & uterus: bladder normal to palpation Neuro: Cranial nerves: Yes Equal, round and reactive pupils present Motor exam (neuro): 5/5 motor strength present throughout Extrem: General: no edema Objective Data Vital Signs Vital Signs: Vital Signs - 24 hr 09/24/24 17:18 09/24/24 18:31 09/24/24 18:32 Temperature 97.4 F L Pulse Rate 94 78 77 Respiratory Rate 18 16 14 Blood Pressure 171/91 H 153/78 H Pulse Oximetry 100 98 97 Oxygen Delivery Room Air 09/24/24 18:45 09/24/24 18:46 09/24/24 18:47 Temperature Pulse Rate 75 76 84 Respiratory Rate 16 17 14 Blood Pressure 125/92 H Pulse Oximetry 99 99 97 Oxygen Delivery 09/24/24 19:00 09/24/24 19:25 09/24/24 19:30 Temperature Pulse Rate 81 87 80 Respiratory Rate 14 23 H 17 Blood Pressure Pulse Oximetry 99 97 98 Oxygen Delivery 09/24/24 19:31 09/24/24 19:32 09/24/24 19:53 Temperature Pulse Rate 84 86 82 Respiratory Rate 19 15 15 Blood Pressure Pulse Oximetry 97 97 97 Oxygen Delivery 09/24/24 20:12 09/24/24 20:33 09/24/24 20:45 Temperature Pulse Rate 81 79 74 Respiratory Rate 17 18 22 H Blood Pressure Pulse Oximetry 98 99 100 Oxygen Delivery 09/24/24 21:37 09/24/24 21:45 09/24/24 22:24 Temperature Pulse Rate 76 77 83 Respiratory Rate 16 19 14 Blood Pressure Pulse Oximetry 100 93 99 Oxygen Delivery 09/24/24 22:30 09/24/24 22:45 09/24/24 23:00 Temperature Pulse Rate 73 84 78 Respiratory Rate 20 16 18 Blood Pressure Pulse Oximetry 98 97 96 Oxygen Delivery 09/24/24 23:15 09/24/24 23:30 09/24/24 23:58 Temperature Pulse Rate 76 85 85 Respiratory Rate 14 14 14 Blood Pressure 143/92 H Pulse Oximetry 98 97 97 Oxygen Delivery 09/25/24 00:40 09/25/24 00:42 09/25/24 03:20 Temperature 97.7 F Pulse Rate 89 79 Respiratory Rate 16 Blood Pressure 163/84 H Pulse Oximetry 98 Oxygen Delivery Room Air 09/25/24 04:00 09/25/24 04:31 09/25/24 08:00 Temperature 98.3 F Pulse Rate 80 75 71 Respiratory Rate 16 Blood Pressure 142/74 H Pulse Oximetry 95 Oxygen Delivery 09/25/24 08:25 Temperature Pulse Rate Respiratory Rate Blood Pressure Pulse Oximetry Oxygen Delivery Room Air Intake/Output Intake/Output: Intake & Output 09/22/24 09/23/24 09/24/24 09/25/24 23:59 23:59 23:59 23:59 Intake Total 1999 3370 Output Total 900 Balance 1999 2470 Meds/Results Medications: Active Medications Generic Name Dose Route Start Last Admin Trade Name Freq PRN Reason Stop Dose Admin Acetaminophen 650 mg 09/24/24 22:10 Acetaminophen 325 Mg Tablet PO Q4H PRN Mild Pain (1-3) or Fever Dextrose 12.5 gm 09/24/24 20:49 Dextrose 50% 25 Gm/50 Ml Syringe IV PUSH PRN PRN Hypoglycemia Protocol Glucagon 1 mg 02/07/25 20:49 Glucagon For Inj 1 Mg Vial IM PRN PRN Hypoglycemia Protocol Glucose 15 gm 09/24/24 20:49 Glucose Oral Gel 15 Gm Of Glucse In 37.5 Gm Tube PO PRN PRN Hypoglycemia Protocol Dextrose 1,000 mls @ 100 mls/hr 09/24/24 20:49 Dextrose 5% 1,000 Ml IVPB PRN PRN Hypoglycemia Protocol Lactated Ringer's 1,000 mls @ 100 mls/hr 09/25/24 03:35 09/25/24 08:25 Lr - Lactated Ringers Iv IV CONT 100 mls/hr .Q10H DOREEN Administration Insulin Aspart 10 units 09/25/24 04:00 09/25/24 12:02 Insulin Aspart (*Bkc) 100 Units/Ml SUB-Q 10 units Q4H DOREEN Administration Insulin Aspart 2 - 5 units 09/25/24 08:00 09/25/24 12:02 Insulin Aspart (*Bkc) 100 Units/Ml SUB-Q 3 units TIDWM DOREEN Administration Protocol Insulin Aspart 1 - 2 units 09/25/24 21:00 Insulin Aspart (*Bkc) 100 Units/Ml SUB-Q HS DOREEN Protocol Insulin Glargine 35 units 09/25/24 21:00 Insulin Glargine (*Bkc) 100 Units/Ml SUB-Q HS DOREEN Ondansetron HCl 4 mg 09/24/24 22:10 Ondansetron Inj 4 Mg/2 Ml Vial IV PUSH Q4H PRN Nausea Oseltamivir Phosphate 75 mg 09/25/24 09:30 09/25/24 11:17 Oseltamivir Phosphate 75 Mg Capsule PO 09/30/24 09:29 Not Given Q12HR [facility] Radiology Results: ITS Impressions Chest X-Ray 09/24/24 18:06 IMPRESSION: No focal infiltrate or effusion. Head CT 09/24/24 18:23 Impression: No acute intracranial hemorrhage or suspicious mass effect. Inflammatory sinus disease. Labs Labs: Laboratory Results - last 24 hr 09/24/24 09/24/24 09/24/24 17:55 18:27 18:33 WBC 9.5 RBC 4.70 Hgb 13.8 Hct 39.3 MCV 83.6 MCH 29.4 MCHC 35.1 RDW 12.3 Plt Count 272 MPV 11.4 H Immature Gran % (Auto) 0.7 H Neut % (Auto) 66.1 Lymph % (Auto) 24.8 [place] % (Auto) 5.7 Eos % (Auto) 2.2 Baso % (Auto) 0.5 Lymph # (Auto) 2.36 [place] # (Auto) 0.5 Eos # (Auto) 0.2 Baso # (Auto) 0.1 Abs Immat Gran (auto) 0.07 H Absolute Neuts (auto) 6.3 Absolute Nucleated RBC 0.000 Nucleated RBC % 0.0 VBG pH VBG pCO2 VBG pO2 VBG HCO3 O2 Delivery Device O2 Liters/Min FiO2 Sodium 130 L Potassium 4.1 Chloride 93 L Carbon Dioxide 23 Anion Gap 14 H BUN 15 Creatinine 0.87 Estim Creat Clear Calc 107 Estimated GFR > 60 Glucose 351 H POC Capillary Glucose Hemoglobin A1c Calcium 9.3 Phosphorus Magnesium Total Bilirubin 0.7 AST 31 ALT 32 Alkaline Phosphatase 99 Total Protein 8.0 Albumin 4.0 Beta-Hydroxybutyrate/Acetoacetate 2.19 H Urine Color Yellow Urine Appearance Clear Urine pH 5.0 Ur Specific [place] 1.031 Urine Protein Negative Urine Glucose (UA) 3+ H Urine Ketones 3+ H Ur Blood (Man) Negative Urine Nitrate Negative Urine Bilirubin Negative Urine Urobilinogen 0.2 Leukocyte Esterase Rfl Negative Urine RBC 0-2 Urine WBC 0-5 Ur Squamous Epith Cells Occasional Urine Bacteria None seen Urine Casts 3-5 POC Urine HCG, Qual Negative Influenza A (RT-PCR) Influenza B (RT-PCR) RSV (RT-PCR) SARS-CoV-2 RNA (RT-PCR) 09/24/24 09/24/24 09/24/24 20:02 20:40 21:20 WBC RBC Hgb Hct MCV MCH MCHC RDW Plt Count MPV Immature Gran % (Auto) Neut % (Auto) Lymph % (Auto) [place] % (Auto) Eos % (Auto) Baso % (Auto) Lymph # (Auto) [place] # (Auto) Eos # (Auto) Baso # (Auto) Abs Immat Gran (auto) Absolute Neuts (auto) Absolute Nucleated RBC Nucleated RBC % VBG pH 7.409 H* VBG pCO2 30.8 L* VBG pO2 56.8 H VBG HCO3 19.0 L O2 Delivery Device Room air O2 Liters/Min Not Reportable FiO2 21 Sodium Potassium Chloride Carbon Dioxide Anion Gap BUN Creatinine Estim Creat Clear Calc Estimated GFR Glucose POC Capillary Glucose 341 H Hemoglobin A1c 11.7 H Calcium Phosphorus Magnesium Total Bilirubin AST ALT Alkaline Phosphatase Total Protein Albumin Beta-Hydroxybutyrate/Acetoacetate Urine Color Urine Appearance Urine pH Ur Specific [place] Urine Protein Urine Glucose (UA) Urine Ketones Ur Blood (Man) Urine Nitrate Urine Bilirubin Urine Urobilinogen Leukocyte Esterase Rfl Urine RBC Urine WBC Ur Squamous Epith Cells Urine Bacteria Urine Casts POC Urine HCG, Qual Influenza A (RT-PCR) Influenza B (RT-PCR) RSV (RT-PCR) SARS-CoV-2 RNA (RT-PCR) 09/24/24 09/24/24 09/25/24 21:25 23:29 00:51 WBC RBC Hgb Hct MCV MCH MCHC RDW Plt Count MPV Immature Gran % (Auto) Neut % (Auto) Lymph % (Auto) [place] % (Auto) Eos % (Auto) Baso % (Auto) Lymph # (Auto) [place] # (Auto) Eos # (Auto) Baso # (Auto) Abs Immat Gran (auto) Absolute Neuts (auto) Absolute Nucleated RBC Nucleated RBC % VBG pH VBG pCO2 VBG pO2 VBG HCO3 O2 Delivery Device O2 Liters/Min FiO2 Sodium 130 L 131 L Potassium 3.8 3.6 Chloride 95 L 97 L Carbon Dioxide 22 21 L Anion Gap 13 H 13 H BUN 13 11 Creatinine 0.70 0.65 L Estim Creat Clear Calc 131 141 Estimated GFR > 60 > 60 Glucose 296 H 294 H POC Capillary Glucose Hemoglobin A1c Calcium 8.7 8.8 Phosphorus 3.3 Magnesium 1.3 L Total Bilirubin AST ALT Alkaline Phosphatase Total Protein Albumin Beta-Hydroxybutyrate/Acetoacetate Urine Color Urine Appearance Urine pH Ur Specific [place] Urine Protein Urine Glucose (UA) Urine Ketones Ur Blood (Man) Urine Nitrate Urine Bilirubin Urine Urobilinogen Leukocyte Esterase Rfl Urine RBC Urine WBC Ur Squamous Epith Cells Urine Bacteria Urine Casts POC Urine HCG, Qual Influenza A (RT-PCR) Positive A Influenza B (RT-PCR) Negative RSV (RT-PCR) Negative SARS-CoV-2 RNA (RT-PCR) Negative 09/25/24 09/25/24 09/25/24 04:26 04:57 08:06 WBC RBC Hgb Hct MCV MCH MCHC RDW Plt Count MPV Immature Gran % (Auto) Neut % (Auto) Lymph % (Auto) [place] % (Auto) Eos % (Auto) Baso % (Auto) Lymph # (Auto) [place] # (Auto) Eos # (Auto) Baso # (Auto) Abs Immat Gran (auto) Absolute Neuts (auto) Absolute Nucleated RBC Nucleated RBC % VBG pH VBG pCO2 VBG pO2 VBG HCO3 O2 Delivery Device O2 Liters/Min FiO2 Sodium 132 L Potassium 3.9 Chloride 97 L Carbon Dioxide 24 Anion Gap 11 BUN 13 Creatinine 0.68 L Estim Creat Clear Calc 136 Estimated GFR > 60 Glucose 300 H POC Capillary Glucose 282 H 298 H Hemoglobin A1c Calcium 8.5 Phosphorus Magnesium Total Bilirubin AST ALT Alkaline Phosphatase Total Protein Albumin Beta-Hydroxybutyrate/Acetoacetate Urine Color Urine Appearance Urine pH Ur Specific [place] Urine Protein Urine Glucose (UA) Urine Ketones Ur Blood (Man) Urine Nitrate Urine Bilirubin Urine Urobilinogen Leukocyte Esterase Rfl Urine RBC Urine WBC Ur Squamous Epith Cells Urine Bacteria Urine Casts POC Urine HCG, Qual Influenza A (RT-PCR) Influenza B (RT-PCR) RSV (RT-PCR) SARS-CoV-2 RNA (RT-PCR) 09/25/24 09/25/24 08:49 11:37 WBC RBC Hgb Hct MCV MCH MCHC RDW Plt Count MPV Immature Gran % (Auto) Neut % (Auto) Lymph % (Auto) [place] % (Auto) Eos % (Auto) Baso % (Auto) Lymph # (Auto) [place] # (Auto) Eos # (Auto) Baso # (Auto) Abs Immat Gran (auto) Absolute Neuts (auto) Absolute Nucleated RBC Nucleated RBC % VBG pH VBG pCO2 VBG pO2 VBG HCO3 O2 Delivery Device O2 Liters/Min FiO2 Sodium 132 L Potassium 3.8 Chloride 100 Carbon Dioxide 22 Anion Gap 10 BUN 11 Creatinine 0.58 L Estim Creat Clear Calc 157 Estimated GFR > 60 Glucose 275 H POC Capillary Glucose 300 H Hemoglobin A1c Calcium 8.1 L Phosphorus Magnesium Total Bilirubin AST ALT Alkaline Phosphatase Total Protein Albumin Beta-Hydroxybutyrate/Acetoacetate Urine Color Urine Appearance Urine pH Ur Specific [place] Urine Protein Urine Glucose (UA) Urine Ketones Ur Blood (Man) Urine Nitrate Urine Bilirubin Urine Urobilinogen Leukocyte Esterase Rfl Urine RBC Urine WBC Ur Squamous Epith Cells Urine Bacteria Urine Casts POC Urine HCG, Qual Influenza A (RT-PCR) Influenza B (RT-PCR) RSV (RT-PCR) SARS-CoV-2 RNA (RT-PCR)
[2024-09-25 13:20] LABS: Anion Gap 9 mmol/L (4-12); Blood Urea Nitrogen 10 mg/dL (7-17); Calcium 8.2 mg/dL (8.4-10.2); Carbon Dioxide 22 mmol/L (22-30); Chloride 101 mmol/L (98-107); Estimated CRCL calculation 150 ml/min; Estimated Glomerular Filt Rate > 60; Glucose 289 mg/dL (65-110); Potassium 3.9 mmol/L (3.4-5.0); Sodium 132 mmol/L (137-145)
[2024-09-25] MEDS: LOSARTAN POTASSIUM 50 MG TABLET PO (14:15)
[2024-09-25] MEDS: hydroCHLOROthiazide 12.5 MG CAPSULE BY MOUTH (14:15)
[2024-09-25 16:57] LABS: Glucose Point of Care 306 mg/dl (65-105)
[2024-09-25] MEDS: ACETAMINOPHEN 325 MG TABLET 650 MG PO ×2 (17:45→22:39)
[2024-09-25] MEDS: FLUCONAZOLE 150 MG TABLET PO (17:47)
[2024-09-25] MEDS: traZODone HCL 25 MG TABLET PO (21:04)
[2024-09-25] MEDS: INSULIN GLARGINE (*BKC) 100 UNITS/ML 35 UNITS SUB-Q (21:04)
--- NOTE | 2024-09-25 21:13 | PHAR ---
PT'S HOME MED VILAZODONE 40 MG TABS VERIFIED BY PHARMACY
[2024-09-25 21:31] LABS: Glucose Point of Care 359 mg/dl (65-105)
[2024-09-26] VITALS (8 sets, daily range): BP systolic 139–148; BP diastolic 94–97; PULSE 61–86; RESP 16–18; TEMP 36.2–36.6; O2SAT 99–100
[2024-09-26 00:02] LABS: Glucose Point of Care 299 mg/dl (65-105)
[2024-09-26] MEDS: INSULIN ASPART (*BKC) 100 UNITS/ML 10 UNITS SUB-Q ×2 (04:53→08:36)
[2024-09-26 05:21] LABS: Basophils Absolute Auto 0.1 K/mm3 (0.0-0.1); Eosinophils Absolute Auto 0.3 K/mm3 (0-0.3); Eosinophils Percent Auto 3.4 % (0-4.4); Hematocrit 38.3 % (37.0-47.0); Hemoglobin 12.9 g/dL (12.0-15.0); Immature Granulocyte Absolute 0.17 K/mm3 (0.00-0.031); Immature Granulocyte Percent A 2.2 % (0-0.5); Lymphocytes Absolute Auto 2.83 K/mm3 (0.9-3.2); Lymphocytes Percent Auto 36.1 % (18.3-44.2); Mean Corpuscular HGB Conc 33.7 g/dl (32-36); Mean Corpuscular Hemoglobin 28.6 pg (26-34); Mean Corpuscular Volume 84.9 fl (80-100); Mean Platelet Volume 11.3 fl (7.4-10.4); Monocytes Absolute Auto 0.7 K/mm3 (0.1-0.6); Monocytes Percent Auto 8.8 % (2.6-8.5); Neutrophils Absolute Auto 3.8 K/mm3 (1.3-6.7); Neutrophils Percent Auto 48.5 % (45.5-73.1); Platelet Count Result 281 k/mm3 (150-375); Red Blood Count 4.51 M/mm3 (4.2-5.4); Red Cell Distribution Width 12.7 % (11.5-14.5); White Blood Count 7.8 K/mm3 (4.5-10.0)
[2024-09-26 05:32] LABS: Alanine Aminotransferase 30 U/L (6-35); Albumin Level 3.5 g/dL (3.5-5.1); Alkaline Phosphatase 73 U/L (38-126); Anion Gap 8 mmol/L (4-12); Aspartate Amino Transferase 25 U/L (14-36); Bilirubin,Total 0.6 mg/dL (0.2-1.3); Blood Urea Nitrogen 7 mg/dL (7-17); Calcium 8.2 mg/dL (8.4-10.2); Carbon Dioxide 26 mmol/L (22-30); Chloride 100 mmol/L (98-107); Estimated CRCL calculation 154 ml/min; Estimated Glomerular Filt Rate > 60; Glucose 229 mg/dL (65-110); Magnesium 1.8 mg/dL (1.6-2.3); Potassium 3.5 mmol/L (3.4-5.0); Sodium 134 mmol/L (137-145)
[2024-09-26] MEDS: LEVOTHYROXINE SODIUM 112 MCG TABLET PO (05:42)
[2024-09-26 06:15] LABS: Glucose Point of Care 235 mg/dl (65-105)
[2024-09-26 06:15] LABS: Glucose Point of Care 220 mg/dl (65-105)
[2024-09-26 08:29] LABS: Glucose Point of Care 250 mg/dl (65-105)
[2024-09-26] MEDS: ENOXAPARIN 40 MG/0.4 ML SYRINGE SUB-Q (08:29)
[2024-09-26] MEDS: LOSARTAN POTASSIUM 50 MG TABLET PO (08:29)
[2024-09-26] MEDS: hydroCHLOROthiazide 12.5 MG CAPSULE BY MOUTH (08:29)
[2024-09-26] MEDS: ACETAMINOPHEN 325 MG TABLET 650 MG PO (08:35)
[2024-09-26] MEDS: INSULIN ASPART (*BKC) 100 UNITS/ML SUB-Q ×4 (08:37→21:05)
--- NOTE | 2024-09-26 11:32 | PM.IMPN ---
Progress Note: A&P Assessment and Plan (1) Ketosis due to diabetes: Code(s): E11.10 - Type 2 diabetes mellitus with ketoacidosis without coma Status: Acute (2) Uncontrolled diabetes mellitus: Status: Acute (3) Hyperglycemia: Code(s): R73.9 - Hyperglycemia, unspecified Status: Acute (4) High anion gap metabolic acidosis: Code(s): E87.29 - Other acidosis Status: Acute Plan Mild DKA resolved gap closed and bicarb normal monitor DM2 BG 300s on lantus 35units and premeal insulin 10u SSI with accucheks not well controlled increase Lantus to 40 units q.h.s., aspart 14 units a.c. and and increase to high dose of sliding scale Constipation Start docusate and MiraLax p.o. Hypothyroidism continue levothyroxine HLD continue home meds Anxiety continue home meds Hypertension continue home meds DVT prophylaxis on Sq lovenox monitor one more night on adjusted insulin regimen Subjective Date/time seen: 09/26/24 11:32 Interval history: I saw exam patient today, patient feels better, still has some weakness. Patient denies abdomen pain nausea vomiting diarrhea. Glucose is not well controlled. Patient has constipation Exam Narrative: GENERAL: Pleasant, in no acute distress. Well-nourished. - EYES: EOMI. Anicteric. - HENT: Moist mucous membranes. - LUNGS: Clear to auscultation bilaterally, no wheezing, rhonchi, or rales. - CARDIOVASCULAR: Regular rate and rhythm. No murmur. No JVD. - ABDOMEN: Soft, non-tender and non-distended. No palpable masses. - EXTREMITIES: No edema. Peripheral pulses 2+. Non-tender. - NEUROLOGIC: No focal neurological deficits. CN II-XII grossly intact. - PSYCHIATRIC: Awake, Alert and oriented x 3. Appropriate mood and affect. - SKIN: No rashes or lesions. Warm. - LYMPH: No cervical lymphadenopathy. Objective Data Vital Signs Vital Signs: Vital Signs - 24 hr 09/25/24 12:00 09/25/24 14:00 09/25/24 16:00 Temperature 98.1 F Pulse Rate 73 65 67 Respiratory Rate 18 Blood Pressure 152/64 H Pulse Oximetry 98 Oxygen Delivery 09/25/24 20:01 09/25/24 21:00 09/25/24 21:48 Temperature 98.2 F Pulse Rate 75 67 74 Respiratory Rate 18 16 Blood Pressure 153/100 H Pulse Oximetry 98 97 Oxygen Delivery Room Air 09/26/24 00:04 09/26/24 04:00 09/26/24 04:28 Temperature 97.7 F Pulse Rate 67 61 86 Respiratory Rate 18 Blood Pressure 148/94 H Pulse Oximetry 99 Oxygen Delivery 09/26/24 08:36 09/26/24 08:36 Temperature Pulse Rate 86 Respiratory Rate Blood Pressure Pulse Oximetry 99 Oxygen Delivery Room Air Intake/Output Intake/Output: Intake & Output 09/23/24 09/24/24 09/25/24 09/26/24 23:59 23:59 23:59 23:59 Intake Total 1999 4630 640 Output Total 2700 600 Balance 1999 1975 40 Meds/Results Medications: Active Medications Generic Name Dose Route Start Last Admin Trade Name Freq PRN Reason Stop Dose Admin Acetaminophen 650 mg 09/24/24 22:10 09/26/24 08:35 Acetaminophen 325 Mg Tablet PO 650 mg Q4H PRN Administration Mild Pain (1-3) or Fever Dextrose 12.5 gm 09/24/24 20:49 Dextrose 50% 25 Gm/50 Ml Syringe IV PUSH PRN PRN Hypoglycemia Protocol Enoxaparin Sodium 40 mg 09/26/24 09:00 09/26/24 08:29 Enoxaparin 40 Mg/0.4 Ml Syringe SUB-Q 40 mg DAILY DOREEN Administration Fluconazole 150 mg 09/25/24 17:00 09/25/24 17:47 Fluconazole 150 Mg Tablet PO 150 mg Q72H DOREEN Administration Glucagon 1 mg 09/24/24 20:49 Glucagon For Inj 1 Mg Vial IM PRN PRN Hypoglycemia Protocol Glucose 15 gm 09/24/24 20:49 Glucose Oral Gel 15 Gm Of Glucse In 37.5 Gm Tube PO PRN PRN Hypoglycemia Protocol Hydrochlorothiazide 12.5 mg 09/25/24 12:50 09/26/24 08:29 Hydrochlorothiazide 12.5 Mg Capsule BY MOUTH 12.5 mg DAILY DOREEN Administration Dextrose 1,000 mls @ 100 mls/hr 09/24/24 20:49 Dextrose 5% 1,000 Ml IVPB PRN PRN Hypoglycemia Protocol Insulin Aspart 10 units 09/25/24 04:00 09/26/24 08:36 Insulin Aspart (*Bkc) 100 Units/Ml SUB-Q 10 units Q4H DOREEN Administration Insulin Aspart 2 - 5 units 09/25/24 08:00 09/26/24 08:37 Insulin Aspart (*Bkc) 100 Units/Ml SUB-Q 2 units TIDWM DOREEN Administration Protocol Insulin Aspart 1 - 2 units 09/25/24 21:00 09/25/24 21:03 Insulin Aspart (*Bkc) 100 Units/Ml SUB-Q 2 units HS DOREEN Administration Protocol Insulin Glargine 35 units 09/25/24 21:00 09/25/24 21:04 Insulin Glargine (*Bkc) 100 Units/Ml SUB-Q 35 units HS DOREEN Administration Levothyroxine Sodium 112 mcg 09/26/24 06:30 09/26/24 05:42 Levothyroxine Sodium 112 Mcg Tablet PO 112 mcg DAILY@0630 DOREEN Administration Losartan Potassium 50 mg 09/25/24 12:50 09/26/24 08:29 Losartan Potassium 50 Mg Tablet PO 50 mg DAILY DOREEN Administration Non-Formulary ( 1 each 09/26/24 09:00 Vilazodone Hcl 40 Mg PO 10/26/24 08:59 Oral Tablet) DAILY DOREEN Ondansetron HCl 4 mg 09/24/24 22:10 Ondansetron Inj 4 Mg/2 Ml Vial IV PUSH Q4H PRN Nausea Trazodone HCl 25 mg 09/25/24 16:56 09/25/24 21:04 Trazodone Hcl 25 Mg Tablet PO 25 mg HS PRN Administration insomnia Radiology Results: ITS Impressions Chest X-Ray 09/24/24 18:06 IMPRESSION: No focal infiltrate or effusion. Head CT 09/24/24 18:23 Impression: No acute intracranial hemorrhage or suspicious mass effect. Inflammatory sinus disease. Labs Labs: Laboratory Results - last 24 hr 09/25/24 09/25/24 09/25/24 11:37 13:00 16:35 WBC RBC Hgb Hct MCV MCH MCHC RDW Plt Count MPV Immature Gran % (Auto) Neut % (Auto) Lymph % (Auto) [place] % (Auto) Eos % (Auto) Baso % (Auto) Lymph # (Auto) [place] # (Auto) Eos # (Auto) Baso # (Auto) Abs Immat Gran (auto) Absolute Neuts (auto) Absolute Nucleated RBC Nucleated RBC % Sodium 132 L Potassium 3.9 Chloride 101 Carbon Dioxide 22 Anion Gap 9 BUN 10 Creatinine 0.61 L Estim Creat Clear Calc 150 Estimated GFR > 60 Glucose 289 H POC Capillary Glucose 300 H 306 H Calcium 8.2 L Magnesium Total Bilirubin AST ALT Alkaline Phosphatase Total Protein Albumin 09/25/24 09/25/24 09/26/24 21:02 23:33 04:22 WBC RBC Hgb Hct MCV MCH MCHC RDW Plt Count MPV Immature Gran % (Auto) Neut % (Auto) Lymph % (Auto) [place] % (Auto) Eos % (Auto) Baso % (Auto) Lymph # (Auto) [place] # (Auto) Eos # (Auto) Baso # (Auto) Abs Immat Gran (auto) Absolute Neuts (auto) Absolute Nucleated RBC Nucleated RBC % Sodium Potassium Chloride Carbon Dioxide Anion Gap BUN Creatinine Estim Creat Clear Calc Estimated GFR Glucose POC Capillary Glucose 359 H 299 H 220 H Calcium Magnesium Total Bilirubin AST ALT Alkaline Phosphatase Total Protein Albumin 09/26/24 09/26/24 09/26/24 04:53 05:18 07:59 WBC 7.8 RBC 4.51 Hgb 12.9 Hct 38.3 MCV 84.9 MCH 28.6 MCHC 33.7 RDW 12.7 Plt Count 281 MPV 11.3 H Immature Gran % (Auto) 2.2 H Neut % (Auto) 48.5 Lymph % (Auto) 36.1 [place] % (Auto) 8.8 H Eos % (Auto) 3.4 Baso % (Auto) 1.0 Lymph # (Auto) 2.83 [place] # (Auto) 0.7 H Eos # (Auto) 0.3 Baso # (Auto) 0.1 Abs Immat Gran (auto) 0.17 H Absolute Neuts (auto) 3.8 Absolute Nucleated RBC 0.000 Nucleated RBC % 0.0 Sodium 134 L Potassium 3.5 Chloride 100 Carbon Dioxide 26 Anion Gap 8 BUN 7 Creatinine 0.59 L Estim Creat Clear Calc 154 Estimated GFR > 60 Glucose 229 H POC Capillary Glucose 235 H 250 H Calcium 8.2 L Magnesium 1.8 Total Bilirubin 0.6 AST 25 ALT 30 Alkaline Phosphatase 73 Total Protein 7.0 Albumin 3.5
[2024-09-26 12:23] LABS: Glucose Point of Care 232 mg/dl (65-105)
[2024-09-26] MEDS: INSULIN ASPART (*BKC) 100 UNITS/ML 14 UNITS SUB-Q ×2 (12:48→17:04)
[2024-09-26 15:48] LABS: Glucose Point of Care 238 mg/dl (65-105)
[2024-09-26 17:03] LABS: Glucose Point of Care 283 mg/dl (65-105)
[2024-09-26] MEDS: HYDROCORTISONE ACETATE 25 MG SUPPOSITORY RECTAL (21:04)
[2024-09-26] MEDS: DOCUSATE SODIUM 100 MG CAPSULE PO (21:04)
[2024-09-26] MEDS: VILAZODONE HCL 40 MG 1 EACH PO (21:05)
[2024-09-26] MEDS: INSULIN GLARGINE (*BKC) 100 UNITS/ML 40 UNITS SUB-Q (21:05)
[2024-09-26 22:12] LABS: Glucose Point of Care 267 mg/dl (65-105)
[2024-09-27 00:18] LABS: Glucose Point of Care 263 mg/dl (65-105)
[2024-09-27 04:16] LABS: Glucose Point of Care 261 mg/dl (65-105)
[2024-09-27 05:12] VITALS: BP 148/95; PULSE 55; RESP 17; TEMP 36.7; O2SAT 91
[2024-09-27] MEDS: LEVOTHYROXINE SODIUM 112 MCG TABLET PO (05:47)
--- NOTE | 2024-09-27 07:57 | P.CDI_ITS ---
CDI Query Clarification Request Patient with a BMI of 57.1 please provide a diagnosis to accompany this finding: * Overweight * Obesity * Morbid Obesity * Other/Unknown <Mechelle Fermin RN - Last Filed: 09/27/24 07:58> Clarified Diagnosis Clarified Diagnosis: Patient has Morbid Obesity <Chris Mayo MD - Last Filed: 09/27/24 08:53>
[2024-09-27 08:27] LABS: Glucose Point of Care 244 mg/dl (65-105)
[2024-09-27 08:50] VITALS: BP 146/91; PULSE 63; RESP 16; TEMP 36.3; O2SAT 100
[2024-09-27] MEDS: LOSARTAN POTASSIUM 50 MG TABLET PO (08:52)
[2024-09-27] MEDS: hydroCHLOROthiazide 12.5 MG CAPSULE BY MOUTH (08:52)
[2024-09-27] MEDS: polyethylene glycoL 3350 17 GM POWD.PACK PO (08:53)
[2024-09-27] MEDS: HYDROCORTISONE ACETATE 25 MG SUPPOSITORY RECTAL ×2 (08:53→20:59)
[2024-09-27] MEDS: ENOXAPARIN 40 MG/0.4 ML SYRINGE SUB-Q (08:53)
[2024-09-27] MEDS: DOCUSATE SODIUM 100 MG CAPSULE PO ×2 (08:53→20:59)
--- NOTE | 2024-09-27 08:54 | P.PNIM_ITS ---
Progress Note: A&P Assessment and Plan (1) Ketosis due to diabetes: Code(s): E11.10 - Type 2 diabetes mellitus with ketoacidosis without coma Status: Acute (2) Uncontrolled diabetes mellitus: Status: Acute (3) Hyperglycemia: Code(s): R73.9 - Hyperglycemia, unspecified Status: Acute (4) High anion gap metabolic acidosis: Code(s): E87.29 - Other acidosis Status: Acute Plan Mild DKA resolved gap closed and bicarb normal monitor DM2 BG less than 300 SSI with accucheks not well controlled on 40 units q.h.s., aspart 14 units a.c. and and increase to high dose of sliding scale change to Lantus 25 units b.i.d. aspart 18 units a.c. c/w high dose of sliding scale Constipation Start docusate and MiraLax p.o. Hypothyroidism continue levothyroxine HLD continue home meds Anxiety continue home meds Hypertension continue home meds DVT prophylaxis on Sq lovenox monitor one more night on adjusted insulin regimen Subjective Date/time seen: 09/27/24 08:54 Interval history: I saw exam patient today, patient feels better, still has some weakness. Patient denies abdomen pain nausea vomiting diarrhea. Glucose is not well controlled, but less than 300 Exam Narrative: GENERAL: Pleasant, in no acute distress. Well-nourished. - EYES: EOMI. Anicteric. - HENT: Moist mucous membranes. - LUNGS: Clear to auscultation bilateral ly, no wheezing, rhonchi, or rales. - CARDIOVASCULAR: Regular rate and rhyth m. No murmur. No JVD. - ABDOMEN: Soft, non-tender and non-dist ended. No palpable masses. - EXTREMITIES: No edema. Peripheral puls es 2+. Non-tender. - NEUROLOGIC: No focal neurological defi cits. CN II-XII grossly intact. - PSYCHIATRIC: Awake, Alert and oriented x 3. Appropriate mood and affect. - SKIN: No rashes or lesions. Warm. - LYMPH: No cervical lymphadenopathy. Objective Data Vital Signs Vital Signs: Vital Signs - 24 hr 09/26/24 12:00 09/26/24 15:37 09/26/24 20:33 Temperature 97.2 F L 97.9 F Pulse Rate 66 66 72 Respiratory Rate 16 18 Blood Pressure 139/97 H 145/94 H Pulse Oximetry 100 100 Oxygen Delivery 09/26/24 21:00 09/27/24 05:12 09/27/24 08:50 Temperature 98.0 F 97.4 F L Pulse Rate 72 55 L 63 Respiratory Rate 18 17 16 Blood Pressure 148/95 H 146/91 H Pulse Oximetry 100 91 100 Oxygen Delivery Room Air Intake/Output Intake/Output: Intake & Output 09/24/24 09/25/24 09/26/24 09/27/24 23:59 23:59 23:59 23:59 Intake Total 1999 46 2080 550 Output Total 2699 1999 800 Balance 1999 1975 80 -250 Meds/Results Medications: Active Medications Generic Name Dose Route Start Last Admin Trade Name Freq PRN Reason Stop Dose Admin Acetaminophen 650 mg 09/24/24 22:10 09/26/24 08:35 Acetaminophen 325 Mg Tablet PO 650 mg Q4H PRN Administration Mild Pain (1-3) or Fever Dextrose 12.5 gm 09/26/24 11:38 Dextrose 50% 25 Gm/50 Ml Syringe IV PUSH PRN PRN Hypoglycemia Protocol Docusate Sodium 100 mg 09/26/24 21:00 09/27/24 08:53 Docusate Sodium 100 Mg Capsule PO 100 mg Q12HR DOREEN Administration Enoxaparin Sodium 40 mg 09/26/24 09:00 09/27/24 08:53 Enoxaparin 40 Mg/0.4 Ml Syringe SUB-Q 40 mg DAILY DOREEN Administration Fluconazole 150 mg 09/25/24 17:00 09/25/24 17:47 Fluconazole 150 Mg Tablet PO 150 mg Q72H DOREEN Administration Glucagon 1 mg 09/26/24 11:38 Glucagon For Inj 1 Mg Vial IM PRN PRN Hypoglycemia Protocol Glucose 15 gm 09/26/24 11:38 Glucose Oral Gel 15 Gm Of Glucse In 37.5 Gm Tube PO PRN PRN Hypoglycemia Protocol Hydrochlorothiazide 12.5 mg 09/25/24 12:50 09/27/24 08:52 Hydrochlorothiazide 12.5 Mg Capsule BY MOUTH 12.5 mg DAILY DOREEN Administration Hydrocortisone Acetate 25 mg 09/26/24 21:00 09/27/24 08:53 Hydrocortisone Acetate 25 Mg Suppository RECTAL 25 mg Q12HR DOREEN Administration Dextrose 1,000 mls @ 100 mls/hr 09/26/24 11:38 Dextrose 5% 1,000 Ml IVPB PRN PRN Hypoglycemia Protocol Insulin Aspart 14 units 09/26/24 12:00 09/26/24 17:04 Insulin Aspart (*Bkc) 100 Units/Ml SUB-Q 14 units TIDWM DOREEN Administration Insulin Aspart 4 - 8 units 09/26/24 12:00 09/26/24 17:05 Insulin Aspart (*Bkc) 100 Units/Ml SUB-Q 5 units TIDWM DOREEN Administration Protocol Insulin Aspart 2 - 4 units 09/26/24 21:00 09/26/24 21:05 Insulin Aspart (*Bkc) 100 Units/Ml SUB-Q 2 units HS DOREEN Administration Protocol Insulin Glargine 40 units 09/26/24 21:00 09/26/24 21:05 Insulin Glargine (*Bkc) 100 Units/Ml SUB-Q 40 units HS DOREEN Administration Levothyroxine Sodium 112 mcg 09/26/24 06:30 09/27/24 05:47 Levothyroxine Sodium 112 Mcg Tablet PO 112 mcg DAILY@0630 DOREEN Administration Losartan Potassium 50 mg 09/25/24 12:50 09/27/24 08:52 Losartan Potassium 50 Mg Tablet PO 50 mg DAILY DOREEN Administration Non-Formulary ( 1 each 09/26/24 21:00 09/26/24 21:05 Vilazodone Hcl 40 Mg PO 10/26/24 20:59 1 each Oral Tablet) HS DOREEN Administration Ondansetron HCl 4 mg 09/24/24 22:10 Ondansetron Inj 4 Mg/2 Ml Vial IV PUSH Q4H PRN Nausea Polyethylene Glycol 17 gm 09/27/24 09:00 09/27/24 08:53 Polyethylene Glycol 3350 17 Gm Powd.Pack PO 17 gm QAM DOREEN Administration Trazodone HCl 25 mg 09/25/24 16:56 09/25/24 21:04 Trazodone Hcl 25 Mg Tablet PO 25 mg HS PRN Administration insomnia Radiology Results: ITS Impressions Chest X-Ray 09/24/24 18:06 IMPRESSION: No focal infiltrate or effusion. Head CT 09/24/24 18:23 Impression: No acute intracranial hemorrhage or suspicious mass effect. Inflammatory sinus disease. Labs Labs: Laboratory Results - last 24 hr 09/26/24 09/26/24 09/26/24 12:17 15:34 16:59 POC Capillary Glucose 232 H 238 H 283 H 09/26/24 09/27/24 09/27/24 20:28 00:16 04:12 POC Capillary Glucose 267 H 263 H 261 H 09/27/24 08:13 POC Capillary Glucose 244 H
[2024-09-27] MEDS: INSULIN GLARGINE (*BKC) 100 UNITS/ML 25 UNITS SUB-Q ×2 (09:05→20:51)
[2024-09-27] MEDS: INSULIN ASPART (*BKC) 100 UNITS/ML SUB-Q ×4 (09:06→20:52)
[2024-09-27] MEDS: ACETAMINOPHEN 325 MG TABLET 650 MG PO (09:10)
[2024-09-27 09:27] LABS: Basophils Absolute Auto 0.1 K/mm3 (0.0-0.1); Basophils Percent Auto 0.9 % (0.2-1.2); Eosinophils Absolute Auto 0.2 K/mm3 (0-0.3); Eosinophils Percent Auto 2.8 % (0-4.4); Hemoglobin 13.3 g/dL (12.0-15.0); Immature Granulocyte Absolute 0.12 K/mm3 (0.00-0.031); Immature Granulocyte Percent A 1.4 % (0-0.5); Lymphocytes Absolute Auto 2.55 K/mm3 (0.9-3.2); Lymphocytes Percent Auto 29.7 % (18.3-44.2); Mean Corpuscular HGB Conc 34.1 g/dl (32-36); Mean Corpuscular Hemoglobin 29.2 pg (26-34); Mean Corpuscular Volume 85.5 fl (80-100); Mean Platelet Volume 11.4 fl (7.4-10.4); Monocytes Absolute Auto 0.7 K/mm3 (0.1-0.6); Monocytes Percent Auto 8.5 % (2.6-8.5); Neutrophils Absolute Auto 4.9 K/mm3 (1.3-6.7); Neutrophils Percent Auto 56.7 % (45.5-73.1); Platelet Count Result 288 k/mm3 (150-375); Red Blood Count 4.56 M/mm3 (4.2-5.4); White Blood Count 8.6 K/mm3 (4.5-10.0)
[2024-09-27 09:36] LABS: Anion Gap 12 mmol/L (4-12); Blood Urea Nitrogen 8 mg/dL (7-17); Calcium 8.6 mg/dL (8.4-10.2); Carbon Dioxide 24 mmol/L (22-30); Chloride 99 mmol/L (98-107); Estimated CRCL calculation 145 ml/min; Estimated Glomerular Filt Rate > 60; Glucose 283 mg/dL (65-110); Magnesium 1.6 mg/dL (1.6-2.3); Potassium 3.8 mmol/L (3.4-5.0); Sodium 135 mmol/L (137-145)
[2024-09-27 10:30] VITALS: BMI 57.1
[2024-09-27 12:15] LABS: Glucose Point of Care 282 mg/dl (65-105)
[2024-09-27] MEDS: INSULIN ASPART (*BKC) 100 UNITS/ML 18 UNITS SUB-Q ×2 (12:32→17:39)
[2024-09-27 14:00] VITALS: BP 128/78; PULSE 62; RESP 18; TEMP 36.4; O2SAT 98
[2024-09-27 16:08] LABS: Glucose Point of Care 269 mg/dl (65-105)
[2024-09-27 17:09] LABS: Glucose Point of Care 270 mg/dl (65-105)
[2024-09-27 20:58] VITALS: BP 138/88; PULSE 73; RESP 20; TEMP 36.5; O2SAT 98
[2024-09-27] MEDS: traZODone HCL 25 MG TABLET PO (20:59)
[2024-09-27] MEDS: VILAZODONE HCL 40 MG 1 EACH PO (21:00)
[2024-09-27 21:04] LABS: Glucose Point of Care 259 mg/dl (65-105)
[2024-09-27 22:16] LABS: Glucose Point of Care 227 mg/dl (65-105)
[2024-09-28 01:21] LABS: Glucose Point of Care 231 mg/dl (65-105)
[2024-09-28 04:11] VITALS: BP 113/54; PULSE 73; RESP 20; TEMP 36.7; O2SAT 97
[2024-09-28 05:38] LABS: Glucose Point of Care 223 mg/dl (65-105)
[2024-09-28] MEDS: LEVOTHYROXINE SODIUM 112 MCG TABLET PO (05:53)
[2024-09-28 06:04] LABS: Basophils Absolute Auto 0.1 K/mm3 (0.0-0.1); Eosinophils Absolute Auto 0.3 K/mm3 (0-0.3); Eosinophils Percent Auto 3.2 % (0-4.4); Hematocrit 37.2 % (37.0-47.0); Hemoglobin 12.6 g/dL (12.0-15.0); Immature Granulocyte Absolute 0.18 K/mm3 (0.00-0.031); Immature Granulocyte Percent A 2.3 % (0-0.5); Lymphocytes Absolute Auto 2.63 K/mm3 (0.9-3.2); Lymphocytes Percent Auto 33.2 % (18.3-44.2); Mean Corpuscular HGB Conc 33.9 g/dl (32-36); Mean Corpuscular Hemoglobin 28.7 pg (26-34); Mean Corpuscular Volume 84.7 fl (80-100); Mean Platelet Volume 11.6 fl (7.4-10.4); Monocytes Absolute Auto 0.7 K/mm3 (0.1-0.6); Monocytes Percent Auto 9.3 % (2.6-8.5); Neutrophils Absolute Auto 4.1 K/mm3 (1.3-6.7); Platelet Count Result 266 k/mm3 (150-375); Red Blood Count 4.39 M/mm3 (4.2-5.4); White Blood Count 7.9 K/mm3 (4.5-10.0)
[2024-09-28] MEDS: ACETAMINOPHEN 325 MG TABLET 650 MG PO (06:19)
[2024-09-28 06:20] LABS: Anion Gap 6 mmol/L (4-12); Blood Urea Nitrogen 8 mg/dL (7-17); Calcium 8.6 mg/dL (8.4-10.2); Carbon Dioxide 27 mmol/L (22-30); Chloride 101 mmol/L (98-107); Estimated CRCL calculation 157 ml/min; Estimated Glomerular Filt Rate > 60; Glucose 215 mg/dL (65-110); Magnesium 1.5 mg/dL (1.6-2.3); Potassium 3.6 mmol/L (3.4-5.0); Sodium 134 mmol/L (137-145)
[2024-09-28 08:02] VITALS: BP 145/77; PULSE 66; RESP 16; TEMP 36.5; O2SAT 99
[2024-09-28] MEDS: hydroCHLOROthiazide 12.5 MG CAPSULE BY MOUTH (08:04)
[2024-09-28] MEDS: polyethylene glycoL 3350 17 GM POWD.PACK PO (08:04)
[2024-09-28] MEDS: LOSARTAN POTASSIUM 50 MG TABLET PO (08:04)
[2024-09-28] MEDS: DOCUSATE SODIUM 100 MG CAPSULE PO (08:04)
[2024-09-28] MEDS: ENOXAPARIN 40 MG/0.4 ML SYRINGE SUB-Q (08:04)
[2024-09-28 08:05] LABS: Glucose Point of Care 256 mg/dl (65-105)
[2024-09-28] MEDS: HYDROCORTISONE ACETATE 25 MG SUPPOSITORY RECTAL (08:05)
[2024-09-28] MEDS: INSULIN ASPART (*BKC) 100 UNITS/ML SUB-Q ×2 (08:07→12:19)
[2024-09-28] MEDS: INSULIN ASPART (*BKC) 100 UNITS/ML 18 UNITS SUB-Q (08:07)
[2024-09-28] MEDS: INSULIN GLARGINE (*BKC) 100 UNITS/ML 25 UNITS SUB-Q (08:09)
[2024-09-28 08:41] VITALS: O2SAT 96
--- NOTE | 2024-09-28 11:11 | P.PNIM_ITS ---
Progress Note: A&P Assessment and Plan (1) Ketosis due to diabetes: Code(s): E11.10 - Type 2 diabetes mellitus with ketoacidosis without coma Status: Acute (2) Uncontrolled diabetes mellitus: Status: Acute (3) Hyperglycemia: Code(s): R73.9 - Hyperglycemia, unspecified Status: Acute (4) High anion gap metabolic acidosis: Code(s): E87.29 - Other acidosis Status: Acute Plan Mild DKA resolved gap closed and bicarb normal monitor DM2 BG less than 300 SSI with accucheks not well controlled on 40 units q.h.s., aspart 14 units a.c. and and increase to high dose of sliding scale change to Lantus 25 units b.i.d. aspart 18 units a.c. c/w high dose of sliding scale on 09/27 will discharge pt on Lantus 28 units b.i.d. aspart 20 units a.c. c/w high dose of sliding scale Patient needs to see primary care doctor in 1 week for medications adjustment Constipation Start docusate and MiraLax p.o. Resolved Hypothyroidism continue levothyroxine HLD continue home meds Anxiety continue home meds Hypertension continue home meds DVT prophylaxis on Sq lovenox monitor one more night on adjusted insulin regimen Subjective Date/time seen: 09/28/24 11:11 Interval history: Examined the patient today. Patient feels comfortable, denies lightheadedness, diaphoresis, chest pain, palpitation, abdomen pain, nausea vomiting diarrhea. Patient is afebrile, blood pressure stable Exam Narrative: GENERAL: Pleasant, in no acute distress. Well-nourished. - EYES: EOMI. Anicteric. - HENT: Moist mucous membranes. - LUNGS: Clear to auscultation bilateral ly, no wheezing, rhonchi, or rales. - CARDIOVASCULAR: Regular rate and rhyth m. No murmur. No JVD. - ABDOMEN: Soft, non-tender and non-dist ended. No palpable masses. - EXTREMITIES: No edema. Peripheral puls es 2+. Non-tender. - NEUROLOGIC: No focal neurological defi cits. CN II-XII grossly intact. - PSYCHIATRIC: Awake, Alert and oriented x 3. Appropriate mood and affect. - SKIN: No rashes or lesions. Warm. - LYMPH: No cervical lymphadenopathy. Objective Data Vital Signs Vital Signs: Vital Signs - 24 hr 09/27/24 14:00 09/27/24 20:58 09/28/24 04:11 Temperature 97.6 F 97.7 F 98.1 F Pulse Rate 62 73 73 Respiratory Rate 18 20 20 Blood Pressure 128/78 138/88 113/54 L Pulse Oximetry 98 98 97 Oxygen Delivery 09/28/24 08:02 09/28/24 08:07 09/28/24 08:41 Temperature 97.7 F Pulse Rate 66 Respiratory Rate 16 Blood Pressure 145/77 H Pulse Oximetry 99 96 Oxygen Delivery Room Air Room Air Intake/Output Intake/Output: Intake & Output 09/25/24 09/26/24 09/27/24 09/28/24 23:59 23:59 23:59 23:59 Intake Total 4675 2080 1700 730 Output Total 2700 2000 3900 Balance 1975 80 -2200 730 Meds/Results Medications: Active Medications Generic Name Dose Route Start Last Admin Trade Name Freq PRN Reason Stop Dose Admin Acetaminophen 650 mg 09/24/24 22:10 09/28/24 06:19 Acetaminophen 325 Mg Tablet PO 650 mg Q4H PRN Administration Mild Pain (1-3) or Fever Dextrose 12.5 gm 09/26/24 11:38 Dextrose 50% 25 Gm/50 Ml Syringe IV PUSH PRN PRN Hypoglycemia Protocol Docusate Sodium 100 mg 09/26/24 21:00 09/28/24 08:04 Docusate Sodium 100 Mg Capsule PO 100 mg Q12HR DOREEN Administration Enoxaparin Sodium 40 mg 09/26/24 09:00 09/28/24 08:04 Enoxaparin 40 Mg/0.4 Ml Syringe SUB-Q 40 mg DAILY DOREEN Administration Fluconazole 150 mg 09/25/24 17:00 09/25/24 17:47 Fluconazole 150 Mg Tablet PO 150 mg Q72H DOREEN Administration Glucagon 1 mg 09/26/24 11:38 Glucagon For Inj 1 Mg Vial IM PRN PRN Hypoglycemia Protocol Glucose 15 gm 09/26/24 11:38 Glucose Oral Gel 15 Gm Of Glucse In 37.5 Gm Tube PO PRN PRN Hypoglycemia Protocol Hydrochlorothiazide 12.5 mg 09/25/24 12:50 09/28/24 08:04 Hydrochlorothiazide 12.5 Mg Capsule BY MOUTH 12.5 mg DAILY DOREEN Administration Hydrocortisone Acetate 25 mg 09/26/24 21:00 09/28/24 08:05 Hydrocortisone Acetate 25 Mg Suppository RECTAL 25 mg Q12HR DOREEN Administration Dextrose 1,000 mls @ 100 mls/hr 09/26/24 11:38 Dextrose 5% 1,000 Ml IVPB PRN PRN Hypoglycemia Protocol Insulin Aspart 4 - 8 units 09/26/24 12:00 09/28/24 08:07 Insulin Aspart (*Bkc) 100 Units/Ml SUB-Q 5 units TIDWM DOREEN Administration Protocol Insulin Aspart 2 - 4 units 09/26/24 21:00 09/27/24 20:52 Insulin Aspart (*Bkc) 100 Units/Ml SUB-Q 2 units HS DOREEN Administration Protocol Insulin Aspart 18 units 09/27/24 12:00 09/28/24 08:07 Insulin Aspart (*Bkc) 100 Units/Ml SUB-Q 18 units TIDWM DOREEN Administration Insulin Glargine 25 units 09/27/24 09:00 09/28/24 08:09 Insulin Glargine (*Bkc) 100 Units/Ml SUB-Q 25 units Q12HR DOREEN Administration Levothyroxine Sodium 112 mcg 09/26/24 06:30 09/28/24 05:53 Levothyroxine Sodium 112 Mcg Tablet PO 112 mcg DAILY@0630 DOREEN Administration Losartan Potassium 50 mg 09/25/24 12:50 09/28/24 08:04 Losartan Potassium 50 Mg Tablet PO 50 mg DAILY DOREEN Administration Non-Formulary ( 1 each 09/26/24 21:00 09/27/24 21:00 Vilazodone Hcl 40 Mg PO 10/26/24 20:59 1 each Oral Tablet) HS DOREEN Administration Ondansetron HCl 4 mg 09/24/24 22:10 Ondansetron Inj 4 Mg/2 Ml Vial IV PUSH Q4H PRN Nausea Polyethylene Glycol 17 gm 09/27/24 09:00 09/28/24 08:04 Polyethylene Glycol 3350 17 Gm Powd.Pack PO 17 gm QAM DOREEN Administration Trazodone HCl 25 mg 09/25/24 16:56 09/27/24 20:59 Trazodone Hcl 25 Mg Tablet PO 25 mg HS PRN Administration insomnia Radiology Results: ITS Impressions Chest X-Ray 09/24/24 18:06 IMPRESSION: No focal infiltrate or effusion. Head CT 09/24/24 18:23 Impression: No acute intracranial hemorrhage or suspicious mass effect. Inflammatory sinus disease. Labs Labs: Laboratory Results - last 24 hr 09/27/24 09/27/24 09/27/24 12:00 15:59 16:54 WBC RBC Hgb Hct MCV MCH MCHC RDW Plt Count MPV Immature Gran % (Auto) Neut % (Auto) Lymph % (Auto) [place] % (Auto) Eos % (Auto) Baso % (Auto) Lymph # (Auto) [place] # (Auto) Eos # (Auto) Baso # (Auto) Abs Immat Gran (auto) Absolute Neuts (auto) Absolute Nucleated RBC Nucleated RBC % Sodium Potassium Chloride Carbon Dioxide Anion Gap BUN Creatinine Estim Creat Clear Calc Estimated GFR Glucose POC Capillary Glucose 282 H 269 H 270 H Calcium Magnesium 09/27/24 09/27/24 09/27/24 20:50 22:13 23:53 WBC RBC Hgb Hct MCV MCH MCHC RDW Plt Count MPV Immature Gran % (Auto) Neut % (Auto) Lymph % (Auto) [place] % (Auto) Eos % (Auto) Baso % (Auto) Lymph # (Auto) [place] # (Auto) Eos # (Auto) Baso # (Auto) Abs Immat Gran (auto) Absolute Neuts (auto) Absolute Nucleated RBC Nucleated RBC % Sodium Potassium Chloride Carbon Dioxide Anion Gap BUN Creatinine Estim Creat Clear Calc Estimated GFR Glucose POC Capillary Glucose 259 H 227 H 231 H Calcium Magnesium 09/28/24 09/28/24 09/28/24 04:11 05:27 07:54 WBC 7.9 RBC 4.39 Hgb 12.6 Hct 37.2 MCV 84.7 MCH 28.7 MCHC 33.9 RDW 13.0 Plt Count 266 MPV 11.6 H Immature Gran % (Auto) 2.3 H Neut % (Auto) 51.0 Lymph % (Auto) 33.2 [place] % (Auto) 9.3 H Eos % (Auto) 3.2 Baso % (Auto) 1.0 Lymph # (Auto) 2.63 [place] # (Auto) 0.7 H Eos # (Auto) 0.3 Baso # (Auto) 0.1 Abs Immat Gran (auto) 0.18 H Absolute Neuts (auto) 4.1 Absolute Nucleated RBC 0.000 Nucleated RBC % 0.0 Sodium 134 L Potassium 3.6 Chloride 101 Carbon Dioxide 27 Anion Gap 6 BUN 8 Creatinine 0.58 L Estim Creat Clear Calc 157 Estimated GFR > 60 Glucose 215 H POC Capillary Glucose 223 H 256 H Calcium 8.6 Magnesium 1.5 L
--- NOTE | 2024-09-28 11:12 | PM.DS ---
DS: Admitting Diagnosis Discharge Date 09/28/24 Admitting Diagnosis (1) Ketosis due to diabetes: Code(s): E11.10 - Type 2 diabetes mellitus with ketoacidosis without coma Status: Acute (2) Uncontrolled diabetes mellitus: Status: Acute (3) Hyperglycemia: Code(s): R73.9 - Hyperglycemia, unspecified Status: Acute (4) High anion gap metabolic acidosis: Code(s): E87.29 - Other acidosis Status: Acute DS: Discharge Diagnosis Discharge Diagnosis (1) Ketosis due to diabetes: Code(s): E11.10 - Type 2 diabetes mellitus with ketoacidosis without coma Status: Acute (2) Uncontrolled diabetes mellitus: Status: Acute (3) Hyperglycemia: Code(s): R73.9 - Hyperglycemia, unspecified Status: Acute (4) High anion gap metabolic acidosis: Code(s): E87.29 - Other acidosis Status: Acute DS: Summary Hospital Course Hospital Course: 39-year-old female accompanied by her who has a history of type 2 diabetes mellitus non-insulin dependent, hypothyroidism, hyperlipidemia, anxiety, hypertension. Patient reports she had gestational diabetes requiring insulin 6 years prior and since that has only been on metformin and has not been hospitalized or ever had DKA. She has been taking metformin as prescribed but does not check her sugars at home. She does not know her HbA1c, reporting she just gets her regular lab work but they did not check A1c. The patient had positive sick contacts for influenza a and up until 3 days ago she had upper respiratory symptoms and severe body aches. That is better. At 1 point she drank some Gatorade to rehydrate. A day prior to admission she went to [facility] and was found to have hyperglycemia. She was given 10 units of insulin and discharged home. Today on 09/24/2024 she visited her PCP Dr. Samuel with vitas her to present to [facility] for hyperglycemia again. ER evaluation demonstrated stable vital signs. VBG pH 7.4 with bicarb of 19, sodium 130, anion gap 14, glucose 351, beta hydroxybutyrate 2.19, UA with 3+ glucose and ketones. Patient was started on IV fluids and insulin GTT at 14 units/hour. Repeat BMP demonstrated anion gap of 13 glucose of 296. She was then given glargine 25 units subQ and insulin aspart 10 units subQ. The following med issues have been addressed during hospitalization Mild DKA resolved gap closed and bicarb normal resolved DM2 BG less than 300 SSI with accucheks not well controlled on 40 units q.h.s., aspart 14 units a.c. and and increase to high dose of sliding scale change to Lantus 25 units b.i.d. aspart 18 units a.c. c/w high dose of sliding scale on 09/27 will discharge pt on Lantus 28 units b.i.d. aspart 20 units a.c. c/w high dose of sliding scale Patient needs to see primary care doctor in 1 week for medications adjustment Constipation Start docusate and MiraLax p.o. Resolved Hypothyroidism continue levothyroxine HLD continue home meds Anxiety continue home meds Hypertension continue home meds DVT prophylaxis on Sq lovenox monitor one more night on adjusted insulin regimen Time Spent with Patient Time attestation: Total time spent providing and/or coordinating discharge services: Exam Narrative: GENERAL: Pleasant, in no acute distress. Well-nourished. - EYES: EOMI. Anicteric. - HENT: Moist mucous membranes. - LUNGS: Clear to auscultation bilaterally, no wheezing, rhonchi, or rales. - CARDIOVASCULAR: Regular rate and rhythm. No murmur. No JVD. - ABDOMEN: Soft, non-tender and non-distended. No palpable masses. - EXTREMITIES: No edema. Peripheral pulses 2+. Non-tender. - NEUROLOGIC: No focal neurological deficits. CN II-XII grossly intact. - PSYCHIATRIC: Awake, Alert and oriented x 3. Appropriate mood and affect. - SKIN: No rashes or lesions. Warm. - LYMPH: No cervical lymphadenopathy. DS: Data Data Completed and Pending Labs on day of discharge: Labs from last 24 hours 09/28/24 09/28/24 09/28/24 07:54 05:27 04:11 WBC 7.9 RBC 4.39 Hgb 12.6 Hct 37.2 MCV 84.7 MCH 28.7 MCHC 33.9 RDW 13.0 Plt Count 266 MPV 11.6 H Immature Gran % (Auto) 2.3 H Neut % (Auto) 51.0 Lymph % (Auto) 33.2 [place] % (Auto) 9.3 H Eos % (Auto) 3.2 Baso % (Auto) 1.0 Lymph # (Auto) 2.63 [place] # (Auto) 0.7 H Eos # (Auto) 0.3 Baso # (Auto) 0.1 Abs Immat Gran (auto) 0.18 H Absolute Neuts (auto) 4.1 Absolute Nucleated RBC 0.000 Nucleated RBC % 0.0 Sodium 134 L Potassium 3.6 Chloride 101 Carbon Dioxide 27 Anion Gap 6 BUN 8 Creatinine 0.58 L Estim Creat Clear Calc 157 Estimated GFR > 60 Glucose 215 H POC Capillary Glucose 256 H 223 H Calcium 8.6 Magnesium 1.5 L 09/27/24 09/27/24 09/27/24 23:53 22:13 20:50 WBC RBC Hgb Hct MCV MCH MCHC RDW Plt Count MPV Immature Gran % (Auto) Neut % (Auto) Lymph % (Auto) [place] % (Auto) Eos % (Auto) Baso % (Auto) Lymph # (Auto) [place] # (Auto) Eos # (Auto) Baso # (Auto) Abs Immat Gran (auto) Absolute Neuts (auto) Absolute Nucleated RBC Nucleated RBC % Sodium Potassium Chloride Carbon Dioxide Anion Gap BUN Creatinine Estim Creat Clear Calc Estimated GFR Glucose POC Capillary Glucose 231 H 227 H 259 H Calcium Magnesium 09/27/24 09/27/24 09/27/24 16:54 15:59 12:00 WBC RBC Hgb Hct MCV MCH MCHC RDW Plt Count MPV Immature Gran % (Auto) Neut % (Auto) Lymph % (Auto) [place] % (Auto) Eos % (Auto) Baso % (Auto) Lymph # (Auto) [place] # (Auto) Eos # (Auto) Baso # (Auto) Abs Immat Gran (auto) Absolute Neuts (auto) Absolute Nucleated RBC Nucleated RBC % Sodium Potassium Chloride Carbon Dioxide Anion Gap BUN Creatinine Estim Creat Clear Calc Estimated GFR Glucose POC Capillary Glucose 270 H 269 H 282 H Calcium Magnesium Discharge Plan Discharge Attending physician on discharge: Chris Mayo Discharging Clinician: Chris Mayo Anticipated Discharge Date/Time: 09/28/24 14:15 Patient Disposition: Home, Self-Care Activity: as tolerated Diet: as tolerated and diabetic Patient Instructions: Antibiotic Form Patient Language: Lao Stand Alone Forms: General Discharge Information Follow-up/Referrals: Heidi Samuel MD [Primary Care Provider] - (Patient needs to see primary care doctor in 1 week) Discharge Medications: New insulin aspart U-100 [Novolog U-100 Insulin aspart] 100 unit/mL Solution 2 - 4 unit subcut HS Qty: 10 1RF Protocol: Insulin Corrective High-Dose Condition: glucose < 70 mg/dl Dose/Route: Follow hypoglycemia order Condition: glucose 70-200 mg/dl Dose/Route: No additional insulin Condition: glucose 201-250 mg/dl Dose/Route: 2 units sub-Q Condition: glucose 251-300 mg/dl Dose/Route: 2 units sub-Q Condition: glucose 301-350 mg/dl Dose/Route: 3 units sub-Q Condition: glucose 351-400 mg/dl Dose/Route: 4 units sub-Q Condition: glucose > 400 mg/dl Dose/Route: Call Rx Instructions: Condition Dose/Route Instruction glucose < 70 mg/dl Follow hypoglycemia order glucose 70-200 mg/dl No additional insulin glucose 201-250 mg/dl 2 units sub-Q glucose 251-300 mg/dl 2 units sub-Q glucose 301-350 mg/dl 3 units sub-Q glucose 351-400 mg/dl 4 units sub-Q glucose > 400 mg/dl Call insulin glargine [Lantus U-100 Insulin] 100 unit/mL Solution 28 unit subcut Q12HR Qty: 10 1RF insulin aspart U-100 [Novolog U-100 Insulin aspart] 100 unit/mL Solution 20 unit subcut TIDWM Qty: 10 1RF insulin aspart U-100 [Novolog U-100 Insulin aspart] 100 unit/mL Solution 4 - 8 unit subcut TIDWM Qty: 10 1RF Protocol: Insulin Corrective High-Dose Condition: glucose < 70 mg/dl Dose/Route: Follow hypoglycemia order Condition: glucose 70-200 mg/dl Dose/Route: No additional insulin Condition: glucose 201-250 mg/dl Dose/Route: 4 units sub-Q Condition: glucose 251-300 mg/dl Dose/Route: 5 units sub-Q Condition: glucose 301-350 mg/dl Dose/Route: 6 units sub-Q Condition: glucose 351-400 mg/dl Dose/Route: 8 units sub-Q Condition: glucose > 400 mg/dl Dose/Route: Call Protocol Text: *No Correction Dose at Bedtime* Rx Instructions: Condition Dose/Route Instruction glucose < 70 mg/dl Follow hypoglycemia order glucose 70-200 mg/dl No additional insulin glucose 201-250 mg/dl 4 units sub-Q glucose 251-300 mg/dl 5 units sub-Q glucose 301-350 mg/dl 6 units sub-Q glucose 351-400 mg/dl 8 units sub-Q glucose > 400 mg/dl Call polyethylene glycol 3350 [Miralax] 17 gram Powder In Packet 17 g PO QAM Qty: 30 0RF Continued docusate sodium 250 mg capsule 250 mg PO DAILY cholecalciferol (vitamin D3) 25 mcg (1,000 unit) capsule 25 mcg PO DAILY spironolactone 50 mg tablet 50 mg PO DAILY Qty: 90 1RF vilazodone 40 mg tablet 40 mg PO DAILY Qty: 90 1RF trazodone 50 mg tablet 25 mg PO HS PRN (Reason: insomnia) fluconazole 150 mg tablet 150 mg PO Q72H levothyroxine [Synthroid] 112 mcg tablet 112 mcg PO DAILY Qty: 90 1RF hydrochlorothiazide 12.5 mg capsule See Rx Instructions .ROUTE .COMPLEX Qty: 90 1RF Dose Instruction: TAKE 1 CAPSULE BY MOUTH EVERY DAY Rx Instructions: TAKE 1 CAPSULE BY MOUTH EVERY DAY losartan 50 mg tablet 50 mg PO DAILY Qty: 90 2RF metformin 500 mg tablet extended release 24 hr 500 mg PO BID Qty: 180 0RF Date of admission: 09/24/24 22:45 Primary Care Provider: Heidi Samuel Admitting Provider: Dawn Aviles Attending physician on admission: Dawn Aviles Condition: Stable
[2024-09-28 12:02] LABS: Glucose Point of Care 274 mg/dl (65-105)
[2024-09-28] MEDS: INSULIN ASPART (*BKC) 100 UNITS/ML 20 UNITS SUB-Q (12:18)
[2024-09-28 14:00] VITALS: BP 148/86; PULSE 68; RESP 18; TEMP 36.4; O2SAT 97
[2024-09-28 14:17] LABS: Glucose Point of Care 257 mg/dl (65-105)
== END 2024-09-28 15:04 | disposition home or self-care (01) | DRG 420 ==
LOC: ANHED 22:09 → ANH2MED 23:10
PROVIDERS: Internal Medicine; Physician Assistant; Admitting Provider General Practice; Emergency Provider Student in an Organized Health Care Education/Training Program; PCP Family Medicine; Visit Provider Hospitalist
DX: E11.10 Type 2 diabetes mellitus with ketoacidosis without coma (principal); E03.9 Hypothyroidism, unspecified; E78.5 Hyperlipidemia, unspecified; E66.01 Morbid (severe) obesity due to excess calories; F41.9 Anxiety disorder, unspecified; I10 Essential (primary) hypertension; K59.00 Constipation, unspecified; Z79.84 Long term (current) use of oral hypoglycemic drugs; Z90.49 Acquired absence of other specified parts of digestive tract; Z68.43 Body mass index [BMI] 50.0-59.9, adult; Z20.822 Contact with and (suspected) exposure to COVID-19
CPT/HCPCS: 36415; 70450; 71046; 80048; 80053; 81003; 81025; 82010; 82803; 82948; 83036; 83735; 83930; 84100; 85025; 87637; 93005; 96361; 96374; 96375; 99285; A9270; J1650; J1815; J3475; J3480; J7120

== ENCOUNTER 2024-11-10 10:45 | Outpatient (RCR) | payer OTHER, SELFPAY | END 2024-12-27 09:35 | disposition home or self-care (01) | LOC: ANHDMC 10:45 | PROVIDERS: PCP Family Medicine; Visit Provider Family Medicine | DX: E11.10 Type 2 diabetes mellitus with ketoacidosis without coma (principal); Z71.89 Other specified counseling | CPT/HCPCS: G0108 ==

== ENCOUNTER 2025-01-20 10:01 | Outpatient (CLI) | payer OTHER, SELFPAY ==
--- NOTE | ~2025-01-20 | MM_ITS ---
EXAMINATION: MM screening marija BI w joanie HISTORY: Screening mammogram TECHNIQUE: Craniocaudal and mediolateral oblique 3-D tomosynthesis images were obtained and synthetic 2-D images were generated. CAD analysis was submitted and interpreted. COMPARISON: Baseline BREAST PARENCHYMAL COMPOSITION: The breasts are almost entirely fatty. FINDINGS: There is no evidence of suspicious mass, calcification, or architectural distortion to sug gest malignancy in either breast. IMPRESSION: 1. No mammographic evidence of malignancy. 2. Recommend routine screening mammography in one year. BI-RADS Category 1: Negative Reviewed, dictated and finalized at location B.
--- OUTSIDE RECORDS SUMMARY | 2025-01-20 10:59 | XMS_ITS | Encounter Summary ---
Author Organization [facility] Address [address] [facility] [address] [place] [address] Phone Care Team Providers Care Tool Sharpener Name Role Phone Chantal Rothman MD Primary Care Provider + Tiffany Salas NP Primary Care Provider [phone] Chantal Rothman MD Primary Care Provider + Tiffany Salas NP Primary Care Provider + [phone] No, Physician Primary Care Provider [phone] Tiffany Salas NP Unavailable [phone] Chantal Rothman MD Unavailable [phone] Heidi Samuel MD Primary Care Provider [phone] Encounter Details Date Type Department Care Team (Latest Contact Info) Description 01/02/2018 Orders Only [facility] CONVERSION Scanning, Provider Social History Tobacco Use Types Packs/Day Years Used Date Smoking Tobacco: Never Assessed Comments Unknown Sex and Gender Information Value Date Recorded Sex Assigned at Not on file 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 Gender Identity Not on file Sexual Orientation [...] COVID: Suspected 08/24/2024 08/24/2024 08/24/2024 3:54 PM REPAIRER RSV, droplet 08/24/2024 08/24/2024 08/31/2024 3:07 AM REPAIRER documented as of this encounter Care Teams Tool Sharpener Relationship Specialty Start Date End Date Chantal Rothman MD PCP - General Family Medicine 09/02/17 10/05/20 Tiffany Salas NP PCP - General 10/06/20 10/09/20 Chantal Rothman MD PCP - General 10/10/20 11/20/22 Tiffany Salas NP PCP - General Nurse Practitioner 11/21/22 06/06/23 No, Physician PCP - General 06/07/23 11/08/24 Heidi Samuel MD [address] [place] [id number] PCP - General Family Medicine 11/09/24 Tiffany Salas NP Nurse Practitioner 06/07/23 Chantal Rothman MD Family Medicine 09/02/17 documented as of this encounter
--- OUTSIDE RECORDS SUMMARY | 2025-01-20 10:59 | XMS_ITS | Encounter Summary ---
Author Organization [facility] Address [address] [place] [address] Care Team Providers Care Non Destructive Evaluation Manager Name Role Phone Unavailable Primary Care Provider Unavailabl e Encounter Details Date Type Department Care Team (Late st Contact Info) Description 12/12/2020 Telephone [facility] [address] [place] [address] Cole Villanueva MD [address] [id number] Social History Tobacco Use Types Packs/Day Years Used Date Smoking Tobacco: Never Assessed Comments Unknown Sex and Gender Information Value Date Recorded Sex Assigned at Not on file 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
--- OUTSIDE RECORDS SUMMARY | 2025-01-20 10:59 | XMS_ITS | Referral Summary ---
Author [place] [facility] [place] [address] Address [address] [place] [phone] Care Team Providers Care Custom Motorcycle Painter Name Role Phone Maritza Tiffany Kyle NP Unavailable [phone] Chantal Rothman MD Unavailable [phone] Heidi Samuel MD Primary Care Provider [phone] Encounters Date Type Department Care Team Description 12/17/2024 Orders Only [facility] Diabetes and Endocrinology [address] [place] [phone] ProviderRober MD 12/14/2024 Results [place]-Up [facility] [place] [facility] [id number] [place] [phone] Camden Burroughs MD Albumin Creatinine Ratio, Urine, Lipid panel, Comprehensive metabolic panel, Additional followed-up results: 2 12/13/2024 11:19 AM CDT - 12/13/2024 11:59 PM CDT Hospital Encounter [address] [address] Type 2 diabetes mellitus with hyperglycemia, with long-term current use of insulin (HCC); Hypertension associated with diabetes (HCC); Hyperlipidemia associated with type 2 diabetes mellitus (HCC); Acquired hypothyroidism Discharge Disposition: Discharge to home or self care 12/13/2024 11:15 AM CDT Lab [facility] Outpatient Lab at [address] [phone] 12/13/2024 10:30 AM CDT Office Visit [facility] Diabetes and Endocrinology [address] [place] [phone] Camden Burroughs MD Type 2 diabetes mellitus with hyperglycemia, with long-term current use of insulin (HCC) (Primary Dx); Acquired hypothyroidism; Hypertension associated with diabetes (HCC); Hyperlipidemia associated with type 2 diabetes mellitus (HCC); Morbid obesity with BMI of 50.0-59.9, adult ([facility]) 11/09/2024 Telephone [facility] Medical [facility] Diabetes and Endocrinology [address] [place] [phone] Veto Drew MD from Last 3 Months Allergies Active Allergy Reactions Criticality Noted Date Comments Adhesive Urticaria Medium 06/07/2023 Adhesive Tape-Silicones Other (See comments) Low burning Atorvastatin Unknown Low 09/27/2020 Bacitracin-Polymyxin B Rash Medium 07/20/2020 Chlorhexidine Urticaria Medium 06/07/2023 Chlorhexidine Gluconate Hives,Itching Medium Iodine Hives Medium 05/28/2021 Ycbauodp-Dtxqeeqoql-Oothkrcww Rash Medium 2020 Neosporin (Neomycin-Polymyx) Unknown Low 020 Sulfamethoxazole-Trimethoprim Unknown Low 2019 Medications [facility] [place] [place]. 0 01/10/20 18 Active levothyroxine (SYNTHROID, LEVOTHROID) 112 mcg tablet TAKE 1 TABLET DAILY 90 tablet 1 07/29/20 18 Active spironolacton e (ALDACTONE) 50 mg tablet spironolactone 50 mg tablet 08/18/18 70 Active traZODone (DESYREL) 50 mg tablet TAKE 1/2 (ONE-HALF) TABLET BY MOUTH EVERY DAY AT BEDTIME NEEDED FOR 90 DAYS 09/26/19 23 Active vilazodone (VIIBRYD) 40 mg tablet 11/22/19 23 Active hydroCHLOROth iazide (MICROZIDE) 12.5 mg capsule hydrochlorothiazide 12.5 mg capsule 08/18/18 70 Active cyanocobalami n (Vitamin B-12) 1,000 mcg tablet B-12 TABLET 07/20/20 20 Active cholecalcifer ol, vitamin D3, (cholecalcife rol, vit D3,,bulk,) 100,000 unit/gram powder Take 1,000 Units by mouth Active ibuprofen (ADVIL,MOTRIN ) 800 mg tablet TAKE 1 TABLET BY MOUTH THREE TIMES DAILY FOR 7 DAYS NEEDED FOR PAIN 02/08/20 23 Active hydroCHLOROth iazide (HYDRODIURIL) 12.5 mg tablet Take 1 tablet (12.5 mg total) by mouth daily 04/10/20 23 Active levothyroxine (SYNTHROID) 112 mcg tablet Take 1 tablet (112 mcg total) by mouth daily 04/20/20 23 Active losartan (COZAAR) 100 mg tablet 03/16/20 23 Active spironolacton e (ALDACTONE) 50 mg tablet Take 1 tablet (50 mg total) by mouth daily 03/22/20 23 Active vilazodone (VIIBRYD) 40 mg tablet 06/03/20 23 Active traZODone (DESYREL) 50 mg tablet TAKE 1/2 TABLET BY MOUTH EVERY DAY AT BEDTIME NEEDED 05/29/20 23 Active empagliflozin (Jardiance) 25 mg tabletIndicat ions:Type 2 diabetes mellitus with hyperglycemia , with long-term current use of insulin ([facility]) Take 1 tablet (25 mg total) by mouth daily before breakfast 30 tablet 12/14/19 25 026 Active metFORMIN XR (GLUCOPHAGE XR) 500 mg 24 hr tabletIndicat ions:Type 2 diabetes mellitus with hyperglycemia , with long-term current use of insulin ([facility]) Take 1 tablet (500 mg total) by mouth 2 (two) times a day 60 tablet 12/14/19 25 026 Active rosuvastatin (CRESTOR) 5 mg tabletIndicat ions:Type 2 diabetes mellitus with hyperglycemia , with long-term current use of insulin ([facility]),Hyperli pidemia associated with type 2 diabetes mellitus (HCC) Take 1 tablet (5 mg total) by mouth daily 30 tablet 11 12/14/19 25 026 Active insulin glargine (LANTUS) 100 unit/mL (3 mL) pen for injectionIndi cations:Type 2 diabetes mellitus with hyperglycemia , with long-term current use of insulin ([facility]) Inject 28 Units under the skin daily 15 mL 1 12/14/19 25 025 Active pen needle, diabetic 33 gauge x 32 needleIndicat ions:Type 2 diabetes mellitus with hyperglycemia , with long-term current use of insulin (HCC) Daily for insulin use 30 each 3 12/14/19 25 Active Active Problems Problem Noted Date Diagnosed Date Severe obesity 08/24/2024 Body mass index (BMI) 50.0-59.9, adult 5 Acute non-recurrent pansinusitis 08/20/2024 Assessment & Plan (08/20/2024 1:58 PM DATA MANAGEMENT CONSULTANT): Due to length of illness we will [...] (09/27/2020): Added automatically from request for surgery [id number] depression 09/18/2018 S/P section 08/19/2018 Overview (09/03/2018): [...] plan. to be scheduled for 08/19/18. Denise CHRISTINE to call. Patient aware that due to [...] into vagina 018 Overview (08/13/2018): 08/13/2018 [facility]: C/O mucosy 1/2cup of fluid loss from vagina -SSE negative pooling, negative VB, wet mount negative -SVE CL/TH/H -DVP 5.01cm/5.75cm -Patient given labor precautions Headache 08/04/2018 Overview (08/04/2018): [facility] Visit 08/04/18 Headache resolved with po Compazine. Normotensive. Normal glucose. Enc increasing po hydration. RX for po Compazine given. Pre-E precautions advised. F/U Friday. Reactive NST. 35 weeks gestation of 07/23/2018 Generalized body aches 07/23/2018 Overview (07/23/2018): [facility] Visit 07/23/18 Afebrile, VSS, denies cough or cold sx. Denies pain or n/v. Discussed comfort measures. Influenza swab obtained. Accu check 92. Precautions advised. Hx of biophysical profile 07/14/2018 Overview (07/14/2018): [facility] Visit 07/14/18 BPP 6/8, -2 for [...] 01/19/2018 Overview (08/07/2018): - Complete care with MFM, Oriented to our practice previously. Aware that she will deliver at [facility]- SCHEDULED for 08/19/18 @ [...] compliant Assessment & Plan (07/31/2018 10:46 AM DATA MANAGEMENT CONSULTANT): -Patient scheduled for delivery on August 19, [...] 01/09, dose increased to 125mcg daily on 6/4. - Repeat TSH 02/26 slightly low at [...] Current regimen, as reviewed on 08/14/18: NPH Novolog 2 U with lunch and 2 U with dinner Metformin 1000 mg QAM/ 1000mg QHS - s/p clinical trial educator/hospital product specialist -A1C 5.3% -Anatomic survey normal - Echo is normal but limited. Assessment & Plan (05/22/2018 10:31 AM CDT): -Blood sugars reviewed today. No changes made -Reviewed again risks of DM in . Patient verbalized understanding. Assessment & Plan (01/19/2018 2:23 PM CDT): Questionable diagnosis -Seeing Database Software Technician and Doping Supervisor tomorrow locally -BS review reflects fairly good [...] ultrasound. Posterior placenta, no e/o previa. Immunizations Immunization Administration Dates Next Due Influenza, Quadrivalent, Cathy l Culture-based MDCK, Antibiotic Free, Intramuscular 06/05/2018 Tdap 06/05/2018 Social History Tobacco Use Types Packs/Day Years Used Date Smoking Tobacco: Never Smokeless Tobacco: Never Tobacco Cessation:Counseling Given: Not Answered Alcohol Use Standard Drinks/Week Comments No 0 (1 standard drink = 0.6 oz pur e alcohol) Comments Unknown Sex and Gender Information Value Date Recorded Sex Assigned at Not on file Legal Sex Female 3:23 AM DATA MANAGEMENT CONSULTANT Gender Identity Not on file Sexual Orientation Not on file Last Filed Vital Signs Vital Sign Reading Time Taken Comments Blood Pressure 124/82 12/13/2024 10:39 AM CDT Pulse 82 12/13/2024 10:39 AM CDT Temperature 36.8 C (98.2 F) 08/24/2024 9:09 AM DATA MANAGEMENT CONSULTANT Respiratory Rate 16 12/13/2024 10:39 AM CDT Oxygen Saturation 95% 08/24/2024 9:09 AM DATA MANAGEMENT CONSULTANT Inhaled Oxygen Concentration - - Weight 144.2 kg (318 lb) 12/13/2024 10:39 AM CDT Height 157.5 cm (5' 2) 12/13/2024 10:39 AM CDT Body Mass Index 58.16 12/13/2024 10:39 AM CDT Plan of Treatment Not on file Procedures Procedure Name Priority Date/Time Associated Diagnosis Comments ALBUMIN CREATININE RATIO, URINE Routine 12/13/2024 10:14 PM CDT Type 2 diabetes mellitus with hyperglycemia, with long-term current use of insulin (HCC) Hypertension associated with diabetes (HCC) EGFR Routine 12/13/2024 11:19 AM CDT Type 2 diabetes mellitus with hyperglycemia, with long-term current use of insulin (HCC) Hypertension associated with diabetes (HCC) Hyperlipidemia associated with type 2 diabetes mellitus (HCC) THYROID FUNCTION CASCADE Routine 12/13/2024 11:19 AM CDT Acquired hypothyroidism COMPREHENSIVE METABOLIC PANEL Routine 12/13/2024 11:19 AM CDT Type 2 diabetes mellitus with hyperglycemia, with long-term current use of insulin (HCC) Hypertension associated with diabetes (HCC) Hyperlipidemia associated with type 2 diabetes mellitus (HCC) LIPID PANEL Routine 12/13/2024 11:19 AM CDT Type 2 diabetes mellitus with hyperglycemia, with long-term current use of insulin (HCC) Hyperlipidemia associated with type 2 diabetes mellitus (HCC) POCT HEMOGLOBIN A1C Routine 12/13/2024 1 0:42 AM CDT Type 2 diabetes mellitus with hyperglycemia, with long-term current use of insulin (HCC) POCT GLUCOSE Routine 12/13/2024 10:42 AM CDT Type 2 diabetes mellitus with hyperglycemia, with long-term current use of insulin (HCC) DIABETES EYE EXAM Routine 10/04/2024 8:04 AM DATA MANAGEMENT CONSULTANT from Last 3 Months or Most Recently Relevant to Health Maintenance Results * Albumin Creatinine Ratio, Urine (12/13/2024 10:14 PM CDT) Albumin Ur <12.0 mg/L Comment: Interpretive Data No reference range established. Current interpretive data was last revised 2018. Creatinine Ur 91.0 mg/dL [facility] JAMES Comment: Interpretive Data No reference range established. Current interpretive data was last revised 2018. Albumin Creatinine Ratio, Ur <13 1 - 29 mg/g [facility] JAMES Urine 12/13/2024 10:1 4 PM CDT 12/13/2024 10:14 PM CDT us Camden Johnson MD LAB URINE ORDERABLE S Final Result [facility] [address] [address] Department [place] [address] * eGFR (12/13/2024 11:19 AM CDT) eGFR 71 >=60 mL/min/1. 73 m2 Comment: Interpretive Data Reference Interval Normal >/= 90 mL/min/1.73m2 Mildly decreased* 60 - 89 mL/min/1.73m2 Mildly to moderately decreased 45 - 59 mL/min/1.73m2 Moderately to severely decreased 30 - 44 mL/min/1.73m2 Severely decreased 15 - 29 mL/min/1.73m2 Kidney Failure < 15 mL/min/1.73m2 *Relative to young adult level Estimated glomerular filtration rate is determined by the 2020 CKD-EPI equation recommended by the National Kidney Foundation (A Unifying Approach to GFR Estimation: Recommendations of the NKF-ASK Task Force on Reassessing the Inclusion of Race in Diagnosing Kidney Disease, JASN 2020). The CKD-EPI equation should not be used for patients with unstable renal function and has not been validated in children and those over 70. Current interpretive data was last reviewed 2021. Blood 12/13/2024 11:1 9 AM CDT 12/13/2024 9:56 PM CDT us Camden Johnson MD LAB BLOOD ORDERABLE S Final Result Performing Organization Address City/[facility]/[place] [address] [address] [place] [address] * Thyroid Function [place] (12/13/2024 11:19 AM CDT) TSH 3.22 0.30 - 4.20 mcIUnit/mL Blood 12/13/2024 11:1 9 AM CDT 12/13/2024 9:46 PM CDT us Camden Johnson MD LAB BLOOD ORDERABLE S Final Result Performing Organization Address City/[facility] [place] [address] [address] Department [place] [address] * Lipid panel (12/13/2024 11:19 AM CDT) Cholesterol 149 30 - 199 mg/dL Comment: Interpretive Data Ages < or = 19 years Acceptable: <170 mg/dL Borderline high: 170-199 mg/dL High: >or= 200 mg/dL Ages > or = 20 years Desirable: <200 mg/dL Borderline high: 200-239 mg/dL High: >or= 240 mg/dL Literature References: 1. Expert Panel on Integrated Guidelines for Cardiovascular Health and Risk Reduction in Children and Adolescents. Pediatrics 2011;128:S213 2. NCEP Expert Panel. Circulation 2004;110:227 Current Interpretive Data was last revised on 2018. Triglycerides 108 <=149 mg/dL REMY Comment: Interpretive Data Ages < or = 9 years Acceptable: <75 mg/dL Borderline high: 75-99 mg/dL High: >or= 100 mg/dL Ages 10 to 20 years Acceptable: <90 mg/dL Borderline high: 90-129 mg/dL High: >or= 130 mg/dL Ages > or = 20 years Desirable: <150 mg/dL Borderline high: 150-199 mg/dL High: 200-499 mg/dL Very high: >or= 499 mg/dL Literature References: 1. Expert Panel on Integrated Guidelines for Cardiovascular Health and Risk Reduction in Children and Adolescents. Pediatrics 2011;128:S213 2. NCEP Expert Panel. Circulation 2004;110:227 Current Interpretive Data was last revised on 2018. HDL 41 >=40 mg/dL REMY Comment: Interpretive Data Ages < or = 19 years Acceptable: >45 mg/dL Borderline low: 40-45 mg/dL Low: <40 mg/dL Ages > or = 20 years Desirable: >or= 60 mg/dL Low: <40 mg/dL Literature References: 1. Expert Panel on Integrated Guidelines for Cardiovascular Health and Risk Reduction in Children and Adolescents. Pediatrics 2011;128:S213 2. NCEP Expert Panel. Circulation 2003;110:227 Current Interpretive Data was last revised on 2018. LDL, calculated 88 <=129 mg/dL REMY Comment: Interpretive Data Ages < or = 19 years Acceptable: <110 mg/dL Borderline high: 110-129 mg/dL High: >or= 130 mg/dL Ages > or = 20 years Optimal: <100 mg/dL Near optimal: 100-129 mg/dL Borderline high: 130-159 mg/dL High: >160 mg/dL Calculated using the Khalil LDL-C estimating equation. This equation was implemented on 2024. Prior to this date LDL-C was estimated using the Friedewald equation. Literature References: 1. Expert Panel on Integrated Guidelines for Cardiovascular Health and Risk Reduction in Children and Adolescents. Pediatrics 2011;128:S213 2. NCEP Expert Panel. Circulation 2004;110:227 3. Remi M et al. TONYA Cardiol. 2020 December 16;5(5):540-548. doi: 10.1001/jamacardio.2020.0013 Current Interpretive Data was last revised on 2024. Non-HDL Cholesterol 108 mg/dL CERNER CH Comment: Interpretive Data Ages < or = 19 years Acceptable: <120 mg/dL Borderline high: 120-144 mg/dL High: >145 mg/dL Ages > or = 20 years When triglycerides are >200 mg/dL, Non-HDL cholesterol is a secondary target of therapy with treatment goals that are 30 mg/dL greater than the LDL cholesterol target. Literature References: 1. Expert Panel on Integrated Guidelines for Cardiovascular Health and Risk Reduction in Children and Adolescents. Pediatrics 2011;128:S213 2. NCEP Expert Panel. Circulation 2004;110:227 Current Interpretive Data was last revised on 2018. Chol/HDL ratio 4 CERNER CH Blood 12/13/2024 11:1 9 AM CDT 12/13/2024 9:46 PM CDT Camden Johnson MD LAB BLOOD ORDERABLE S Final Result [facility] [address] Department [place] [address] * Comprehensive metabolic panel (12/13/2024 11:19 AM CDT) Sodium 137 135 - 145 mmol/L Potassium, pl 4.3 3.3 - 4.9 mmol/L CERNER Chloride 99 97 - 110 mmol/L CERNER CH CO2 27 22 - 32 mmol/L CERNER CH Anion gap 11 2 - 15 mmol/L CERNER CH BUN 25 6 - 25 mg/dL CERNER CH Creatinine 1.03 0.60 - 1.10 mg/dL CERNER CH Glucose 82 70 - 199 mg/dL CERNER Comment: Interpretive Data Fasting glucose >/= 126 mg/dl is diagnostic for diabetes. Fasting is defined as no caloric intake for at least 8 hours. Fasting glucose between 100 mg/dl to 125 mg/dl is diagnostic of prediabetes. In a patient with classic symptoms of hyperglycemia or hyperglycemic crisis, a random glucose >/= 200 mg/dl is diagnostic for diabetes. In the absence of unequivocal hyperglycemia, results should be confirmed by repeat testing. The classification and Diagnosis of Diabetes Diabetes Care 2021; 46: S19-S40. Current interpretive data was last revised 2022. Calcium 9.1 8.5 - 10.3 mg/dL CERNER CH Bilirubin, total 0.3 0.1 - 1.2 mg/dL CERNER CH Protein, pl 7.4 6.5 - 8.5 g/dL CERNER CH Albumin 3.9 3.5 - 5.0 g/dL CERNER CH Alk phos 59 40 - 130 Units/L CERNER CH ALT 11 7 - 45 Units/L CERNER CH AST 21 10 - 45 Units/L CERNER CH Blood 12/13/2024 11:1 9 AM CDT 12/13/2024 9:46 PM CDT Camden Johnson MD LAB BLOOD ORDERABLE S Final Result [facility] [address] [address] Department of Laboratories [place], [place] [id number] * POCT hemoglobin A1c (12/13/2024 10:42 AM CDT) Hemoglobin A1C, POC 5.9 4.0 - 5.6 % Blood 12/13/2024 10:4 2 AM CDT Camden Johnson MD POINT OF CARE TEST ORDERABLES Final Result * POCT glucose (12/13/2024 10:42 AM CDT) Glucose Blood, POC 106 mg/dL Blood 12/13/2024 10:4 2 AM CDT Camden Johnson MD POINT OF CARE TEST ORDERABLES Final Result * DIABETES EYE EXAM (10/04/2024 8:04 AM DATA MANAGEMENT CONSULTANT) us Historical Provider HEALTH MAINTENANCE Final Result from Last 3 Months or Most Recently Relevant to Health Maintenance Insurance [facility] CHOICE PLUS [facility] Advance Directives For more information, please contact: [phone] * Full Code (Latest Code Status on [...] ca se of cardiopulmonary arrest Care Teams Custom Motorcycle Painter Relationship Specialty Start Date End Date Heidi Samuel MD [address] [place] [address] PCP - General Family Medicine 11/09/24 Tiffany Salas NP Nurse Practitioner 06/07/23 Chantal Rothman MD Family Medicine 09/02/17
--- OUTSIDE RECORDS SUMMARY | 2025-01-20 10:59 | XMS_ITS | Clinical Summary ---
Author Organization [facility] [address] [place] [address] Care Team Providers Care Wall Worker Name Role Phone Maritza Tiffany Kyle NP Unavailable [phone] Chantal Rothman MD Unavailable [phone] Heidi Samuel MD Primary Care Provider [phone] Allergies Active Allergy Reactions Criticality Noted Date Comments Adhesive Urticaria Medium 06/07/2023 Adhesive Tape-Silicones Other (See comments) Low burning Atorvastatin Unknown Low 09/27/2020 Bacitracin-Polymyxin B Rash Medium 07/20/2020 Chlorhexidine Urticaria Medium 06/07/2023 Chlorhexidine Gluconate Hives,Itching Medium 1 Iodine Hives Medium 05/28/2021 Gzveqmav-Psnlgufjoj-Cxfonhigt Rash Medium 2020 Neosporin (Neomycin-Polymyx) Unknown Low 020 Sulfamethoxazole-Trimethoprim Unknown Low 2019 Medications SP[facility]plus[facility]transfection [facility] as directed. 0 01/10/20 18 Active levothyroxine [...] , with long-term current use of insulin ([facility]) Take 1 tablet (25 mg total) by mouth daily before breakfast 30 tablet 11 12/14/19 25 026 Active metFORMIN XR (GLUCOPHAGE XR) 500 mg 24 hr tabletIndicat ions:Type 2 diabetes mellitus with hyperglycemia , with long-term current use of insulin (HCC) Take 1 tablet (500 mg total) by mouth 2 (two) times a day 60 tablet 11 12/14/19 25 026 Active rosuvastatin (CRESTOR) 5 mg tabletIndicat ions:Type 2 diabetes mellitus with hyperglycemia , with long-term current use of insulin ([facility]),Hyperli pidemia associated with type 2 diabetes mellitus ([facility]) Take 1 tablet (5 mg total) by mouth daily 30 tablet 11 12/14/19 25 026 Active insulin glargine (LANTUS) 100 unit/mL (3 mL) pen for injectionIndi cations:Type 2 diabetes mellitus with hyperglycemia , with long-term current use of insulin ([facility]) Inject 28 Units under the skin daily 15 mL 1 12/14/19 25 025 Active pen needle, diabetic 33 gauge x 5/32 needleIndicat ions:Type 2 diabetes mellitus with hyperglycemia , with long-term current use of insulin ([facility]) Daily for insulin use 30 each 3 12/14/19 25 Active Active Problems Problem Noted Date Diagnosed Date Severe obesity 08/24/2024 Body mass index (BMI) 50.0-59.9, adult 5 Acute non-recurrent pansinusitis 08/20/2024 Assessment & Plan (08/20/2024 1:58 PM SAFETY INVESTIGATOR): Due to length of illness we will [...] (09/27/2020): Added automatically from request for surgery [id number] depression 09/18/2018 S/P section 08/19/2018 Overview (09/03/2018): [...] fluid into vagina 018 Overview (08/13/2018): 08/13/2018 [facility]: C/O mucosy 1/2cup of fluid loss from vagina -SSE negative pooling, negative VB, wet mount negative -SVE CL/TH/H -DVP 5.01cm/5.75cm -Patient given labor precautions Headache 08/04/2018 Overview (08/04/2018): [facility] Visit 08/04/18 Headache resolved with po Compazine. Normotensive. Normal glucose. Enc increasing po hydration. RX for po Compazine given. Pre-E precautions advised. F/U Friday. Reactive NST. 35 weeks gestation of 07/23/2018 Generalized body aches 07/23/2018 Overview (07/23/2018): [facility] Visit 07/23/18 Afebrile, VSS, denies cough or cold sx. Denies pain or n/v. Discussed comfort measures. Influenza swab obtained. Accu check 92. Precautions advised. Hx of biophysical profile 07/14/2018 Overview (07/14/2018): [facility] Visit 07/14/18 BPP 6/8, [...] previously. Aware that she will deliver at [facility]- SCHEDULED for 08/19/18 @ 0800. Patient [...] compliant Assessment & Plan (07/31/2018 10:46 AM SAFETY INVESTIGATOR): -Patient scheduled for delivery on August 19, [...] Current regimen, as reviewed on 08/14/18: NPH / Novolog 2 U with lunch and 2 U with dinner Metformin 1000 mg QAM/ 1000mg QHS - s/p cosmetology educator/family advocate -A1C 5.3% -Anatomic survey normal - Echo is normal but limited. Assessment & Plan (05/22/2018 10:31 AM CDT): -Blood sugars reviewed today. No changes made -Reviewed again risks of DM in . Patient verbalized understanding. Assessment & Plan (01/19/2018 2:23 PM CDT): Questionable diagnosis -Seeing Rent Control Office Manager and Booking Clerk tomorrow locally -BS review reflects fairly good [...] Department Care Team Description 12/17/2024 Orders Only [facility] Diabetes and Endocrinology [address] [place] [phone] ProviderRober MD 12/14/2024 Results Follow-Up [facility] [id number] [place] [phone] Camden Burroughs MD Albumin Creatinine Ratio, Urine, Lipid panel, Comprehensive metabolic panel, Additional followed-up results: 2 12/13/2024 11:19 AM CDT - 12/13/2024 11:59 PM CDT Hospital Encounter [facility] [id number] [place] [id number] Type 2 diabetes mellitus with hyperglycemia, with long-term current use of insulin (HCC); Hypertension associated with diabetes (HCC); Hyperlipidemia associated with type 2 diabetes mellitus (HCC); Acquired hypothyroidism Discharge Disposition: Discharge to home or self care 12/13/2024 11:15 AM CDT Lab [facility] Outpatient Lab at [address] [phone] 12/13/2024 10:30 AM CDT Office Visit [facility] Endocr[facility] [address] [place] [phone] Camden Burroughs MD Type 2 diabetes mellitus with hyperglycemia, with long-term current use of insulin (HCC) (Primary Dx); Acquired hypothyroidism; Hypertension associated with diabetes (HCC); Hyperlipidemia associated with type 2 diabetes mellitus (HCC); Morbid obesity with BMI of 50.0-59.9, adult (HCC) 11/09/2024 Telephone [facility] Diabetes [facility] Endocrinology [address] [place] [phone] Veto Drew MD from Last 3 Months Immunizations Immunization Administration Dates Next Due Influenza, Quadrivalent, Cathy l Culture-based MDCK, Antibiotic Free, Intramuscular 06/05/2018 Tdap 06/05/2018 Surgical History Surgery Date Site/Laterality Comments LEG SURGERY Leg Repair - metal plate in left leg (Added by Conv) [place] APPENDECTOMY Appendectomy - 1998 (Added by Conv) ORTHOPEDIC SURGERY 08/18/2002 - 08/17/2003 metal in Left lower leg SECTION Medical History Medical History Date Comments Personal history of other en docrine, nutritional and metabolic disease History of thyroid d isorder - (Added by Conv) Personal history of other di seases of the circulatory system History of chronic hypertens ion - (Added by Conv) Type 2 diabetes mellitus wit hout complications (HCC) Bbo-qzkoxju-qdbmnsgtd diabet es mellitus without complications - (Added by Conv) Chronic hypertension Tachycardia Hypothyroidism Lumbar facet [...] on file Legal Sex Female 3:23 AM SAFETY INVESTIGATOR Gender Identity Not on file Sexual Orientation [...] Dillon Mascorro MD Complications: Intolera nce Delivery Location:[facility] ([facility]) Last Filed Vital Signs Vital Sign Reading Time Taken Comments Blood Pressure 124/82 12/13/2024 10:39 AM CDT Pulse 82 12/13/2024 10:39 AM CDT Temperature 36.8 C (98.2 F) 08/24/2024 9:09 AM SAFETY INVESTIGATOR Respiratory Rate 16 12/13/2024 10:39 AM CDT Oxygen Saturation 95% 08/24/2024 9:09 AM SAFETY INVESTIGATOR Inhaled Oxygen Concentration - - Weight 144.2 kg (318 lb) 12/13/2024 10:39 AM CDT Height 157.5 cm (5' 2) 12/13/2024 10:39 AM CDT Body Mass Index 58.16 12/13/2024 10:39 AM CDT Plan of Treatment Health Maintenance Due Date Last Done Comments Breast Cancer Screening-Mammogram 1985 Cervical Cancer Screening 1985 Hepatitis C Screening 1985 Foot Exam 1985 Varicella Vaccines (1 of 2 - 13+ 2-dose series) 1998 Hepatitis B Screening 2003 Regular Well Visit/Exam 18-64 2003 Pneumococcal vaccine <65 (1 of 2 - PCV) 01/14/2004 Depression Screening 10/09/2019 10/09/2018 Covid-19 Vaccine ( season) 2024 07/14/2021, 11/10/2020, 10/13/2020 Influenza Vaccine (Season Ended) 2025 07/10/2022, 06/13/2021, 06/15/2020, Additional history exists Hemoglobin A1C 06/14/2025 12/13/2024, 2018 Dilated Eye Exam 10/04/2025 10/04/2024 Albumin Creatinine Ratio, Urine 12/13/2025 12/13/2024 Lipid Panel 12/13/2025 12/13/2024 eGFR 12/13/2025 12/13/2024, 08/18, 2018 DTaP/Tdap/Td Vaccine (3 - Td or Tdap) [...] with long-term current use of insulin (HCC) HM DIABETES EYE EXAM Routine 10/04/2024 8:04 AM SAFETY INVESTIGATOR from Last 3 Months or Most Recently Relevant to Health Maintenance Results * Albumin Creatinine Ratio, Urine (12/13/2024 10:14 PM CDT) Albumin Ur <12.0 mg/L Comment: Interpretive Data No reference range established. Current interpretive data was last revised 2018. Creatinine Ur 91.0 mg/dL REMY Comment: Interpretive Data No reference range established. Current interpretive data was last revised 2018. Albumin Creatinine Ratio, Ur <13 1 - 29 mg/g REMY Urine 12/13/2024 10:1 4 PM CDT 12/13/2024 10:14 PM CDT us Camden Johnson MD LAB URINE ORDERABLE S Final Result Performing Organization Address City/[facility]/ZIP Co de Phone Number REMY JAMES [address] Department [facility] [place] [address] * eGFR (12/13/2024 11:19 AM CDT) eGFR [...] ORDERABLE S Final Result Performing Organization Address City/[facility]/ZIP Co de Phone Number REMY JAMES [address] [place] [address] * Thyroid Function [place] (12/13/2024 11:19 AM CDT) TSH 3.22 0.30 - 4.20 mcIUnit/mL Blood 12/13/2024 11:1 9 AM CDT 12/13/2024 9:46 PM CDT us Camden Johnson MD LAB BLOOD ORDERABLE S Final Result JORDYZURDO [address] Department [place] [address] * Lipid panel (12/13/2024 11:19 AM CDT) [...] on 2018. Triglycerides 108 <=149 mg/dL REMY JAMES Comment: Interpretive Data Ages < or = [...] on 2018. HDL 41 >=40 mg/dL REMY JAMES Comment: Interpretive Data Ages < or = [...] 2018. LDL, calculated 88 <=129 mg/dL REMY JAMES Comment: Interpretive Data Ages < or = 19 years Acceptable: <110 mg/dL Borderline high: 110-129 mg/dL High: >or= 130 mg/dL Ages > or = 20 years Optimal: <100 mg/dL Near optimal: 100-129 mg/dL Borderline high: 130-159 mg/dL High: >160 mg/dL Calculated using the Remi LDL-C estimating equation. This equation was implemented on 2024. Prior to this date LDL-C was estimated using the Friedewald equation. Literature References: 1. Expert Panel on Integrated Guidelines for Cardiovascular Health and Risk Reduction in Children and Adolescents. Pediatrics 2011;128:S213 2. NCEP Expert Panel. Circulation 2004;110:227 3. Remi Renee et al. TONYA Cardiol. 2020 December 16;5(5):540-548. doi: 10.1001/jamacardio.2020.0013 Current Interpretive Data was last revised on 2024. Non-HDL Cholesterol 108 mg/dL REMY JAMES Comment: Interpretive Data Ages < or = [...] last revised on 2018. Chol/HDL ratio 4 REMY JAMES Blood 12/13/2024 11:1 9 AM CDT 12/13/2024 9:46 PM CDT us Camden Johnson MD LAB BLOOD ORDERABLE S Final Result REMY [address] [place] [address] * Comprehensive metabolic panel (12/13/2024 11:19 AM CDT) Sodium 137 135 - 145 mmol/L Potassium, pl 4.3 3.3 - 4.9 mmol/L C[facility]ER CH Chloride 99 97 - 110 mmol/L [facility] CO2 27 22 - 32 mmol/L [facility] Anion gap 11 2 - 15 mmol/L [facility] BUN 25 6 - 25 mg/dL [facility] Creatinine 1.03 0.60 - 1.10 mg/dL [facility] Glucose 82 70 - 199 mg/dL CERNER CH Comment: Interpretive Data Fasting glucose >/= 126 [...] LAB BLOOD ORDERABLE S Final Result REMY JAMES [address] [place] [address] * POCT hemoglobin A1c (12/13/2024 10:42 AM [...] * DIABETES EYE EXAM (10/04/2024 8:04 AM SAFETY INVESTIGATOR) Historical Provider HEALTH MAINTENANCE Final Result from Last 3 Months or Most Recently Relevant to Health Maintenance Insurance [facility] CHOICE [facility] HMO/PPO Address: [address] [address] [place] [address] [facility] Advance Directives For more information, please contact: [phone] * Full Code (Latest Code Status on [...] ca se of cardiopulmonary arrest Care Teams Wall Worker Relationship Specialty Start Date End Date Heidi Samuel MD [address] [facility] [place] [address] PCP - General Family Medicine 11/09/24 Tiffany Salas NP Nurse Practitioner 06/07/23 Chantal Rothman MD Family Medicine 09/02/17
--- OUTSIDE RECORDS SUMMARY | 2025-01-20 10:59 | XMS_ITS | Clinical Summary ---
Author Organization [facility] Address [address] [place] [address] Care Team Providers Care Classification Case Manager Name Role Phone Unavailable Primary Care Provider Unavailabl e Source Comments [facility],non-owned Affiliates and Associated Physician Practices is amultiple site organization consisting of ambulatory clinics and hospital sitesin [place], [place], [place] and [place]. This disclosure is being madepursuant to the Care Everywhere program and may not contain all information available regarding this patient. Last updated 18.[facility] [employer] Allergies Active Allergy Reactions Criticality Noted Date Comments Adhesive Sensitivity Urticaria Medium 01/11/2021 Povidone Iodine Urticaria Medium 03/29/2021 Bkrrfzny-Zchlbanykx-Htbcrklvg Rash Medium 2020 Skin Adhesives Urticaria Medium 01/11/2021 Medications * Be aware that medications may not be up to date on this document. Alwaysverify current medications with the patient. levothyroxine (SYNTHROID) 112 MCG tablet Take 112 [...] mouth once daily after breakfast 72-145 Active hydroCHLOROthia zide (HYDRODIURIL) 25 MG tablet Take 25 mg by mouth once daily Active oxyCODONE-aceta minophen (PERCOCET) 5-325 MG tablet Take 1 (one) tablet by mouth every 6 hours as needed for Pain 20 tablet Active Additional Information Patient not taking.Reported on 03/29/2021 Immunizations Immunization Administration Dates Next Due Rony Fonseca primary [...] on file Legal Sex Female 5:34 AM STRUCTURED CABLING TECHNICIAN Gender Identity Not on file Sexual Orientation [...] 12:25 PM CDT Height 160 cm (5' 3) 02/21/2021 12:52 PM CDT Body Mass Index 56.15 02/21/2021 12:52 PM CDT Plan of Treatment Health Maintenance Due Date Last Done Comments MAMMOGRAM 1985 HIV SCREENING 01/14/2000 HEPATITIS C SCREENING 01/09/2003 DTAP/TDAP/TD VACCINES (1 - Tdap) 01/14/2004 HEPATITIS B VACCINE (1 of 3 - 19+ 3-dose series) 01/14/2004 COVID-19 VACCINE (3 - 2023-2 5 season) 2024 11/10/2020, 10/13/2020 DEPRESSION SCREENING 08/18/2024 INFLUENZA VACCINE (Season Ended) 2025 06/15/2020, 06/24/2019, 06/05/2018 ZOSTER VACCINE (1 of 2) 2035 HIB VACCINE Aged Out No longer eligi ble based on patient's age to complete this topic HPV VACCINE Aged Out No longer eligi ble based on patient's age to complete this topic MENINGOCOCCAL (Group B) VACCINE SHARED DECISION-MAKING Aged Out No longer eligible based on patient's age to complete this topic MENINGOCOCCAL GROUPS A/C/Y/W VACCINE Aged Out No longer eligible b ased on patient's age to complete this topic PNEUMOCOCCAL VACCINE Aged Out No long er eligible based on patient's age to complete this topic Insurance [facility]
--- OUTSIDE RECORDS SUMMARY | 2025-01-20 10:59 | XMS_ITS | Encounter Summary ---
Author Organization [facility] Address [address] [facility] [place] [address] Care Team Providers Care Flavoring Maker Name Role Phone Unavailable Primary Care Provider Unavailabl e Encounter Details Date Type Department Care Team (Late st Contact Info) Description 12/12/2020 Telephone [facility] [address] [place] [address] Cole Villanueva MD [address] [place] [phone] Social History Tobacco Use Types Packs/Day Years Used Date Smoking Tobacco: Never Assessed Comments Unknown Sex and Gender Information Value Date Recorded Sex Assigned at Not on file Legal Sex Female 5:34 AM SHIP WASHER Gender Identity Not on file Sexual Orientation Not on file documented as of this encounter Plan of Treatment Not on file documented as of this encounter Visit Diagnoses Not on filedocumented in this encounter
--- OUTSIDE RECORDS SUMMARY | 2025-01-20 10:59 | XMS_ITS | CONTINUITY OF CARE DOCUMENT ---
Author Name nichole varela Address Unknown Organization [facility] Address [address] [place] [address] Phone [phone] Care Team Providers Care Meat Team Lead Name Role Phone Kate BOSCH, Jonathan Unavailable [phone] MURTAZA DIAS Unavailable [phone] MURTAZA DIAS Unavailable [phone] PROBLEMS Condition Status Date Provider Notes Leg [...] In-person encounter Office Visit Jonathan Love MD [facility] Palpitations - In-person encounter Office Visit Jonathan Love MD [facility] - In-person encounter Office Visit Jonathan Love MD [facility] Shortness of breathMold exposure - In-person encounter Office Visit Erasmo Braswell MD [facility] Diabetes mellitus, type 2 - In-person encounter Office Visit Erasmo Braswell MD [facility] HypothyroidismHTN essential;NEG DUPLEXAnxiety disorderExposure to SARS-associated coronavirus;neg igg VITAL SIGNS Date Observation Value Provider blood pressure, diastolic 75 mm[Hg] Al gavin [place] blood pressure, systolic 122 mm[Hg] [facility] gonzalo Bahena oxygen saturation, oximetry 97 % Chantal Bahena pulse rate 79 /min Chantal fuller respiratory rate E&M 16 /min Hyacinth ng [place] blood pressure, cuff size large Al gavin Mars[place] height E&M 63 [in_i] Chantal [...] ruenenfelder pulse rate 69 /min Iman Gruenenfe [facility] weight E&M 326 [lb_av] Iman Gruenenfe [facility] height E&M 63 [in_i] Iman Gruenenfe [facility] Body Mass Index (Ratio) 62.52 kg/m2 Matt Braswell MD blood pressure, cuff size large Ke rri Gruenenfelder blood pressure, diastolic 72 mm[Hg] Ke rri Gruenenfelder blood pressure, systolic 110 mm[Hg] Ker ri Gruenenfelder oxygen saturation, oximetry 98 % Iman Gruenenfelder respiratory rate E&M 16 /min Iman G ruenenfelder pulse rate 82 /min Iman Gruenenfe [facility] weight E&M 353 [lb_av] Iman Gruenenfe [facility] height E&M 63 [in_i] Iman Gruenenfe [facility] weight E&M 346 [lb_av] Germaine Novoa Body [...] Not Estab. platelet count 326 X10E3/UL [employer] 138-013 4462/07/ 01 red blood cell distribution width 13.8 [...] [employer] 3.5-5.2 sodium, serum 137 mmol/L [employer] [phone]/07/ 01 urea nitrogen/creatinine ratio, serum 19 [employer] [...] 0-149 High cholesterol, serum 124 mg/dL [employer] [phone]/10/ 16 platelet count 288 X10E3/UL [employer] [phone]/10/ 16 red blood cell distribution width 12.5 [...] [employer] 3.5-5.2 sodium, serum 140 mmol/L [employer] [phone]/10/ 16 urea nitrogen/creatinine ratio, serum 17 [employer] [...] iron binding capacity, unsaturated 249 ug/dL [employer] [phone]/12/ 04 iron binding capacity, total 309 ug/dL [employer] [phone]/12/ 04 free thyroxine index 2.5 [employer] 1.2-4.9 [...] Not Estab. platelet count 378 X10E3/UL [employer] 931-232 0138/12/ 04 red blood cell distribution width 13.4 [...] [employer] 3.5-5.2 sodium, serum 138 mmol/L [employer] [phone]/12/ 04 urea nitrogen/creatinine ratio, serum 18 [employer] [...] mouth once a day 08/18 - 03[facility] mg tablet active Chantal Loeraity 0.75 mg/0.5 mL pen injector active Ron Ahmedzai levothyroxine 112 mcg tablet active Ron Ahmedzai rosuvastatin 5 mg tablet active Ron Ahmedzai spironolactone 50 mg tablet completed - 08/18 Iman Russell losartan 100 mg tablet active Ron Ahmedzai metformin 500 mg tablet extended release 24 hr active Ron Ahmedzai hydrochlorothiazi de 12.5 mg capsule active [facility] Ahmedzai spironolactone 50 mg tablet completed [...] E&M revi ewed - no changes required Rno Paulino smoking status Never smoker Chantal Marsh [...] Payer name Policy type / Coverage type [place] red democrat [employer] (2) Medicaid [id number] ADVANCE DIRECTIVES Name Date DISCUSSED - NO DECISION MADE TREATMENT PLAN Date Name Performer [id number],C,n o pericardial effusion, no RV dysfuction O rders: P yari 5-10 (CPT-73105) Jonathan Love MD [id number],S, Ron Pike i [id number],C, B P today: 122/75 P rior BP: 130/80 (06/22/2021) Labs Reviewed: C reat: 0.95 (06/02/2021) C hol: 124 (06/02/2021) HDL: 52 (06/02/2021) [facility] [id number],S,i ncreased sxs of palpitations after she sustained her injury, will check holter to assess for arrythmias [facility] [id number],S,S he has chest contusion and cracked ribs which have been making her more SOB, will check echo to rule out any cardiac abnormality [facility] [id number],S, Ron Pike i [id number],S, Ron Pike i [id number],S, Ronmargo Pike i [id number],S, Ron Pike i [id number],S, Ronmargo Pike i [id number],S, Ron Pike i [id number],C, F eeling better N o CT was done, denied by insurance Jimbo Hernandez [id number],B, L ast LDL 47. Last trigs 149 Her updated medication list for this problem includes: Rosuvastatin 5 Mg Tablet (Rosuvastatin) ..... Once a day Jimbo Hernandez [id number],B, B P today: 130/80 P rior BP: 150/100 (06/01/2021) Her updated medication list for this problem includes: Spironolactone 50 Mg Tablet (Spironolactone) ..... Take 1 tablet by mouth once a day Hydrochlorothiazide 12.5 Mg Capsule (Hydrochlorothiazide) ..... Take 1 capsule by mouth once a day Losartan 100 Mg Tablet (Losartan) ..... Take 0.5 tablet by mouth once a day Jimbo Hernandez [id number],B, R are Jimbo Hernandez [id number],C, N ormal echo 06/21/21 Jimbo Hernandez [id number],B, H R was 41-47 in ER. Now off beta zaina and HR lowest 58bpm by 1 week tele. Jimbo Hernandez [id number],W, w orsened after smelling mold s xs improved with steroids and flonase but steroids were stopped in the ER w ill screen for HF with echo, pBNP. c heck CT chest for any acute abnormality Juan Pablo Negretetoshia [id number],W, a dd aldactone 50mg daily to regimen [...] mouth once a day Juan Pablo Penelopetoshia [id number],W, c heck CT chest to r/o infection Juan Pablo Penelopetoshia [id number],W, H R was 41-47 in ER p t was concerned about this o ff beta zaina H R 63 by EKG today w ill check 1 week tele Orders: P ROBNP, N TERMINAL (24231) C BC (H/H, RBC, INDICES, WBC, PLT) (1759) C OMPREHENSIVE METABOLIC PANEL, W/EGFR (85864) L IPID PANEL (7600) H EMOGLOBIN A1c (496) T SH, free T4, total T3 (7444) 9 9205 HIGH 60-74 min (CPT-50175) C omplete Echo (CPT-41743) M onitor - Telemetry (Mobile Cardiac) (CPT-16813) C T Chest without contrast (CPT-92459) The following medications were removed from the medication list: Metoprolol Succinate 50 Mg Tablet Extended Release 24 Hr (Metoprolol succinate) ..... Take 1 tablet by mouth once a day Juan Pablo Webster Telehealth - There i s a focal fluid collection along the the sup:no pericardial effusion, no RV dysfuction O rders: P yari 5-10 (CPT-36320) Jonathan Love MD Electrophysiology Ron Paulino Electrophysiology: [...] week tele Orders: P ROBNP, N TERMINAL (38283) C BC (H/H, RBC, INDICES, WBC, PLT) (1759) C OMPREHENSIVE METABOLIC PANEL, W/EGFR (15100) L IPID PANEL (7600) H EMOGLOBIN A1c (496) T SH, free T4, total T3 (7444) 9 9205 HIGH 60-74 min (CPT-23341) C omplete Echo (CPT-49391) M onitor - Telemetry (Mobile Cardiac) (CPT-38705) C T Chest without contrast (CPT-60746) The following medications were removed from the [...]
--- OUTSIDE RECORDS SUMMARY | 2025-01-20 11:00 | XMS_ITS | Encounter Summary ---
Author Organization [facility] Healthcare Address [address] [place] [address] Care Team Providers Care Director Of Business Systems Name Role Phone Tiffany Salas NP Unavailable [phone] Chantal Rothman MD Unavailable [phone] Heidi Samuel MD Primary Care Provider [phone] Encounter Details Date Type Department Care Team (Latest Contact Info) Description 12/14/2024 Results Follow-Up [facility] [place] [facility] [address] [id number] [place] [id number] [place] [id number] Albumin Creatinine Ratio, Urine, Lipid panel, Comprehensive metabolic panel, Additional followed-up results: 2 Social History Tobacco Use Types Packs/Day Years Used Date Smoking Tobacco: Never Smokeless Tobacco: Never Alcohol Use Standard Drinks/Week Comments No 0 (1 standard drink = 0.6 oz pur e alcohol) Comments Unknown Sex and Gender Information Value Date Recorded Sex Assigned at Not on file Legal Sex Female 3:23 AM [employer] Gender Identity Not on file Sexual Orientation Not on file documented as of this encounter Plan of Treatment Not on file documented as of this encounter Visit Diagnoses Not on filedocumented in this encounter Care Teams Director Of Business Systems Relationship Specialty Start Date End Date Heidi Samuel MD [address] [place] [address] PCP - General Family Medicine 11/09/24 Tiffany Salas NP Nurse Practitioner 06/07/23 Chantal Rothman MD Family Medicine 09/02/17 documented as of this encounter
== END 2025-01-20 10:02 | disposition home or self-care (01) ==
LOC: ANHIMG 10:03
PROVIDERS: PCP Family Medicine; Visit Provider Obstetrics & Gynecology
DX: Z12.31 Encounter for screening mammogram for malignant neoplasm of breast (principal)
CPT/HCPCS: 77063; 77067